=== PATIENT | female | born 1935 ===

== ENCOUNTER 2019-11-22 19:00 | Inpatient (IN) | payer OTHER ==
--- OUTSIDE RECORDS SUMMARY | 2019-11-22 19:07 | XMS REPORT ---
:1935 Author Organization eClinicalWorks Care Team Providers Name Role Phone Zay Hollnad Provider Role Unavailable Encounters Encounter Location Date Follow up, ref by Dr. Parry*CONFIRMED MD JAN Souza [facility] 2015 Results-MD JAN Condon October 09, 2015 1 week follow up MD JAN Souza October 16, 2015 2 weeks MD JAN Souza November 06, 2015 to check on email of blood pressure MD JAN Souza May 03, 2015 Unknown MD JAN Souza May 08, 2015 2 month follow up *confirmed MD JAN Souza Jun 21 5 Unknown MD JAN Souza Aug 12, 2015 Problems Problem Type Condition ICD-9 Code Onset Dates Condition Statu s Problem Hyperlipidemia 272.0 Active Problem HTN 401.1 Active Social History Social History Element Qualifiers Date Reported Do you smoke? . Are you a: Former Smoker quit October 112015 in 1996, Are you a: Former Smoker quit in 1996, Are you a: Former Smoker quit in 1996, Are you a: Former Smoker quit in 1996, Are you a: Former Smoker quit in 1996, Are you a: Former Smoker quit in 1996, Are you a: Former Smoker quit in 1996, Are you a: Former Smoker quit in 1996, Are you a: Former Smoker quit in 1996, Are you a: Former Smoker quit in 1996, Are you a: Former Smoker quit in 1996, Are you a: Former Smoker quit in 1996, Are you a: Former Smoker quit in 1996, Are you a: Former Smoker quit in 1996, Are you a: Former Smoker quit in 1996, Are you a: Former Smoker quit in 1996 Use of recreational / street drugs? . Answer: No, Answer: N o, Answer: November 06, 2015 No, Answer: No, Answer: No, Answer: No, Answer: No, Answer: No, Answer: No, Answer: No, Answer: No, Answer: No, Answer: No, Answer: No, Answer: No, Answer: No Marital Status: . , , , November 06, 2015 , , , , , , , , , , , , Caffeine intake? . Status: Yes, Status: Yes, November 05 016 Status: Yes, Status: Yes, Status: Yes, Status: Yes, Status: Yes, Status: Yes, Status: Yes, Status: Yes, Status: Yes, Status: Yes, Status: Yes, Status: Yes, Status: Yes, Status: Yes Do you exercise? . Answer: No, Answer: No, Answer: November 06, 2015 No, Answer: No, Answer: No, Answer: No, Answer: No, Answer: No, Answer: No, Answer: No, Answer: No, Answer: No, Answer: No, Answer: No, Answer: No, Answer: No Do you drink alcohol? . Status: No, Status: No, Status: Apr 2015 No, Status: No, Status: No, Status: No, Status: No, Status: No, Status: No, Status: No, Status: No, Status: No, Status: No, Status: No, Status: No, Status: No Summary Purpose eClinicalWorks Submission
--- OUTSIDE RECORDS SUMMARY | 2019-11-22 19:07 | XMS REPORT ---
:1935 Author Organization eClinicalWorks Care Team Providers Name Role Phone Zay Holland Provider Role Unavailable Encounters Encounter Location Date to check on email of blood pressure Sebastian Thakur [place] May 03, 2015 Unknown Sebastian Thakur [place] May 08, 2015 Problems Problem Type Condition ICD-9 Code Onset Dates Condition Statu s Problem Hyperlipidemia 272.0 Active Problem HTN 401.1 Active Social History Social History Element Qualifiers Date Reported Do you smoke? . Are you a: Former Smoker quit in Apr 23, 2015 1997 Use of recreational / street drugs? . Answer: No Apr 23, 2015 Marital Status: . Apr 23, 2015 Caffeine intake? . Status: Yes Apr 23, 2015 Do you exercise? . Answer: No Apr 23, 2015 Do you drink alcohol? . Status: No Apr 23, 2015 Summary Purpose eClinicalWorks Submission
--- OUTSIDE RECORDS SUMMARY | 2019-11-22 19:07 | XMS REPORT ---
:1935 [facility] Providers Name Role Phone Holland, Zay Provider Role Unavailable Allergies, Adverse Reactions, Alerts Substance Reaction Event Type N.K.D.A. Info Not Available Non Drug Allergy Encounters Encounter Location Date to check on email of blood pressure Sebastian Thakur MD [place] May 03, 2015 Unknown Sebastian Thakur [place] May 08, 2015 2 month follow up *confirmed Sebastian Thakur MD [place] Jun 21 5 Problems Problem Type Condition ICD-9 Code Onset Dates Condition Statu s Problem Hyperlipidemia 272.0 Active Assessment Chest pain, unspecified R07.9 Acti ve Problem HTN 401.1 Active Assessment Essential (primary) hypertension I10 Active Assessment Abnormal electrocardiogram [ECG] R94.31 Active [EKG] Assessment Shortness of breath R06.02 Active Assessment Hyperlipidemia, unspecified E78.5 Active Medications Medication Code System Code Instructions Start End Status Dosa ge Date Date Leflunomide MEDISPAN 10 MG Orally Active 1 tab let 73-56 Once a day Omeprazole MEDISPAN 17653-93 20 MG Orally Active 1 caps ule 11-10 Once a day Lumigan MEDISPAN 20962-10 0.01 % Active 1 drop into 05-03 Ophthalmic Once affected a day eye in the evening Alphagan P MEDISPAN 62463-94 0.15 % Active 1 drop into 77-05 Ophthalmic Three affecte d times a day eye Aggrenox MEDISPAN 20028-86 25-200 MG Orally Active 1 ca psule 01-60 Twice a day GlipiZIDE ER MEDISPAN 82143-45 10 MG Orally Active 1 ta blet 00-11 Once a day Tramadol HCl MEDISPAN 85097-39 50 MG Orally Active 1 ta blet as 58-01 every 6 hrs needed HCTZ Unknown 0 25MG Active Unknown Calcium + D MEDISPAN 16401-44 315-200 MG-UNIT Active 1 tablet 501 Orally Twice a with meal s day Enalapril MEDISPAN 5 MG Orally Once Active 1 t ablet Maleate 27-01 a day Atorvastatin [facility] 69502-27 20 MG Orally Active 1 ta blet Calcium 17-05 Once a day Social History Social History Element Qualifiers Date Reported Do you smoke? . Are you a: Former Smoker quit in Jun 21, 20151996, Are you a: Former Smoker quit in 1996 Use of recreational / street drugs? . Answer: No, Answer: N o Jun 21, 2015 Marital Status: . , Jun 21, 2015 Caffeine intake? . Status: Yes, Status: Yes Jun 21, 2015 Do you exercise? . Answer: No, Answer: No Jun 21, 2015 Do you drink alcohol? . Status: No, Status: No Jun 21, 2015 Vital Signs Date/Time: Jun 21, 2015 Weight 166 lbs Height 63 in Cardiac Monitoring Heart Rate 69 /min Blood Pressure Diastolic 70 mm Hg Blood Pressure Systolic 120 mm Hg Summary Purpose eClinicalWorks Submission
--- OUTSIDE RECORDS SUMMARY | 2019-11-22 19:07 | XMS REPORT | Continuity of Care Document ---
:1935 Author Organization [employer] Care Team Providers Name Role Phone [employer] Unavailable Un available Problems Problem Status Onset Classification Date Comments Sourc e Date Reported WEAKNESS/ STROKE LIKE Active SYMPTOMS 020 [place] ACUTE CVA, RECEIVED Active INTRAVENOUS TISSUE P 020 [facility] STROKE Active [address] HERMELINDO BILLING Active [address] G60.9 NEUROPATHY Active 016 [place] PAD Active 016 [facility] [place] Hyperlipidemia Active Problem 09/01/2019 Mirz [place] HTN Active Problem 09/01/2019 [place] Chest pain, unspecified Active Diagnosis 05/23/2016 [place] Essential (primary) Active Diagnosis 05/23/2016 Sebastian hypertension [place] Abnormal Active Diagnosis 05/23/2016 Sebastian electrocardiogram [ECG] [place] [EKG] Shortness of breath Active Diagnosis 05/23/2016 [place] Hyperlipidemia, Active Diagnosis 05/23/2016 Sal za unspecified [place] 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 middle [place] cerebral artery Hernia of abdominal Active Problem 03/12/2016 cavity (disorder) [place] Appendectomy Active Problem 03/12/2016 MH (procedure) [place] Bilateral cataracts Active Problem 03/12/2016 MH (disorder) [place] 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 MH (disorder) [place] Cholecystectomy Active Problem 03/12/2016 MH (procedure) [facility] [place] Osteoarthritis Active Problem 03/12/2016 MH (disorder) [place] Diverticulitis Resolved Problem 03/12/2016 (morphologic Greater abnormality) [facility] Dyslipidemia (disorder) Active Problem 03/12/2016 [place] Ex-cigarette smoker Active Problem 03/12/2016 MH (finding) [facility] [place] History of - Active Problem 03/12/2016 osteoarthritis Great er (context-dependent H eights category) History of - TIA Active Problem 03/12/2016 (context-dependent G reater category) [facility] Hearing loss (finding) Active Problem 03/12/2016 [facility] Hernia repair Active Problem 03/12/2016 (procedure) [facility] Hypercholesterolemia Active Problem 03/12/2016 (disorder) [facility] Hysterectomy Active Problem 03/12/2016 (procedure) [facility] Multiple ulcers Active Problem 03/12/2016 (morphologic Greater abnormality) [facility] Second cranial nerve Active Problem 03/12/2016 rt eye finding (finding) [place] Peripheral vascular Active Problem 03/12/2016 disease (disorder) [place] [facility] Pyloroplasty Active Problem 03/12/2016 (procedure) [facility] Reflux (finding) Active Problem 03/12/2016 [facility] Small bowel obstruction Active Problem 03/12/2016 (disorder) [facility] Vagotomy (procedure) Active Problem 03/12/2016 [facility] Coronary Active Problem 07/08/2019 [facility] arteriosclerosis Med ical (disorder) Center,[facility] 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 (disorder) [facility] Gallbladder calculus Resolved Problem 07/08/2019 [facility] (disorder) Medical [place],[facility] Gastroesophageal reflux Active Problem 07/08/2019 [facility] disease (disorder) edical Center,[facility] Glaucoma (disorder) Active Problem 07/08/2019 [facility] Hypertensive disorder, Active Problem 07/08/2019 [facility] systemic arterial Me dical (disorder) [place],[facility] Hyperlipidemia Active Problem 07/08/[place] (disorder) [facility] [place] Mitral valve Active Problem 07/08/2019 [facility] as regurgitation Medica l (disorder) [place] Normocytic anemia Active Problem 07/08/2019 [facility] (disorder) [facility] Rheumatoid arthritis Active Problem 07/08/2019 [facility] (disorder) Medical Center,[facility] ATHSCL SHISHMAREF IRA ARTERIES Active MH [facility] EX[facility]M [facility] HEREDITARY AND Active MH IDIOPATHIC NEUROPATHY, [facility] CEREBRAL INFARCTION, Active [facility] UNSPECIFIED Medical Center,[facility] S/P ADMN TPA IN DIFF Active FAC W/N LAST 24 HR G reater [facility] Medications Medication Details Route Status Patient Ordering Order Source Instructions Provider Date atorvastatin 40 40 mg = 1 Active Saurav as mg oral tablet tab, PO, 2018 Medical Bedtime, 0 Center Refill(s) carvedilol 12.5 12.5 mg = 1 Active [place] mg oral tablet tab, PO, 2018 Medical Q12H, 0 Center Refill(s) clopidogrel 75 mg 75 mg = 1 Active [facility] [place] oral tablet tab, PO, 2018 Medical Daily, 0 Center Refill(s) Aspirin 81 MG 81 mg = 1 Active [facility] Chewable Tablet tab, PO, 2018 Medical Daily, 0 Center Refill(s) enalapril 2.5 mg 2.5 mg = 1 Active [facility] [place] oral tablet tab, PO, 2018 Medical Q12H, 0 Center Refill(s) pantoprazole 40 40 mg = 1 Active Saurav as mg oral enteric tab, PO, 2018 Medical coated tablet Before Center Breakfast, 0 Refill(s) Lasix Notes: (Same Inactive [facility] as: Lasix) 2019 Medical May cause GI Center upset. Give with food or milk. Docusate Sodium Notes: (Same No Longer H [place] 50 MG / as Active 2018 Medical sennosides, HALFWAY Senokot-S) Cente r 8.6 MG Oral Equiv. to Tablet Loni-Colace. Insulin Glargine 8 unit, [place]er [place] 100 UNT/ML Route: Active 2019 Medical Injectable SUB-Q, Center Solution Daily, Dosing Weight 70.136, kg, Start date: 07/04/19 9:00:00 [employer] INSPECTOR, Duration: 30 day, Stop date: 08/02/19 9:00:00 [employer]WORK [employer] INSPECTOR tiotropium 0.018 Notes: (Same No Longer [place] MG/ACTUAT As: Spiriva) Active 2019 Medical Inhalant Powder Center [Spiriva] insulin, isophane Notes: (Same No Longer [place] as: Humulin Active 2018 Medical N) Roll in Center palms of hands gently; Do not shake vigorously. WASTE: F/P - Black; E - Municipal Trash Bin Stable for 31 days at room temperature Expires in days from __Date Ventolin HFA 90 2 puff, Active [place] mcg/inh INHALATION, 2019 Medical inhalation QID, 0 Center aerosol with Refill(s) adapter Fluticasone NASAL, No Longer [place] propionate 0.05 Daily, 0 Active 2018 Medical MG/ACTUAT Metered Refill(s) Cent er Dose Nasal [place] [Flonase] atorvastatin 10 10 mg = 1 No Longer [place] mg oral tablet tab, PO, Active 2018 Medical Daily, 0 [place] Refill(s) enalapril 5 mg 5 mg = 1 No Longer Saurav as oral tablet tab, PO, Active 2018 Medical Daily, 0 [place] Refill(s) predniSONE 2.5 mg 2.5 mg = 1 No Longer 06/28/ H [place] oral tablet tab, PO, Active 2018 Medical Daily, 0 Center Refill(s) Albuterol 0.833 Notes: (Same No Longer H [place] MG/ML / as: Duoneb) Active 2018 [facility] Ipratropium [place] 0.167 MG/ML Inhalant Solution [DuoNeb] Amiloride Route: PO, Inactive [place] Hydrochloride 5 Drug Form: 2019 Medic al MG / TAB, Dosing Center Hydrochlorothiazi Weight de 50 MG Oral 70.136, kg, Tablet Daily, Start date: 06/28/19 9:00:00 [employer]WORK [employer] INSPECTOR, Duration: 30 day, Stop date: 07/27/19 9:00:00 [employer]WORK [employer] INSPECTOR methylPREDNISolon Notes: (Same No Longer [place] e SODium as:Solu-MEDR Active 2018 [facility] SUCCinate OL, [place] A-Methapred) Coreg Notes: Give No Longer [place] with food. Active 2019 Medical (Same As: Center Coreg) Vasotec Notes: (Same Inactive [place] as: Vasotec) 2019 [facility] Hydralazine 10 mg, 0.5 [place] Longer [place] mL, Route: Active 2019 Medical IVP, Drug Center form: INJ, Q4H, Dosing Weight 70.136, kg, PRN Hypertension , Start date: 06/28/19 8:14:00 WO[employer]WORK [employer]VAGE INSPECTOR, Duration: 30 day, Stop date: 07/28/19 8:13:00 WO[employer]WORK SALVAGE INSPECTOR, 0 Albuterol 0.833 Notes: (Same Inactive [place] MG/ML / as: Duoneb) 2019 [facility] Ipratropium [place] 0.167 MG/ML Inhalant Solution [DuoNeb] Iohexol 99 mL, Inactive [place] Route: IVP, 2019 Medical Drug Form: Center SOLN, Dosing Weight 70.136, kg, ONCALL, STAT, Start date: 06/28/19 4:08:00 [employer]WORK [employer] INSPECTOR, Duration: 1 doses or times, Dose = 2.2ml/kg, Max dose = 100ml -- "To be infused by Radiology Staff ONLY" Potassium Notes: ([facility] Chlor[facility] as: Active 2019 [facility] Potassium [place] Chloride) atorvastatin Notes: (Same No Longer [place] as: Lipitor) Active 2019 [facility] enalapril Notes: (Same No Longer [place] as: Vasotec) Active 2019 [facility] Plavix Notes: (Same No Longer As: Plavix) Active 2019 [facility] Nystatin 100 Notes: (Same No Longer [place] UNT/MG Topical as:Mycostati Active [address] [facility] rom Powder n, Nilstat) Center For external use only. Zofran Notes: (Same No Longer [place] as: Zofran) Active 2019 Medical Center MEDICATION WASTE Product Size: 4 mg Product Wasted: ___ mg Tylenol Notes: Do No Longer [place] not exceed 4 Active 2019 Medical gm/day. Center (Same as: Tylenol) Magnesium Sulfate Notes: Inactive [place] WASTE: F/P - 2019 Medical Sink; E - Center Municipal Trash Bin Potassium Notes: (Same No Longer [place] Chloride as: Active 2019 [facility] Potassium Center Chloride) Miralax Notes: No Longer [place] Dissolve in Active 2019 Medical 8 oz of Center water or juice. (Same as: Miralax) Coreg Notes: Give No Longer [place] with food. Active 2019 Medical (Same As: Center Coreg) Mag-Ox 400 Notes: (Same No Longer Saurav as as: Mag-Ox Active 2019 Medical 400) Center Magnesium oxide [id number] elemental magnesium Dose=____mg magnesium oxide (___mg elemental magnesium) potassium Notes: (Same No Longer [place] chloride 20 mEq as: K-Dur Active 2018 Medica l oral tablet, 20) "Do Not Center extended release Crush" Give (KCL) with food and full glass of water For patients unable to swallow tablet, dissolve in one half glass of water. Allow about 2 minutes for the tablets to disintegrate . Stir before giving to prepare slurry and administer. Please exclude Patient&#821 7;s with feeding tube less than 14 [place] Citizen (Dobhoff, J-tube etc) and pediatric and patients. Lasix Notes: (Same No Longer [place] as: Lasix) Active 2019 Medical May cause GI Center upset. Give with food or milk. Lasix Notes: (Same Inactive [place] as: Lasix) 2019 Medical May cause GI Center upset. Give with food or milk. enalapril Notes: (Same No Longer [facility] as: Vasotec) Active 2019 Medical Center Omeprazole 20 mg, No Longer [place] Route: PO, Active 2019 Medical Drug form: Center ECCAP, Before Breakfast, Dosing Weight 68.182, kg, Start date: 06/25/19 7:30:00 WO[employer]WORK [employer] INSPECTOR, Duration: 30 day, Stop date: 07/24/19 7:30:00 [employer]WORK [employer] INSPECTOR Protonix Notes: No Longer [place] Tablet Active 2019 Medical should not Center be chewed or crushed. (Same as: Protonix) Lasix Notes: (Same Inactive [place] as: Lasix) 2019 Medical Center MEDICATION WASTE Product Size: 40 mg Product Wasted: ___ mg Dextrose 50% 12.5 gm, 25 [place]er [place] Syringe (D50W) mL, Route: Active 2018 Medica l IVP, Drug Center Form: INJ, Dosing Weight 68.182, kg, PRN, PRN Blood Glucose Results, Start date: 06/24/19 15:51:00 WO[employer]WORK [employer] INSPECTOR, Duration: 30 day, Stop date: 07/24/19 15:50:00 WO[employer]WORK [employer]VAGE INSPECTOR, 0 Glucagon 1 mg, Route: No Longer [place] IM, Drug Active 2019 Medical form: Center PDR/INJ, PRN, Dosing Weight 68.182, kg, PRN Blood Glucose Results, Start date: 06/24/19 15:51:00 WO[employer]WORK [employer] INSPECTOR, Duration: 30 day, Stop date: 07/24/19 15:50:00 WOODWORK SALVAGE INSPECTOR, 0 Insulin Lispro Notes: (Same No Longer [place] as: Humalog) Active 2019 Medical Roll in Center palms of hands gently; Do not shake vigorously. WASTE: F/P - Black; E - Municipal Trash Bin Stable for 28 days at room temperature. Expires in days from __Date Symbicort 160/4.5 Notes: (Same No Longer [place] inhalation as: Active 2019 Medical aerosol with Symbicort) Center adapter WASTE: Aerosol - Return to Pharmacy Albuterol 0.833 Notes: (Same No Longer H [place] MG/ML / as: Duoneb) Active 2019 Medical Ipratropium [place] 0.167 MG/ML Inhalant Solution [DuoNeb] Hydroxychloroquin 0 Refill(s) No Longer [place] e Sulfate 200 MG Active 2019 Medical Oral Tablet [place] Potassium Notes: (Same Inactive [place] Chloride as: K-Dur 2019 20) "Do Not Center Crush" Give with food and full glass of water For patients unable to swallow tablet, dissolve in one half glass of water. Allow about 2 minutes for the tablets to disintegrate . Stir before giving to prepare slurry and administer. Please exclude Patient&#821 7;s with feeding tube less than 14 [place] Citizen (Dobhoff, J-tube etc) and pediatric and patients. potassium Notes: (Same Inactive [place] chloride as: 2019 [facility] Potassium [place] Chloride) Lasix 40 mg, Inactive [place] Route: IVP, 2019 Medical Drug form: Center INJ, ONCE, Dosing Weight 68.182, kg, Priority: NOW, Start date: 06/24/19 12:34:00 WOODWORK [employer]VAGE INSPECTOR, Stop date: 06/24/19 12:34:00 WOODWORK SALVAGE INSPECTOR potassium 40 mEq, 2 Inactive [place] chloride 20 mEq tab, Route: 2019 Medi rom oral tablet, PO, Drug Center extended release form: ERTAB, (KCL) ONCE, Dosing Weight 68.182, kg, Priority: NOW, Start date: 06/24/19 12:34:00 WOODWORK SALVAGE INSPECTOR, Stop date: 06/24/19 12:34:00 WOODWORK SALVAGE INSPECTOR Lasix Notes: (Same Inactive [facility] as: Lasix) 2019 Medical Center MEDICATION WASTE Product Size: 40 mg Product Wasted: ___ mg heparin sodium, Notes: No Longer Saurav as porcine 2500 porcine Active 2018 [facility] UNT/ML Injectable heparin Center Solution Aspirin 81 MG Notes: Take No Longer [place] Chewable Tablet with food. Active 2019 Medic al Center atorvastatin Notes: (Same No Longer [place] As: Lipitor) Active 2019 [facility] Center Lasix Notes: (Same Inactive [facility] as: Lasix) 2019 [facility] normal saline 1,000 mL, No Longer Saurav as 0.9% IV 1,000 mL Rate: 75 Active 2019 Medica l ml/hr, Center Infuse over: 13.3 hr, Route: IV, Dosing Weight 68.182 kg, Total Volume: 1,000, Start date: 06/23/19 9:22:00 WOODWORK [employer]VAGE INSPECTOR, Duration: 30 day, Stop date: 07/23/19 9:21:00 WOODWORK SALVAGE INSPECTOR, 0 Iohexol Notes: (Same No Longer [facility] as:Omnipaque Active 2019 [facility] 350). Center WASTE: F/P - Black; E - Municipal Trash Bin enalapril 10 mg 10 mg = 1 No Longer [place] oral tablet tab, PO, Active 2019 Medical Daily, 0 Center Refill(s) 24 HR Glipizide 10 mg = 1 Active Saurav as 10 MG Extended tab, PO, 2019 Medical Release Tablet Daily, 0 Center Refill(s) Aspirin 25 MG / 1 cap, PO, No Longer [place] Dipyridamole 200 BID, 0 Active 2019 Medical MG Oral Capsule Refill(s) Center [Aggrenox] Omeprazole 20 mg, PO, No Longer [place] Daily, 0 Active 2019 Medical Refill(s) Center atorvastatin 20 20 mg = 1 No Longer [place] mg oral tablet tab, PO, Active 2018 Medical Daily, 0 Center Refill(s) Tramadol 50 mg, PO, No Longer [facility] Q4-6H, PRN Active 2019 Medical Pain, # 20 Center tab, 0 Refill(s) bimatoprost 0.3 1 drp, RIGHT Active [place] MG/ML Ophthalmic EYE, QPM, 0 2018 Med ical Solution Refill(s) Center [Lumigan] Combigan RIGHT EYE, Active [facility] Q12H, 0 2018 Medical Refill(s) [place] allopurinol 100 100 mg = 1 [place] mg oral tablet tab, PO, 2019 Medical BID, 0 Center Refill(s) gabapentin 400 MG 400 mg = 1 Active [place] Oral Capsule cap, PO, 2018 Medical TID, 0 Center Refill(s) Furosemide 20 MG 20 mg = 1 Active [place] Oral Tablet tab, PO, 2018 Medical Daily, 0 Center Refill(s) sitagliptin 100 100 mg = 1 Active [place] MG Oral Tablet tab, PO, 2019 Medical [Januvia] Daily, 0 Center Refill(s) predniSONE 2.5 mg 2.5 mg = 1 No Longer H [place] oral tablet tab, PO, Active 2018 Medical Daily, 0 Center Refill(s) Anoro Ellipta 1 puff, Active [place] 62.5 mcg-25 mcg INHALER, 2019 Medical inhalation powder Daily, # [address], 3 Refill(s) Flonase Sensimist NASAL, No Longer [place] Daily, 0 Active 2018 Medical Refill(s) Center Ventolin HFA INHALATION, No Longer [place] QID, 0 Active 2018 Medical Refill(s) Center sulfaSALAzine 500 1,000 mg = 2 Active H [place] mg oral tablet tab, PO, 2019 Medical BID, 0 Center Refill(s) sennosides, HALFWAY Notes: (Same No Longer 06/23/ H [place] as: Senokot) Active 2018 Medical Center Saline Flush 0.9% Notes: (Same No Longer [place] as: BD Active 2018 Medical Posiflush) Center Labetalol 105 mmHg, No Longer [place] Start date: Active 2018 [facility] 06/22/19 Center 18:58:00 WOODWORK SALVAGE INSPECTOR, Duration: 30 day, Stop date: 07/22/19 18:57:00 WOODWORK SALVAGE INSPECTOR, 0 Saline Flush 0.9% Notes: (Same No Longer [place] as: BD Active 2018 [facility] Posiflush) Center Metoprolol 1/2 tablet Orally Active 12.5 Orally [place] 02/04/ Sebastian Tartrate with food Twice a day 2015 [place] ceFAZolin (ANES) Route: IV, Inactive Drug form: 2015 [facility] INJ, ONCE, [facility] Stop date: 11/08/15 10:13:00 CDT ondansetron Route: IV, Inactive (ANES) Drug form: 2015 [facility] INJ, ONCE, [facility] Stop date: 11/08/15 10:13:00 CDT fentaNYL (ANES) Route: IV, Inactive Drug form: 2015 [facility] INJ, ONCE, [facility] Stop date: 11/08/15 10:13:00 CDT midazolam (ANES) Route: IV, Inactive Drug form: 2015 [facility] SOLN, ONCE, [facility] Stop date: 11/08/15 10:13:00 CDT Lactated Ringers Route: IV, Inactive Injection IV Total 2015 [facility] (ANES) (ANES) Volume: [place] 1,000, Start date: 11/08/15 9:27:00 CDT, Stop date: 11/08/15 10:27:00 CDT Calcium Chloride 1,000 mL, Inactive 0.0014 MEQ/ML / Rate: 25 2015 Potassium ml/hr, [place] Chloride 0.004 Infuse over: MEQ/ML / Sodium 40 hr, Chloride 0.103 Route: IV, MEQ/ML / Sodium Dosing Lactate 0.028 Weight MEQ/ML Injectable 72.273 kg, Solution Total Volume: 1,000, Start date: 11/08/15 7:24:00 CDT, Duration: 1 day, Stop date: 11/09/15 7:23:00 CDT Metoprolol 1 tablet Orally Active 25 MG Orally [place] 11/05/ Sebastian Succinate ER Once a day 2015g enalapril 10 mg 10 mg = 1 Active oral tablet tab, PO, 2015 [facility] Daily, # 30 [place] tab, 0 Refill(s) atorvastatin 20 20 mg = 1 Active mg oral tablet tab, PO, 2016 [facility] Bedtime, # [place] 30 tab, 0 Refill(s) Brimonidine 1 drp, RIGHT Active tartrate 1.5 EYE, BID, # 2016 [facility] MG/ML Ophthalmic 10 mL, 0 [place] s Solution Refill(s) [Alphagan] leflunomide 10 mg 10 mg = 1 Active oral tablet tab, PO, 2016 Daily, # 30 [place] tab, 0 Refill(s) bimatoprost 0.3 1 drp, RIGHT Active MG/ML Ophthalmic EYE, QPM, # 2016 [place] ater Solution 3 ml, 0 [place] [Lumigan] Refill(s) Calcium Carbonate 1 tab, PO, Active 1500 MG / BID, # 60 2016 [facility] Cholecalciferol tab, 0 [place] 400 UNT Oral Refill(s) Tablet Atorvastatin 1 tablet Orally Active 20 MG Orally [place] Calcium Once a day [place] Leflunomide 1 tablet Orally Active 10 MG Orally [place] Once a day [facility] HCTZ Unknown NA Active 25MG [place] Sebastian [facility] Calcium + D 1 tablet Orally Active 315-200 [place] Sebastian with meals MG-UNIT [place] Orally Twice a day Omeprazole 1 capsule Orally Active 20 MG Orally [place] Once a day [place] Aggrenox 1 capsule Orally Active 25-200 MG [place] Orally Twice [place] a day Alphagan P 1 drop into Ophthalmic Active 0.15 % [place] Sebastian affected eye Ophthalmic [place] Three times a day Tramadol HCl 1 tablet as Orally Active 50 MG Orally [place] Mi rza needed every 6 hrs [place] Lumigan 1 drop into Ophthalmic Active 0.01 % [place] Sebastian affected eye Ophthalmic [place] in the Once a day evening Enalapril Maleate 1 tablet Orally Active 5 MG Orally [place] M irza Once a day [facility] GlipiZIDE ER 1 tablet Orally Active 10 MG Orally [place] Once a day [facility] Lasix 1 tablet Orally Active 20 MG Orally [place] Once a day [facility] Metoprolol 1 tablet Orally No Longer 25 MG Orally [place] Succinate ER Active Once a day [facility] Gabapentin 1 capsule Orally Active 300 MG Orally [place] Three times a [place] day Metoprolol 1/2 tablet Orally Active 12.5 Orally [place] Tartrate with food Twice a day [place] Allergies, Adverse Reactions, Alerts Substance Category Reaction Severity Reaction Status Date Comments S ource type Reported N.K.D.A. Adverse Info Not Adverse Active Mirz a Reaction Available Reaction 6 [place] No Known Assertion Drug [facility] xa Medication allergy Medic al Allergies Center Immunizations Immunization Date Given Site Status Last Comments Source Updated influenza virus 03/13/2010 completed Yap [facility] vaccine, Medical [facility] [place] [facility] Hx pneumococcal 05/24/2008 Left completed Anaekwe [facility] vaccine deltoid [facility] Hx influenza 05/24/2008 Left completed Anaekwe Saurav as vaccine-unspecifi [place]toid [place] [facility] Results Order Name Results Value Reference Date Interpretation Comments Farida rce Range CHEM PANEL Magnesium Lvl 1.9 1.8 - 2.4 07/06 [facility] xa [facility] CHEM PANEL Phosphorus 2.6 2.5 - 4.5 07/[address] ELECTROLYTE AGAP 12.7 10.0 - 07/06 [facility] S 20.0 [facility] ELECTROLYTE Glucose Lvl 86 70 - 99 07/06 [facility]2018 [facility] ELECTROLYTE BUN 21 7 - 22 07/06 [facility]2018 [facility] ELECTROLYTE Creatinine 1.57 0.50 - 07/06 [facility] S Lvl 1.40 [facility] ELECTROLYTE Sodium Lvl 136 135 - 145 07/06 [place] [facility]2018 [facility] ELECTROLYTE Potassium Lvl 3.7 3.5 - 5.1 07/06 [place] [facility] ELECTROLYTE Chloride Lvl 103 95 - 109 07/06 Saurav as S [facility] ELECTROLYTE CO2 24 24 - 32 07/06 [facility]2018 [facility] ELECTROLYTE Calcium Lvl 9.2 8.5 - 10.5 07/06 [place] [facility] ELECTROLYTE eGFR 30 07/06 Result [facility] Comment: The Medical eGFR is Center calculated using the CKD-EPI formula. In most young, healthy individuals the eGFR will be >90 mL/min/1.73m2 . The eGFR declines with age. An eGFR of 60-89 may be normal in some populations, particularly the elderly, for whom the CKD-EPI formula has not been extensively validated. Use of the eGFR is not recommended in the following populations:< br/>
Jayshree viduals with unstable creatinine concentration s, including patients and those with serious co-morbid conditions.<b r/>
Patie nts with extremes in muscle mass or diet.

The data above are obtained from the National Kidney Disease Education Program (NKDEP) which additionally recommends that when the eGFR is used in patients with extremes of body mass index for purposes of drug dosing, the eGFR should be multiplied by the estimated BMI. HEMATOLOGY WBC 6.1 3.7 - 10.4 07/06 [facility] HEMATOLOGY RBC 3.52 4.20 - 07/06 [facility] 5.40 [facility] HEMATOLOGY Hgb 10.4 12.0 - 07/06 [facility] 16.0 [facility] HEMATOLOGY Hct 32.2 36.0 - 07/06 [facility] 48.0 [facility] HEMATOLOGY MCV 91.5 80.0 - 07/06 [facility] 98.0 [facility] HEMATOLOGY MCH 29.6 27.0 - 07/06 [facility] 31.0 [facility] HEMATOLOGY MCHC 32.3 32.0 - 07/06 [facility] 36.0 [facility] HEMATOLOGY RDW 16.0 11.5 - 07/06 [facility] 14.5 [facility] HEMATOLOGY Platelet 165 133 - 450 07/06 [facility]2018 [facility] HEMATOLOGY MPV 10.3 7.4 - 10.4 07/06 [facility]2018 [facility] PARATHYROID Ca Ion WB 1.14 1.05 - 07/06 [facility] PROFILE 1. [facility] PARATHYROID Ca Norm WB 1.16 1.05 - 07/06 [facility] PROFILE . [facility] CARDIAC Troponin-I 0.04 0.00 - 07/05 [facility] ENZYMES 0.40 [facility] CHEM PANEL Glucose Lvl 165 70 - 99 07/04 [facility] CHEM PANEL BUN 63 7 - 22 07/04 [facility] CHEM PANEL Creatinine 1.74 0.50 - 07/04 [place] Lvl 1.40 [facility] CHEM PANEL Sodium Lvl 140 135 - 145 07/04 [facility] CHEM PANEL Potassium Lvl 3.8 3.5 - 5.1 07/04 [facility] CHEM PANEL Chloride Lvl 101 95 - 109 07/04 [facility] CHEM PANEL CO2 31 24 - 32 07/04 [facility] CHEM PANEL Calcium Lvl 9.2 8.5 - 10.5 07/04 [facility] CHEM PANEL AGAP 11.8 10.0 - 07/04 [place] 20.0 [facility] CHEM PANEL eGFR 27 07/04 [facility] Comment: The [facility] eGFR is Center calculated using the CKD-EPI formula. In most young, healthy individuals the eGFR will be >90 mL/min/1.73m2 . The eGFR declines with age. An eGFR of 60-89 may be normal in some populations, particularly the elderly, for whom the CKD-EPI formula has not been extensively validated. Use of the eGFR is not recommended in the following populations:< br/>
Jayshree viduals with unstable creatinine concentration s, including patients and those with serious co-morbid conditions.<b r/>
Patie nts with extremes in muscle mass or diet.

The data above are obtained from the National Kidney Disease Education Program (NKDEP) which additionally recommends that when the eGFR is used in patients with extremes of body mass index for purposes of drug dosing, the eGFR should be multiplied by the estimated BMI. CHEM PANEL Glucose Lvl 160 70 - 99 07/03 [facility] CHEM PANEL BUN 67 7 - 22 07/03 [facility] CHEM PANEL Creatinine 1.66 0.50 - 07/03 [place] Lvl 1.40 [facility] CHEM PANEL Sodium Lvl 139 135 - 145 07/03 [facility] CHEM PANEL Potassium Lvl 3.9 3.5 - 5.1 07/03 [facility] CHEM PANEL Chloride Lvl 101 95 - 109 07/03 [facility] CHEM PANEL CO2 29 24 - 32 07/03 [facility]2018 [facility] CHEM PANEL Calcium Lvl 9.6 8.5 - 10.5 07/03 [facility] CHEM PANEL Total Protein 5.9 6.4 - 8.4 07/03 [facility] CHEM PANEL Albumin Lvl 2.6 3.5 - 5.0 07/03 [facility] CHEM PANEL ALT 11 0 - 65 07/03 [facility]2018 [facility] CHEM PANEL AST 10 0 - 37 07/03 [facility]2018 [facility] CHEM PANEL Alk Phos 57 39 - 136 07/03 [facility]2018 [facility] CHEM PANEL Bili Total 0.3 0.2 - 1.3 07/03 [facility]2018 [facility] CHEM PANEL eGFR 28 07/03 [facility] Comment: The [facility] eGFR is Center calculated using the CKD-EPI formula. In most young, healthy individuals the eGFR will be >90 mL/min/1.73m2 . The eGFR declines with age. An eGFR of 60-89 may be normal in some populations, particularly the elderly, for whom the CKD-EPI formula has not been extensively validated. Use of the eGFR is not recommended in the following populations:< br/>
Jayshree viduals with unstable creatinine concentration s, including patients and those with serious co-morbid conditions.<b r/>
Patie nts with extremes in muscle mass or diet.

The data above are obtained from the National Kidney Disease Education Program (NKDEP) which additionally recommends that when the eGFR is used in patients with extremes of body mass index for purposes of drug dosing, the eGFR should be multiplied by the estimated BMI. CHEM PANEL AGAP 12.9 10.0 - 07/03 [facility] 20. [facility] CHEM PANEL B/C Ratio 40 6 - 25 07/03 [facility]2018 [facility] CHEM PANEL Globulin 3.3 2.7 - 4.2 07/03 [facility]2018 [facility] CHEM PANEL A/G Ratio 0.8 0.7 - 1.6 07/03 [facility]2018 [facility] CHEM PANEL Magnesium Lvl 2.4 1.8 - 2.4 07/03 [facility] CHEM PANEL Phosphorus 3.1 2.5 - 4.5 07/03 [facility] PARATHYROID Ca Ion WB 1.21 1.05 - 07/03 [place] PROFILE 08.05 [facility] PARATHYROID Ca Norm WB 1.22 1. - 07/03 [facility] PROFILE 08.05 [facility] CHEM PANEL Magnesium Lvl 2.5 1.8 - 2.4 07/02 [facility] CHEM PANEL Phosphorus 3.0 2.5 - 4.5 07/02 [facility] PARATHYROID Ca Ion WB 1.23 1. - 07/02 [place] PROFILE 08.05 [facility] PARATHYROID Ca Norm WB 1.21 1. - 07/02 [facility] PROFILE 08.05 [facility] HEMATOLOGY WBC 10.2 3.7 - 10.4 07/02 [facility]2018 [facility] HEMATOLOGY RBC 3.57 4.20 - 07/02 [place] 5.40 [facility] HEMATOLOGY Hgb 10.4 12.0 - 07/02 [place] 16.0 2019 [facility] HEMATOLOGY Hct 32.9 36.0 - 07/02 [place] 48.0 [facility] HEMATOLOGY MCV 92.0 80.0 - 07/02 [place] 98.0 [facility] HEMATOLOGY MCH 29.0 27.0 - 07/02 [place] 31.0 2019 [facility] HEMATOLOGY MCHC 31.5 32.0 - 07/02 [place] 36.0 2019 [facility] HEMATOLOGY RDW 16.5 11.5 - 07/02 [place] 14.5 [facility] HEMATOLOGY Platelet 210 133 - 450 07/02 [facility] HEMATOLOGY MPV 9.4 7.4 - 10.4 07/02 [facility] HEMATOLOGY Segs 74.5 45.0 - 07/02 [place] 75.0 2019 [facility] HEMATOLOGY Lymphocytes 12.5 20.0 - 07/02 [place] 40.0 2019 [facility] HEMATOLOGY Monocytes 10.7 2.0 - 12.0 07/02 [facility]2018 [facility] HEMATOLOGY Eosinophils 2.0 0.0 - 4.0 07[place]02 [place] [facility] HEMATOLOGY Basophils 0.3 0.0 - 1.0 07/02 [facility]2018 [facility] HEMATOLOGY Neutrophils # 7.6 1.5 - 8.1 [place] [facility] HEMATOLOGY Lymphocytes # 1.3 1.0 - 5.5 [place] [facility] HEMATOLOGY Monocytes # 1.1 0.0 - 0.8 07/02 a s [facility] HEMATOLOGY Eosinophils # 0.2 0.0 - 0.5 07/02 [facility] x[facility] HEMATOLOGY WBC 12.2 3.7 - 10.4 07/01 [facility] HEMATOLOGY RBC 3.50 4.20 - 07/01 [place] 5.40 /2019 [facility] HEMATOLOGY Hgb 9.9 12.0 - 07/01 [place] 16.0 2019 [facility] HEMATOLOGY Hct 32.1 36.0 - 07/01 [facility] 48.0 [facility] HEMATOLOGY MCV 91.5 80.0 - 07/01 [facility] 98.0 [facility] HEMATOLOGY MCH 28.3 27.0 - 07/01 [place] 31.0 2019 [facility] HEMATOLOGY MCHC 30.9 32.0 - 07/01 [place] 36.0 2019 [facility] HEMATOLOGY RDW 16.5 11.5 - 07/01 [place] 14.5 2019 [facility] HEMATOLOGY Platelet 211 133 - 450 07/01 [facility] HEMATOLOGY MPV 9.5 7.4 - 10.4 07/01 [facility] HEMATOLOGY Segs 76.4 45.0 - 07/01 [facility] 75.0 /2019 [facility] HEMATOLOGY Lymphocytes 10.0 20.0 - 07/01 [place] 40.0 2019 [facility] HEMATOLOGY Monocytes 13.4 2.0 - 12.0 07/01 [facility] HEMATOLOGY Basophils 0.2 0.0 - 1.0 07/01 [facility] HEMATOLOGY Neutrophils # 9.3 1.5 - 8.1 07/01 [facility] HEMATOLOGY Lymphocytes # 1.2 1.0 - 5.5 07/[place] [facility] HEMATOLOGY Monocytes # 1.6 0.0 - 0.8 07/01 [facility] CARDIAC BNP 783 <=100 06/30 [facility] ENZYMES pg/mL [facility] CHEM PANEL Lactic Acid 1.1 0.5 - 2.2 06/30 [place] [facility] CHEM PANEL Procalcitonin 0.14 0.00 - 06/30 [facility] Lvl 0.10 [facility] HEMATOLOGY Segs 83.8 45.0 - 06/30 [facility] 75.0 [facility] HEMATOLOGY Lymphocytes 6.9 20.0 - 06/30 [facility] 40.0 [facility] HEMATOLOGY Monocytes 9.0 2.0 - 12.0 06/[address] HEMATOLOGY Basophils 0.3 0.0 - 1.0 06/[address] HEMATOLOGY Neutrophils # 10.9 1.5 - 8.1 06/30 [facility] HEMATOLOGY Lymphocytes # 0.9 1.0 - 5.5 06/30 [facility]2018 [facility] HEMATOLOGY Monocytes # 1.2 0.0 - 0.8 06/30 [facility]2018 [facility] CARDIAC BNP 583 <=100 06/28 [facility] ENZYMES pg/mL [facility] CHEM PANEL B/C Ratio 29 6 - 25 06/[address] CHEM PANEL Globulin 3.8 2.7 - 4.2 06/[address] CHEM PANEL A/G Ratio 0.7 0.7 - 1.6 06/[address] CHEM PANEL Total Protein 6.6 6.4 - 8.4 06/28 [facility] [address] [place] [address] CHEM PANEL Albumin Lvl 2.8 3.5 - 5.0 06/[address] CHEM PANEL ALT 14 0 - 65 06/[address] CHEM PANEL AST 14 0 - 37 06/[address] CHEM PANEL Alk Phos 71 39 - 136 06/[address] CHEM PANEL Bili Total 0.4 0.2 - 1.3 06/[address] CHEM PANEL B/C Ratio 25 6 - 25 06/[address] CHEM PANEL Total Protein 6.1 6.4 - 8.4 06/[address] CHEM PANEL Albumin Lvl 2.6 3.5 - 5.0 06/[address] CHEM PANEL Globulin 3.5 2.7 - 4.2 06/[address] CHEM PANEL A/G Ratio 0.7 0.7 - 1.6 06/26 [facility] [address] [place] [address] CHEM PANEL ALT 10 0 - 65 06/[address] CHEM PANEL AST 12 0 - 37 06/[address] CHEM PANEL Alk Phos 63 39 - 136 06/[address] CHEM PANEL Bili Total 0.2 0.2 - 1.3 06/[address] HEMATOLOGY Eosinophils 2.2 0.0 - 4.0 06/[address] HEMATOLOGY Eosinophils # 0.2 0.0 - 0.5 06/[address] HEMATOLOGY Basophils # 0.1 0.0 - 0.2 06/[address] CHEM PANEL Procalcitonin 0.11 0.00 - 06/25 [facility] Lvl 0.10 [facility] HEMATOLOGY Eosinophils 2.0 0.0 - 4.0 06/[address] HEMATOLOGY Eosinophils # 0.2 0.0 - 0.5 06/[address] HEMATOLOGY Basophils # 0.1 0.0 - 0.2 06/[address] CARDIAC BNP 1546 <=100 06/24 [facility] ENZYMES pg/mL [facility] CHEM PANEL Bili Direct <0.1 0.0 - 0.3 06/[address] CHEM PANEL Bili Indirect Unable to 0.0 - 1.0 06/24 [facility] [address] [place] [address] URINE AND UA Color Yellow Yellow 06/23 [facility] STOOL *NA* /2018 Medical (06/22/19 9:23 PM) Cente r URINE AND UA Turbidity Clear Clear 06/23 [facility] STOOL (06/22/19 9:23 PM) [facility] URINE AND UA Spec Grav 1.050 <=1.030 06/23 [facility] [address] [place] [address] URINE AND UA pH 5.0 5.0 - 8.0 06/23 [facility] [address] [place] [address] URINE AND UA Protein Negative Negative 06/23 [facility] STOOL (06/22/19 9:23 PM) [facility] URINE AND UA Glucose Negative Negative 06/23 [facility] STOOL *NA* /2018 [facility] (06/22/19 9:23 PM) Cente r URINE AND UA Ketones Negative Negative 06/23 [facility] STOOL *NA* /2018 [facility] (06/22/19 9:23 PM) Cente r URINE AND UA Bili Negative Negative 06/23 [facility] STOOL *NA* Medical (06/22/19 9:23 PM) Cente r URINE AND UA Blood Negative Negative 06/23 [facility] (06/22/19 9:23 PM) [facility] URINE AND UA <1.0 0.1 - 1.0 06/23 [facility] Urobilinogen /2018 [facility] URINE AND UA Nitrite Negative Negative 06/23 [facility] (06/22/19 9:23 PM) [facility] URINE AND UA Leuk Est Negative Negative 06/23 [facility] (06/22/19 9:23 PM) [facility] URINE AND UA Sq Epi Many /LPF Few /LPF 06/23 [facility] STOOL [facility] URINE AND UA WBC 1 0 - 5 06/23 [facility] STOOL [facility] URINE AND UA RBC 1 0 - 2 06/23 [facility] STOOL [facility] URINE AND UA Mucus Few /LPF None Seen 06/23 [facility] STOOL /LPF /2018 [facility] LIPIDS CHD Risk 3.46 3.90 - 06/23 [facility] 5.80 [facility] LIPIDS Trig 138 <=149 06/23 [facility] mg/dL [facility] LIPIDS Chol 142 <=199 06/23 [facility] mg/dL [facility] LIPIDS HDL 41 >=61 mg/dL 06/23 [facility] LIPIDS LDL 73 <=99 mg/dL 06/23 [facility] (Calculated) [facility] LIPIDS VLDL 28 06/23 [facility] SPECIAL Hgb A1C 6.7 <=5.6 % 06/23 [facility] CHEMISTRY /2018 [facility] HEMATOLOGY PTT 22.2 22.9 - 06/23 [place] 35.8 [facility] HEMATOLOGY INR 1.09 0.85 - 06/23 [facility] 1.17 [facility] HEMATOLOGY PT 13.9 12.0 - 06/23 [facility] 14.7 [facility] HEMATOLOGY RBC Morph See Note 4 Normal 06/23 Result [facility] (06/22/19 6:52 PM) /2018 Comment: [facility] ovalocytosis HEMATOLOGY Plt Morph Normal Normal 06/23 [facility] (06/22/19 6:52 PM) /2018 [facility] HEMATOLOGY Basophils # 0.1 0.0 - 0.2 06/23 [place] [facility] HEMATOLOGY Anisocyte 1+ None Seen 06/23 [facility] *ABN* /2018 [facility] (06/22/19 6:52 PM) Cente r ELECTROLYTE AGAP 10.9 10.0 - 11/04 S 20.0 /2015 [facility] ELECTROLYTE eGFR 40 11/04 Result Comment: The [facility] [place] calculated using the CKD-EPI formula. In most young, healthy individuals the eGFR will be >90 mL/min/1.73m2 . The eGFR declines with age. An eGFR of 60-89 may be normal in some populations, particularly the elderly, for whom the CKD-EPI formula has not been extensively validated. Use of the eGFR is not recommended in the following populations:< br/>
Jayshree viduals with unstable creatinine concentration s, including patients and those with serious co-morbid conditions.<b r/>
Patie nts with extremes in muscle mass or diet.

The data above are obtained from the National Kidney Disease Education Program (NKDEP) which additionally recommends that when the eGFR is used in patients with extremes of body mass index for purposes of drug dosing, the eGFR should be multiplied by the estimated BMI. ELECTROLYTE Creatinine 1.26 0.50 - 11/04 S Lvl 1.40 /2015 [facility] ELECTROLYTE BUN 25 7 - 22 11/04 [facility] ELECTROLYTE Sodium Lvl 138 135 - 145 11/04 [facility] ELECTROLYTE Glucose Lvl 115 70 - 99 11/04 S [facility] ELECTROLYTE Potassium Lvl 4.9 3.5 - 5.1 11/04 [facility] ELECTROLYTE CO2 30 24 - 32 11/04 [facility] ELECTROLYTE Chloride Lvl 102 95 - 109 11/04 [facility] ELECTROLYTE Calcium Lvl 9.5 8.5 - 10.5 11/04 [facility] HEMATOLOGY MCV 91.2 80.0 - 11/04 [facility] 98.0 /2015 [facility] HEMATOLOGY MCH 28.8 27.0 - 11/04 [facility] 31.0 /2015 [facility] HEMATOLOGY WBC 9.0 3.7 - 10.4 11/04 [facility] HEMATOLOGY Hgb 11.4 12.0 - 11/04 16.0 /2016 [facility] HEMATOLOGY Hct 36.2 36.0 - 11/04 48.0 /2016 [facility] HEMATOLOGY RBC 3.97 4.20 - 11/04 5.40 /2015 [facility] HEMATOLOGY MPV 8.5 7.4 - 10.4 11/04 [facility] HEMATOLOGY RDW 15.0 11.5 - 11/04 14.5 /2015 [facility] HEMATOLOGY Platelet 238 133 - 450 11/04 [facility] HEMATOLOGY MCHC 31.6 32.0 - 11/04 36.0 /2015 [facility] HEMATOLOGY Monocytes # 1.0 0.0 - 0.8 11/04 [facility] HEMATOLOGY Eosinophils # 0.1 0.0 - 0.5 11/04 [facility] HEMATOLOGY Lymphocytes # 2.1 1.0 - 5.5 11/04 [facility] HEMATOLOGY Basophils # 0.1 0.0 - 0.2 11/04 [facility] HEMATOLOGY Segs-Bands # 5.8 1.5 - 8.1 11/04 [facility] HEMATOLOGY Eosinophils 1.3 0.0 - 4.0 11/04 [facility] HEMATOLOGY Basophils 0.6 0.0 - 1.0 11/04 [facility] HEMATOLOGY Monocytes 10.9 2.0 - 12.0 11/04 [facility] HEMATOLOGY Lymphocytes 22.8 20.0 - 11/04 40.0 /2016 [facility] HEMATOLOGY Segs 64.4 45.0 - 11/04 75.0 /2015 [facility] HEMATOLOGY INR 0.93 0.85 - 11/04 1.17 /2015 [facility] HEMATOLOGY PT 12.8 12.0 - 11/04 14.7 /2016 [facility] HEMATOLOGY PTT 27.8 22.9 - 11/04 35.8 /2016 [facility] Pathology Reports No Data Provided for This Section Diagnostic Reports Report Value Date Source Gastric tube PROCEDURE INFORMATION: 09/13/2019 [facility] placement VR Exam: IR Insertion of the Pe rcutaneous Gastric Tube with Fluoroscopic Guidance Exam date and time: 09/13/2019 2:58 PM Age: 83 years old Clinical indication: Condition or disease; Addit ional info: /feeding TECHNIQUE: Imaging protocol: IR Insertion of the Percutaneo us Gastric Tube with Fluoroscopic Guidance; US guidance was provided, and stored at the facility. COMPARISON: ABDOMEN 1V FOR PLACEMENT DX 09/11/2019 11:21 PM FINDINGS: Consent: The procedure, risks, benefits and alternatives of the procedure were discussed. Time out: Timeout was performed prior to the pro cedure. Level of sedation: None. Total intra-service sedation time (minutes): Non e. Medications administered: Fentanyl 50 mcg IV. Procedure summary: The patient was placed supine on the fluoroscopy table. The existing enteric feeding catheter was utilized for air insufflati on. Air insufflation of the catheter confirmed proper in traluminal position within the stomach with gastric distension. Focused sonographic evaluation of the up per abdomen demonstrated the margin of the left lobe of the liver. Marking was made on the skin. The stomach was distended utilizing the enteric catheter. A prop er window for placement was visualized. The transverse colon position was no ana. The left upper quadrant of the abdomen was prepp ed and draped in the usual sterile fashion. 1% lidocaine was infused into t he subcutaneous tissues for local anesthesia. A gastropexy anchor was advanc ed into the stomach utilizing fluoroscopic guidance. Hand contrast injection t hrough the catheter confirmed proper intraluminal position within the stomach. The gastropexy anchor was deployed. The procedure was repeated for the oli cement of a 2nd gastropexy anchor. An 18 gauge needle was advanced into the stomach utilizing fluoroscopic guidance. Hand contrast injection through the ne edle confirmed proper intraluminal position within the stomach . A 0.035 in wire was advanced through the needle and was coiled wi thin the stomach. Serial dilations were placed over the wire. A peel-away sheath was placed over the wire. The stylet and wire were removed. The gastrostomy catheter was advanced t hrough the peel-away sheath. The balloon was distended wi th 10 cc of sterile saline. Hand contrast injection through the gastrostomy catheter confirm ed proper intraluminal position of the gastrostomy tip. The catheter was secured into p torsten position. Sterile dressing was applied. The patient tolerated the procedure well. There were no immediate complications. The patient w as transferred to the post procedure area in stable unchanged condition for further monitoring. Complications: No immediate complications. Fluoroscopy time: 10.4 minutes Number of fluoro spot images: 7 Reference Air Kerma: 113 mGy IMPRESSION: Successful insertion of the percutaneous gastros clarisa catheter utilizing fluoroscopic and ultrasound guidance. The catheter may be used after 24 hours. Dagoberto Gee MD On 09/13/2019 17:23:43; [id number]__ [id number] Abdomen 1 v for PROCEDURE INFORMATION: 09/11/2019 Debra Medeiros Placement DX Exam: XR Abdomen, 1 View Exam date and time: 09/11/2019 11:21 PM Age: 83 years old Clinical indication: Device placement; Additiona l info: /dobhoff placement TECHNIQUE: Imaging protocol: XR of the abdomen. Views: Frontal supine view of the abdomen. 1 Vie w. COMPARISON: ABDOMEN 1V FOR PLACEMENT DX 09/08/2019 4:43 PM CR ABDOMEN 1V FOR PLACEMENT DX 06/25/2019 11:58 PM FINDINGS: Tubes, catheters and devices: Dobbhoff feeding t ube projects over the distal stomach. Lungs: Abnormal opacity is demonstrated within e ach lung base. Heart/Mediastinum: Each hemidiaphragm is obscure d. Gastrointestinal tract: Residual GI contrast mat erial is demonstrated within the colon. Evidence of diverticulosis. Organs: Evidence of previous cholecystectomy. Bones/joints: No significant abnormality. IMPRESSION: 1. Dobbhoff feeding tube projects over the dista l aspect of the stomach. 2. Bibasilar atelectasis or infiltrate. 3. Residual GI contrast within the colon. Coloni c diverticula noted incidentally. 4. Dobbhoff feeding tube projects over the dista l stomach. Michael Hodgson MD On 09/12/2019 00:06:52; ELGIN-SMEM [id number] Abdomen 1 v for PROCEDURE INFORMATION: 09/08/2019 Debra Medeiros Placement DX Exam: XR Abdomen, 1 View Exam date and time: 09/08/2019 4:43 PM Age: 83 years old Clinical indication: Device placement; Additiona l info: Tube placement/tube placement TECHNIQUE: Imaging protocol: XR of the abdomen. Views: Frontal supine view of the abdomen. 1 Vie w. COMPARISON: CR ABDOMEN 1V FOR PLACEMENT DX 06/25/2019 11:58 PM FINDINGS: The visualized abdominal bowel gas pattern is u nremarkable. Tip of a feeding tube is in the body of the stomach. IMPRESSION: Tip of feeding tube in the body of the stomach Asa Munoz MD On 09/08/2019 18:05:49; [id number] Esophagus BA swallow PROCEDURE INFORMATION: 09/08/2019 KENNETH [facility] function video DX Exam: FL Swallowing Function with Cine or Vide o Exam date and time: 09/08/2019 9:29 AM Age: 83 years old Clinical indication: Dysphagia/cva, pna TECHNIQUE: Imaging protocol: Swallowing function, with cine radiography/ videoradiograph. Guided with fluoroscopy. Svetlana valladares supervised by facility personnel. Radiologist was present. Contrast material: BARIUM; Contrast volume: 50 m l; Contrast route: ORAL; COMPARISON: CR ESOPHAGUS BA SWALLOW FUNCTION VIDEO DX 020 11:49 AM FINDINGS: Assistants: See also separate speech pathology r eport. Target Protection Specialist: No front end assistant taken Procedure summary: Laryngeal penetration and aspiration were noted with thin, nectar and honey texture and with nectar texture as a wash. Chin tuck maneuver did not prevent penetration and aspiration. No laryngeal penetra tion or aspiration was noted with pudding texture. Fluoroscopy time: 119 seconds Number of fluoro spot images: 2995 Other findings: Relative air kerma 18.42 mGy IMPRESSION: Laryngeal penetration and aspiration were noted with thin, nectar and honey textures. Trever Mc MD On 09/08/2019 11:43:17; ELGIN-G [id number] Chest 1view DX PROCEDURE INFORMATION: 09/07/2019 KENNETH Medeiros Exam: XR Chest, 1 View Exam date and time: 09/07/2019 3:43 PM Age: 83 years old Clinical indication: /pulmonary edema? ? TECHNIQUE: Imaging protocol: XR of the chest Views: 1 view. COMPARISON: CHEST 1VIEW DX 09/04/2019 7:57 AM FINDINGS: Lungs: There is central pulm onary venous congestion with mild prominence of the bilateral pulmonary interstitial markings. Minim al to mild right basilar pulmonary opacities are present with mild left b asilar pulmonary opacities. Pleural space: Mild blunting of the left costoph renic angle identified. No pneumothorax or large right pleural effusion vis ualized. Heart/Mediastinum: The cardi ac silhouette appears mildly enlarged. The superior mediastinal contours are within normal limits fo r appearance. The thoracic aorta appears calcified. Bones/joints: Unremarkable. Other findings: Surgical clips are identified ov er the upper abdomen, just to the left of the midline. IMPRESSION: 1. Mild cardiomegaly with fi ndings suggesting mild pulmonary interstitial edema with a small left pleural effusion. There is mil d underlying left basilar atelectasis versus infiltrates. Minimal to mild right basilar atelectasis versus infiltrates are also present. Brian Jorgensen MD On 09/07/2019 16:22:11; VR-ER [id number] Esophagus BA swallow PROCEDURE INFORMATION: 09/04/2019 [facility] function video DX Exam: FL Swallowing Function with Cine or Vide o Exam date and time: 09/04/2019 11:49 AM Age: 83 years old Clinical indication: Dysphagia (difficulty swall owing); Additional info: Dysphagia/feeding tolerance TECHNIQUE: Imaging protocol: Swallowing function, with cine radiography/ videoradiograph. Guided with fluoroscopy. Exam supervised by faci lity personnel. Contrast material: BARIUM; Contrast volume: 20 m l; Contrast route: PO; COMPARISON: RF ESOPHAGUS BA SWALLOW FUNCTION VIDEO DX 2018 10:39 AM FINDINGS: Fluoroscopy time: 75 seconds Number of fluoro spot images: 1470 Reference Air Kerma: 1.15 mGy Small amount of aspiration seen with swallows of thin liquids and nectar. No aspiration with honey or pudding. IMPRESSION: 1. Small amount of aspiration with swallows of t hin liquids and nectar. No aspiration with honey or pudding. 2. For further information see formal speech pat hologi's report. Nikunj Balbuena MD On 09/04/2019 12:38:43; V [id number] Chest 1view DX PROCEDURE INFORMATION: 09/04/2019 Debra ballesteros [facility] Exam: XR Chest, 1 View Exam date and time: 09/04/2019 7:57 AM Age: 83 years old Clinical indication: Shortness of breath; Additi onal info: Sob/sob TECHNIQUE: Imaging protocol: XR of the chest Views: 1 view. COMPARISON: CHEST 1VIEW DX 09/03/2019 10:18 AM FINDINGS: Lungs: Left basilar consolidation with left pleu ral effusion and increased patchy hazy reticular opacity about the remainder of the lungs overall similar to prior study. No right pleural effusion and no pneumothorax. Pleural space: See Lungs Finding. Heart/Mediastinum: Cardiac and mediastinal struc tures are stable including aortic calcification. Bones/joints: Unremarkable. Other findings: Surgical clips noted in the mid upper abdomen. IMPRESSION: Stable chest radiograph compared to 09/03/2019. Nikunj Balbuena MD On 09/04/2019 08:54:03; V [id number] Brain wo contrast MRI PROCEDURE INFORMATION: 09/03/2019 KENNETH Medeiros Exam: MR Head Without Contrast Exam date and time: 09/03/2019 2:11 PM Age: 83 years old Clinical indication: Screening exam; Additional info: /cva TECHNIQUE: Imaging protocol: MR of the head without contras t. COMPARISON: BRAIN WO CONTRAST MRI 06/23/2019 10:30 PM FINDINGS: Brain: Study is degraded by patient motion. Ther e is an acute nonhemorrhagic infarct of the mesial aspect of the posterior ri ght frontal lobe with restrictive diffusion. There is a chronic infarc t of the right posterior temporal parietal and posterior frontal lobe wit h cystic encephalomalacia and subcortical gliosis. 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 There is an arachnoid cyst in the anterior aspect of the left middle cranial fossa. There is moderate central and cortical atrophy. Ventricles: There is ventriculomegaly. Bones/joints: Unremarkable. Soft tissues: Unremarkable. Sinuses: Normal as visualized. No acute sinusiti s. Mastoid air cells: Normal as visualized. No mast oid effusion. Orbits: Unremarkable. Sella: Sellar and parasellar structures are norm al. There is no cerebellar tonsillar ectopia. Other vasculature: There is normal flow from the 4th portions of both vertebral arteries, the basilar artery and intracranial ca rotid arteries. The right posterior communicating artery is patent in feta l type pattern. The anterior communicating arteries patent. IMPRESSION: There is an acute nonhemorrhagic inf arct of the mesial aspect of the posterior right frontal lobe, with restricti ve diffusion. 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 There is an arachnoid cyst in the anterior aspect of the left middle crania l fossa. There is moderate central and cortical atrophy. Jairo Martinez MD On 09/03/2019 15:21:59; VR-B [id number] Chest 1view DX PROCEDURE INFORMATION: 09/03/2019 Debra Medeiros Exam: XR Chest, 1 View Exam date and time: 09/03/2019 10:18 AM Age: 83 years old Clinical indication: Shortness of breath; Additi onal info: SOB TECHNIQUE: Imaging protocol: XR of the chest Views: 1 view. COMPARISON: CHEST 1VIEW DX 09/02/2019 5:31 PM FINDINGS: Lungs: There is pulmonary vascular conge stion which has worsened when compared the previous exam. There is left lower lobe airs pace disease. Pleural space: There is left pleural eff usion which is unchanged when compared previous exam. Heart/Mediastinum: The heart is enlarged but sta ble. Bones/joints: Unremarkable. IMPRESSION: 1. Stable left pleural effusion. 2. Pulmonary vascular congestion which h as worsened when compared the previous exam suggestive of heart failure versus volume o verload. Manuel Charles MD On 09/03/2019 11:21:47; [place] [id number] Brain wo contrast CT Radiation Dose CTDIVOL = 0 (mGy): DLP = 770 (mGy-cm) 09/02/2019 [facility] PROCEDURE INFORMATION: Exam: CT Head Without Contrast Exam date and time: 09/02/2019 7:14 PM Age: 83 years old Clinical indication: Headache with dizziness and giddiness/s/p tpa, severe headache TECHNIQUE: Imaging protocol: Computed tomography of the hea d without contrast. Total DLP: 770 mGy-cm Radiation optimization: All CT scans at this facility use at least one of these dose optimization techniques: automated exposure control; mA and/or kV adjustment per patient size (includes targeted e xams where dose is matched to clinical indication); or iterative reconstructio n. COMPARISON: CT BRAIN STROKE WO CONTRAST and CTA head and nec k done on 09/02/2019 FINDINGS: Limitations: There is residual contrast in the vascular structures from the recent CTA. BRAIN: No definite acute intracranial hemorrhag e. No cerebral edema, large intracranial mass, mass effect or midline shift. Moderate generalized age-related parenchymal atrophy. Chronic infarct s are again seen in bilateral posterior frontal lobes, bilateral parie ana lilia and occipital lobes as well as the right cerebellar hemisphere. Patchy hypodensitie s in the binu may be artifactual. Other patchy white matter h ypodensities, nonspecific, likely mild to moderate chronic microvascular ischemic gibson es. The doran-white matter differentiation is otherwise maintained. Probabl e arachnoid cyst in the left middle cranial fossa. Atherosclerotic arterial c alcifications are noted. VENTRICLES AND CSF SPACES: The lateral, third a nd fourth ventricles appear dilated, likely secondary to the parenchymal atr ophy. The suprasellar and basilar cisterns appear unremarkable. ORBITS: Bilateral intra-ocu lar lens replacement. No significant abnormality is identified VISUALIZED PARANASAL SINUSES: Minimal mucosal t hickening in the right maxillary sinus posteriorly. Other visualized pa ranasal sinuses are clear. MASTOID AIR CELLS: Clear. External auditory canals: Probable cerumen bila terally, right greater than left. CALVARIUM: No acute skull osseous abnormality o r focal suspicios osseous lesions are seen. SCALP: Unremarkable Notes: If there is further clinical concern for intracranial pathology, MRI of the brain may be performed for further assessmen t. IMPRESSION: 1. No evidence of acute intracranial abnormality . 2. Chronic age related and remote ischemic gibson es of the brain as above. 3. Probable arachnoid cyst in the left middle cr anial fossa, unchanged. Ken Rodriguez MD On 09/02/2019 20:00:07; [id number] Chest 1view DX PROCEDURE INFORMATION: 09/02/2019 [facility] Exam: XR Chest, 1 View Exam date and time: 09/02/2019 5:31 PM Age: 83 years old Clinical indication: /cva TECHNIQUE: Imaging protocol: XR of the chest Views: 1 view. COMPARISON: CHEST 1VIEW DX 06/28/2019 1:22 AM FINDINGS: Lungs: Interstitial and airspace opacities are n oted throughout the lungs. A left retrocardiac opacity is also visualized. Th ere is a background of emphysema. Pleural space: Bilateral ple ural effusions are present, left greater than right in size. Heart/Mediastinum: The cardiac silhouette is enl arged. Vasculature: Atherosclerosis of the aorta. Bones/joints: Unremarkable. IMPRESSION: Pulmonary edema with bilateral pleural effusions , left greater than right. Left retrocardiac airspace disease. Enlargement of the cardiac silhouette. Nikunj Murphy MD On 09/02/2019 18:15:13; [id number] Brain/Neck CTA Radiation Dose CTDIVOL = 0 (mGy): DLP = 393 (mGy -cm) 09/02/2019 [facility] PROCEDURE INFORMATION: Exam: CT Angiography Head With Contrast Exam date and time: 09/02/2019 5:14 PM Age: 83 years old Clinical indication: Weaknes s; Additional info: /acute CVA, left sided weakness TECHNIQUE: Imaging protocol: Computed tomography an giography of the head with intravenous contrast. 3D rendering: MIP and/or 3D reconstructed images were created by the technologist. Total DLP: 393 mGy-cm Radiation optimization: All CT scans at this facility use at least one of these dose optimization techniques: automated exposure control; mA and/or kV adjustment per patient size (includes targeted e xams where dose is matched to clinical indication); or iterative reconstructio n. Contrast material: VISI 320; Contrast volume: 10 0 ml; Contrast route: IV; COMPARISON: BRAIN/NECK CTA 06/24/2019 2:20 AM FINDINGS: Right internal carotid artery: Atherosclerotic c alcification of the carotid siphons. Right anterior cerebral artery: Unremarkable. No occlusion or significant stenosis. Right middle cerebral artery: Unremarkable. No o cclusion or significant stenosis. Right posterior cerebral artery: o rigin. There is a posteriorly oriented 3 mm aneurysm arising from the origin of the rig ht posterior communicating artery on series 5, image 105. No occlusion or s ignificant stenosis. Right vertebral artery: Unremarkable. No occlusi on or significant stenosis. Left internal carotid artery: Atherosclerotic ca lcification of the carotid siphons. Left anterior cerebral artery: Unremarkable. No occlusion or significant stenosis. Left middle cerebral artery: Unremarkable. No oc clusion or significant stenosis. Left posterior cerebral artery: Unremarkable. No occlusion or significant stenosis. Left vertebral artery: Unremarkable. No occlusio n or significant stenosis. Basilar artery: Unremarkable. No occlusion or si gnificant stenosis. Other vasculature: Intracran ial segment is patent with no significant stenosis. Intracranial segment is patent with no significa nt stenosis. PROCEDURE INFORMATION: Exam: CT Angiography Neck With Contrast Exam date and time: 09/02/2019 5:14 PM Age: 83 years old Clinical indication: Weaknes s; Additional info: /acute CVA, left sided weakness TECHNIQUE: Imaging protocol: Computed tomography an giography of the neck with intravenous contrast. 3D rendering: MIP and/or 3D reconstructed images were created by the technologist. Total DLP: 393 mGy-cm Radiation optimization: All CT scans at this facility use at least one of these dose optimization techniques: automated exposure control; mA and/or kV adjustment per patient size (includes targeted e xams where dose is matched to clinical indication); or iterative reconstructio n. Contrast material: VISI 320; Contrast volume: 10 0 ml; Contrast route: IV; COMPARISON: BRAIN/NECK CTA 06/24/2019 2:20 AM FINDINGS: VASCULATURE: Right common carotid artery: Unremarkable. No st enosis. No dissection or occlusion. Right internal carotid artery: Approximately 70- 80% stenosis of the proximal right internal carotid artery due to circumferen tial atherosclerotic disease. No distal flow limitation or occlusion is noted. Right external carotid artery: Unremarkable. No occlusion or stenosis of the origin. Right vertebral artery: Unremarkable. No stenosis. No dissection or occlusion. Left common carotid artery: Unremarkable. No karlos nosis. No dissection or occlusion. Left internal carotid artery: Approximately 20% luminal stenosis of the proximal left internal carotid artery. No dissec tion or occlusion. Left external carotid artery: Unremarkable. No o cclusion or stenosis of the origin. Left vertebral artery: Unremarkable. No stenosis . No dissection or occlusion. Aorta: Atherosclerosis of the aorta without sign ificant origin stenosis. NECK: Bones/joints: Degenerative changes of the cervic al spine. Soft tissues: Normal. No significant soft tissue swelling. Lungs: Interstitial prominen ce and ground-glass opacities are noted in the lung apices. There are bilateral pleural effusions, left greater than right in size. Prominent centrilobular emphysematous changes ar e also present. COMMENTS: Using NASCET method for measuring degree of vilchis tid artery stenosis: Mild is less than 50% stenosis. Mode rate is 50-69% stenosis. Severe is 70-94% stenosis. Near occlusion is 95-99% stenosis. IMPRESSION: CT Angiography Head With Contrast 1. No proximal occlusion in the ucqvht-lo-Fixdmu . 2. 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 3. Atherosclerosis of the carotid siphons withou t significant stenosis. CT Angiography Neck With Contrast 1. Approximately 70-80% art nal stenosis of the proximal right internal carotid artery. 2. Approximately 20% stenosis of the proximal le ft internal carotid artery. 3. Pulmonary edema with bilateral pleural effusi ons in the lung apices. Nikunj Murphy MD On 09/02/2019 17:51:31; [id number] Brain Stroke wo Radiation Dose CTDIVOL = 0 (mGy): DLP = 753 (mGy -cm) 09/02/2019 [facility] contrast CT PROCEDURE INFORMATION: Exam: CT Head Without Contrast Exam date and time: 09/02/2019 5:08 PM Age: 83 years old Clinical indication: Pain; Additional info: /acu te dense L sided weakness TECHNIQUE: Imaging protocol: Computed tomography of the hea d without contrast. Total DLP: 753 mGy-cm Radiation optimization: All CT scans at this facility use at least one of these dose optimization techniques: automated exposure control; mA and/or kV adjustment per patient size (includes targeted e xams where dose is matched to clinical indication); or iterative reconstructio n. Other technique: STROKE PROTOCOL was implemented . COMPARISON: BRAIN WO CONTRAST CT 06/22/2019 5:34 PM FINDINGS: Brain: There is a chronic cortical infarct of th e left frontal lobe, right frontal parietal lobe and left occipital mesial parietal lobe. There is moderate central cortical atrophy. There is no obvious acute cortical infarct. There is no parenchymal hemo rrhage. There are no extra-axial fluid collections. There is a incidental arachnoid cyst in the left middle cranial fossa. Sellar and parasellar structures ar e normal. There is no cerebellar tonsillar ectopia. Ventricles: Normal. No ventriculomegaly. Bones/joints: Unremarkable. No acute fracture. Sinuses: Visualized sinuses are unremarkable. No fluid levels. Mastoid air cells: Visualized middle ear cavity, antrum and mastoid air cells are normally aerated. Orbits: The orbital lenses have been res ected. The globes are intact. There is no retrobulbar abnormality. Soft tissues: Unremarkable. IMPRESSION: Chronic bihemispheric infarc ts are present similar to the prior MR study of June 23, 2019. There is no obvious acute cortical infarct. As warranted clinically MR imag ing can be performed. There is moderate central and cortical atrophy with associated ventriculomegal y. There is a arachnoid cyst in the anterior aspect of the left middle cranial fossa. The results of study reported to the emergency r oom physician at the time of dictation. ASSESSMENT: ASPECTS ([place] Stroke Program Early CT Score) is 10. Jairo Martinez MD On 09/02/2019 17:20:45; VR-B [id number] Esophagus BA swallow EXAM: FLUOROSCOPY MODIFIED BARIUM SWALLOW 1 08/30/2018 [facility] function video DX DATE: 06/29/2019 at 1039 hours Center INDICATION: - dysphagia, DENTAL [employer]KER-troy. ADDITIONAL INFORMATION: Stroke. COMPARISON: None. TECHNIQUE: Oral barium contr ast of differing consistencies was given to the patient to assess swallowing mechanism. The study was performed in conjunction with speech pathology. FLUOROSCOPY TIME: 1 minutes and 37 seconds FLUOROSCOPY DOSE: 9.41 mGy DISCUSSION: The patient was given barium contrast of differe nt consistencies. Thin barium: Deep laryngeal penetration with no gross tracheal aspiration.. Sunshine barium: Deep laryngea l penetration while drinking with a straw. No gross aspiration.. Puree barium: Normal. Pudding barium: Normal. Solid with barium: Normal. IMPRESSION: 1. Deep laryngeal penetrati on with thin and nectar barium consistencies. No gross tracheal aspiration with any of the barium consistencies. 2. Please also see detailed chart note by jamey chand pathology. Chest Pulmonary EXAM: CTA CHEST WITH CONTRAST 06/28/2019 [facility] Embolism CTA DATE: 06/28/2019 3:05 [employer] Center INDICATION: - acute O2 desatting w/ tachycardia in pt w/ recent LE swelling COMPARISON: CT abdomen pelvis dated 08/01/2010. TECHNIQUE: Volumetric CT of the chest is acquired during pulmonary arterial phase following intravenous administration of contrast. Axial, sagittal, coronal, and oblique MIP reconstructions are created at the acquisition workstation. IV Contrast: 100 mL Omnipaque 350. DLP: 554 mGy-cm FINDINGS: Lines and tubes: Gastric tub e with distal tip in the stomach. Surgical clips seen at the gastroesophageal junction. Lower neck: Unremarkable. Axilla: Clear. Airway: Clear. Lungs and pleura: Centrilobu lar and paraseptal emphysematous changes seen throughout the bilateral lungs production for the upper lobes. There are bilateral pleural effusions, left greater than right wi th associated compressive an d dependent atelectatic changes throughout the posterior lungs but greatest at the bases. There are multiple scattered calcified granulomas in bilateral lungs. There is a 1.1 cm hyperdense nodule with q uestionable central calcification seen in the right upper lung (series 5 image 33), as well as innumerable small nodules measuring between 1 to 5 mm. Clusters of small likely reactive nodules are seen in the bases bilatera lly. Mediastinum, ml and intrat horacic lymph nodes: Multiple calcified paratracheal and perihilar lymph nodes are seen which appear normal in size. Heart, pericardium and great vessels: Diffuse atherosclerotic disease seen throughout the thoracic and upper abdominal aorta. Calcifications seen in the coronary arteries. Pulmonary emboli: No pulmona ry embolus is identified to the subsegmental level. Pulmonary trunk: 3 cm, englarged. Ascending aorta: 3 cm. Heart: The heart appears enl arged. No right heart strain. RV:LV ratio is 4.3/4.9 = <1 (Normal <1) Pericardium: No pericardial fluid. Upper abdomen: Fatty atrophy of the pancreas is seen. There are scattered calcifications seen throughout the spleen and liver, this is unchanged from previous and represents calcified granulomas. The bi lateral adrenals remain thic kened with a stable appearing, fat density left adrenal nodule. The bilateral kidneys appear atrophied with surrounding scarring changes. Bones: No acute abnormality. Degenerative changes seen throughout the lower cervical and thoracic spine. Soft tissues:Unremarkable. IMPRESSION: 1. No pulmonary embolus is identified to the clark bsegmental level. 2. CT evidence for right heart strain is absent . 3. Dominant nodule in the r ight upper lobe measuring 1.1 cm in background innumerable nodules measuring <5 mm. The dominant nodule has questionable calcification and could represent a granuloma, but has patient is high ris k for lung cancer would recommend follow-up CT chest in 3-6 months. 4. Clustered nodules in the right and left lower lobes which could represent infectious changes versus aspiration. 5. Centrilobular and paraseptal emphysematous c hanges throughout the lungs. 6. Small bilateral pleural effusions, left greater than right, with associated atelectasis. 7. Diffuse calcification se en throughout the thoracic and upper abdominal aorta. 8. Cardiomegaly and coronary artery disease pre sent. 9. Enlarged but stable appe aring adrenal glands and left adrenal nodule when compared to CT of the abdomen and pelvis from 2011. Chest 1view DX EXAM: XR CHEST 1 VIEW 06/28/2019 [facility] edical DATE: 06/28/2019 3:00 [employer] Center INDICATION: - pulm edema follow up. TECHNIQUE: Chest 1 view FINDINGS: Comparison is made to June 27. Cardiomediastinal silhouette is unchanged with aortic calcifications. There are surgical clips over the GE junction. There is a gastric tube in place. There are patchy alveolar op acities in the lungs bilaterally superimposed upon a background of emphysema. This could be due to edema or pneumonia. There is a left retrocardiac opacity which may be due t o a layering left pleural ef fusion and/or a left lower lobe airspace opacity such as pneumonia or atelectasis. A left pleural effusion obscures the left base a nd costophrenic sulcus. IMPRESSION: No significant change compared to morning. Chest 1view DX EXAM: XR CHEST 1 VIEW 06/27/2019 [facility] edical DATE: 06/27/2019 3:00 [employer] Center INDICATION: - cough COMPARISON: 06/24/2019 TECHNIQUE: AP chest IMPRESSION: 1. Interval placement of gastric tube with adeq uate positioning. 2. Cardiomediastinal silhou ette is enlarged, unchanged. Aortic atherosclerotic disease. 3. Prominent lung reticulat ions again seen with peribronchial cuffing and patchy airspace opacities bilaterally suggestive of pulmonary edema. Superimposed infection cannot be excluded. 4. Small bilateral pleural effusions. 5. Osseous structures are stable. Abdomen 1 v for EXAM: XR ABDOMEN 1 VIEW 06/26/2019 [facility] Placement DX DATE: 06/26/2019 12:01 AM [employer] Ce nter INDICATION: confirm ngt placement - confirm NGT placement ADDITIONAL INFORMATION: None. COMPARISON: CXR 06/24/2019 TECHNIQUE: Single frontal image of the abdomen. FINDINGS: Lines and tubes: NG tube tip projects over the m id to distal gastric body. Surgical clips project over the GE junction and left medial upper quadrant. Right upper quadrant surgical clips. Overlying electrocardiogram leads. Lower thorax: Enlarged cardi ac silhouette with left retrocardiac opacity. Small right pleural effusion with associated atelectasis/consolidation. Bowel: Nonobstructive bowel gas pattern. Retained barium contrast within the proximal and transverse colon with portions of contrast within diverticula of the descending colon. Solid organs: No abnormal mass or organomegaly s een. Calcifications: No abnormal calcifications found . Bones: Degenerative changes of the thoracolumbar spine. IMPRESSION: 1. NG tube as described. Chest 1view DX EXAM: XR CHEST 1 VIEW 06/24/2019 [facility] edical DATE: 06/24/2019 11:05 AM [employer] Ce nter INDICATION: Tachypnea, Dyspnea - Tachypneic/Dysp neic COMPARISON: June 22, 2019 TECHNIQUE: AP chest IMPRESSION: 1. Cardiomediastinal silhou ette is enlarged, unchanged. Aortic atherosclerotic disease. 2. Prominent lung reticulat ions again seen with peribronchial cuffing and patchy airspace opacities bilaterally suggestive of pulmonary edema. Superimposed infection cannot be excluded. 3. Small bilateral pleural effusions. 4. Osseous structures are stable. 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 neglect ' COMPARISON: MRI brain from 06/23/2019. TECHNIQUE: Rapid acquisition spiral CT images of the brain and neck were obtained between the aortic arch and the cranial vertex during intravenous infusion of iodinated contrast for the purposes of CT angiography . 3-D CT angiographic images are created using MIP technique at the acquisition workstation. The source images are also presented for interpretation. IV contrast: Omnipaque 60 mL DLP: 706 mGy-cm FINDINGS: NECK CTA: Aortic arch: Atheroscleroti c changes with calcified and noncalcified plaques are seen at the aortic arch and at the origin of the left subclavian artery predominantly. No high-grade stenosis or aneurys m is noted at this level. The vertebral artery origins are patent bilaterally. Carotid arteries: The cervic al common carotid arteries and cervical internal carotid arteries are patent. There are areas of calcification at the carotid bifurcations, right greater than left. No hemody namically significant stenos is of the carotid bifurcations or internal carotid arteries is present by NASCET criteria. Vertebral arteries: The vert ebral arteries have a normal course, caliber and contour. Incidental note is made of b ilateral pleural effusions, left greater than right. BRAIN CTA: The anterior and posterior c irculations have a normal appearance and a standard branching pattern. No branch occlusion, vascular injury, arteritis, vascular malformation or aneurysm is identified. Ather osclerotic calcifications of a cavernous and supraclinoid segments are seen bilaterally. The right posterior cerebral artery demonstrates a origin. The P1 segment is absent or hypoplastic. The left posterior communicating artery is hypoplastic. The deep cerebral veins and major venous sinuses are normal. Again visualized are areas o f encephalomalacia involving the posterior aspect of the right MCA territory as well as left MCA territory in the articular, perirolandic region as well as left MANAGEMENT ASSISTANT territory. IMPRESSION: No intracranial proximal branch occlusion. No significant stenosis by NASCET criteria. (All qualitative and quantit ative assessments of carotid bifurcation and proximal internal carotid artery stenosis are made referencing the distal internal carotid artery {NASCET criteria}.) Esophagus BA swallow EXAM: FLUOROSCOPY MODIFIED BARIUM SWALLOW 1 08/24/2018 [facility] function video DX DATE: 06/23/2019 1:50 PM Cente r INDICATION: 83-year-old woman with altered menta l status and dysphagia. COMPARISON: None. TECHNIQUE: Oral barium contr ast of differing consistencies was given to the patient to assess swallowing mechanism. The study was performed in conjunction with speech pathology. FLUOROSCOPY TIME: 56 seconds FLUOROSCOPY DOSE: 5.49 mGy DISCUSSION: The patient was given barium contrast of differe nt consistencies. Thin barium: Aspiration. Sunshine barium: Aspiration. Pudding barium: Normal. Honey barium: Normal. IMPRESSION: 1. Patient demonstrated asp iration with thin and nectar thick barium contrast. 2. Please also see detailed chart note by jamey chand pathology. Brain wo contrast MRI EXAM: MRI BRAIN WITHOUT CONTRAST 9 [facility] DATE: 06/23/2019 10:30 PM Center INDICATION: Increased dysarthria and aphasia COMPARISON: OSH CT brain from 06/22/2019 TECHNIQUE: Brain stroke prot ocol including axial DWI, axial FLAIR, and susceptibility weighted images. IV contrast: None. FINDINGS: Linear cortical restricted d iffusion and T2 hyperintensity along the right posterior frontal/precentral cortex. There is diffuse encephalomalacia in the posterior aspect of the right MCA territory as we ll as left MCA encephalomala debbie centered in the opercular and perirolandic region and focal areas of left occipital/MANAGEMENT ASSISTANT territory encephalomalacia. Scattered chronic microangiopathic changes. The ventri cles are prominent secondary to volume loss. No midline shift or herniation. No hemorrhage. Left middle cranial fossa arachnoid cyst. IMPRESSION: Recent cortical ischemic mariya nge involving the right posterior frontal/precentral cortex. No hemorrhage. Multifocal areas of encephalomalacia and chronic microangiopathic changes. 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 TECHNIQUE: AP chest. FINDINGS: Lines, tubes and hardware: Overlying electrocard iogram leads noted. Lungs and pleura: Small bila teral pleural effusions, left greater than right with compressive atelectasis. No focal consolidation. No pneumothorax.. Heart and mediastinum: Cardi omegaly and tortuous aorta with aortic arch calcifications. Bones, soft tissues: No acu te abnormality. Metallic clips overlie the mid upper abdomen. IMPRESSION: 1. Small bilateral pleural effusions, left greater than right with compressive atelectasis 2. Cardiomegaly and tortuous aorta with aortic arch calcification [place] SECTION: ER Consultation Notes No Data Provided for This Section Discharge Summaries No Data Provided for This Section History and Physicals No Data Provided for This Section Vital Signs Vital Sign Value Date Comments Source Temperature Oral (F) 97.8 F 07/06/2019 [facility] Resp[facility] Rate 22 07/06/2019 [facility] Systolic (mm Hg) 120 07/06/2019 [facility] Diastolic (mm Hg) 53 07/06/2019 [facility] Respitory Rate 20 07/06/2019 [facility] Systolic (mm Hg) 119 07/06/2019 [facility] Diastolic (mm Hg) 63 07/06/2019 [facility] Temperature Oral (F) 98.3 F 07/06/2019 [facility] Respitory Rate 24 07/06/2019 [facility] Systolic (mm Hg) 105 07/06/2019 [facility] Diastolic (mm Hg) 54 07/06/2019 [facility] Temperature Oral (F) 98.2 F 07/06/2019 [facility] Height 147.32 cm 06/26/2019 [facility] BMI Calculated 32.32 06/26/2019 [facility] Weight 70.136 06/26/2019 [facility] Height 147.32 cm 06/25/2019 [facility] Weight 70 06/25/2019 [facility] BMI Calculated 32.25 06/25/2019 [facility] Heart Rate 81 06/24/2019 [facility] Heart Rate 48 06/24/2019 [facility] Heart Rate 73 06/23/2019 [facility] Weight 68.182 06/23/2019 [facility] Weight 164 05/14/2016 Sebastian Blaze Height 63 05/14/2016 [facility] Diastolic (mm Hg) 70 05/14/2016 Sebastian Blaze Systolic (mm Hg) 110 05/14/2016 Sebastian [facility] Weight 160 02/05/2016 Sebastian Blaze Height 63 02/05/2016 [facility] Heart Rate 66 02/05/2016 Sebastian Blaze Diastolic (mm Hg) 88 02/05/2016 Sebastian Blaze Systolic (mm Hg) 136 02/05/2016 Sebastian Bl[facility] Weight 161 12/19/2015 Sebastian Blaze Height 63 12/19/2015 [facility] Heart Rate 95 12/19/2015 Sebastian [facility] Diastolic (mm Hg) 80 12/19/2015 Sebastian Blaze Systolic (mm Hg) 140 12/19/2015 Sebastian Blaze Systolic (mm Hg) 140 11/08/2015 [facility] Diastolic (mm Hg) 53 11/08/2015 [facility] Respitory Rate 16 11/08/2015 [facility] Systolic (mm Hg) 136 11/08/2015 [facility] Diastolic (mm Hg) 56 11/08/2015 [facility] Respitory Rate 15 11/08/2015 [facility] Systolic (mm Hg) 131 11/08/2015 [facility] Diastolic (mm Hg) 42 11/08/2015 [facility] Respitory Rate 17 11/08/2015 [facility] Weight 158 11/06/2015 Sebastian Blaze Height 63 11/06/2015 [facility] Heart Rate 83 11/06/2015 Sebastian Blaze Diastolic (mm Hg) 70 11/06/2015 Sebastian Blaze Systolic (mm Hg) 130 11/06/2015 Sebastian Blaze Heart Rate 84 11/05/2015 [facility] Height 147.32 cm 11/05/2015 [facility] Weight 72.273 11/05/2015 [facility] BMI Calculated 33.3 11/05/2015 [facility] Weight 157 10/16/2015 Sebastian Blaze Height 63 10/16/2015 Sebastian [facility]aze Diastolic (mm Hg) 70 10/16/2015 Sebastian Blaze Systolic (mm Hg) 130 10/16/2015 Sebastian Blaze Weight 160 10/09/2015 Sebastian Blaze Height 63 10/09/2015 Sebastian Blaze Diastolic (mm Hg) 70 10/09/2015 Sebastian Blaze Systolic (mm Hg) 140 10/09/2015 Sebastian Blaze Weight 160 09/18/2015 Sebastian Blaze Height 63 09/18/2015 Sebastian Blaze Diastolic (mm Hg) 80 09/18/2015 Sebastian Blaze Systolic (mm Hg) 160 09/18/2015 Sebastian Blaze Weight 166 06/21/2015 Sebastian Blaze Height 63 06/21/2015 Sebastian [facility] Heart Rate 69 06/21/2015 Sebastian Blaze Diastolic (mm Hg) 70 06/21/2015 Sebastian Blaze Systolic (mm Hg) 120 06/21/2015 Sebastian Blaze Encounters Location Location Encounter Encounter Reason Attending ADM DC Stat us Source Details Type Number For Provider Date Date Visit Sebastian to check on [id number] 05/03 05/03 Sebastian Thakur MD email of -[id number] /2014 [facility] blood [id number] pressure Sebastian to check on [id number] 05/03 05/03 Sebastian Thakur MD email of -[id number] [facility] blood [id number] pressure Sebastian to check on [id number] 05/03 05/03 Sebastian Thakur MD email of -[id number] [facility] PA blood [id number] pressure Sebastian to check on [id number] 05/03 05/03 Sebastian Thakur MD email of -[id number] [facility] PA blood [id number] pressure Sebastian to check on [id number] 05/03 05/03 Sebastian Thakur MD email of -[id number] /2014 [facility] PA blood [id number] pressure Sebastian to check on [id number] 05/03 05/03 Sebastian Thakur MD email of -[id number] /2014 [facility] blood [id number] pressure Sebastian to check on [id number] 05/03 05/03 Sebastian Thakur MD email of -[id number] /2014 [facility] PA blood [id number] pressure Sebastian to check on [id number] 05/03 05/03 Sebastian Thakur MD email of -[id number] /2014 [facility] PA blood [id number] pressure Sebastian to check on [id number] 05/03 05/03 Sebastian Thakur MD email of -[id number] /2014 [facility] blood 60mq5w5y1p pressure Sebastian to check on [id number] 05/03 05/03 Sebastian Thakur MD email of -[id number] /2014 [facility] blood [id number] pressure Sebastian to check on [id number] 05/03 05/03 Sebastian Thakur MD email of -[id number] /2014 [facility] PA blood [id number] pressure Sebastian to check on [id number] 05/03 05/03 Sebastian Thakur MD email of -[id number] /2014 [facility] PA blood [id number] pressure Sebastian to check on [id number]-ys7b 05/03 05/03 Sebastian Thakur MD email of -[id number]-y8 /2014 [facility] PA blood [id number] pressure Sebastian Unknown [id number] 05/09 05/09 Paola Thakur MD -2323-86jf-kf /2014 B aig PA [id number] Sebastian Unknown [id number] 05/09 05/09 Paola Thakur MD -392c-k1l2-qc /2014 B aig PA [id number] Sebastian Unknown [id number] 05/09 05/09 Paola Thakur MD -20g4-1429-sa /2014 B aig PA [id number] Sebastian Unknown [id number] 05/09 05/09 Paola Thakur MD -934d-u655-69 /2014 B aig PA [id number] Sebastian Unknown [id number] 05/09 05/09 [facility] Thak[facility] MD -460p-6478-v8 /2014 B aig PA [id number] Sebastian Unknown [id number] 05/09 05/09 [facility] Thakur MD -40so-h26c-4y /2014 B aig PA [id number] Sebastian Unknown [id number] 05/09 05/09 [facility] Thakur MD -63iv-0285-1u /2014 B aig PA [id number] Sebastian Unknown [id number] 05/09 05/09 [facility] Thakur MD -2908-w34j-z0 /2014 B aig PA [id number] Sebastian Unknown [id number] 05/09 05/09 [facility] Thakur MD -513w-j4gi-9k /2014 B aig PA [id number] Sebastian Unknown [id number] 05/09 05/09 Paola Thakur MD -9m70-55ts-7v /2014 B aig PA [id number] Sebastian Unknown [id number] 05/09 05/09 [facility] Thakur MD -0c03-m3wh-51 /2014 B aig PA [id number] Sebastian Unknown [id number] 05/09 05/09 [facility] Thakur MD -29o1-f48f-50 B aig PA [id number] Sebastian Unknown [id number] 05/09 05/09 Paola Thakur MD -7o39-1bqe-10 B aig PA [id number] Sebastian 2 month [id number] 06/21 06/21 Paola Thakur MD follow up -975z-n2b7-80 [facility] *confirmed em752byt7t Sebastian 2 month [id number]-[id number] 06/21 06/21 Paola Thakur MD follow up -80z3-sc47-7l [facility] *confirmed 216z91zu1f Sebastian 2 month 203gx124-9475 06/21 06/21 Paola Thakur MD follow up -92tz-494d-s5 [facility] *confirmed 49x7h26fv3 Sebastian 2 month 3yi0d7xl-5226 06/21 06/21 Paola Thakur MD follow up -5dlh-1oz3-cy [facility] *confirmed [id number] Sebastian 2 month xyg06w7i-kfxx 06/21 06/21 Paola Thakur MD follow up -2z8f-z1l7-r9 [facility] *confirmed 534b7v60zb Sebastian 2 month g131n984-d7w6 06/21 06/21 Paola Thakur MD follow up -99h8-l969-94 [facility] *confirmed 3734p2z9r7 Sebastian 2 month [id number]-7762 06/21 06/21 Paola Thakur MD follow up -9475-2p1c-18 [facility] *confirmed [id number] Sebastian 2 month [id number] 06/21 06/21 Paola Thakur MD follow up -4z80-77a7-9d [facility] *confirmed 79bu51s18k Sebastian 2 month [id number] 06/21 06/21 Paola Thakur MD follow up -79j1-488f-3g [facility] *confirmed [id number] Sebastian 2 month [id number] 06/21 06/21 Paola Thakur MD follow up -1241-71j2-04 [facility] *confirmed c84ofdtm99 Sebastian 2 month 574lq509-9l4f 06/21 06/21 Paola Thakur MD follow up -93cy-69l9-t4 [facility] *confirmed 069i7127i4 Sebastian Unknown [id number] 08/12 08/12 Paola Thakur MD -45p0-5l94-4i /2015 B aig PA [id number] Sebastian Unknown [id number] 08/12 08/12 Paola Thakur MD -9s1n-35sg-k3 /2015 B aig PA [id number] Sebastian Unknown [id number] 08/12 08/12 Paola Thakur MD -2c20-j88s-p7 /2015 B aig PA [id number] Sebastian Unknown [id number] 08/12 08/12 Paola Thakur MD -3uiu-cj6l-2w /2015 B aig PA [id number] Sebastian Unknown [id number] 08/12 08/12 Paola Thakur MD -0oh7-39n1-93 /2015 B aig PA [id number] Sebastian Unknown [id number] 08/12 08/12 MD Zak Liu3z55-1783-k7 /2015 B bet[facility] PA 6051t3w2hk Sebastian Follow up, [id number] 09/17 09/17 Sebastian Thakur MD ref by -87w5-8dk7-rx /2015 [facility] LagunaCONFI [id number] RMED Sebastian Follow up, [id number] 09/17 09/17 Sebastian Thakur MD ref by -9214-1966-z1 /2015 [facility] LagunaCONFI [id number] RMED Sebastian Follow up, [id number] 09/17 09/17 Sebastian Thakur MD ref by -3cp4-r988-3k /2015 [facility] LagunaCONFI [id number] RMED Sebastian Follow up, [id number] 09/17 09/17 Sebastian Thakur MD ref by -2140-36v4-ol /2015 [facility] LagunaCONFI [id number] RMED Sebastian Follow up, [id number] 09/17 09/17 Sebastian Thakur MD ref by -7q76-ya54-k5 /2015 Blaze Parry*CONFI [id number] RMED Sebastian Follow up, [id number] 09/17 09/17 Sebastian Thakur MD ref by -870i-a8l4-nw /2015 [facility] Parry*CONFI [id number] RMED Sebastian Follow up, [id number] 09/17 09/17 Sebastian Thakur MD ref by -7p3g-b3d2-0q /2015 [facility] Parry*CONFI [id number] RMED Sebastian Follow up, [id number] 09/17 09/17 Sebastian Thakur MD ref by -6199-5ag7-92 Bl[facility] Parry*CONFI [id number] RMED Sebastian Follow up, [id number] 09/17 09/17 Sebastian Thakur MD ref by -9yv1-a7tb-76 Bl[facility] Parry*CONFI [id number] RMED Sebastian Follow up, [id number] 09/17 09/17 Sebastian Thakur MD ref by -3070-x63l-53 /2015 [facility] Parry*CONFI [id number] RMED Sebastian Results-ra [id number] 10/08 10/08 MD ashok Souza4y9t-0uv8-g6 /2015 B bethel MONTOYA [id number] Sebastian Results-ra [id number]-[id number] 10/08 10/08 MD ashok Souza02m6-t0os-5e /2015 B bethel MONTOYA [id number] Sebastian Results-ra [id number] 10/08 10/08 MD ashok Souza65p2-f432-n9 /2015 B bethel MONTOYA [id number] Sebastian Results-ra [id number] 10/08 10/08 MD ashok Souza -83dk-077a-15 /2015 B aig PA [id number] Sebastian Results-[facility] [id number] 10/08 10/08 Sebastian Thakur MD man -9uv2-4rf9-sv /2015 B aig PA 460ykxm606 Sebastian Results-[facility] [id number] 10/08 10/08 Sebastian Thakur MD man -8eq8-43mc-5s /2015 B aig PA [id number] Sebastian Results-[facility] [id number] 10/08 10/08 MD ashok Souza -384p-3n76-0v /2015 B aig PA [id number] Sebastian Results-[facility] [id number] 10/08 10/08 Sebastian Thakur MD man -6069-f312-92 /2015 B aig PA [id number] Sebastian Results-[facility] [id number] 10/08 10/08 Sebastian Thakur MD man -2y27-17g4-8t /2015 B aig PA [id number] Sebastian 1 week 066s70su-252y 10/15 10/15 Sal Thakur MD follow up -1084-x289-83 [facility] [id number] Sebastian 1 week [id number]-7325 10/15 10/15 Sal Thakur MD follow up -6xvp-8054-41 [facility] [place] 62l2d1p8wh Sebastian 1 week z051j6r9-i641 10/15 10/15 Sal Thakur MD follow up -751e-j364-63 [facility] PA 21016vs866 Sebastian 1 week zjg35e3g-oj85 10/15 10/15 Sal Thakur MD follow up -76o3-41p9-6s [facility] [place] [id number] Sebastian 1 week 56132qxv-25n9 10/15 10/15 Sal Thakur MD follow up -6541-hb3z-35 [facility] PA [id number] Sebastian 1 week 53550yf7-08sz 10/15 10/15 Sal Thakur MD follow up -5az8-2k0i-65 [facility] 0n193xf2x9 Sebastian 1 week [id number]-cd46 10/15 10/15 Sal Thakur MD follow up -0no2-ja83-4l /2015 [facility] [id number] Sebastian 1 week 99z732v7-t019 10/15 10/15 Sal Thakur MD follow up -1x54-67cj-f1 [facility] [place] 49l72n6qr4 Sebastian 2 weeks z7802fzq-d7d2 11/05 11/05 Paola Thakur MD -0n6x-33z6-e2 B aig PA 09zyvm70lb Sebastian 2 weeks k1a6u160-3j0o 11/05 11/05 Paola Thakur MD -2e52-7593-vb B aig PA 2y23cfrrz3 Sebastian 2 weeks 92g1fhmk-w531 11/05 11/05 Paola Thakur MD -9k4e-p21p-76 B aig PA b64x7g8xb4 Sebastian 2 weeks t6i67o54-c9x1 11/05 11/05 Paola Thakur MD -8q80-c31m-u8 B aig PA h83p2t442s Sebastian 2 weeks f85ixb69-1874 11/05 11/05 Paola Thakur MD -2si9-r38y-96 B aig PA 5o9181h4og Sebastian 2 weeks [id number]-unv0 11/05 11/05 Paola Thakur MD -8hp0-5i3f-j3 B aig PA [id number] Sebastian 2 weeks f625t4v2-0501 11/05 11/05 Paola Thakur MD -9o6p-61n7-2o /2015 B aig PA [id number] [facility] [id number] [facility] 11/07 11/07 [facility] /2015 [facility] Sebastian Unknown [id number] 11/20 11/20 Paola Thakur MD -9n19-15x2-20 B [facility] 6943fuhx2n Sebastian Unknown [id number] 11/20 11/20 Paola Thakur MD -4vg4-31tt-15 /2015 B bethel PA [id number] Sebastian Unknown [id number] 11/20 11/20 Paola Thakur MD -2y33-33k6-cz /2015 B bethel PA [id number] Sebastian Unknown [id number] 11/20 11/20 Paola Thakur MD -3z6a-e22s-55 B bethel MONTOYA 845d5p21kf Sebastian Unknown [id number] 11/20 11/20 Paola Thakur MD -83kw-2m3z-4i /2015 B bethel MONTOYA [id number] Sebastian 6 month 12sc39k5-n2l7 12/18 12/18 Paola Thakur MD follow up -6gb5-kz04-1q /2015 [facility] MONTOYA [id number] Sebastian 6 month [id number]-[id number] 12/18 12/18 Paola Thakur MD follow up -796h-8h38-71 [facility] MONTOYA [id number] Sebastian 6 month [id number]-n2a5 12/18 12/18 Paola Thakur MD follow up -6311-63vi-07 [facility] MONTOYA 97o4t2j1a3 Sebastian 6 month 5s41739l-fz64 12/18 12/18 Paola Thakur MD follow up -7774-6jse-d7 /2015 [facility] MONTOYA gem0gs473w Sebastian medication [id number] 12/30 12/30 Sebastian Thakur MD -08xm-49fu-2h /2015 B [facility] MONTOYA [id number] Sebastian medication [id number]-291n 12/30 12/30 Sebastian Thakur MD -2261-x267-40 B bethel MONTOYA 86ay69b4t7 Sebastian medication [id number]-44r7 12/30 12/30 Sebastian Thakur MD -2438-03p0-b0 B bethel MONTOYA [id number] Sebastian 3 month [id number] 02/04 02/04 Paola Thakur MD -4pq0-c46h-57 B bethel MONTOYA c6p24si876 Sebastian 3 month 94k4lil8-407f 02/04 02/04 Paola Thakur MD -2721-1hl7-55 B bethel MONTOYA [id number] [facility] [id number] [facility] 03/09 03/10 [facility] /2015 [facility] Sebastian 3 month f/u [id number] 05/14 05/14 Sebastian Thakur MD -8hz5-0rq8-3a /2015 B bethel MONTOYA [id number] [facility] In[facility] [id number] Himanshu 06/23 07/06 [facility] /2018 [facility] Procedures Procedure Code Date Perfomer Comments Source Cholecystectomy [id number] 07/12/2002 [facility] Hernia<sup>1</sup> [id number] 07/12/1963 surg x2 Saurav as [address] Hysterectomy [id number] 07/12/1962 [facility] Appendectomy [id number] [facility] Assessment and Plan Assessment and Plan Date Source Extracted from:Title: Progress Note 07/06/2019 [facility] Author: Titus Sanderson MD Date: 07/06/19 1.Acute decompensated heart failure(I50.9) Remains euvolemic on furosemide 20 mg daily 2.Acute hypoxic respiratory failure(R09.02) Resolved completely 3.Mitral regurgitation(I34.0) Can follow-up outpatient, no acute treatment needed 4.Dysphagia(R13.10) Tolerating thin liquids again 5.COPD without exacerbation(J44.9) Symbicort and Spiriva, no acute exacerbation 6.Chronic kidney disease stage 4(N18.9) Creatinine following, 7.CAD - Coronary artery disease(I25.10) Secondary prophylaxis on aspirin and statin 8.Diabetes mellitus(E11.9) Will defer to neurology team, however will recommenda diabetic diet and secretagogue patient's glipizide; is possible with additional weight loss the patient will not requireinsulin. Her creatini ne remains very close to the cutoff for metformin, and given its variability I would avoid this agentupon discharge. 9.Rheumatoid arthritis(M06.9) Follow-up outpatient with Dr. 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 Tony is an 83 yo woman w/ PMH HF rEF (30-35%, presumed ischemic), prior CVA w/ residual COMBATANT DIVER QUALIFIED and dysarthria, presenting w/worsening of baselinedysarthria, found to have new acute cortical stroke i n R MCA distribution, now s/p TPA w/o ma soraida residual deficits. Hospital c/b worsening respiratory distress/volume overload c/w acute decompensated HF. Cardiology consulted for help w/ HF management and possibility of cardioembolic stroke. 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 Mildly dilated LV an d atria. Moderate functional MR. Hypokinetic inferior-lateral and anterior antonio (unclear if new vs old). No evidence of shunting - Unclear etiology of HFrEF -? reportedl y w/ negative stress test 1 year ago. However, multiple RF for CAD/ischemia including HTN/DM, RA, PAD, prior strokes, frequent PVCs/PACs - Decompensated on admission w/ SOB, pul monary edema on CXR, elevated BNP. Trigger likely HTN vs arrhythmia vsless likely acute ischemia - Breathing improved after diuresis, now on RA -NYHA class 2-3 symptoms at home. On jolly eenalapril 10mg. No beta blockers. Torsemide 10mg every other day Acute Ischemic Stroke Concern For Cardioembolic Stroke - CTA w/o large vessel occlusions. MRI b rain w/ stable encephalomalacia in bilateral MCA distribution w/ new ischemic changes in R frontal cortex - No shunting evident on TTE, however EC G w/ frequent premature beats/bigeminy/possible atrial fibrillation Recommendations: - strict IOs. Appears close to euvolemia currently. Can continue diuresis w/ goal net negative ~1L/day - BP control (SBP <140) once permissive HTN window completes. Can uptitrate enalapril as needed - can consider starting low dose BB in 1 -2 days as part of GDMT for HF once acute decompensation resolves - agree w/ VARSHA as part of work up for cardioembolic sources of stroke - plan for stress test next week once acute decompensation o f HF resolves Plan discussed w/ attending. Victorino Asif PGY1 Internal Medicine [facility] Cardiology attending attestation: I have seen and evaluated patient on . I have independently reviewed the history, imaging/diagnostic testings, lab results and examined the patient. I also seen the patient in collaboration and discusse d the management with the housestaff . I agree with findings and plan outlined in the note by the resident/fellow with any exceptions noted in my note. continue with diuresis GDMT with ACEI,consider addinglow dose coreg in next 24-48hr once compensated patient multiple risk factor-Ischemic wo rk with stress test to rule out obstructive CAD-monitor on telem for tachyarrythmias Consider VARSHA for further evaluation of cardioembolic source [facility] manager Ming Rivera MD ,FACP, FACC ,KAITLINE Mixer Operator [employer] Department of Internal Medicine Division of Cardiology Extracted from:Title: Stroke H+P Author: Denise Mahoney MD Date: 06/22/19 Acute Ischemic Stroke History and Physical Patient: Jean-Pierre Tony Chief Complaint: Stroke History of Present Illness: Patient is an 83-year-old woman with his tory of right and left MCA ischemic infarcts and residual weakness and dysarthria presenting with new onset worsening dysarthria. Per mobile stroke unit patient was last seen normal at 1550 when she hui d an acute worsening of her speech. Patient was with her friend at this time who witnessed the event. When mobile stroke unit arrived to the scene patient' s blood pressure was 210/90 and glucose was 150. CT head and CTA were obtained which showed no bleed and no LVO, so TPA was administered. Patient also received labetalol by 1 in route to [facility]. Patient lives at [facility], performs her ADLs however has help with other tasks around the house. Review of Systems: unable to obtain 2/2 patient's dysarthria Past Medical History: CVA x2 Past Surgical History: unable to obtain 2/2 dysarthria Family Medical History: non contributory Social History: Pas above Medications: Scheduled Meds (1): 06/22/19 21:00 sodium chloride (Saline Flush 0.9%) 10 ml MIS C Q12H Unscheduled Meds: None PRN Meds (2): 06/22/19 18:58 labetalol 10 mg IVP Q10Min 06/22/19 18:58 sodium chloride (Saline Flush 0.9%) 10 ml MIS C PRN One Time Meds: None Continuous Infusions: None Allergies: NKDA Physical Exam: Vitals Tmp(F) Tmp(C) Ttype B P MAP Pulse RR SpO2 FIO2 ETCO2 06/22 22:25 ---- ---- ---- 1 69/73 102 87 18 94 --- --- 06/22 21:55 ---- ---- ---- 1 45/74 105 83 18 97 2.0L/m --- 06/22 21:25 ---- ---- ---- 1 90/77 110 88 18 97 2.0L/m --- 06/22 20:55 ---- ---- ---- 1 50/67 97 81 18 98 2.0L/m --- 06/22 20:40 ---- ---- ---- 1 61/65 94 80 18 97 2.0L/m --- 24 Hr Tmax: 96.5F (35.83c) at 06/22 18:2 3 Vital Signs are the last 5 in the past 48 hours. 24 Hr Tmin: 96.5F (35.83c) at 06/22 18: 23 Weights are the last 5 in 60 days, plus initial. GENERAL: Awake, alert in NAD HEENT: - Normocephalic and atraumatic, dry mm LUNGS - Clear to auscultation bilaterally with no wheezes CV - S1S2 RRR, no m/r/g, equal pulses bilaterally. ABDOMEN - Soft, nontender, nondistended with normoactive BS NEURO: Mental Status: AA&Ox3 Language: speech is dysarthric. Naming, comprehension intac t. Cranial Nerves: PERRL 3 mm/brisk. EOMI, patient reports decreased periferal vision in the left eye on exam. mild facial asymmetry, facial sensation intact, hearing intact, tongue/uvula/soft palate midli ne, normal sternocleidomastoid and trape zius muscle strength. No evidence of tongue atrophy or fibrillations Motor: no drift bilaterally u/l extremities Tone: is normal and bulk is normal Sensation- Intact to light touch bilaterally Coordination: FTN intact bilaterally, no ataxia in BLE. 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 LOC: 0-alert 1b. LOC Questions: Month and age 0- both 1c. LOC Commands: open/close eyes, autocad draftsman/release non paretic hand 0-both 2. Best Gaze: 0-nl 3. Visual Tellez: 2- Complete 4. Pacial Palsy 1- minor 5. Motor R arm: 0 - No drift 6. Motor R Le - No drift 7. Motor L arm: 0 - No drift 8. Motor L le - No drift 9. Limb Ataxia: 0- absent 10. Sensory: 0- Nl 11. Best Language: 0- nl 12. Dysarthria: 2- severe 13. Extinction and Inattention (Neglect): 1- partial Labs: 24hr Labs 06/223 UA Color Yellow UA Turbidity Clear UA Spec Grav 1.050 H UA pH 5.0 UA Protein Negative UA Glucose Negative UA Ketones Negative UA Bili Negative UA Blood Negative UA Urobilinogen <1.0 UA Nitrite Negative UA Leuk Est Negative UA RBC 1 UA WBC 1 UA Mucus Few UA Sq Epi Many 06/22 1903 Chol 142 Trig 138 HDL 41 L LDL (Calculated) 73 VLDL 28 CHD Risk 3.46 L Hgb A1C 6.7 H 06/22 1852 Glucose Lvl 134 H BUN 26 H Creatinine Lvl 1.39 Sodium Lvl 142 Potassium Lvl 4.0 Chloride Lvl 109 CO2 22 L AGAP 15.0 Calcium Lvl 10.0 eGFR 35 Temp Pratik 37.0 pH Pratik 7.31 pCO2 Pratik 43 pO2 Pratik 31 HCO3 Pratik 22 BE Pratik -4 L O2 Sat Pratik 52.4 PT 13.9 INR 1.09 WBC 9.2 RBC 3.40 L Hgb 9.6 L Hct 31.8 L MCV 93.7 MCH 28.3 MCHC 30.2 L RDW 17.6 H Platelet 245 MPV 8.8 PTT 22.2 L Segs 68.6 Monocytes 14.5 H Lymphocytes 14.2 L Eosinophils 1.8 Basophils 0.9 Neutrophils # 6.3 Lymphocytes # 1.3 Monocytes # 1.3 H Eosinophils # 0.2 Basophils # 0.1 RBC Morph See Note Plt Morph Normal Anisocyte 1+ Imaging: CT Head: Per report, no hemorrheage seen. Chronic changes bi laterally. CTA H&N: per report, no LVO MRI/MRA: pending Assessment: Patient is an 83 y/o female with histor y of CVA presenting with new sudden onset worsening of baseline dysarthria. 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 She will be admitted for further work up and management to the stroke team. Plan: Acute Ischemic Stroke Acuity: Acute Current Suspected Etiology: cardio embol ic v. thrombotic LVO less likely as not seen on CTA. Continue Evaluation: -Admit to: [facility] -Continue Statin -Hold Aspirin until 24 hour post tPA karthikeyan roimaging is stable and without evidence of bleeding -Blood pressure control, goal of SYS < -MRI/ECHO/A1C/Lipid panel. -Hyperglycemia management per SSI to maintain glucose 140-18 0mg/dL. 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 -PT/OT RESP BEE -continue to monitor CV Essential (primary) hypertension -BP control, goal SBP < 180 -Titrate oral agents Hyperlipidemia, unspecified - Statin for goal LDL < 70 HEME s/p TPA - monitor CBC closely ENDO DM2, A1C 6.7 -SSI -goal HgbA1c < 7 GI/ good urine output, no issues - is/os per unit policy Fluid/Electrolyte Disorders monitor BMP dauly -Replete PRN ID no issues -monitor signs/sxs of infection Nutrition -NPO Prophylaxis DVT: hold heparin as s/p TPA GI: none Bowel: senna PRN Diet: NPO until cleared by speech Code Status: Full Code THE FOLLOWING WERE PRESENT ON ADMISSION: 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 N/A Delays in this process: (None) Denise Mahoney MD Child Neurology, PGY-3 [id number] STROKE NEUROLOGY ATTENDING I have seen and examined the patient. Adi bridges, I have discussed the case with and reviewed the resident's note and agree with the history, exam, assessment and plan. See note below for additi ons and/or exceptions and my findings. I have personally viewed the patient's radiographic studies and laboratory tests. 83yo WF with history of ischemic strokes who was treated with IV-tPA via the mobile stroke unit and [facility]. CTA head at the time of tPA did not reveal a large vessel occlusion. Notable Exam findings: Notable Labs: LDL (Calculated): 73 mg/dL (06/22/19 19:03:00) Hgb A1C: 6.7 % High (06/22/19 19:03:00) Imaging: Initial CTH/A (MSU scan): negative for acute hemorrhage or early hypodensities. +chronic infarcts No obvious flow-limiting stenoses or occlusions on CTA head. MRI brain: acute infarction in the righ t MCA cortical distribution (small) and appears embolic. TTE: The left ventricular chamber size is mi ldly dilated with moderate systolic dysfunction. LVEF 35-40% Inferolateral wall and anterior wall are hypokinetic. Stage 2 diastolic dysf unction. The right ventricular cavity size and systolic function is normal. Mild bilateral atrial enlargement is observed. Saline contrast study is negative fo r intracardiac shunting. Aortic scleros is. Moderate mitral regurgitation related to tethering of the posterior mitral leaflet with regional wall motion abnormalities. Assessment/Plan: [id number] admission Principal Diagnosis I63.411 Cerebral infarction due to embolism of right middle cerebral artery Acuity: Acute Current suspected etiology: Cardio- embolic to be determined as evaluation is on-going. Continue evaluation: consider VARSHA, but will consider consulting cardiology regarding underlying rhythm and echo findings. Treatment/Plan: Antiplatelet - Aspirin -81mg for stroke prevention, Statin. Patient may need 30 day event monitor if no etiology determined. PT/OT/Speech therapy evaluations. E78.5 Hyperlipidemia, unspecified Treatment: Continue home statin dose . Goal LDL is <70. Physical Therapy/Occupational Therapy Evaluation Disposition recommendation: pending evaluation Speech and Language Recommendations: modified barium test pending. DVT Prophylaxis Treatment: ANA velarde and SCDs. SQ Heparin at 24hrs post tPA. Himanshu Flannery MD MS Vascular Neurology Feeder Operator Automatic - [facility] Pager: [phone] Plan of Care No Data Provided for This Section Social History Social History Date Source Social History ElementQualifiersDate Reported 05/14/2016 Sebastian Thakur Do you smoke? . Are you a: Former Smoker quit in 1996 , Are you a: Former Smoker quit in 1996, Are you a: Former Smoker quit in 1996, Are you a: Former Smoker quit in 1996, Are you a: Former Smoker quit in 1996, Are you a: Former Smoker quit in 1996, Are y ou a: Former Smoker quit in 1996, Are you a: Former Smoker quit in 1996, Are you a: Former Smoker quit in 1996, Are you a: Former Smoker quit in 1996, Are you a: Former Smoker quit in 1996, Are you a: F ormer Smoker quit in 1996, Are you a: Former Smoker quit in 1996, Are you a: Former Smoker quit in 1996, Are you a: Former Smoker quit in 1996, Are you a: Former Smoker quit in 1996, Are you a: Former S moker quit in 1996, Are you a: Former Smoker quit in 1996, Are you a: Former Smoker quit in 1996, Are you a: Former Smoker quit in 1996, Are you a: Former Smoker quit in 1996, Are you a: Former Smoker q uit in 1996, Are you a: Former Smoker [...] Are you a: Former Smoker quit in 1996May 14, 2016 Use of recreational / street drugs? . Answer: No, Answer: No, Answer: No, A nswer: No, Answer: No, Answer: No, Answer: No, Answer: No, Answer: No, Answer: No, Answer: No, Answer: No, Answer: No, Answer: No, Answer: No, Answer: No, Answer: No, Answer: No, Answer: No, Answer: No, Answer: No, Answer: No, Answer: No, Answer: No, Answer: No, Answer: No, Answer: No, Answer: No, Answer: No, Answer: No, Answer: No, Answer: No May 14, 2016 Marital Status: . , , , , W idowed, , , , , , , , , , , , , , , , , , W idowed, , , , ed, , , , , May 14, 2016 Caffeine intake? . Status: Yes, Status: Yes, Status: Yes , Status: Yes, Status: Yes, Status: Yes, Status: Yes, Status: Yes, Status: Yes, Status: Yes, Status: Yes, Status: Yes, Status: Yes, Status: Yes, Status: Yes, Stat us: Yes, Status: Yes, Status: Yes, Statu s: Yes, Status: Yes, Status: Yes, Status: Yes, Status: Yes, Status: Yes, Status: Yes, Status: Yes, Status: Yes, Status: Yes, Status: Yes, Status: Yes, Status: Yes, Status: Yes May 14, 2016 Do you exercise? . Answer: No, Answer: No, Answer: No, A nswer: No, Answer: No, Answer: No, Answer: No, Answer: No, Answer: No, Answer: No, Answer: No, Answer: No, Answer: No, Answer: No, Answer: No, Answer: No, Answer: No, Answer: No, Answer: No, Answer: No, Answer: No, Answer: No, Answer: No, Answer: No, Answer: No, Answer: No, Answer: No, Answer: No, Answer: No, Answer: No, Answer: No, Answer: No May 14, 2016 Do you drink alcohol? . Status: No, Status: No, Status: No, S tatus: No, Status: No, Status: No, Status: No, Status: No, Status: No, Status: No, Status: No, Status: No, Status: No, Status: No, Status: No, Status: No, Status: No, Status: No, Status: No, Status: No, Status: No, Status: No, Status: No, Status: No, Status: No, Status: No, Status: No, Status: No, Status: No, Status: No, Status: No, Status: No May 14, 2016 Social History TypeResponse 11/05/2015 [facility] Substance Abuse Use: None. Alcohol Current, Type Beer, Wine. Frequency: 1- 2 times per year. Started age 14 Years. Previous treatment: None. Alcohol use interferes with work or home: No. Drinks more than intended: No. Others hurt b y drinking: No. Ready to change: No. Household alcohol con cerns: No. Smoking Status Former smoker; Started at age: 13.0; Sto pped at age: 61; Exposure to Tobacco Smoke None; Cigarette Smoking Last 365 Days No; Reg Smoking Cessation Counseling No Social History TypeResponse 11/05/2015 [facility] Alcohol Current, Type Beer, Wine. Frequency: 1- 2 times per year. Started age 14 Years. Previous treatment: None. Alcohol use interferes with work or home: No. Drinks more than intended: No. Others hurt b y drinking: No. Ready to change: No. Household alcohol con cerns: No. Substance Abuse Use: None. Smoking Status Never smoker; Exposure to Tobacco Smoke None; Cigarette Smoking Last 365 Days No; Reg Smoking Cessation Counseling No entered on: 06/22/19 Family History No Data Provided for This Section Advance Directives No Data Provided for This Section Functional Status No Data Provided for This Section
--- OUTSIDE RECORDS SUMMARY | 2019-11-22 19:07 | XMS REPORT ---
:1934 Author Organization [facility] Team Providers Name Role Phone Zay Holland Provider Role Unavailable Allergies, Adverse Reactions, Alerts Substance Reaction Event Type N.K.D.A. Info Not Available Non Drug Allergy Encounters Encounter Location Date Follow up, ref by Dr. Parry*CONFIRMED MD JAN Souza 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 Problem Hyperlipidemia 272.0 Active Assessment Chest pain, unspecified R07.9 Acti ve Problem HTN 401.1 Active Assessment Essential (primary) hypertension I10 Active Assessment Abnormal electrocardiogram [ECG] R94.31 Active [EKG] Assessment Shortness of breath R06.02 Active Assessment Hyperlipidemia, unspecified E78.5 Active Medications Medication Code System Code Instructions Start End Status Dosa ge Date Date Aggrenox MEDISPAN 25-200 MG Orally Active 1 ca psule - Twice a day GlipiZIDE ER MEDISPAN 20469-87 10 MG Orally Active 1 ta blet 00-11 Once a day Calcium + D MEDISPAN 26551-37 315-200 MG-UNIT Active 1 tablet 501 Orally Twice a with meal s day Lumigan MEDISPAN 42057-56 0.01 % Active 1 drop into 11-11 Ophthalmic Once affected a day eye in the evening Atorvastatin MEDISPAN 43996-89 20 MG Orally Active 1 ta blet Calcium 17-05 Once a day Omeprazole MEDISPAN 95651-57 20 MG Orally Active 1 caps ule 11-10 Once a day HCTZ Unknown 0 25MG Active Unknown Alphagan P MEDISPAN 50036-82 0.15 % Active 1 drop into 77-05 Ophthalmic Three affecte d times a day eye Tramadol HCl MEDISPAN 51533-37 50 MG Orally Active 1 ta blet as 58-01 every 6 hrs needed Enalapril MEDISPAN 20742-24 5 MG Orally Once Active 1 t ablet Maleate 27-01 a day Leflunomide MEDISPAN 30056-96 10 MG Orally Active 1 tab let 73-56 Once a day Social History Social History Element Qualifiers Date Reported Do you smoke? . Are you a: Former Smoker quit September 112015 in 1996, Are you a: Former Smoker quit in 1996, Are you a: Former Smoker quit in 1996, Are you a: Former Smoker quit in 1996 Use of recreational / street drugs? . Answer: No, Answer: N o, Answer: October 09, 2015 No, Answer: No Marital Status: . , , , October 09, 2015 Caffeine intake? . Status: Yes, Status: Yes, October 08 016 Status: Yes, Status: Yes Do you exercise? . Answer: No, Answer: No, Answer: October 09, 2015 No, Answer: No Do you drink alcohol? . Status: No, Status: No, Status: Sep No, Status: No Vital Signs Date/Time: October 09, 2015 Weight 160 lbs Height 63 in Blood Pressure Diastolic 70 mm Hg Blood Pressure Systolic 140 mm Hg Summary Purpose eClinicalWorks Submission
--- OUTSIDE RECORDS SUMMARY | 2019-11-22 19:07 | XMS REPORT ---
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
--- OUTSIDE RECORDS SUMMARY | 2019-11-22 19:07 | XMS REPORT ---
:1934 [facility] Team Providers Name Role Phone HollandZay mcallister Provider Role Unavailable Allergies, Adverse Reactions, Alerts Substance Reaction Event Type N.K.D.A. Info Not Available Non Drug Allergy Encounters Encounter Location Date Follow up, ref by Dr. Parry*CONFIRMED MD JAN Souza [facility] 2015 to check on email of blood [...] Start End Status Dosa ge Date Date Atorvastatin MEDISPAN 69333-81 20 MG Orally Active 1 ta blet Calcium 17-05 Once a day Leflunomide MEDISPAN 85729-22 10 MG Orally Active 1 tab let 73-56 Once a day HCTZ Unknown 0 25MG Active Unknown Calcium + D MEDISPAN 40821-07 315-200 MG-UNIT Active 1 tablet 501 Orally Twice a with meal s day Omeprazole MEDISPAN 48156-92 20 MG Orally Active 1 caps ule 11-10 Once a day Aggrenox MEDISPAN 24849-72 25-200 MG Orally Active 1 ca psule 01-60 Twice a day Alphagan P MEDISPAN 78652-93 0.15 % Active 1 drop into 77-05 Ophthalmic Three affecte d times a day eye Tramadol HCl MEDISPAN 38172-41 50 MG Orally Active 1 ta blet as 58-01 every 6 hrs needed Lumigan MEDISPAN 71690-47 0.01 % Active 1 drop into 05-03 Ophthalmic Once affected a day eye in the evening Enalapril MEDISPAN 98535-25 5 MG Orally Once Active 1 t ablet Maleate - a day GlipiZIDE ER MEDISPAN 69916-30 10 MG Orally Active 1 ta blet 00- Once a day Social History Social History Element Qualifiers Date Reported Do you smoke? . Are you a: Former Smoker quit September in 1996, Are you a: Former Smoker quit in 1996 Use of recreational / street drugs? . Answer: No, Answer: N o September 18, 2015 Marital Status: . , September 18, 2015 Caffeine intake? . Status: Yes, Status: Yes September 17 Do you exercise? . Answer: No, Answer: No September 18, 2015 Do you drink alcohol? . Status: No, Status: No September 17 Vital Signs Date/Time: September 18, 2015 Weight 160 lbs Height 63 in Blood Pressure Diastolic 80 mm Hg Blood Pressure Systolic 160 mm Hg Summary Purpose eClinicalWorks Submission
--- OUTSIDE RECORDS SUMMARY | 2019-11-22 19:07 | XMS REPORT ---
:1934 Author Organization eClinicalWorks Care Team Providers Name Role Phone Zay Holland Provider Role Unavailable Allergies, Adverse Reactions, Alerts Substance Reaction Event Type N.K.D.A. Info Not Available Non Drug Allergy Encounters Encounter Location Date Follow up, ref by Dr. Parry*CONFIRMED MD JAN Souza [facility] 2015 Results-MD JAN Condon October 09, 2015 1 week follow up MD JAN Souza October 16, 2015 to check on email of blood [...] Status Dosa ge Date Date Atorvastatin MEDISPAN 03969-92 20 MG Orally Active 1 ta blet Calcium 17-05 Once a day Leflunomide MEDISPAN 79623-40 10 MG Orally Active 1 tab let 73-56 Once a day Alphagan P MEDISPAN 36911-25 0.15 % Active 1 drop into 77-05 Ophthalmic Three affecte d times a day eye Lasix MEDISPAN 80671-10 20 MG Orally Active 1 tablet 67-10 Once a day Omeprazole MEDISPAN 25988-27 20 MG Orally Active 1 caps ule 11-10 Once a day Calcium + D MEDISPAN 31148-68 315-200 MG-UNIT Active 1 tablet 501 Orally Twice a with meal s day Tramadol HCl MEDISPAN 37064-90 50 MG Orally Active 1 ta blet as 58-01 every 6 hrs needed GlipiZIDE ER MEDISPAN 45780-05 10 MG Orally Active 1 ta blet 00-11 Once a day Enalapril MEDISPAN 87808-35 5 MG Orally Once Active 1 t ablet Maleate 27-01 a day HCTZ Unknown 0 25MG Active Unknown Aggrenox MEDISPAN 15425-29 25-200 MG Orally Active 1 ca psule Twice a day [facility]-84 0.01 % Active 1 drop into 11-11 Ophthalmic Once affected a day eye in the evening Social History Social History Element Qualifiers Date Reported Do you smoke? . Are you a: Former Smoker quit October in 1996, Are you a: Former Smoker [...] Answer: No, Answer: N o, Answer: October 16, 2015 No, Answer: No, Answer: No, Answer: No, Answer: No, Answer: No Marital Status: . , , , October 16, 2015 , , , , Caffeine intake? . Status: Yes, Status: Yes, October 15 016 Status: Yes, Status: Yes, Status: Yes, Status: Yes, Status: Yes, Status: Yes Do you exercise? . Answer: No, Answer: No, Answer: October 16, 2015 No, Answer: No, Answer: No, Answer: No, Answer: No, Answer: No Do you drink alcohol? . Status: No, Status: No, Status: Oct No, Status: No, Status: No, Status: No, Status: No, Status: No Vital Signs Date/Time: October 16, 2015 Weight 157 lbs Height 63 in Blood Pressure Diastolic 70 mm Hg Blood Pressure Systolic 130 mm Hg Summary Purpose eClinicalWorks Submission
--- OUTSIDE RECORDS SUMMARY | 2019-11-22 19:07 | XMS REPORT ---
:[address] [address] Team Providers Name Role Phone Zay Holland Provider Role Unavailable Allergies, Adverse Reactions, Alerts Substance Reaction Event Type N.K.D.A. Info Not Available Non Drug Allergy Encounters Encounter Location Date Follow up, ref by Dr. Parry*CONFIRMED MD JAN Souza [facility] 2015 Results-MD JAN Condon October 09, 2015 [...] Start End Status Dosa ge Date Date Enalapril MEDISPAN 69742-66 5 MG Orally Once Active 1 t ablet Maleate a day Alphagan P MEDISPAN 79865-41 0.15 % Active 1 drop into 77-05 Ophthalmic Three affecte d times a day eye Leflunomide MEDISPAN 46958-06 10 MG Orally Active 1 tab let 73-56 Once a day Lasix MEDISPAN 66057-63 20 MG Orally Active 1 tablet 67-10 Once a day Metoprolol MEDISPAN 49866-46 25 MG Orally October Active 1 tabl et Succinate ER 81-01 Once a day 2015 Calcium + D MEDISPAN 44601-83 315-200 MG-UNIT Active 1 tablet 501 Orally Twice a with meal s day Lumigan [facility] 97569-69 0.01 % Active 1 drop into 11-11 Ophthalmic Once affected a day eye in the evening Atorvastatin [facility] 13659-04 20 MG Orally Active 1 ta blet Calcium 17-05 Once a day Tramadol HCl MEDIAN 92139-68 50 MG Orally Active 1 ta blet as 58-01 every 6 hrs needed Omeprazole [facility] 51448-50 20 MG Orally Active 1 caps ule 11-10 Once a day HCTZ Unknown 0 25MG Active Unknown GlipiZIDE ER [facility] 08768-85 10 MG Orally Active 1 ta blet 00-11 Once a day Aggrenox [facility] 87219-46 25-200 MG Orally Active 1 ca psule - Twice a day Social History Social History Element [...] Status: No, Status: No Vital Signs Date/Time: November 06, 2015 Weight 158 lbs Height 63 in Cardiac Monitoring Heart Rate 83 /min Blood Pressure Diastolic 70 mm Hg Blood Pressure Systolic 130 mm Hg Summary Purpose eClinicalWorks Submission
--- OUTSIDE RECORDS SUMMARY | 2019-11-22 19:07 | XMS REPORT ---
[...] Medications Results No Known Results Summary Purpose eClinicalBrandtone Submission
--- OUTSIDE RECORDS SUMMARY | 2019-11-22 19:08 | XMS REPORT ---
:1935 [facility] Team Providers Name Role Phone HollandZay Provider Role Unavailable Allergies, Adverse Reactions, Alerts Substance Reaction Event Type N.K.D.A. Info Not Available Non Drug Allergy Encounters Encounter Location Date Follow up, ref by Dr. Parry*CONFIRMED MD JAN Souza [facility] 2015 Results-MD JAN Condon October 09, 2015 1 week follow up MD JAN Souza October 16, 2015 2 weeks MD JAN Souza November 06, 2015 to check on email of blood pressure MD JAN Souza May 03, 2015 medication MD JAN Souza December 31, 2015 Unknown MD JAN Souza May 08, 2015 3 month MD JAN Souza February 05, 2016 2 month follow up *confirmed MD JAN Souza Jun 21 5 6 month follow up MD JAN Souza December 19, 2015 Unknown MD JAN Souza Aug 12, 2015 Unknown MD JAN Souza November 21, 2015 Problems Problem Type Condition ICD-9 Code [...] Start End Status Dosa ge Date Date GlipiZIDE ER MEDISPAN 58136-8 10 MG Orally Active 1 tab let 900-11 Once a day Lasix MEDISPAN 96523-6 20 MG Orally Active 1 tablet 067-10 Once a day Calcium + D MEDISPAN 73635-3 315-200 MG-UNIT Active 1 t ablet 1501 Orally Twice a with meal s day HCTZ Unknown 0 25MG Active Unknown Omeprazole MEDISPAN 59869-4 20 MG Orally Active 1 capsu le 211-10 Once a day Lumigan MEDISPAN 29032-8 0.01 % Active 1 drop into 205-03 Ophthalmic Once affected a day eye in the evening Alphagan P MEDISPAN 07946-3 0.15 % Active 1 drop into 177-05 Ophthalmic affected Three times a eye day Atorvastatin MEDISPAN 98726-9 20 MG Orally Active 1 tab let Calcium 017-05 Once a day Tramadol HCl MEDISPAN 51604-9 50 MG Orally Active 1 tab let as 058-01 every 6 hrs needed Metoprolol MEDISPAN 56438-5 12.5 Orally February 04, Active 1/2 tab let Tartrate 018-01 Twice a day 2015 with food Metoprolol MEDISPAN 88606-8 25 MG Orally Inactive 1 tabl et Succinate ER 281-01 Once a day Enalapril MEDISPAN 37027-3 5 MG Orally Active 1 tablet Maleate 027-01 Once a day Aggrenox MEDISPAN 49880-1 25-200 MG Active 1 capsule 001-60 Orally Twice a day Leflunomide MEDISPAN 85074-0 10 MG Orally Active 1 tabl et 173-56 Once a day Social History Social History Element Qualifiers Date Reported Do you smoke? . Are you a: Former Smoker quit in February 05, 20161996, Are you a: Former Smoker quit in [...] . Answer: No, Answer: N o, Answer: February 05, 2016 No, Answer: No, Answer: No, Answer: No, [...] No Marital Status: . , , , February 04 016 , , , , , , , , , , , , , , , , , , , , , , , , , , , , Caffeine intake? . Status: Yes, Status: Yes, February 04 16 Status: Yes, Status: Yes, Status: Yes, Status: [...] exercise? . Answer: No, Answer: No, Answer: February 05, 2016 No, Answer: No, Answer: No, Answer: No, [...] alcohol? . Status: No, Status: No, Status: Jan No, Status: No, Status: No, Status: No, Status: No, Status: No, Status: No, Status: No, Status: No, Status: No, Status: No, Status: No, Status: No, Status: No, Status: No, Status: No, Status: No, Status: No, Status: No, Status: No, Status: No, Status: No, Status: No, Status: No, Status: No, Status: No, Status: No, Status: No, Status: No, Status: No Vital Signs Date/Time: February 05, 2016 Weight 160 lbs Height 63 in Cardiac Monitoring Heart Rate 66 /min Blood Pressure Diastolic 88 mm Hg Blood Pressure Systolic 136 mm Hg Summary Purpose eClinicalWorks Submission
--- OUTSIDE RECORDS SUMMARY | 2019-11-22 19:08 | XMS REPORT ---
:1935 [facility] Team Providers Name Role Phone HollandZay escobedo Provider Role Unavailable Allergies, Adverse Reactions, Alerts Substance Reaction Event Type N.K.D.A. Info Not Available Non Drug Allergy Encounters Encounter Location Date Follow up, ref by Dr. Parry*CONFIRMED MD JAN Souza [facility] 2015 Results-MD JAN Condon October 09, 2015 1 week follow up MD JAN Souza October 16, 2015 2 weeks MD JAN oSuza November 06, 2015 to check on email [...] Start End Status Dosa ge Date Date Calcium + D MEDISPAN 98492-2 315-200 MG-UNIT Active 1 t ablet 1501 Orally Twice a with meal s day Omeprazole MEDISPAN 85083-9 20 MG Orally Active 1 capsu le 211-10 Once a day HCTZ Unknown 0 25MG Active Unknown Leflunomide MEDISPAN 01868-8 10 MG Orally Active 1 tabl et 173-56 Once a day Lumigan MEDISPAN 53383-9 0.01 % Active 1 drop into 205-03 Ophthalmic Once affected a day eye in the evening GlipiZIDE ER MEDISPAN 25762-2 10 MG Orally Active 1 tab let 900-11 Once a day Aggrenox MEDISPAN 15781-8 25-200 MG Active 1 capsule 001-60 Orally Twice a day Metoprolol MEDISPAN 09928-0 25 MG Orally Anna Marie Active 1 table t Succinate ER 281-01 Once a day 2015 Metoprolol MEDISPAN 65746-9 25 MG Orally Inactive 1 tabl et Succinate ER 281-01 Once a day Lasix MEDISPAN 98954-4 20 MG Orally Active 1 tablet 067-10 Once a day Enalapril MEDISPAN 21660-5 5 MG Orally Active 1 tablet Maleate 027-01 Once a day Atorvastatin MEDISPAN 49761-6 20 MG Orally Active 1 tab let Calcium 017-05 Once a day Tramadol HCl MEDISPAN 87562-8 50 MG Orally Active 1 tab let as 058-01 every 6 hrs needed Alphagan P MEDISPAN 28182-5 0.15 % Active 1 drop into 177-05 Ophthalmic affected Three times a eye day Social History Social History Element Qualifiers Date Reported Do you smoke? . Are you a: Former Smoker quit in December 19, 20151996, Are you a: Former Smoker quit [...] . Answer: No, Answer: N o, Answer: December 19, 2015 No, Answer: No, Answer: No, Answer: [...] No Marital Status: . , , , December 18 016 , , , , , , , , , , , , , , , , , , , , , , , , , , , , Caffeine intake? . Status: Yes, Status: Yes, December 18 16 Status: Yes, Status: Yes, Status: Yes, [...] exercise? . Answer: No, Answer: No, Answer: December 19, 2015 No, Answer: No, Answer: No, Answer: [...] alcohol? . Status: No, Status: No, Status: Dec No, Status: No, Status: No, Status: No, Status: No, Status: No, Status: No, Status: No, Status: No, Status: No, Status: No, Status: No, Status: No, Status: No, Status: No, Status: No, Status: No, Status: No, Status: No, Status: No, Status: No, Status: No, Status: No, Status: No, Status: No, Status: No, Status: No, Status: No, Status: No, Status: No Vital Signs Date/Time: December 19, 2015 Weight 161 lbs Height 63 in Cardiac Monitoring Heart Rate 95 /min Blood Pressure Diastolic 80 mm Hg Blood Pressure Systolic 140 mm Hg Summary Purpose eClinicalWorks Submission
--- OUTSIDE RECORDS SUMMARY | 2019-11-22 19:08 | XMS REPORT ---
:1935 Author Organization eClinicalWorks Care Team Providers Name Role Phone Zay Holland Provider Role Unavailable Encounters Encounter Location Date Follow up, ref by Dr. Parry*CONFIRMED MD JAN Souza [facility] 2015 Results-MD JAN Condon October 09, [...]
--- OUTSIDE RECORDS SUMMARY | 2019-11-22 19:08 | XMS REPORT ---
:1935 Author Organization eClinicalWorks Care Team Providers Name Role Phone Zay Holland Provider Role Unavailable Encounters Encounter Location Date Follow up, ref by Dr. Parry*CONFIRMED MD JAN Souza [facility] 2015 Results-MD JAN Condon October 09, [...]
--- OUTSIDE RECORDS SUMMARY | 2019-11-22 19:08 | XMS REPORT ---
:1935 [facility] Team Providers Name Role Phone HollandZay Provider Role Unavailable Allergies, Adverse Reactions, Alerts Substance Reaction Event Type N.K.D.A. Info Not Available Non Drug Allergy Encounters Encounter Location Date Follow up, ref by Dr. Parry*CONFIRMED MD JAN Souza [facility] 2015 Results-MD JAN Condon October 09, 2015 1 week follow up MD JAN Souza October 16, 2015 2 weeks MD JAN Souza November 06, 2015 to check on email of blood pressure MD JAN Souza May 03, 2015 Unknown MD JAN Souza May 08, 2015 2 month follow up *confirmed Sebastian Thakur MD [place] Jun 21 5 6 month follow up MD JAN Souza December 19, 2015 Unknown MD JAN Souza Aug 12, 2015 Unknown MD JAN Souza November 21, 2015 3 month f/u Sebastian Thakur MD [place] May 14, 2016 medication Sebastian Thakur MD [place] December 31, 2015 3 month Sebastian Thakur MD [place] February 05, 2016 Problems Problem Type Condition ICD-9 Code Onset [...] Start End Status Dosa ge Date Date Gabapentin MEDISPAN 95476-7 300 MG Orally Active 1 caps ule 666-11 Three times a day Alphagan P MEDISPAN 11480-2 0.15 % Active 1 drop into 177-05 Ophthalmic affected Three times a eye day Aggrenox MEDISPAN 55792-2 25-200 MG Active 1 capsule 001-60 Orally Twice a day Oliver MEDISPAN 72568-5 0.01 % Active 1 drop into 205-03 Ophthalmic Once affected a day eye in the evening Metoprolol MEDISPAN 66615-4 25 MG Orally Inactive 1 tabl et Succinate ER 281-01 Once a day Calcium + D MEDISPAN 89376-1 315-200 MG-UNIT Active 1 t ablet 1501 Orally Twice a with meal s day Tramadol HCl MEDISPAN 71472-1 50 MG Orally Active 1 tab let as 058-01 every 6 hrs needed Leflunomide MEDISPAN 10677-3 10 MG Orally Active 1 tabl et 173-56 Once a day Enalapril MEDISPAN 75058-7 5 MG Orally Active 1 tablet Maleate 027-01 Once a day Omeprazole MEDISPAN 58846-5 20 MG Orally Active 1 capsu le 211-10 Once a day Atorvastatin MEDISPAN 64338-6 20 MG Orally Active 1 tab let Calcium 017-05 Once a day Metoprolol MEDISPAN 10382-7 12.5 Orally Active 1/2 tabl et Tartrate 018-01 Twice a day with food GlipiZIDE ER MEDISPAN 65263-8 10 MG Orally Active 1 tab let 900-11 Once a day Social History Social History Element Qualifiers Date Reported Do you smoke? . Are you a: Former Smoker quit in May 14, 20161996, Are you a: Former Smoker quit [...] . Answer: No, Answer: N o, Answer: May 14, 2016 No, Answer: No, Answer: No, Answer: [...] No Marital Status: . , , , May 14 16 , , , , , , , , , , , , , , , , , , , , , , , , , , , , Caffeine intake? . Status: Yes, Status: Yes, May 14 6 Status: Yes, Status: Yes, Status: Yes, Status: [...] exercise? . Answer: No, Answer: No, Answer: May No, Answer: No, Answer: No, Answer: No, [...] alcohol? . Status: No, Status: No, Status: May 14, 2016 No, Status: No, Status: No, Status: No, Status: No, Status: No, Status: No, Status: No, Status: No, Status: No, Status: No, Status: No, Status: No, Status: No, Status: No, Status: No, Status: No, Status: No, Status: No, Status: No, Status: No, Status: No, Status: No, Status: No, Status: No, Status: No, Status: No, Status: No, Status: No, Status: No Vital Signs Date/Time: May 14, 2016 Weight 164 lbs Height 63 in Blood Pressure Diastolic 70 mm Hg Blood Pressure Systolic 110 mm Hg Summary Purpose eClinicalWorks Submission
--- OUTSIDE RECORDS SUMMARY | 2019-11-22 19:09 | XMS REPORT | Summary of Care ---
:1935 Author Organization [facility] Address [address] [place] [phone]- Encounter [facility] [place]) [id number] Date(s): 11/08/15 - 11/08/15 [facility] [address] [place] [phone]- Discharge Disposition: Home Attending Physician: Jona Jane DO Referring Physician: Jona Jane DO Vital Signs Most recent to oldest 1 2 3 [Reference Range]: Height 147.32 cm (11/05/15 4:45 PM) Blood Pressure [90-140/60-90 140/53 mmHg 136/56 mmHg 131 /42 mmHg mmHg] (11/08/15 12:00 PM) (11/08/15 11:45 AM) (11/08/15 1 1:30 AM) Respiratory Rate [14-20 16 BRMIN 15 BRMIN 17 BRMIN BRMIN] (11/08/15 12:00 PM) (11/08/15 11:45 AM) (11/08/15 1 1:30 AM) Peripheral Pulse Rate 84 bpm [60-100 bpm] (11/05/15 5:16 PM) Weight 72.273 kg (11/05/15 4:45 PM) Body Mass Index 33.3 m2 (11/05/15 4:45 PM) Problem List Condition Effective Dates Status Health Status Informant Abdominal hernia(Confirmed) Active Appendectomy(Confirmed) Active Bilateral cataracts(Confirmed) Active Blind left eye(Confirmed) Active CAD - Coronary artery Active disease(Confirmed) Cholecystectomy(Confirmed) Active CVA - Cerebrovascular Resolved accident(Confirmed) Degenerative joint Active disease(Confirmed) Diabetes mellitus(Confirmed) Active Diverticulitis(Confirmed) Resolved Dyslipidemia(Confirmed) Active Ex-cigarette smoker(Confirmed) Active Gallstone(Confirmed) Resolved GERD - Gastro-esophageal reflux Active disease(Confirmed) Glaucoma(Confirmed) Active H/O: osteoarthritis(Confirmed) Active H/O: TIA(Confirmed) Active Hard of hearing(Confirmed) Active Hernia repair(Confirmed) Active HTN - Hypertension(Confirmed) Active Hypercholesterolemia(Confirmed) Active Hysterectomy(Confirmed) Active Multiple ulcers(Confirmed) Active Optic nerve finding(Confirmed)1 Active PVD-peripheral vascular Active disease(Confirmed) Pyloroplasty(Confirmed) Active Reflux(Confirmed) Active Rheumatoid arthritis(Confirmed) Active SBO - Small bowel Active obstruction(Confirmed) Vagotomy(Confirmed) Active 1rt eye Allergies, Adverse Reactions, Alerts Substance Reaction Severity Status NKDA Active Medications Alphagan P 0.15% ophthalmic solution 1 drp, RIGHT EYE, BID, # 10 mL, 0 Refill(s) Start Date: 11/05/15 Status: Orderedatorvastatin 20 mg oral tablet 20 mg = 1 tab, PO, Bedtime, # 30 tab, 0 Refill(s) Start Date: 11/05/15 Status: Orderedcalcium-vitamin D 600 mg-400 intl units oral tablet 1 tab, PO, BID, # 60 tab, 0 Refill(s) Start Date: 11/05/15 Status: OrderedceFAZolin (ANES) Route: IV, Drug form: INJ, ONCE, Stop date: 11/08/15 10:13:00 CDT Start Date: 11/08/15 Stop Date: 11/08/15 Status: Completedenalapril 10 mg oral tablet 10 mg = 1 tab, PO, Daily, # 30 tab, 0 Refill(s) Start Date: 11/05/15 Status: OrderedfentaNYL (ANES) Route: IV, Drug form: INJ, ONCE, Stop date: 11/08/15 10:13:00 CDT Start Date: 11/08/15 Stop Date: 11/08/15 Status: CompletedLactated Ringers Injection IV (ANES) (ANES) Route: IV, Total Volume: 1,000, Start date: 11/08/15 9:27:00 CDT, Stop date: 11/08/15 10:27:00 CDT Start Date: 11/08/15 Stop Date: 11/08/15 Status: CompletedLactated Ringers Injection IV 1,000 mL 1,000 mL, Rate: 25 ml/hr, Infuse over: 40 hr, Route: IV, Dosing Weight 72.273 kg, Total Volume: 1,000, Start date: 11/08/15 7:24:00 CDT, Duration: 1 day, Stop date: 11/09/15 7:23:00 CDT Start Date: 11/08/15 Stop Date: 11/08/15 Status: Discontinuedleflunomide 10 mg oral tablet 10 mg = 1 tab, PO, Daily, # 30 tab, 0 Refill(s) Start Date: 11/05/15 Status: OrderedLumigan 0.03% ophthalmic solution 1 drp, RIGHT EYE, QPM, # 3 ml, 0 Refill(s) Start Date: 11/05/15 Status: Orderedmidazolam (ANES) Route: IV, Drug form: SOLN, ONCE, Stop date: 11/08/15 10:13:00 CDT Start Date: 11/08/15 Stop Date: 11/08/15 Status: Completedondansetron (ANES) Route: IV, Drug form: INJ, ONCE, Stop date: 11/08/15 10:13:00 CDT Start Date: 11/08/15 Stop Date: 11/08/15 Status: Completed Results ELECTROLYTES Most recent to oldest [Reference Range]: 1 Sodium Lvl [135-145 mEq/L] 138 mEq/L (11/05/15 4:51 PM) Potassium Lvl [3.5-5.1 mEq/L] 4.9 mEq/L (11/05/15 4:51 PM) Chloride Lvl [95-109 mEq/L] 102 mEq/L (11/05/15 4:51 PM) CO2 [24-32 mEq/L] 30 mEq/L (11/05/15 4:51 PM) AGAP [10.0-20.0 mEq/L] 10.9 mEq/L (11/05/15 4:51 PM) CHEM PANEL Most recent to oldest [Reference Range]: 1 Creatinine Lvl [0.50-1.40 mg/dL] 1.26 mg/dL (11/05/15 4:51 PM) eGFR 40 mL/min/1.73m2 1 *NA* (11/05/15 4:51 PM) BUN [7-22 mg/dL] 25 mg/dL *HI* (11/05/15 4:51 PM) Glucose Lvl [70-99 mg/dL] 115 mg/dL *HI* (11/05/15 4:51 PM) Calcium Lvl [8.5-10.5 mg/dL] 9.5 mg/dL (11/05/15 4:51 PM) 1Result Comment: The eGFR is calculated using the CKD-EPI formula. In most young, healthy individualsthe eGFR will be >90 mL/min/1.73m2. The eGFR declines with age. An eGFR of 60-89 may be normal in some populations, particularly the elderly, for whom the CKD-EPI formula has not been extensively validated. Use of the eGFR is not recommended in the following populations: Individuals with unstable creatinine concentrations, including patients and those with serious co-morbid conditions. Patients with extremes in muscle mass or diet. The data above are obtained from the National Kidney Disease Education Program (NKDEP) which additionally recommends that when the eGFR is used in patients with extremes of body mass index for purposesof drug dosing, the eGFR should be multiplied by the estimated BMI.HEMATOLOGY Most recent to oldest [Reference Range]: 1 WBC [3.7-10.4 K/CMM] 9.0 K/CMM (11/05/15 4:51 PM) RBC [4.20-5.40 M/CMM] 3.97 M/CMM *LOW* (11/05/15 4:51 PM) Hgb [12.0-16.0 g/dL] 11.4 g/dL *LOW* (11/05/15 4:51 PM) Hct [36.0-48.0 %] 36.2 % (11/05/15 4:51 PM) MCV [80.0-98.0 fL] 91.2 fL (11/05/15 4:51 PM) MCH [27.0-31.0 pg] 28.8 pg (11/05/15 4:51 PM) MCHC [32.0-36.0 g/dL] 31.6 g/dL *LOW* (11/05/15 4:51 PM) RDW [11.5-14.5 %] 15.0 % *HI* (11/05/15 4:51 PM) Platelet [133-450 K/CMM] 238 K/CMM (11/05/15 4:51 PM) MPV [7.4-10.4 fL] 8.5 fL (11/05/15 4:51 PM) Segs [45.0-75.0 %] 64.4 % (11/05/15 4:51 PM) Lymphocytes [20.0-40.0 %] 22.8 % (11/05/15 4:51 PM) Monocytes [2.0-12.0 %] 10.9 % (11/05/15 4:51 PM) Eosinophils [0.0-4.0 %] 1.3 % (11/05/15 4:51 PM) Basophils [0.0-1.0 %] 0.6 % (11/05/15 4:51 PM) Segs-Bands # [1.5-8.1 K/CMM] 5.8 K/CMM (11/05/15 4:51 PM) Lymphocytes # [1.0-5.5 K/CMM] 2.1 K/CMM (11/05/15 4:51 PM) Monocytes # [0.0-0.8 K/CMM] 1.0 K/CMM *HI* (11/05/15 4:51 PM) Eosinophils # [0.0-0.5 K/CMM] 0.1 K/CMM (11/05/15 4:51 PM) Basophils # [0.0-0.2 K/CMM] 0.1 K/CMM (11/05/15 4:51 PM) PT [12.0-14.7 seconds] 12.8 seconds (11/05/15 4:51 PM) INR [0.85-1.17] 0.93 (11/05/15 4:51 PM) PTT [22.9-35.8 seconds] 27.8 seconds (11/05/15 4:51 PM) Immunizations Vaccine Date Refusal Reason Hx influenza vaccine-unspecified 05/24/08 Hx pneumococcal vaccine 05/24/08 influenza virus vaccine, inactivated 03/12/10 Procedures Procedure Date Related Diagnosis Body Site Cholecystectomy 2003 Hernia1 1964 Hysterectomy 1963 Appendectomy 1surg x2 repeat 1966 Social History Social History Type Response Substance Abuse Use: None. Alcohol Current, Type Beer, Wine. F requency: 1-2 times per year. Started age 14 Years. Prev ious treatment: None. Alcohol use interferes with work or home : No. Drinks more than intended: No. Others hurt by drinking: No . Ready to change: No. Household alcohol concerns: No. Smoking Status Former smoker; Started [age] e: 13.0; Stopped at age: 61; Exposure to Tobacco Smoke None; Cigar ette Smoking Last 365 Days No; Reg Smoking Cessation Counseling No Assessment and Plan No data available for this section
--- OUTSIDE RECORDS SUMMARY | 2019-11-22 19:09 | XMS REPORT | Summary of Care ---
:[address] [facility] Address [address] [place] [phone]- Encounter [facility] [place]) [id number] Date(s): 03/09/16 - 03/09/16 [facility] [address] [place] [address]- Discharge Disposition: Home or Self Care Attending Physician: Oscar Rangel MD Referring Physician: Oscar Rangel MD Vital Signs No data available for this section Problem List Condition Effective Dates Status Health [...] Substance Reaction Severity Status NKDA Active Medications No data available for this section Results No data available for this section Immunizations Given and Recorded Vaccine Date Status Refusal Reason Hx influenza vaccine-unspecified 05/24/08 Given Hx pneumococcal vaccine 05/24/08 Given influenza virus vaccine, inactivated 03/12/10 Given Procedures Procedure Date Related Diagnosis Body Site [...]
--- OUTSIDE RECORDS SUMMARY | 2019-11-22 19:10 | XMS REPORT | Summary of Care ---
:1935 Author Organization [facility] Address [address] [place] [id number]- Encounter HQ Darrylntr_audie(FIN) [id number] Date(s): 06/22/19 - 07/06/[address] Professional Services provided by [facility] [place] [address]- Discharge Disposition: Residential Facility Attending Physician: Halle Lopez MD Admitting Physician: Himanshu Flannery MD Vital Signs Most recent to oldest 1 2 3 [Reference Range]: Height 147.32 cm 147.32 cm (06/26/19 8:45 AM) (06/25/19 3:41 PM) Temperature Oral 97.8 DegF 98.3 DegF 98.2 DegF [96.4-99.1 DegF] (07/06/19 11:38 AM) (07/06/19 8:03 AM) ( 9 3:57 AM) Blood Pressure 120/53 mmHg 119/63 mmHg 105/54 mmHg [90-140/60-90 mmHg] (07/06/19 11:23 AM) (07/06/19 8:17 AM) (06/12 12/28 6:00 AM) Respiratory Rate [14-20 22 BRMIN 20 BRMIN 24 BRMIN BRMIN] *HI* (07/06/19 8:17 AM) *HI* (07/06/19 11:23 AM) (07/06/19 6: 00 AM) Peripheral Pulse Rate 81 bpm 48 bpm 73 bpm [60-100 bpm] (06/23/19 10:59 PM) *LOW* (06/22/19 6: 55 PM) (06/23/19 10:30 PM) Weight 70.136 kg 70 kg 68.182 kg (06/26/19 8:45 AM) (06/25/19 3:41 PM) (06/22/19 6:23 PM) Body Mass Index 32.32 m2 32.25 m2 (06/26/19 8:45 AM) (06/25/19 3:41 PM) Problem List Condition Effective Dates Status Health Status Informant CAD - Coronary artery Active disease(Confirmed) 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(Confirmed) COPD without exacerbation(Confirmed) Active CVA - Cerebrovascular Resolved accident(Confirmed) Diabetes mellitus(Confirmed) Active Gallstone(Confirmed) Resolved GERD - Gastro-esophageal reflux Active disease(Confirmed) Glaucoma(Confirmed) Active HTN - Hypertension(Confirmed) Active Hyperlipidemia, Active unspecified(Confirmed) Mitral regurgitation(Confirmed) Active Normocytic anemia(Confirmed) Active Rheumatoid arthritis(Confirmed) Active Allergies, Adverse Reactions, Alerts No Known Medication Allergies Medications Aggrenox oral capsule, extended release 1 cap, PO, BID, 0 Refill(s) Start Date: 06/23/19 Stop Date: 07/06/19 Status: Discontinuedallopurinol 100 mg oral tablet 100 mg = 1 tab, PO, BID, 0 Refill(s) Start Date: 06/23/19 Status: OrderedaMILoride-hydrochlorothiazide 5 mg-50 mg oral tablet Route: PO, Drug Form: TAB, Dosing Weight 70.136, kg, Daily, Start date: 06/28/19 9:00:00 [employer], Duration: 30 day, Stop date: 07/27/19 9:00:00 [employer] Start Date: 06/28/19 Stop Date: 06/28/19 Status: DeletedAnoro Ellipta 62.5 mcg-25 mcg inhalation powder 1 puff, INHALER, Daily, # 1 ea, 3 Refill(s) Start Date: 06/23/19 Status: Orderedaspirin 81 mg, 1 tab, Route: PO, Drug form: CHEWTAB, Daily, Dosing Weight 68.182, kg, Priority: NOW, Start date: 06/23/19 23:20:00 [employer], Duration: 30 day, Stop date: 07/23/19 9:00:00 [employer], 0 Notes: Take with food. Start Date: 06/23/19 Stop Date: 07/06/19 Status: Discontinuedaspirin 81 mg tablet, chewable 81 mg = 1 tab, PO, Daily, 0 Refill(s) Start Date: 07/06/19 Status: Orderedatorvastatin 40 mg, 1 tab, Route: PO, Drug form: TAB, Bedtime, Dosing Weight 68.182, kg, Start date: 06/27/19 21:00:00 [employer], Duration: 30 day, Stop date: 07/26/19 21:00:00 [employer], 0 Notes: (Same as: Lipitor) Start Date: 06/27/19 Stop Date: 07/06/19 Status: Discontinuedatorvastatin 20 mg, 1 tab, Route: PO, Drug form: TAB, Bedtime, Dosing Weight 68.182, kg, Start date: 06/23/19 21:00:00 [employer], Duration: 30 day, Stop date: 07/22/19 21:00:00 [employer], 0 Notes: (Same As: Lipitor) Start Date: 06/23/19 Stop Date: 06/27/19 Status: Discontinuedatorvastatin 10 mg oral tablet 10 mg = 1 tab, PO, Daily, 0 Refill(s) Start Date: 06/28/19 Stop Date: 07/06/19 Status: Discontinuedatorvastatin 20 mg oral tablet 20 mg = 1 tab, PO, Daily, 0 Refill(s) Start Date: 06/23/19 Stop Date: 06/28/19 Status: Discontinuedatorvastatin 40 mg oral tablet 40 mg = 1 tab, PO, Bedtime, 0 Refill(s) Start Date: 07/06/19 Status: Orderedcarvedilol 12.5 mg oral tablet 12.5 mg = 1 tab, PO, Q12H, 0 Refill(s) Start Date: 07/06/19 Status: Orderedclopidogrel 75 mg oral tablet 75 mg = 1 tab, PO, Daily, 0 Refill(s) Start Date: 07/06/19 Status: OrderedCombigan RIGHT EYE, Q12H, 0 Refill(s) Start Date: 06/23/19 Status: OrderedCoreg 6.25 mg, Route: PO, Drug form: TAB, Q12H, Dosing Weight 70.136, kg, Priority: NOW, Start date: 06/26/19 11:20:00 [employer], Duration: 30 day, Stop date: 07/26/19 9:00:00 [employer], 0 Notes: Give with food. (Same As: Coreg) Start Date: 06/26/19 Stop Date: 06/28/19 Status: DiscontinuedCoreg 12.5 mg, 1 tab, Route: PO, Drug form: TAB, Q12H, Dosing Weight 70.136, kg, Start date: 06/28/19 9:00:00 [employer], Duration: 30 day, Stop date: 07/27/19 21:00:00 [employer], 0 Notes: Give with food. (Same As: Coreg) Start Date: 06/28/19 Stop Date: 07/06/19 Status: DiscontinuedDextrose 50% Syringe (D50W) 12.5 gm, 25 mL, Route: IVP, Drug Form: INJ, Dosing Weight 68.182, kg, PRN, PRN Blood Glucose Results, Start date: 06/24/19 15:51:00 [employer], Duration: 30 day, Stop date: 07/24/19 15:50:00 [employer], 0 Start Date: 06/24/19 Stop Date: 07/06/19 Status: DiscontinuedDextrose 50% Syringe (D50W) 25 gm, 50 mL, Route: IVP, Drug Form: INJ, Dosing Weight 68.182, kg, PRN, PRN Blood Glucose Results, Start date: 06/24/19 15:51:00 [employer], Duration: 30 day, Stop date: 07/24/19 15:50:00 [employer], 0 Start Date: 06/24/19 Stop Date: 07/06/19 Status: Discontinueddocusate-senna 50 mg-8.6 mg oral tablet 1 tab, Route: PO, Drug Form: TAB, Dosing Weight 70.136, kg, Daily, PRN Congestion, Start date: 07/04/19 12:50:00 [employer], Duration: 30 day, Stop date: 08/03/19 12:49:00 [employer], 0 Notes: (Same as Sensahraot-S) Equiv. to Loni-Colace. Start Date: 07/04/19 Stop Date: 07/06/19 Status: DiscontinuedDuoNeb inhalation solution 3 mL, Route: NEB, Drug Form: SOLN, Dosing Weight 70.136, kg, RQ6H, NOW, Start date: 06/28/19 10:44:00 [employer], Duration: 30 day, Stop date: 07/28/19 8:00:00 [employer], 0 Notes: (Same as: Duoneb) Start Date: 06/28/19 Stop Date: 07/03/19 Status: DiscontinuedDuoNeb inhalation solution 3 ml, Route: NEB, Drug Form: SOLN, Dosing Weight 68.182, kg, PRN, PRN Respiratory Pathway, Start date: 06/24/19 14:46:00 [employer], Duration: 30 day, Stop date: 07/24/19 14:45:00 [employer], 0 Notes: (Same as: Duoneb) Start Date: 06/24/19 Stop Date: 07/03/19 Status: DiscontinuedDuoNeb inhalation solution 3 ml, Route: NEB, Drug Form: SOLN, Dosing Weight 70.136, kg, PRN, PRN Respiratory Pathway, Start date: 06/28/19 8:11:00 [employer], Duration: 30 day, Stop date: 07/28/19 8:10:00 [employer], 0 Notes: (Same as: Duoneb) Start Date: 06/28/19 Stop Date: 06/28/19 Status: Discontinuedenalapril 2.5 mg, 1 tab, Route: PO, Drug form: TAB, Q12H, Dosing Weight 68.182, kg, Start date: 06/27/19 9:00:00 [employer], Stop date: 07/26/19 9:00:00 [employer], 0 Notes: (Same as: Vasotec) Start Date: 06/27/19 Stop Date: 07/06/19 Status: Discontinuedenalapril 10 mg, 1 tab, Route: PO, Drug form: TAB, Daily, Dosing Weight 68.182, kg, Start date: 06/25/19 9:00:00 [employer], Duration: 30 day, Stop date: 07/24/19 9:00:00 [employer], 0 Notes: (Same as: Vasotec) Start Date: 06/25/19 Stop Date: 06/26/19 Status: Discontinuedenalapril 10 mg oral tablet 10 mg = 1 tab, PO, Daily, 0 Refill(s) Start Date: 06/23/19 Stop Date: 06/28/19 Status: Discontinuedenalapril 2.5 mg oral tablet 2.5 mg = 1 tab, PO, Q12H, 0 Refill(s) Start Date: 07/06/19 Status: Orderedenalapril 5 mg oral tablet 5 mg = 1 tab, PO, Daily, 0 Refill(s) Start Date: 06/28/19 Stop Date: 07/04/19 Status: DiscontinuedFlonase 0.05 mg/inh nasal spray NASAL, Daily, 0 Refill(s) Start Date: 06/28/19 Stop Date: 07/06/19 Status: DiscontinuedFlonase Sensimist NASAL, Daily, 0 Refill(s) Start Date: 06/23/19 Stop Date: 06/28/19 Status: Discontinuedfurosemide 20 mg oral tablet 20 mg = 1 tab, PO, Daily, 0 Refill(s) Start Date: 06/23/19 Status: Orderedgabapentin 400 mg oral capsule 400 mg = 1 cap, PO, TID, 0 Refill(s) Start Date: 06/23/19 Status: OrderedglipiZIDE 10 mg oral tablet, extended release 10 mg = 1 tab, PO, Daily, 0 Refill(s) Start Date: 06/23/19 Status: Orderedglucagon 1 mg, Route: IM, Drug form: PDR/INJ, PRN, Dosing Weight 68.182, kg, PRN Blood Glucose Results, Startdate: 06/24/19 15:51:00 [employer], Duration: 30 day, Stop date: 07/24/19 15:50:00 [employer], 0 Start Date: 06/24/19 Stop Date: 07/06/19 Status: Discontinuedheparin 5,000 unit, 1 mL, Route: SUB-Q, Drug form: INJ, Q8H, Dosing Weight 68.182, kg, Start date: 06/24/19 0:00:00 [employer], Duration: 30 day, Stop date: 07/23/19 16:00:00 [employer], 0 Notes: porcine heparin Start Date: 06/24/19 Stop Date: 07/06/19 Status: DiscontinuedhydrALAZINE 10 mg, 0.5 mL, Route: IVP, Drug form: INJ, Q4H, Dosing Weight 70.136, kg, PRN Hypertension, Start date: 06/28/19 8:14:00 [employer], Duration: 30 day, Stop date: 07/28/19 8:13:00 [employer], 0 Start Date: 06/28/19 Stop Date: 07/03/19 Status: Discontinuedhydroxychloroquine sulfate 200 mg oral tablet 0 Refill(s) Start Date: 06/24/19 Stop Date: 06/28/19 Status: Discontinuedinsulin glargine 100 units/mL subcutaneous solution 8 unit, Route: SUB-Q, Daily, Dosing Weight 70.136, kg, Start date: 07/04/19 9:00:00 [employer], Duration: 30 day, Stop date: 08/02/19 9:00:00 [employer] Start Date: 07/04/19 Stop Date: 07/03/19 Status: Canceledinsulin isophane-NPH 7 unit, 0.07 mL, Route: SUB-Q, Drug form: INJ, BID, Dosing Weight 70.136, kg, Start date: 06/29/19 9:00:00 [employer], Duration: 30 day, Stop date: 07/28/19 17:00:00 [employer], 0 Notes: (Same as: Humulin N) Roll in palms of hands gently; Do not shake vigorously. WASTE: F/P - Black; E - Municipal Trash BinStable for 31 days at room temperature Expires in days from Date Start Date: 06/29/19 Stop Date: 07/03/19 Status: Discontinuedinsulin lispro 1 unit, 0.01 mL, Route: SUB-Q, Drug form: SOLN, TID-Before Meals, Dosing Weight 68.182, kg, PRN Blood Glucose Results, Start date: 06/24/19 15:51:00 [employer], Duration: 30 day, Stop date: 07/24/19 15:50:00 [employer], 0 Notes: (Same as: Humalog) Roll in palms of hands gently; Do not shake vigorously. WASTE: F/P - Black; E - Municipal Trash BinStable for 28 days at room temperature.Expires in days from Date Start Date: 06/24/19 Stop Date: 07/06/19 Status: Discontinuedinsulin lispro 2 unit, 0.02 mL, Route: SUB-Q, Drug form: SOLN, TID-Before Meals, Dosing Weight 68.182, kg, PRN Blood Glucose Results, Start date: 06/24/19 15:51:00 [employer], Duration: 30 day, Stop date: 07/24/19 15:50:00 [employer], 0 Notes: (Same as: Humalog) Roll in palms of hands gently; Do not shake vigorously. WASTE: F/P - Black; E - Municipal Trash BinStable for 28 days at room temperature.Expires in days from Date Start Date: 06/24/19 Stop Date: 07/06/19 Status: Discontinuedinsulin lispro 3 unit, 0.03 mL, Route: SUB-Q, Drug form: SOLN, TID-Before Meals, Dosing Weight 68.182, kg, PRN Blood Glucose Results, Start date: 06/24/19 15:51:00 [employer], Duration: 30 day, Stop date: 07/24/19 15:50:00 [employer], 0 Notes: (Same as: Humalog) Roll in palms of hands gently; Do not shake vigorously. WASTE: F/P - Black; E - Municipal Trash BinStable for 28 days at room temperature.Expires in days from Date Start Date: 06/24/19 Stop Date: 07/06/19 Status: Discontinuedinsulin lispro 4 unit, 0.04 mL, Route: SUB-Q, Drug form: SOLN, TID-Before Meals, Dosing Weight 68.182, kg, PRN Blood Glucose Results, Start date: 06/24/19 15:51:00 [employer], Duration: 30 day, Stop date: 07/24/19 15:50:00 [employer], 0 Notes: (Same as: Humalog) Roll in palms of hands gently; Do not shake vigorously. WASTE: F/P - Black; E - Municipal Trash BinStable for 28 days at room temperature.Expires in days from Date Start Date: 06/24/19 Stop Date: 07/06/19 Status: Discontinuedinsulin lispro 5 unit, 0.05 mL, Route: SUB-Q, Drug form: SOLN, TID-Before Meals, Dosing Weight 68.182, kg, PRN Blood Glucose Results, Start date: 06/24/19 15:51:00 [employer], Duration: 30 day, Stop date: 07/24/19 15:50:00 [employer], 0 Notes: (Same as: Humalog) Roll in palms of hands gently; Do not shake vigorously. WASTE: F/P - Black; E - Municipal Trash BinStable for 28 days at room temperature.Expires in days from Date Start Date: 06/24/19 Stop Date: 07/06/19 Status: Discontinuedinsulin lispro 1 unit, 0.01 mL, Route: SUB-Q, Drug form: SOLN, Bedtime, Dosing Weight 68.182, kg, PRN Blood GlucoseResults, Start date: 06/24/19 15:51:00 [employer], Duration: 30 day, Stop date: 07/24/19 15:50:00 [employer], 0 Notes: (Same as: Humalog) Roll in palms of hands gently; Do not shake vigorously. WASTE: F/P - Black; E - Municipal Trash BinStable for 28 days at room temperature.Expires in days from Date Start Date: 06/24/19 Stop Date: 07/03/19 Status: Discontinuedinsulin lispro 2 unit, 0.02 mL, Route: SUB-Q, Drug form: SOLN, Bedtime, Dosing Weight 68.182, kg, PRN Blood GlucoseResults, Start date: 06/24/19 15:51:00 [employer], Duration: 30 day, Stop date: 07/24/19 15:50:00 [employer], 0 Notes: (Same as: Humalog) Roll in palms of hands gently; Do not shake vigorously. WASTE: F/P - Black; E - Municipal Trash BinStable for 28 days at room temperature.Expires in days from Date Start Date: 06/24/19 Stop Date: 07/03/19 Status: Discontinuedinsulin lispro 3 unit, 0.03 mL, Route: SUB-Q, Drug form: SOLN, Bedtime, Dosing Weight 68.182, kg, PRN Blood GlucoseResults, Start date: 06/24/19 15:51:00 [employer], Duration: 30 day, Stop date: 07/24/19 15:50:00 [employer], 0 Notes: (Same as: Humalog) Roll in palms of hands gently; Do not shake vigorously. WASTE: F/P - Black; E - Municipal Trash BinStable for 28 days at room temperature.Expires in days from Date Start Date: 06/24/19 Stop Date: 07/03/19 Status: Discontinuedinsulin lispro 4 unit, 0.04 mL, Route: SUB-Q, Drug form: SOLN, Bedtime, Dosing Weight 68.182, kg, PRN Blood GlucoseResults, Start date: 06/24/19 15:51:00 [employer], Duration: 30 day, Stop date: 07/24/19 15:50:00 [employer], 0 Notes: (Same as: Humalog) Roll in palms of hands gently; Do not shake vigorously. WASTE: F/P - Black; E - Municipal Trash BinStable for 28 days at room temperature.Expires in days from Date Start Date: 06/24/19 Stop Date: 07/03/19 Status: DiscontinuedJanuvia 100 mg oral tablet 100 mg = 1 tab, PO, Daily, 0 Refill(s) Start Date: 06/23/19 Status: Orderedlabetalol 10 mg, 2 mL, Route: IVP, Drug form: INJ, Q10Min, Dosing Weight 68.182, kg, PRN Hypertension, For SBP> 180 mmHg and/or DBP > 105 mmHg, Start date: 06/22/19 18:58:00 [employer], Duration: 30 day, Stop date: 07/22/19 18:57:00 [employer], 0 Start Date: 06/22/19 Stop Date: 07/03/19 Status: DiscontinuedLasix 40 mg, 4 mL, Route: IVP, Drug form: INJ, ONCE, Dosing Weight 68.182, kg, Start date: 06/24/19 22:18:00 [employer], Stop date: 06/24/19 22:18:00 [employer], 0 Notes: (Same as: Lasix) MEDICATION WASTE Product Size: 40 mgProduct Wasted: ___ mg Start Date: 06/24/19 Stop Date: 06/24/19 Status: CompletedLasix 20 mg, 1 tab, Route: PO, Drug form: TAB, Daily, Dosing Weight 68.182, kg, Start date: 07/06/19 9:00:00 [employer], Duration: 30 day, Stop date: 08/04/19 9:00:00 [employer], 0 Notes: (Same as: Lasix) May cause GI upset. Give with food or milk. Start Date: 07/06/19 Stop Date: 07/06/19 Status: DiscontinuedLasix 20 mg, 1 tab, Route: PO, Drug form: TAB, BID, Dosing Weight 68.182, kg, Start date: 06/25/19 17:00:00 [employer], Duration: 30 day, Stop date: 07/25/19 9:00:00 [employer], 0 Notes: (Same as: Lasix) May cause GI upset. Give with food or milk. Start Date: 06/25/19 Stop Date: 07/06/19 Status: DiscontinuedLasix 40 mg, 4 mL, Route: IVP, Drug form: INJ, ONCE, Dosing Weight 68.182, kg, Start date: 06/24/19 12:23:00 [employer], Stop date: 06/24/19 12:23:00 [employer], 0 Notes: (Same as: Lasix) MEDICATION WASTE Product Size: 40 mgProduct Wasted: ___ mg Start Date: 06/24/19 Stop Date: 06/24/19 Status: CompletedLasix 40 mg, Route: IVP, Drug form: INJ, ONCE, Dosing Weight 68.182, kg, Priority: NOW, Start date: 06/24/19 12:34:00 [employer], Stop date: 06/24/19 12:34:00 [employer] Start Date: 06/24/19 Stop Date: 06/24/19 Status: DeletedLasix 40 mg, 1 tab, Route: PO, Drug form: TAB, Daily, Dosing Weight 68.182, kg, Start date: 06/25/19 9:00:00 [employer], Duration: 30 day, Stop date: 07/24/19 9:00:00 [employer], 0 Notes: (Same as: Lasix) May cause GI upset. Give with food or milk. Start Date: 06/25/19 Stop Date: 06/25/19 Status: DiscontinuedLasix 20 mg, 2 mL, Route: IVP, Drug form: INJ, ONCE, Dosing Weight 68.182, kg, Start date: 06/23/19 13:28:00 [employer], Stop date: 06/23/19 13:28:00 [employer], 0 Notes: (Same as: Lasix) Start Date: 06/23/19 Stop Date: 06/23/19 Status: CompletedLumigan 0.03% ophthalmic solution 1 drp, RIGHT EYE, QPM, 0 Refill(s) Start Date: 06/23/19 Status: OrderedMag-Ox 400 400 mg, 1 tab, Route: PO, Drug form: TAB, Daily, Dosing Weight 68.182, kg, Start date: 06/26/19 9:00:00 [employer], Duration: 30 day, Stop date: 07/25/19 9:00:00 [employer], 0 Notes: (Same as: Mag-Ox 400)Magnesium oxide [id number] elemental magnesiumDose=____mg magnesium oxide (___mg elemental magnesium) Start Date: 06/26/19 Stop Date: 07/06/19 Status: Discontinuedmagnesium sulfate 2gm in NS 50 mL (premixed) 2 gm, 50 mL, Route: IVPB, Drug form: INJ, ONCE, Dosing Weight 70.136, kg, Start date: 06/27/19 7:41:00 [employer], Stop date: 06/27/19 7:41:00 [employer], 0 Notes: WASTE: F/P - Sink; E - Municipal Trash Bin Start Date: 06/27/19 Stop Date: 06/27/19 Status: CompletedmethylPREDNISolone SODium SUCCinate 125 mg, 2 mL, Route: IVP, Drug form: INJ, Daily, Dosing Weight 70.136, kg, Start date: 06/28/19 9:00:00 [employer], Stop date: 06/30/19 9:00:00 [employer], 0 Notes: (Same as:Solu-MEDROL, A-Methapred) Start Date: 06/28/19 Stop Date: 06/30/19 Status: CompletedMiraLax 17 gm, 1 pkt, Route: PO, Drug form: PWDR, BID, Dosing Weight 70.136, kg, Start date: 06/26/19 17:00:00 [employer], Duration: 3 day, Stop date: 06/29/19 9:00:00 [employer], 0 Notes: Dissolve in 8 oz of water or juice.(Same as: Miralax) Start Date: 06/26/19 Stop Date: 06/29/19 Status: Completednormal saline 0.9% IV 1,000 mL 1,000 mL, Rate: 75 ml/hr, Infuse over: 13.3 hr, Route: IV, Dosing Weight 68.182 kg, Total Volume: 1,000, Start date: 06/23/19 9:22:00 [employer], Duration: 30 day, Stop date: 07/23/19 9:21:00 [employer], 0 Start Date: 06/23/19 Stop Date: 06/24/19 Status: Discontinuednystatin topical 100,000 units/g powder 1 appl, Route: TOP, BID, Drug form: PWDR, Start date: 06/27/19 9:00:00 [employer], Duration: 30 day, Stop date: 07/26/19 17:00:00 [employer], 0 Notes: (Same as:Mycostatin, Nilstat) For external use only. Start Date: 06/27/19 Stop Date: 07/06/19 Status: Discontinuedomeprazole 20 mg, PO, Daily, 0 Refill(s) Start Date: 06/23/19 Stop Date: 06/28/19 Status: Discontinuedomeprazole 20 mg, Route: PO, Drug form: ECCAP, Before Breakfast, Dosing Weight 68.182, kg, Start date: 197:30:00 [employer], Duration: 30 day, Stop date: 07/24/19 7:30:00 [employer] Start Date: 06/25/19 Stop Date: 06/24/19 Status: DeletedOmnipaque 350mg/ml 60 mL, Route: IVP, Drug Form: SOLN, Dosing Weight 68.182, kg, ONCALL, STAT, Start date: 06/23/19 9:21:00 [employer], Duration: 1 doses or times, Dose = 2.2ml/kg, Max dose = 100ml -- "To be infused by Radiology Staff ONLY", 0 Notes: (Same as:Omnipaque 350).WASTE: F/P - Black; E - Municipal Trash Bin Start Date: 06/23/19 Stop Date: 06/24/19 Status: CompletedOmnipaque 350mg/ml 99 mL, Route: IVP, Drug Form: SOLN, Dosing Weight 70.136, kg, ONCALL, STAT, Start date: 06/28/19 4:08:00 [employer], Duration: 1 doses or times, Dose = 2.2ml/kg, Max dose = 100ml -- "To be infused by Radiology Staff ONLY" Start Date: 06/28/19 Stop Date: 06/28/19 Status: Completedpantoprazole 40 mg oral enteric coated tablet 40 mg = 1 tab, PO, Before Breakfast, 0 Refill(s) Start Date: 07/06/19 Status: OrderedPlavix 75 mg, 1 tab, Route: PO, Drug form: TAB, Daily, Dosing Weight 70.136, kg, Start date: 06/27/19 9:00:00 [employer], Duration: 30 day, Stop date: 07/26/19 9:00:00 [employer], 0 Notes: (Same As: Plavix) Start Date: 06/27/19 Stop Date: 07/06/19 Status: Discontinuedpotassium chloride 20 mEq, 15 mL, Route: NG, Drug form: LIQ, Q12H, Dosing Weight 70.136, kg, Start date: 06/27/19 21:00:00 [employer], Duration: 30 day, Stop date: 07/27/19 9:00:00 [employer], 0 Notes: (Same as: Potassium Chloride) Start Date: 06/27/19 Stop Date: 07/06/19 Status: Discontinuedpotassium chloride 40 mEq, 30 mL, Route: PO, Drug form: LIQ, ONCE, Start date: 06/24/19 12:49:00 [employer], Stop date: 06/24/19 12:49:00 [employer], 0 Notes: (Same as: Potassium Chloride) Start Date: 06/24/19 Stop Date: 06/24/19 Status: Discontinuedpotassium chloride 40 mEq, 2 tab, Route: PO, Drug form: ERTAB, ONCE, Dosing Weight 68.182, kg, Priority: NOW, Start date: 06/24/19 14:33:00 [employer], Stop date: 06/24/19 14:33:00 [employer], 0 Notes: (Same as: K-Dur 20)"Do Not Crush" Give with food and full glass of waterFor patients unable to swallow tablet, dissolve in one half glass of water. Allow about 2 minutes for the tablets to disintegrate. Stir before giving to prepare slurry and administer.Please exclude Patients with feedingtube less than 14 Greek (Dobhoff, J-tube etc) and pediatric and patients. Start Date: 06/24/19 Stop Date: 06/24/19 Status: Completedpotassium chloride 20 mEq, 15 mL, Route: PO, Drug form: LIQ, Q12H, Dosing Weight 70.136, kg, Start date: 06/26/19 20:25:00 [employer], Duration: 30 day, Stop date: 07/26/19 9:00:00 [employer], 0 Notes: (Same as: Potassium Chloride) Start Date: 06/26/19 Stop Date: 06/27/19 Status: Discontinuedpotassium chloride 20 mEq oral tablet, extended release (KCL) 20 mEq, 1 tab, Route: PO, Drug form: ERTAB, Q12H, Dosing Weight 68.182, kg, Start date: 06/25/19 21:00:00 [employer], Duration: 30 day, Stop date: 07/25/19 9:00:00 [employer], 0 Notes: (Same as: K-Dur 20)"Do Not Crush" Give with food and full glass of waterFor patients unable to swallow tablet, dissolve in one half glass of water. Allow about 2 minutes for the tablets to disintegrate. Stir before giving to prepare slurry and administer.Please exclude Patients with feedingtube less than 14 Greek (Dobhoff, J-tube etc) and pediatric and patients. Start Date: 06/25/19 Stop Date: 06/26/19 Status: Discontinuedpotassium chloride 20 mEq oral tablet, extended release (KCL) 40 mEq, 2 tab, Route: PO, Drug form: ERTAB, ONCE, Dosing Weight 68.182, kg, Priority: NOW, Start date: 06/24/19 12:34:00 [employer], Stop date: 06/24/19 12:34:00 [employer] Start Date: 06/24/19 Stop Date: 06/24/19 Status: DeletedpredniSONE 2.5 mg oral tablet 2.5 mg = 1 tab, PO, Daily, 0 Refill(s) Start Date: 06/23/19 Stop Date: 06/28/19 Status: DiscontinuedpredniSONE 2.5 mg oral tablet 2.5 mg = 1 tab, PO, Daily, 0 Refill(s) Start Date: 06/28/19 Stop Date: 07/06/19 Status: DiscontinuedProtonix 40 mg, 1 tab, Route: PO, Drug form: ECTAB, Before Breakfast, Start date: 06/25/19 7:30:00 [employer] ROOM HOUSE[employer]ERSON, Duration: 30 day, Stop date: 07/24/19 7:30:00 [employer] RO[employer] HOUSE[employer]ERSON, 0 Notes: Tablet should not be chewed or crushed.(Same as: Protonix) Start Date: 06/25/19 Stop Date: 07/06/19 Status: DiscontinuedSaline Flush 0.9% 10 ml, Route: MISC, Drug Form: INJ, Dosing Weight 68.182, kg, Q12H, Start date: 06/22/19 21:00:00 [employer] HOUSE[employer]ERSON, Duration: 30 day, Stop date: 07/22/19 9:00:00 [employer] RO[employer] HOUSEPERSON, 0 Notes: (Same as: BD Posiflush) Start Date: 06/22/19 Stop Date: 07/06/19 Status: DiscontinuedSaline Flush 0.9% 10 ml, Route: MISC, Drug Form: INJ, Dosing Weight 68.182, kg, PRN, PRN Line Flush, Start date: 06/22/19 18:58:00 [employer] RO[employer] HOUSEPERSON, Duration: 30 day, Stop date: 07/22/19 18:57:00 [employer] RO[employer] HOUSEPERSON, 0 Notes: (Same as: BD Posiflush) Start Date: 06/22/19 Stop Date: 07/06/19 Status: Discontinuedsenna 8.6 mg, 1 tab, Route: PO, Drug Form: TAB, Dosing Weight 68.182, kg, Daily, PRN Constipation, Start date: 06/23/19 0:47:00 [employer] RO[employer] HOUSE[employer]ERSON, Duration: 30 day, Stop date: 07/23/19 0:46:00 [employer] RO[employer] HOUSE[employer]ERSON, 0 Notes: (Same as: Senokot) Start Date: 06/23/19 Stop Date: 07/06/19 Status: DiscontinuedSpiriva 18 mcg inhalation capsule 18 microgram, 1 inhalation, Route: INHALATION, Drug form: CAP, RDaily, Dosing Weight 70.136, kg, Start date: 07/03/19 10:00:00 [employer] RO[employer] HOUSE[employer]ERSON, Duration: 30 day, Stop date: 08/02/19 8:00:00 LIN[employer] ROOM HOUSEPERSON, 0 Notes: (Same As: Spiriva) Start Date: 07/03/19 Stop Date: 07/06/19 Status: DiscontinuedsulfaSALAzine 500 mg oral tablet 1,000 mg = 2 tab, PO, BID, 0 Refill(s) Start Date: 06/23/19 Status: OrderedSymbicort 160/4.5 inhalation aerosol with adapter 2 inhalation, Route: INHALATION, Drug Form: AERO/A, Dosing Weight 68.182, kg, RBID, Start date: 06/24/19 14:53:00 [employer] RO[employer] HOUSE[employer]ERSON, Duration: 30 day, Stop date: 07/24/19 8:00:00 [employer] ROOM HOUSEPERSON, 0 Notes: (Same as: Symbicort)WASTE: Aerosol - Return to Pharmacy Start Date: 06/24/19 Stop Date: 07/06/19 Status: Discontinuedtramadol 50 mg, PO, Q4-6H, PRN Pain, # 20 tab, 0 Refill(s) Start Date: 06/23/19 Stop Date: 06/28/19 Status: DiscontinuedTylenol 650 mg, 2 tab, Route: PO, Drug form: TAB, Q6H, Dosing Weight 70.136, kg, PRN Pain 1-3/Temp > 100.4 F, Start date: 06/27/19 7:41:00 [employer] RO[employer] HOUSE[employer]ERSON, Duration: 30 day, Stop date: 07/27/19 7:40:00 [employer] ROOM HOUSEPERSON, 0 Notes: Do not exceed 4 gm/day. (Same as: Tylenol) Start Date: 06/27/19 Stop Date: 07/06/19 Status: DiscontinuedVasotec 20 mg, 1 tab, Route: PO, Drug form: TAB, ONCE, Start date: 06/28/19 9:00:00 LIN[employer] ROOM HOUSEPERSON, Stop date: 199:00:00 LIN[employer] ROOM HOUSEPERSON, 0 Notes: (Same as: Vasotec) Start Date: 06/28/19 Stop Date: 06/28/19 Status: CompletedVentolin HFA INHALATION, QID, 0 Refill(s) Start Date: 06/23/19 Stop Date: 06/28/19 Status: DiscontinuedVentolin HFA 90 mcg/inh inhalation aerosol with adapter 2 puff, INHALATION, QID, 0 Refill(s) Start Date: 06/28/19 Status: OrderedZofran 4 mg, 2 mL, Route: IVP, Drug form: INJ, Q8H, Dosing Weight 70.136, kg, PRN Nausea, Start date: 06/27/19 7:41:00 [employer] ROOM HOUSE[employer]ERSON, Duration: 30 day, Stop date: 07/27/19 7:40:00 [employer] ROOM HOUSEPERSON, 0 Notes: (Same as: Zofran) MEDICATION WASTE Product Size: 4 mgProduct Wasted: ___ mg Start Date: 06/27/19 Stop Date: 07/06/19 Status: Discontinued Results Most recent to oldest 1 2 3 [Reference Range]: Procalcitonin Lvl [0.00-0.10 0.14 ng/mL 0.11 ng/mL ng/mL] *HI* *HI* (06/30/19 1:23 AM) (06/25/19 3:59 AM) Neutrophils # [1.5-8.1 7.6 K/CMM 9.3 K/CMM 10.9 K/CM M K/CMM] (07/02/19 10:19 AM) *HI* *HI* (07/01/19 5:20 AM) (06/30/19 1:2 3 AM) Lymphocytes # [1.0-5.5 1.3 K/CMM 1.2 K/CMM 0.9 K/CMM K/CMM] (07/02/19 10:19 AM) (07/01/19 5:20 AM) *LOW* (06/30/19 1:23 A M) Monocytes # [0.0-0.8 K/CMM] 1.1 K/CMM 1.6 K/CMM 1.2 K/CMM *HI* *HI* *HI* (07/02/19 10:19 AM) (07/01/19 5:20 AM) (06/30/19 1:23 AM) Eosinophils # [0.0-0.5 0.2 K/CMM 0.2 K/CMM 0.2 K/CMM K/CMM] (07/02/19 10:19 AM) (06/26/19 12:38 AM) ( 9 3:59 AM) Basophils # [0.0-0.2 K/CMM] 0.1 K/CMM 0.1 K/CMM 0.1 K/CMM (06/26/19 12:38 AM) (06/25/19 3:59 AM) (06/22/19 6:52 PM) BNP [<=100 pg/mL] 783 pg/mL 583 pg/mL 1546 pg/mL *HI* *HI* *HI* (06/30/19 1:23 AM) (06/28/19 2:17 AM) (06/24/19 3:08 AM) Plt Morph [Normal] Normal (06/22/19 6:52 PM) Bili Indirect [0.0-1.0] Unable to Calculate *NA* (06/24/19 3:08 AM) eGFR 30 mL/min/1.73m2 1 27 mL/min/1.73m2 2 28 mL/min/ 1.73m2 3 *NA* *NA* *NA* (07/06/19 3:53 AM) (07/04/19 3:44 AM) (07/03/19 3:02 AM) A/G Ratio [0.7-1.6] 0.8 0.7 0.7 (07/03/19 3:02 AM) (06/28/19 2:17 AM) (06/26/19 12:38 AM) Albumin Lvl [3.5-5.0 g/dL] 2.6 g/dL 2.8 g/dL 2.6 g /dL *LOW* *LOW* *LOW* (07/03/19 3:02 AM) (06/28/19 2:17 AM) (06/26/19 12:38 AM) Alk Phos [39-136 unit/L] 57 unit/L 71 unit/L 63 unit /L (07/03/19 3:02 AM) (06/28/19 2:17 AM) (06/26/19 12:38 AM) ALT [0-65 unit/L] 11 unit/L 14 unit/L 10 unit/L (07/03/19 3:02 AM) (06/28/19 2:17 AM) (06/26/19 12:38 AM) AGAP [10.0-20.0 mEq/L] 12.7 mEq/L 11.8 mEq/L 12.9 mEq/ L (07/06/19 3:53 AM) (07/04/19 3:44 AM) (07/03/19 3:02 AM) Anisocyte [None Seen] 1+ *ABN* (06/22/19 6:52 PM) AST [0-37 unit/L] 10 unit/L 14 unit/L 12 unit/L (07/03/19 3:02 AM) (06/28/19 2:17 AM) (06/26/19 12:38 AM) B/C Ratio [6-25] 40 29 25 *HI* *HI* (06/26/19 12:38 AM) (07/03/19 3:02 AM) (06/28/19 2:17 AM) Basophils [0.0-1.0 %] 0.3 % 0.2 % 0.3 % (07/02/19 10:19 AM) (07/01/19 5:20 AM) (06/30/19 1:23 AM) BUN [7-22 mg/dL] 21 mg/dL 63 mg/dL 67 mg/dL (07/06/19 3:53 AM) *HI* *HI* (07/04/19 3:44 AM) (07/03/19 3:0 2 AM) Calcium Lvl [8.5-10.5 mg/dL] 9.2 mg/dL 9.2 mg/dL 9.6 mg/dL (07/06/19 3:53 AM) (07/04/19 3:44 AM) (07/03/19 3:02 AM) CHD Risk [3.90-5.80] 3.46 *LOW* (06/22/19 7:03 PM) Chol [<=199 mg/dL] 142 mg/dL (06/22/19 7:03 PM) Chloride Lvl [95-109 mEq/L] 103 mEq/L 101 mEq/L 101 mEq/L (07/06/19 3:53 AM) (07/04/19 3:44 AM) (07/03/19 3:02 AM) CO2 [24-32 mEq/L] 24 mEq/L 31 mEq/L 29 mEq/L (07/06/19 3:53 AM) (07/04/19 3:44 AM) (07/03/19 3:02 AM) Creatinine Lvl [0.50-1.40 1.57 mg/dL 1.74 mg/dL 1.66 m g/dL mg/dL] *HI* *HI* *HI* (07/06/19 3:53 AM) (07/04/19 3:44 AM) (07/03/19 3:02 AM) Bili Direct [0.0-0.3 mg/dL] <0.1 mg/dL (06/24/19 3:08 AM) Eosinophils [0.0-4.0 %] 2.0 % 2.2 % 2.0 % (07/02/19 10:19 AM) (06/26/19 12:38 AM) ( 3:59 AM) Globulin [2.7-4.2 g/dL] 3.3 g/dL 3.8 g/dL 3.5 g/dL (07/03/19 3:02 AM) (06/28/19 2:17 AM) (06/26/19 12:38 AM) Glucose Lvl [70-99 mg/dL] 86 mg/dL 165 mg/dL 160 mg /dL (07/06/19 3:53 AM) *HI* *HI* (07/04/19 3:44 AM) (07/03/19 3:0 2 AM) Hct [36.0-48.0 %] 32.2 % 32.9 % 32.1 % *LOW* *LOW* *LOW* (07/06/19 3:53 AM) (07/02/19 10:19 AM) (07/01/19 5:20 AM) HDL [>=61 mg/dL] 41 mg/dL *LOW* (06/22/19 7:03 PM) Hgb [12.0-16.0 g/dL] 10.4 g/dL 10.4 g/dL 9.9 g/dL *LOW* *LOW* *LOW* (07/06/19 3:53 AM) (07/02/19 10:19 AM) (07/01/19 5:20 AM) Hgb A1C [<=5.6 %] 6.7 % *HI* (06/22/19 7:03 PM) INR [0.85-1.17] 1.09 (06/22/19 6:52 PM) Potassium Lvl [3.5-5.1 3.7 mEq/L 3.8 mEq/L 3.9 mEq/L mEq/L] (07/06/19 3:53 AM) (07/04/19 3:44 AM) (07/03/19 3:02 AM) Lactic Acid Lvl [0.5-2.2 1.1 mMol/L mMol/L] (06/30/19 1:23 AM) LDL (Calculated) [<=99 73 mg/dL mg/dL] (06/22/19 7:03 PM) Lymphocytes [20.0-40.0 %] 12.5 % 10.0 % 6.9 % *LOW* *LOW* *LOW* (07/02/19 10:19 AM) (07/01/19 5:20 AM) (06/30/19 1:23 AM) MCH [27.0-31.0 pg] 29.6 pg 29.0 pg 28.3 pg (07/06/19 3:53 AM) (07/02/19 10:19 AM) (07/01/19 5:20 AM) MCHC [32.0-36.0 g/dL] 32.3 g/dL 31.5 g/dL 30.9 g/dL (07/06/19 3:53 AM) *LOW* *LOW* (07/02/19 10:19 AM) (07/01/19 5: 20 AM) MCV [80.0-98.0 fL] 91.5 fL 92.0 fL 91.5 fL (07/06/19 3:53 AM) (07/02/19 10:19 AM) (07/01/19 5:20 AM) Magnesium Lvl [1.8-2.4 1.9 mg/dL 2.4 mg/dL 2.5 mg/dL mg/dL] (07/06/19 3:53 AM) (07/03/19 3:02 AM) *HI* (07/02/19 4:38 P M) Monocytes [2.0-12.0 %] 10.7 % 13.4 % 9.0 % (07/02/19 10:19 AM) *HI* (06/30/19 1: 23 AM) (07/01/19 5:20 AM) MPV [7.4-10.4 fL] 10.3 fL 9.4 fL 9.5 fL (07/06/19 3:53 AM) (07/02/19 10:19 AM) (07/01/19 5:20 AM) Sodium Lvl [135-145 mEq/L] 136 mEq/L 140 mEq/L 139 m Eq/L (07/06/19 3:53 AM) (07/04/19 3:44 AM) (07/03/19 3:02 AM) Phosphorus [2.5-4.5 mg/dL] 2.6 mg/dL 3.1 mg/dL 3.0 m g/dL (07/06/19 3:53 AM) (07/03/19 3:02 AM) (07/02/19 4:38 PM) Platelet [133-450 K/CMM] 165 K/CMM 210 K/CMM 211 K/C MM (07/06/19 3:53 AM) (07/02/19 10:19 AM) (07/01/19 5:20 AM) Segs [45.0-75.0 %] 74.5 % 76.4 % 83.8 % (07/02/19 10:19 AM) *HI* *HI* (07/01/19 5:20 AM) (06/30/19 1:2 3 AM) Total Protein [6.4-8.4 g/dL] 5.9 g/dL 6.6 g/dL 6.1 g/dL *LOW* (06/28/19 2:17 AM) *LOW* (07/03/19 3:02 AM) (06/26/19 12: 38 AM) PT [12.0-14.7 seconds] 13.9 seconds (06/22/19 6:52 PM) PTT [22.9-35.8 seconds] 22.2 seconds *LOW* (06/22/19 6:52 PM) RBC [4.20-5.40 M/CMM] 3.52 M/CMM 3.57 M/CMM 3.50 M/CMM *LOW* *LOW* *LOW* (07/06/19 3:53 AM) (07/02/19 10:19 AM) (07/01/19 5:20 AM) RBC Morph [Normal] See Note 4 (06/22/19 6:52 PM) RDW [11.5-14.5 %] 16.0 % 16.5 % 16.5 % *HI* *HI* *HI* (07/06/19 3:53 AM) (07/02/19 10:19 AM) (07/01/19 5:20 AM) Bili Total [0.2-1.3 mg/dL] 0.3 mg/dL 0.4 mg/dL 0.2 m g/dL (07/03/19 3:02 AM) (06/28/19 2:17 AM) (06/26/19 12:38 AM) Trig [<=149 mg/dL] 138 mg/dL (06/22/19 7:03 PM) Troponin-I [0.00-0.40 ng/mL] 0.04 ng/mL (07/05/19 2:38 AM) UA Bili [Negative] Negative *NA* (06/22/19 9:23 PM) UA Blood [Negative] Negative (06/22/19 9:23 PM) UA Color [Yellow] Yellow *NA* (06/22/19 9:23 PM) UA Glucose [Negative] Negative *NA* (06/22/19 9:23 PM) UA Ketones [Negative] Negative *NA* (06/22/19 9:23 PM) UA Leuk Est [Negative] Negative (06/22/19 9:23 PM) UA Mucus [None Seen /LPF] Few /LPF *NA* (06/22/19 9:23 PM) UA Nitrite [Negative] Negative (06/22/19 9:23 PM) UA pH [5.0-8.0] 5.0 (06/22/19 9:23 PM) UA Protein [Negative] Negative (06/22/19 9:23 PM) UA RBC [0-2 /HPF] 1 /HPF (06/22/19 9:23 PM) UA Spec Grav [<=1.030] 1.050 *HI* (06/22/19 9:23 PM) UA Sq Epi [Few /LPF] Many /LPF *ABN* (06/22/19 9:23 PM) UA Turbidity [Clear] Clear (06/22/19 9:23 PM) UA Urobilinogen [0.1-1.0 <1.0 mg/dL mg/dL] (06/22/19 9:23 PM) UA WBC [0-5 /HPF] 1 /HPF (06/22/19 9:23 PM) WBC [3.7-10.4 K/CMM] 6.1 K/CMM 10.2 K/CMM 12.2 K/CMM (07/06/19 3:53 AM) (07/02/19 10:19 AM) *HI* (07/01/19 5:20 A M) Ca Ion WB [1.05-1.25 mMol/L] 1.14 mMol/L 1.21 mMol/L 1.2 3 mMol/L (07/06/19 3:53 AM) (07/03/19 3:02 AM) (07/02/19 4:38 PM) Ca Norm WB [1.05-1.25 1.16 mMol/L 1.22 mMol/L 1.21 mMol/ L mMol/L] (07/06/19 3:53 AM) (07/03/19 3:02 AM) (07/02/19 4:38 PM) VLDL 28 *NA* (06/22/19 7:03 PM) 1Result Comment: The eGFR is calculated using the CKD-EPI formula. In most young, healthy individualsthe eGFR will be >90 mL/min/1.73m2. The eGFR declines with age. An eGFR of 60-89 may be normal insome populations, particularly the elderly, for whom the [...] eGFR should be multiplied by the estimated BMI.2Result Comment: The eGFR is calculated using the CKD-EPI formula. In most young, healthy individualsthe eGFR will be >90 mL/min/1.73m2. The eGFR declines with age. An eGFR of 60-89 may be normal insome populations, particularly the elderly, for whom the [...] eGFR should be multiplied by the estimated BMI.3Result Comment: The eGFR is calculated using the CKD-EPI formula. In most young, healthy individualsthe eGFR will be >90 mL/min/1.73m2. The eGFR declines with age. An eGFR of 60-89 may be normal insome populations, particularly the elderly, for whom the [...] eGFR should be multiplied by the estimated BMI.4Result Comment: Slight ovalocytosis Immunizations Given and Recorded Vaccine Date Status Refusal Reason influenza virus vaccine, inactivated 03/12/10 Given Hx pneumococcal vaccine 05/24/08 Given Hx influenza vaccine-unspecified 05/24/08 Given Procedures Procedure Date Related Diagnosis Body Site Status Cholecystectomy 2002 Completed Hernia1 1964 Completed Hysterectomy 1963 Completed Appendectomy Completed 1surg x2 repeat 1966 Social History Social History Type Response Alcohol Current, Type Beer, Wine. F requency: 1-2 times per year. Started age 14 Years. Prev ious treatment: None. Alcohol use interferes with work or home : No. Drinks more than intended: No. Others hurt by drinking: No . Ready to change: No. Household alcohol concerns: No. Substance Abuse Use: None. Smoking Status Never smoker; Exposure to To bacco Smoke None; Cigarette Smoking Last 365 Days No; Reg Smoking Cessation Counseling No entered on: 06/22/19 Assessment and Plan Extracted from: Title: Progress Note Author: Titus Sanderson MD Date : 07/06/19 1.Acute decompensated heart failure(I50.9) Remains euvolemic on furosemide 20 m g daily 2.Acute hypoxic respiratory failure (R09.02) Resolved completely 3.Mitral regurgitation(I34.0) Can follow-up outpatient, no acute t reatment needed 4.Dysphagia(R13.10) Tolerating thin liquids again 5.COPD without exacerbation(J44.9) Symbicort and Spiriva, no acute exac erbation 6.Chronic kidney disease stage 4(N 18.9) Creatinine following, 7.CAD - Coronary artery disease(I2 5.10) Secondary prophylaxis on aspirin and statin 8.Diabetes mellitus(E11.9) Will defer to neurology team, sophie ballesteros will recommenda diabetic diet and secretagogue patient's glipizide; is possible with additional weight loss the patient will not requireinsulin. Her creat inine remains very close to the cutoff f or metformin, and given its variability I would avoid this agentupon discharge. 9.Rheumatoid arthritis(M06.9) Follow-up outpatient with Dr. 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 Hospital c/b worsening respiratory distress/volume [...] -NYHA class 2-3 symptoms at home. On h omeenalapril 10mg. No beta blockers. Torsemide 10mg every [...] VARSHA as part of work up for ca rdioembolic sources of stroke - plan for stress test next week once ac edmonson decompensation of HF resolves Plan discussed w/ attending. Victorino Asif PGY1 Internal Medicine [facility] Cardiology attending attestation: I have seen and [...] tachyarrythmias Consider VARSHA for further evaluation of c ardioembolic source obtain outside records fromriivate car diologist Ming Rivera MD ,FACP, FACC ,DANGELO Bead Machine Operator Department of Internal Medicine Division of Cardiology Extracted from: Title: Stroke H+P Author: Denise Mahoney MD Date: 08/23/18 Acute Ischemic Stroke History & Physical Patient: Jean-Pierre Babcock Chief Complaint: Stroke History of Present Illness: [...] mobile stroke unit arrived to the scene patient's blo od pressure was 210/90 and glucose was [address] head and CTA were obtained which showed no bleed and no LVO, so TPA was administered. Patient also received labetalol by 1 in route to [facility]. Patient lives at [facility], performs her ADLs however has help with other tasks around the house. Review of Systems: unable to obtain 2/2 patient's dysarthri a Past Medical History: CVA x2 Past Surgical History: unable to obtain 2/2 dysarthria Family Medical History: non contributor y Social History: Pas above Medications: Scheduled Meds (1): 06/22/19 21:00 sodium chloride (Saline F lush 0.9%) 10 ml MISC Q12H Unscheduled Meds: None PRN Meds (2): 06/22/19 18:58 labetalol 10 mg IVP Q10Mi n 06/22/19 18:58 sodium chloride (Saline F lush 0.9%) 10 ml MISC PRN One Time Meds: None Continuous Infusions: None Allergies: NKDA Physical Exam: Vitals Tmp(F) Tmp(C) Ttype BP MAP Pulse RR SpO2 FIO2 ETCO2 06/22 22:25 ---- ---- ---- 169/73 102 87 18 94 --- --- 06/22 21:55 ---- ---- ---- 145/74 105 83 18 97 2.0L/m --- 06/22 21:25 ---- ---- ---- 190/77 110 88 18 97 2.0L/m --- 06/22 20:55 ---- ---- ---- 150/67 97 81 18 98 2.0L/m --- 06/22 20:40 ---- ---- ---- 161/65 94 80 18 97 2.0L/m --- 24 Hr Tmax: 96.5F (35.83c) at 06/22 18:2 3 Vital Signs are the last 5 in the past 48 hours. 24 Hr Tmin: 96.5F (35.83c) at 06/22 18: 23 Weights are the last 5 in 60 days, plus initial. GENERAL: Awake, alert in NAD HEENT: - Normocephalic and atraumatic, d ry mm LUNGS - Clear to auscultation bilaterall y with no wheezes CV - S1S2 RRR, no m/r/g, equal pulses bi laterally. ABDOMEN - Soft, nontender, nondistended with normoactive BS NEURO: Mental Status: AA&Ox3 Language: speech is dysarthric. Naming, comprehension intact. Cranial Nerves: PERRL 3 mm/brisk. EOMI, patient reports decreased periferal vision in the left eye on exam. mild facial asymmetry, facial sensation intact, hearing intact, tongue/uvula/soft palate midli ne, normal sternocleidomastoid and trape zius muscle strength. No evidence of tongue atrophy or fibrillations Motor: no drift bilaterally u/l extremit ies Tone: is normal and bulk is normal Sensation- Intact to light touch bilater ally Coordination: FTN intact bilaterally, no ataxia in BLE. 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 LOC: 0-alert 1b. LOC Questions: Month and age 0- both 1c. 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 Best Gaze: [...] Dysarthria: 2- severe 13. Extinction and Inattention (Neglect) : 1- partial Labs: 24hr Labs 06/22 2123 UA Color Yellow UA Turbidity Clear UA [...] Imaging: CT Head: Per report, no hemorrheage seen . Chronic changes bilaterally. CTA H&N: per report, no LVO MRI/MRA: pending Assessment: Patient is an 83 y/o female with histor y of CVA presenting with new sudden onset worsening of baseline dysarthria. 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 She will be admitted for further work up and management to the stroke team. Plan: Acute Ischemic Stroke Acuity: Acute Current Suspected Etiology: cardio embol ic v. thrombotic LVO less likely as not seen on CTA. Continue Evaluation: -Admit to: j[facility] -Continue Statin -Hold Aspirin until 24 hour post tPA karthikeyan roimaging is stable and without evidence of bleeding -Blood pressure control, goal of SYS < -MRI/ECHO/A1C/Lipid panel. -Hyperglycemia management per SSI to joshua cesilia glucose 140-180mg/dL. 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 Adi bridges, I have discussed the case with and reviewed the resident's note and agree with the history, exam, assessment and plan. See note below for additions a nd/or exceptions and my findings. I hav e personally viewed the patient's radiographic studies and laboratory tests. 83yo WF with history of ischemic strokes who was treated with IV-tPA via the mobile stroke unit and then admitted to [facility]. CTA head at the time of tPA did not reveal a large vessel occlusion. Notable Exam findings: Notable Labs: LDL (Calculated): 73 mg/dL (06/22/19 19: 03:00) Hgb A1C: 6.7 % High (06/22/19 19:03:00) [...] leaflet with regional wall motion abnormalities. Assessment/Plan: [id number] a dmission Principal Diagnosis I63.411 Cerebral infarction due to embol ism of right middle cerebral artery Acuity: Acute [...] Goal LDL is <70. Physical Therapy/Occupational Therapy Ev aluation Disposition recommendation: pending ev aluation Speech and Language Recommendations: modified barium test pending. DVT Prophylaxis Treatment: ANA velarde and SCD s. SQ Heparin at 24hrs post tPA. Himanshu Flannery MD MS Vascular Neurology [facility] - [facility] Pager: [phone]
[2019-11-22] MEDS ORDERED: IPRATROPIUM BROM 0.5MG/2.5ML ONE (19:19)
[2019-11-22] MEDS ORDERED: ALBUTEROL 2.5 MG/3 ML NEB SOL ONE (19:19)
[2019-11-22] MEDS ORDERED: FUROSEMIDE 20 MG/ 2ML VIAL ONE (19:28)
[2019-11-22 19:33] LABS: Absolute Lymphocytes (CBC) 1.3 K/uL (0.7-4.9); Basophils % 0.9 % (0-1.3); Hematocrit 37.2 % (36.0-45.0); Lymphocytes % 10.8 % (15.3-44.8); RBC Red Blood Cell Count 3.83 M/uL (3.86-4.86)
[2019-11-22 19:41] LABS: Arterial Blood Carboxyhemoglob 1.4 % (0-1.5); Blood Gas Oxyhemoglobin 89.2 % (94-97); Blood O2 Saturation 91.5 % (92-98.5)
[2019-11-22 19:45] LABS: Protime INR 1.02
[2019-11-22 19:57] LABS: ALT/SGPT 26 U/L (12-78); AST/SGOT 28 U/L (15-37); Albumin 2.6 g/dL (3.4-5.0); Alkaline Phosphatase 131 U/L (45-117); BUN Blood Urea Nitrogen 91 mg/dL (7-18); Bicarbonate 34 mmol/L (21-32); Bilirubin Direct < 0.1 mg/dL (0-0.2); Bilirubin Total 0.2 mg/dL (0.2-1.0); Creatine Phosphokinase 47 U/L (26-192); Glucose Level 212 mg/dL (74-106); Lipase 127 U/L (73-393); Magnesium 2.6 mg/dL (1.8-2.4); Potassium 4.8 mmol/L (3.5-5.1); Protein, Total 6.8 g/dL (6.4-8.2); Sodium Level 132 mmol/L (136-145)
[2019-11-22 20:02] LABS: Blood Morphology Comment NOT SEEN (NOT SEEN); Platelet Estimate ADEQ; Urine White Blood Cell Casts OK
[2019-11-22 20:24] LABS: Troponin (Emerg Dept Use Only) 0.61 ng/mL (0.0-0.045)
[2019-11-22 20:26] LABS: NT PRO-BNP 45165 pg/mL (<450)
[2019-11-22 20:35] LABS: Urine Appearance TURBID; Urine Blood 3+ (NEG); Urine Color RED; Urine Glucose NEGATIVE (NEG); Urine Protein 1+ (NEG); Urine Specific Gravity 1.015 (1.005-1.030); Urine pH 5.5 (5.0-7.0)
[2019-11-22 20:59] LABS: Urine Bilirubin 1+ (NEG); Urine Microscopic Reflex ORDER UMIC
[2019-11-22 21:00] LABS: Urine Bacteria >50 /HPF (<20); Urine Culture Reflex Order REFLEXED
--- NOTE | 2019-11-22 21:00 | RAD REPORT ---
EXAM DESCRIPTION: RAD - Chest Single View - 11/22/2019 8:31 pm CLINICAL HISTORY: SOB COMPARISON: None TECHNIQUE: AP portable chest image was obtained 11/22/2019 8:31 pm . FINDINGS: Lung volumes are low. Right hemidiaphragm elevation is seen. Interstitial markings are pro minent. Vasculature is prominent. Cardiomegaly is present. Trachea is midline. Left pleural effusion is seen. No pneumothorax. No acute bony abnormality seen. No acute aortic findings suspected. IMPRESSION: Mild CHF/volume overload pattern
--- NOTE | 2019-11-22 21:24 | ER ---
Nurse's Notes [facility] Name: Alisa Babcock Age: 84 yrs Sex: Female : 1935 Arrival Date: 11/22/2019 Time: 19:02 Bed 2 Private MD: Diagnosis: Acute diastolic (congestive) heart failure Presentation: 11/21 19:06 Coronavirus screen: Patient denies a cough. Patient reports shortness of breath or tw2 difficulty breathing. Patient reports a measured and/or subjective temperature greater than 100.4F. Patient denies travel on a cruise ship or to a country the [facility] currently lists as an affected area. Ebola Screen: Patient denies travel to an Ebola-affected area in the 21 days before illness onset. Initial Sepsis Screen: Does the patient meet any 2 criteria? RR > 20 per min. HR > 90 bpm. Does the patient have a suspected source of infection? No. Patient's initial sepsis screen is negative. Risk Assessment: Do you want to hurt yourself or someone else? Patient reports no desire to harm self or others. Onset of symptoms was November 22, 2019. 19:06 Acuity: REJI 2 tw2 19:06 Method Of Arrival: EMS: [facility] tw2 19:06 Chief complaint: EMS states: Called to [facility], pt was complaining of ea SOB, and was sating 83% on 2 L, EMS reports upon their arrival she was sating 88% on 2L. EMS have A\T\A treatment and 0.25 terbutaline. BGL 270. Historical: - Allergies: 19:19 No Known Allergies; ea - Home Meds: 19:19 Albuterol Nebulizer [Active]; carvedilol 3.125 mg oral tab 1 tab 2 times per day ea [Active]; clopidogrel 75 mg oral tab 1 tab once daily [Active]; enalapril maleate 5 mg Oral tab 1 tab once daily [Active]; furosemide 20 mg Oral tab 1 tab once daily [Active]; gabapentin 250 mg/5 mL oral soln 8 mL 3 times per day [Active]; leflunomide 20 mg oral tab 1 tab once daily [Active]; Pravachol 40 mg Oral tab 2 tabs once daily [Active]; sulfasalazine 500 mg Oral tab 1 tab 4 times per day [Active]; tramadol 50 mg Oral tab 1 tab as needed [Active]; - PMHx: 19:19 Hypertension; CHF; Diabetes - NIDDM; Anemia; ESRD; Rheumatoid Arthritis; CAD; cerebral ea infarction effecting left side; 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 - Social history:: Smoking status: unknown. Screenin:10 Abuse screen: Denies threats or abuse. Nutritional screening: No deficits noted. ea Tuberculosis screening: No symptoms or risk factors identified. Fall Risk Gait- Impaired (20 pts.). Assessment: 19:06 General: Appears uncomfortable, Behavior is appropriate for age. Pain: Denies pain. ea Neuro: Level of Consciousness is awake, alert, Oriented to person, place. Cardiovascular: Patient's skin is warm and dry. Respiratory: Airway is patent Respiratory effort is labored, Respiratory pattern is tachypnea. Derm: Skin is fragile, is thin, Skin is pale. 19:08 Reassessment: Respiratory at bedside placed pt on BiPAP. ea 19:15 Derm: Bruising that is green, yellow, on right lower quadrant, left lower quadrant and ea left iliac crest Skin tear noted to left forearm Decubitus located on sacrum approximately 1.5 cm to 2.5 cm is stage II is draining none noted. 19:15 Reassessment: Pt placed on waffle and turned on her right side. ea 20:00 Reassessment: Pt remains on BiPAP tolerating well. Pt resting with eyes closed, is ea heard of hearing and blind. Respiration rate has improved. 20:10 Reassessment: Patient and/or family updated on plan of care and expected duration. Pain ea level reassessed. Pt remains on BiPAP, tolerating well. Cloudy purulent smelling urine noted in Vanegas tube, provider notified, no new orders at this time. Pt denies pain at this time. Respiration rate has improved. 20:40 Reassessment: Igor Babcock (son) [phone], Sarah Choe (daughter in law) ea [phone]. 21:30 Reassessment: Patient and/or family updated on plan of care and expected duration. Pain ea level reassessed. Pt remains on BiPAP respirations improved. Denies pain at this time. Pt repositioned, tolerated well. 22:27 Reassessment: Spoke to Igor THOMAS, he was updated plan of care. ea Vital Signs: 19:05 BP 129 / 42; Pulse 107; Resp 45; Temp 97.9; Pulse Ox 89% on 4 lpm NC; tw2 20:39 BP 121 / 86; Pulse 89; Resp 22; Pulse Ox 100% on BiPAP; ea 22:30 BP 117 / 47; Pulse 102; Resp 24; Pulse Ox 97% on BiPAP; ea 22:30 BP 131 / 58; Pulse 98; Resp 24; Pulse Ox 98% on BiPAP; ea ED Course: 19:02 Patient arrived in ED. am2 19:06 Patient has correct armband on for positive identification. Bed in low position. Call mh5 light in reach. Side rails up X2. Warm blanket given. clothing examiner on. Pulse ox on. NIBP on. 19:07 Adama Wall MD is Attending Physician. 7 19:07 Triage completed. tw2 19:07 Sara Anthony, RN is Primary Nurse. ea 19:10 Arm band placed on right wrist. Patient placed in an exam room, on a stretcher, on ea pulse oximetry. 19:15 Inserted saline lock: 22 gauge in right wrist, using aseptic technique. ds4 19:52 Blood Culture Adult (2) Sent. ds4 19:52 BMP Sent. ds4 19:52 CBC with Diff Sent. ds4 19:52 Troponin (emerg Dept Use Only) Sent. ds4 19:53 EKG done, by ED staff, reviewed by Adama Wall MD. ds4 20:00 No provider procedures requiring assistance completed. Vanegas cath inserted, using ea sterile technique, 18 Fr., by hi, balloon inflated, to gravity drainage, urine specimen collected. other thick purulent urine noted. 20:10 Notified ED physician of a critical lab result(s). Troponin 0.61. lp1 20:30 Chest Single View XRAY In Process Unspecified. EDMS 20:38 Patient admitted, IV remains in place. ea 21:22 Torsten Padilla is Hospitalizing Provider. [facility] 11/22 04:00 Inserted saline lock: 22 gauge in left forearm, using aseptic technique. ds4 Administered Medications: 11/21 19:25 Drug: DuoNeb (3:1) (2.5 mg - 0.5 mg) 3 ml Route: Nebulizer; ea 20:41 Follow up: Response: No adverse reaction ea 19:25 Drug: Lasix 20 mg Route: IVP; Site: right hand; ea 20:41 Follow up: Response: No adverse reaction ea Outcome: 21:23 Decision to Hospitalize by Provider. [facility] 22:00 Condition: stable ea 22:00 Instructed on the need for admit. 22:00 Admitted to ER Hold. Please see [facility] for further documentation. ea 11/22 08:20 Patient left the ED. ss Signatures: Dispatcher [employer] EDMS Edith Cole RN RN Sarah Villatoro RN RN lp1 Wilfredo Peña4 Guy Moreno RN RN Dayna Burnham RN RN 2 Iqra Calhoun 5 Fatoumata Ruggiero Elena RN RN Adama Melvin MD MD 7 Corrections: (The following items were deleted from the chart) 11/21 20:36 20:00 Vanegas cath inserted, using sterile technique, 18 Fr., by me, balloon inflated, to ea gravity drainage, ao
--- NOTE | 2019-11-22 21:25 | EDPHYS ---
Physician Documentation [facility] Name: Alisa Babcock Age: 84 yrs Sex: Female : 1935 Arrival Date: 11/22/2019 Time: 19:02 Bed 2 Private MD: ED Physician Adama Wall HPI: 11/21 19:27 This 84 yrs old Unknown Female presents to ER via EMS with complaints of Shortness of mh7 breath. 19:27 The patient has shortness of breath at rest, that occurred at a fdc or 7 assisted living facility. Onset: The symptoms/episode began/occurred today. Duration: The symptoms are continuous, and are steadily getting worse. The patient's shortness of breath has no apparent modifying factors. Associated signs and symptoms: Pertinent negatives: non-productive cough, productive cough, fever, hemoptysis, loss of consciousness, vomiting. Severity of symptoms: At their worst the symptoms were severe today, in the emergency department the symptoms have improved mildly. The patient has experienced similar episodes in the past, multiple times. HPI obtained from EMS and family. Patient with a h/o COPD, CHF, DM, hyperlipidemia presented from a fdc due to SOB that started earlier today. She was recently hospitalized at another facility and treated for pneumonia. At that time she tested COVID 19 negative. . Historical: - Allergies: 19:19 No Known Allergies; ea - Home Meds: 19:19 Albuterol Nebulizer [Active]; carvedilol 3.125 mg oral tab 1 tab 2 times per day ea [Active]; clopidogrel 75 mg oral tab 1 tab once daily [Active]; enalapril maleate 5 mg Oral tab 1 tab once daily [Active]; furosemide 20 mg Oral tab 1 tab once daily [Active]; gabapentin 250 mg/5 mL oral soln 8 mL 3 times per day [Active]; leflunomide 20 mg oral tab 1 tab once daily [Active]; Pravachol 40 mg Oral tab 2 tabs once daily [Active]; sulfasalazine 500 mg Oral tab 1 tab 4 times per day [Active]; tramadol 50 mg Oral tab 1 tab as needed [Active]; - PMHx: 19:19 Hypertension; CHF; Diabetes - NIDDM; Anemia; ESRD; Rheumatoid Arthritis; CAD; cerebral ea infarction effecting left side; 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 - Social history:: Smoking status: unknown. ROS: 19:46 Unable to obtain ROS due to patient distress. [facility] 11/22 06:22 Constitutional: Negative for fever, chills, and weight loss. [facility] Exam: 11/21 19:46 Head/Face: Normocephalic, atraumatic. ENT: Nares patent. No nasal discharge, no [facility] septal abnormalities noted. Tympanic membranes are normal and external auditory canals are clear. Oropharynx with no redness, swelling, or masses, exudates, or evidence of obstruction, uvula midline. Mucous membranes moist. Neck: Trachea midline, no thyromegaly or masses palpated, and no cervical lymphadenopathy. Supple, full range of motion without nuchal rigidity, or vertebral point tenderness. No Meningismus. Chest/axilla: Normal chest wall appearance and motion. Nontender with no deformity. No lesions are appreciated. Abdomen/GI: Soft, non-tender, with normal bowel sounds. No distension or tympany. No guarding or rebound. No evidence of tenderness throughout. Back: No spinal tenderness. No costovertebral tenderness. Full range of motion. Skin: Warm, dry with normal turgor. Normal color with no rashes, no lesions, and no evidence of cellulitis. MS/ Extremity: Pulses equal, no cyanosis. Neurovascular intact. Full, normal range of motion. Constitutional: The patient appears awake, in obvious distress, obviously ill, uncomfortable. Cardiovascular: Rate: tachycardic, Rhythm: regular, Pulses: no pulse deficits are appreciated, Heart sounds: normal, normal S1and S2, Edema: is not appreciated, JVD: is not appreciated. ECG was reviewed by the Attending Physician. Respiratory: moderate respiratory distress is noted, Respirations: prolonged exhalation, that is moderate, intercostal retractions, that is moderate, Breath sounds: decreased breath sounds, that are moderate, are scattered, are located in both bases, rhonchi, that are moderate, are scattered, are located in both bases. Musculoskeletal/extremity: Neuro: Orientation: to person, Mentation: no acute changes, per family, able to follow commands, Memory: no acute changes, per family, Cranial nerves: no acute changes, Cerebellar function: no acute changes, Motor: no acute changes, left hemiparesis due to prior CVA, Sensation: no acute changes, seizure activity, is not displayed by the patient, Abnormal movements: there are no abnormal movements. Vital Signs: 19:05 BP 129 / 42; Pulse 107; Resp 45; Temp 97.9; Pulse Ox 89% on 4 lpm NC; tw2 20:39 BP 121 / 86; Pulse 89; Resp 22; Pulse Ox 100% on BiPAP; ea 22:30 BP 117 / 47; Pulse 102; Resp 24; Pulse Ox 97% on BiPAP; ea 22:30 BP 131 / 58; Pulse 98; Resp 24; Pulse Ox 98% on BiPAP; ea MDM: 19:07 Patient medically screened. [facility] 21:18 Differential diagnosis: Anemia Anxiety Reaction CHF exacerbation, Chronic Obstructive [facility] Pulmonary Disease pneumonia, pulmonary edema, Unstable Angina. Data reviewed: vital signs, nurses notes, EMS record, fdc records, lab test result(s), cardiac enzymes, troponin i, CBC, EKG, radiologic studies, plain films. 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 Interpretation: acceptable, Arterial blood gas: is normal except: PO2: 73, PCO2: 60, Oxygen saturation: 91.5. Counseling: I had a detailed discussion with the patient and/or guardian regarding: the historical points, exam findings, and any diagnostic results supporting the discharge/admit diagnosis, lab results, radiology results, the need for further work-up and treatment in the hospital. Physician consultation: Torsten Padilla and will see patient in ED. ED course: Feeling better, NAD, VSS, on BiPAP.. 11/22 06:19 ED course: Feels better, improved after being placed on BiPAP, more alert and awake.. [facility] 11/21 19:12 Order name: Blood Culture Adult (2) [facility] 11/21 19:12 Order name: BMP [facility] 11/21 19:12 Order name: CBC with Diff [facility] 11/21 19:12 Order name: Ckmb; Complete Time: 20:31 [facility] 11/21 19:12 Order name: CPK; Complete Time: 20:31 [facility] 11/21 19:12 Order name: Hepatic Function; Complete Time: 20:31 [facility] 11/21 19:12 Order name: Lipase; Complete Time: 20:31 [facility] 11/21 19:12 Order name: Magnesium; Complete Time: 20:31 [facility] 11/21 19:12 Order name: NT PRO-BNP; Complete Time: 20:31 [facility] 11/21 19:12 Order name: PT-INR; Complete Time: 19:59 [facility] 11/21 19:12 Order name: Ptt, Activated; Complete Time: 19:59 [facility] 11/21 19:12 Order name: Troponin (emerg Dept Use Only); Complete Time: 20:31 [facility] 11/21 19:13 Order name: Blood Culture [facility] 11/21 19:13 Order name: Basic Metabolic Panel; Complete Time: 20:31 [facility] 11/21 19:13 Order name: CBC with Automated Diff; Complete Time: 20:13 [facility] 11/21 19:13 Order name: Influenza Screen (a \T\ B) [facility] 11/21 19:13 Order name: UA; Complete Time: 21:18 [facility] 11/21 19:24 Order name: Lactate; Complete Time: 20:13 [facility] 11/21 19:25 Order name: ABG; Complete Time: 19:59 [facility] 11/21 20:00 Interpretation: Abnormal. [facility] 11/21 20:02 Order name: CBC Smear Scan; Complete Time: 20:13 [facility] 11/21 20:14 Order name: Chest Single View XRAY; Complete Time: 21:18 [facility] 11/21 20:40 Order name: COVID-19 [facility] 11/21 21:00 Order name: Urine Microscopic Only [facility] 11/21 21:01 Order name: Urine Culture [facility] 11/22 02:51 Order name: Glucose, Ancillary Testing [facility] 11/22 04:43 Order name: CBC with Automated Diff [facility] 11/22 04:58 Order name: Basic Metabolic Panel [facility] 11/22 04:58 Order name: Phosphorus [facility] 11/22 04:58 Order name: Magnesium [facility] 11/22 05:11 Order name: Troponin I [facility] 11/21 19:12 Order name: EKG; Complete Time: 19:13 [facility] 11/21 19:12 Order name: Cardiac monitoring; Complete Time: 19:24 [facility] 11/21 19:12 Order name: EKG - Nurse/Tech; Complete Time: 19:52 [facility] 11/21 19:12 Order name: IV Saline Lock; Complete Time: 19:24 [facility] 11/21 19:12 Order name: Labs collected and sent; Complete Time: 19:24 [facility] 11/21 19:12 Order name: O2 Per Protocol; Complete Time: 19:24 [facility] 11/21 19:12 Order name: O2 Sat Monitoring; Complete Time: 19:24 [facility] 11/21 22:04 Order name: ARTERIAL BLOOD GAS EDMS EC/13 19:46 Rate is 107 beats/min. Rhythm is regular. QRS [place] is Normal. [place] interval is normal. [facility] QRS interval is normal. QT interval is normal. No Q waves. T waves are Inverted in leads II, III, aVF, V3, V4. No ST changes noted. Clinical impression: Sinus tachycardia. Administered Medications: 19:25 Drug: DuoNeb (3:1) (2.5 mg - 0.5 mg) 3 ml Route: Nebulizer; ea 20:41 Follow up: Response: No adverse reaction 19:25 Drug: Lasix 20 mg Route: IVP; Site: right hand; ea 20:41 Follow up: Response: No adverse reaction Disposition: 11/22 06:19 Critical Care:. [facility] 06:22 Co-signature as Attending Physician, Adama Wall MD. [facility] Disposition: 11/22/19 21:23 Hospitalization ordered by Torsten Padilla for Inpatient Admission. Preliminary diagnosis is Acute diastolic (congestive) heart failure. - Bed requested for Telemetry/MedSurg (Inpatient). - Status is Inpatient Admission. ss - Condition is Stable. - Problem is an acute exacerbation. - Symptoms have improved. Critical care time excluding procedures: 06:19 Critical care time: Bedside Care: 15 minutes, Consultation: 5 minutes, Family [facility] Intervention: 15 minutes. Total time: 35 minutes Signatures: Dispatcher [employer] EDPA Edith Cole RN RN ss Samantha Yi RN RN tl1 Sara Anthony RN RN ea Holmes, Maurice, MD MD 7 Corrections: (The following items were deleted from the chart) 11/21 23:12 21:23 Hospitalization Ordered by Torsten Padilla for Inpatient Admission. Preliminary tl1 diagnosis is Acute diastolic (congestive) heart failure. Bed requested for Telemetry/MedSurg (Inpatient). Status is Inpatient Admission. Condition is Stable. Problem is an acute exacerbation. Symptoms have improved. mh7 11/22 05:44 11/21 23:12 11/22/2019 21:23 Hospitalization Ordered by Torsten Padilla for Inpatient tl1 Admission. Preliminary diagnosis is Acute diastolic (congestive) heart failure. Bed requested for [facility] ER HOLD. Status is Inpatient Admission. Condition is Stable. Problem is an acute exacerbation. Symptoms have improved. tl1 11/22 08:20 05:44 11/22/2019 21:23 Hospitalization Ordered by Torsten Padilla for Inpatient ss Admission. Preliminary diagnosis is Acute diastolic (congestive) heart failure. Bed requested for Telemetry/MedSurg (Inpatient). Status is Inpatient Admission. Condition is Stable. Problem is an acute exacerbation. Symptoms have improved. tl1
--- NOTE | 2019-11-22 21:51 | P.HP ---
Certification for Inpatient Patient admitted to: Inpatient With expected LOS: >2 Midnights Practitioner: I am a practitioner with admitting privileges, knowledge of patient current condition, hospital course, and medical plan of care. Services: Services provided to patient in accordance with Admission requirements found in Title 42 Section 412.3 of the Code of Federal Regulations Patient History Date of Service: 11/22/19 Reason for admission: Shortness of breath History of Present Illness: 84-year-old long term resident with a history of multiple strokes in the past, bed bound, history of sacral decubitus ulcer, PEG tube, chronic respiratory failure on 2 L of oxygen by nasal cannula at baseline was brought to the emergency department because patient was desaturating on her home oxygen. Per report she was also complaining of shortness of breath. No fever reported. Her chest x-ray in the ED demonstrated vascular congestion. Her her troponin is elevated to 0.6 and BNP markedly elevated. Patient was requiring BiPAP in the emergency department. Her blood gas was hypoxic on 90% FiO2. Patient is admitted for further management. Allergies No Known Allergies Allergy (Verified 11/22/19 23:03) - Past Medical/Surgical History -: CVA -: Diabetes mellitus type 2 -: Hyperlipidemia -: PEG tube -: Chronic respiratory failure -: Sacral decubitus ulcer -: Ulcerative colitis -: Anemia -: Peripheral neuropathy -: Glaucoma -: Hypertension -: Coronary Artery disease -: PEG tube - Family History Family History: Reviewed- Non-Contributory - Social History Alcohol use: No CD- Drugs: No Place of Residence: [place] Review of Systems is unable to be obtained (Due to advanced dementia) Physical Examination - Physical Exam General: Mild distress, Other (Awake, frail-appearing) HEENT: Other (On BiPAP), Sclerae nonicteric Neck: Supple, JVD not distended Respiratory: Diminished, Crackles/rales (Bibasilar crackles) Cardiovascular: No edema, Regular rate/rhythm, Normal S1 S2 Capillary refill: <2 Seconds Gastrointestinal: Normal bowel sounds, Soft and benign, Non-distended, No tenderness, Other (PEG tube) Musculoskeletal: No swelling, No contractures Integumentary: Other (Sacral decubitus ulcer) Neurological: Other (Left-sided weakness.) Urinary: Vanegas catheter - Studies Laboratory Data (last 24 hrs) 11/22/19 19:20: PT 12.0, INR 1.02, APTT 30.4 11/22/19 19:20: WBC 11.8 H, Hgb 11.8 L, Hct 37.2, Plt Count 361 11/22/19 19:20: Sodium 132 L, Potassium 4.8, BUN 91 H, Creatinine 1.32 H, Glucose 212 H, Magnesium 2.6 H, Total Bilirubin 0.2, AST 28, ALT 26, Alkaline Phosphatase 131 H, Lipase 127 Microbiology Data (last 24 hrs): 11/22/19 20:20 Nasopharnyx Influenza Type A Antigen Screen - Final 11/22/19 20:20 Nasopharnyx Influenza Type B Antigen Screen - Final Assessment and Plan - Problems (Diagnosis) (1) Congestive heart failure Current Visit: Yes Status: Acute (2) Elevated troponin Current Visit: Yes Status: Acute (3) Acute and chronic respiratory failure with hypoxia Current Visit: Yes Status: Acute (4) Acute and chronic respiratory failure with hypercapnia Current Visit: Yes Status: Acute (5) Diabetes mellitus Current Visit: Yes Status: Acute - Plan Admit to ICU. Continue BiPAP ventilation IV Lasix b.i.d., bronchodilator Trend troponin Aspirin and Plavix and Coreg Elevated troponin likely secondary to demand ischemia Obtain echocardiogram. Insulin sliding scale for glucose management. Hold tube feeding until she is off BiPAP. - Advance Directives Does patient have a Living Will: No Does patient have a Durable POA for Healthcare: No - Code Status/Comfort Care Code Status: Do Not Attempt Resuscitat
[2019-11-22] MEDS ORDERED: ONDANSETRON 4 MG/2 ML VIAL IV PRN (22:58)
[2019-11-22] MEDS ORDERED: ACETAMINOPHEN 500 MG TAB PO PRN (22:58)
[2019-11-23] MEDS: ALBUTEROL 2.5 MG/3 ML NEB SOL NEB SCH ×4 (01:30→20:00)
[2019-11-23] MEDS ORDERED: IPRATROPIUM BROM 0.5MG/2.5ML ONE (01:36)
[2019-11-23] MEDS: IPRATROPIUM BROM 0.5MG/2.5ML NEB SCH ×6 (04:00→20:00)
[2019-11-23 04:38] LABS: Absolute Lymphocytes (CBC) 1.2 K/uL (0.7-4.9); Basophils % 0.6 % (0-1.3); Hematocrit 35.1 % (36.0-45.0); Lymphocytes % 10.4 % (15.3-44.8); MPV 8.9 fL (7.6-11.3); RBC Red Blood Cell Count 3.64 M/uL (3.86-4.86)
[2019-11-23 04:52] LABS: Phosphorus 4.4 mg/dL (2.5-4.9)
[2019-11-23 04:57] LABS: Magnesium 2.6 mg/dL (1.8-2.4)
[2019-11-23] MEDS: INSULIN -REGULAR HUMAN 50 UNIT/0.5 ML ML SQ SCH ×4 (06:00→17:45)
[2019-11-23] MEDS: FUROSEMIDE 40 MG/4 ML VIAL IV SCH ×2 (08:25→17:35)
[2019-11-23] MEDS ORDERED: CLOPIDOGREL 75 MG TABLET PO SCH (09:00)
[2019-11-23] MEDS ORDERED: ASPIRIN EC 81 MG TAB PO SCH (09:00)
[2019-11-23 09:02] VITALS: BMI 25.4
--- NOTE | 2019-11-23 09:32 | P.CNS ---
Date of Consult: 11/23/19 Reason for Consult: OSMIN Requesting Physician: Prince Jeremy Feliz Chief Complaint: Shortness of breath History of Present Illness: 84 yo WF COPD/ CHF presented to the ER with 24-48 hours of severe, progressive dyspnea with associated hypoxia. Limited HPI/ ROS due to acute illness. Currently on bipap. 84-year-old prison resident with a history of multiple strokes in the past, bed bound, history of sacral decubitus ulcer, PEG tube, chronic respiratory failure on 2 L of oxygen by nasal cannula at baseline was brought to the emergency department because patient was desaturating on her home oxygen. Per report she was also complaining of shortness of breath. No fever reported. Her chest x-ray in the ED demonstrated vascular congestion. Her her troponin is elevated to 0.6 and BNP markedly elevated. Patient was requiring BiPAP in the emergency department. Her blood gas was hypoxic on 90% FiO2. Patient is admitted for further management. 19:27 This 84 yrs old Unknown Female presents to ER via EMS with complaints of Shortness of mh7 breath. 19:27 The patient has shortness of breath at rest, that occurred at a prison or 7 assisted living facility. Onset: The symptoms/episode began/occurred today. Duration: The symptoms are continuous, and are steadily getting worse. The patient's shortness of breath has no apparent modifying factors. Associated signs and symptoms: Pertinent negatives: non-productive cough, productive cough, fever, hemoptysis, loss of consciousness, vomiting. Severity of symptoms: At their worst the symptoms were severe today, in the emergency department the symptoms have improved mildly. The patient has experienced similar episodes in the past, multiple times. HPI obtained from EMS and family. Patient with a h/o COPD, CHF, DM, hyperlipidemia presented from a prison due to SOB that started earlier today. She was recently hospitalized at another facility and treated for pneumonia. At that time she tested COVID 19 negat william Allergies No Known Allergies Allergy (Verified 11/22/19 23:03) Home medications list reviewed: Yes Home Medications: Acetaminophen 500 mg FT TIDP PRN 11/23/19 Albuterol Sulfate [Albuterol Sulfate 0.083% Neb Soln] 2.5 mg IH Q4HP PRN 11/23/19 Albuterol Sulfate [Ventolin Hfa] 2 puff IH QID 11/23/19 Arginine/Ascorbate Sod/Gema AC [Arginaid Powder] 1 each FT BID 11/23/19 Ascorbic Acid 500 mg FT BID 11/23/19 Aspirin Chewable [Aspirin Chewable*] 81 mg FT DAILY 11/23/19 Clopidogrel Bisulfate [Plavix] 75 mg FT BEDTIME 11/23/19 Docusate Sodium 100 mg FT BIDP PRN 11/23/19 Enalapril Maleate [Vasotec] 5 mg FT DAILY 11/23/19 Ferrous Sulfate [Ferrous Sulfate Elixir] 7.5 ml FT DAILY 11/23/19 Furosemide [Lasix] 20 mg FT DAILY 11/23/19 Gabapentin 8 ml FT BID 11/23/19 Guaifenesin [Cough Syrup] 10 ml FT Q6HP PRN 11/23/19 Leflunomide 20 mg FT DAILY 11/23/19 Linagliptin [Tradjenta] 5 mg FT DAILY 11/23/19 Multivit-Min/Ferrous Gluconate [Centrum Multivit-Mineral Liq] 9 mg FT DAILY 11/23/19 Nut.tx.gluc Intol,Lf,Soy/Fiber [Diabetisource AC 1.2 Kendall Liq] 250 ml FT QID 11/23/19 Nut.tx.gluc Intol,Lf,Soy/Fiber [Diabetisource AC 1.2 Kendall Liq] 250 ml FT SEECOM 11/23/19 Pantoprazole Granules [Protonix Packet (for suspension)] 40 mg FT DAILY 11/23/19 Pravastatin Sodium 2 tab FT BEDTIME 11/23/19 Tramadol HCl [Ultram] 50 mg FT Q6HP PRN 11/23/19 Umeclidinium Brm/Vilanterol Tr [Anoro Ellipta 62.5-25 Mcg INH] 1 puff IH DAILY 11/23/19 Zinc Sulfate [Zinc Sulfate*] 220 mg FT BID 11/23/19 allopurinoL [Allopurinol] 100 mg FT BID 11/23/19 carvediloL [Carvedilol] 3.125 mg FT BID 11/23/19 glipiZIDE [Glipizide] 5 mg FT BID 11/23/19 sulfaSALAzine [Sulfasalazine] 2 tab FT BID 11/23/19 - Past Medical/Surgical History -: CVA -: Diabetes mellitus type 2 -: Hyperlipidemia -: PEG tube -: Chronic respiratory failure -: Sacral decubitus ulcer -: Ulcerative colitis -: Anemia -: Peripheral neuropathy -: Glaucoma -: Hypertension -: Coronary Artery disease -: PEG tube - Social History Smoking Status: Unknown if ever smoked Alcohol use: No CD- Drugs: No Caffeine use: No Place of Residence: [facility] Review of Systems is unable to be obtained General: Weakness, Malaise Respiratory: Shortness of Breath Physical Examination Temp Pulse Resp BP Pulse Ox 97.8 F 55 24 H 128/51 L 94 11/23/19 08:00 11/23/19 08:25 11/23/19 08:00 11/23/19 08:25 11/23/19 08:00 General: In no apparent distress HEENT: Atraumatic Neck: Supple Respiratory: Clear to auscultation bilaterally Cardiovascular: No edema, Regular rate/rhythm Gastrointestinal: Soft and benign, Non-distended Musculoskeletal: No clubbing, No contractures Integumentary: No rashes, No cyanosis Laboratory Data (last 24 hrs) 11/22/19 19:20: PT 12.0, INR 1.02, APTT 30.4 11/22/19 19:20: WBC 11.8 H, Hgb 11.8 L, Hct 37.2, Plt Count 361 11/22/19 19:20: Sodium 132 L, Potassium 4.8, BUN 91 H, Creatinine 1.32 H, Glucose 212 H, Magnesium 2.6 H, Total Bilirubin 0.2, AST 28, ALT 26, Alkaline Phosphatase 131 H, Lipase 127 Imagings Data: EXAM DESCRIPTION: RAD - Chest Single View - 11/22/2019 8:31 pm CLINICAL HISTORY: SOB COMPARISON: None TECHNIQUE: AP portable chest image was obtained 11/22/2019 8:31 pm . FINDINGS: Lung volumes are low. Right hemidiaphragm elevation is seen. Interstitial markings are prominent. Vasculature is prominent. Cardiomegaly is present. Trachea is midline. Left pleural effusion is seen. No pneumothorax. No acute bony abnormality seen. No acute aortic findings suspected. IMPRESSION: Mild CHF/volume overload pattern Conclusions/Impression: A/ OSMIN with significantly elevated BUN Hyponatremia Hypercalcemia CKD III with proteinuria Hypotension Diastolic CHF, A/C. DM II with CKD Anemia in chronic illness Acute respiratory failure with hypercapnea and hypoxia Acute cystitis P/ Continue current POC and Medications. Continue Lasix. Continue Bipap. Elevated BUN may be due to protein catabolism. Continue abx. Follow up cultures. Discontinue vasotec and coreg due to hypotension. Metoprolol with holding parameters started. No NSAIDs. AM labs. Daily weight. Thank you kindly for the consultation. Case reviewed with Dr. Feliz Greater than 30 min patient care. Critical Care: Yes
--- NOTE | 2019-11-23 11:15 | EKG ---
Test Date: 2019-11-22 Test Time: 19:44:46 Sewing Demonstrator: CARLOZ MEASUREMENT RESULTS: Intervals: Rate: 107 NM: 126 QRSD: 112 QT: 434 QTc: 579 [place]: P: 48 NM: 126 QRS: 87 T: 105 INTERPRETIVE STATEMENTS: Sinus tachycardia with frequent premature ventricular complexes in a pattern of bigeminy Right bundle branch block T wave abnormality, consider lateral ischemia Abnormal ECG No previous ECG available for comparison Electronically Signed On 11-23-19 11:13:34 CDT by Kei Bravo
[2019-11-23] MEDS ORDERED: ALBUTEROL 2.5 MG/3 ML NEB SOL IH PRN (13:04)
[2019-11-23] MEDS ORDERED: DOCUSATE NA 100 MG CAP PO PRN (13:04)
[2019-11-23] MEDS ORDERED: ACETAMINOPHEN 500 MG TAB FT PRN (13:04)
[2019-11-23] MEDS ORDERED: CEFTRIAXONE 1 GM/NS 50 ML 1 GM/50 ML BAG IV SCH (13:15)
--- NOTE | 2019-11-23 13:17 | P.PN ---
Subjective Date of Service: 11/23/19 Chief Complaint: Shortness of breath Subjective: Improving (Patient seen today with BIPAP on. She was sleeping when I entered the room. She states that she was not feeling short of breath.) Physical Examination - Vital Signs Temperature: 98.5 F Blood Pressure: 96/36 Pulse: 115 Respirations: 18 Pulse Ox (%): 93 - Physical Exam General: In no apparent distress, Cooperative, Other (SLEEPING) HEENT: Atraumatic, Normocephalic, EOMI Neck: Supple Cardiovascular: No edema, Normal pulses, Regular rate/rhythm, Normal S1 S2 Gastrointestinal: Normal bowel sounds, Soft and benign, Non-distended Musculoskeletal: No clubbing, No swelling, No contractures, No erythema, No tenderness, No warmth Integumentary: No rashes, No breakdown, No significant lesion, No tenderness/swelling, No erythema, No warmth, No cyanosis Neurological: Normal affect - Studies Laboratory Data (last 24 hrs) 11/22/19 19:20: PT 12.0, INR 1.02, APTT 30.4 11/22/19 19:20: WBC 11.8 H, Hgb 11.8 L, Hct 37.2, Plt Count 361 11/22/19 19:20: Sodium 132 L, Potassium 4.8, BUN 91 H, Creatinine 1.32 H, Glucose 212 H, Magnesium 2.6 H, Total Bilirubin 0.2, AST 28, ALT 26, Alkaline Phosphatase 131 H, Lipase 127 Microbiology Data (last 24 hrs): 11/22/19 21:22 Nasopharnyx Coronavirus COVID-19 PCR - Final 11/22/19 20:20 Nasopharnyx Influenza Type A Antigen Screen - Final 11/22/19 20:20 Nasopharnyx Influenza Type B Antigen Screen - Final Assessment & Plan - Problems (Diagnosis) (1) UTI (urinary tract infection) Current Visit: Yes Status: Acute (2) Acute and chronic respiratory failure with hypercapnia Current Visit: Yes Status: Acute (3) Acute and chronic respiratory failure with hypoxia Current Visit: Yes Status: Acute (4) Congestive heart failure Current Visit: Yes Status: Acute (5) Diabetes mellitus Current Visit: Yes Status: Acute (6) Elevated troponin Current Visit: Yes Status: Acute Physician Review Additional Text: Assessment Patient is a 84 year old female with a PMH of HTN, CVA S/P PEG tube placement, bed-bound with decubitus, chronic respiratory failure on 2L O2 via NC. She presents from her NH where she developed an acute increase in O2 requirement. A CXR in the ER was concerning for pulmonary congestion. She was placed on BiPAP. Subsquent ABG was still showing hypoxia with FiO2 90%. She received IV lasix and nebulizer and has been able to been weaned down. She is still on BiPAP but with FiO2 40%. Additional findings include elevated troponin (2nd trop 0.95), and + U/A. Acute on chronic hypoxemic respiratory failure CHF exacerbation Pre-renal azotemia HTN CVA PEG tube placement PLAN Continue BiPAP and wean off as tolerated Continue diuresis with lasix 40 mg IV Continue DuoNebs Continue trending troponin Cardiology consulted for possible NSTEMI Start ceftriaxone for suspected UTI Continue telemetry monitoring Nutrition consulted for tube feeds
[2019-11-23] MEDS ORDERED: GLUCERNA 1.2 CAL 1,000 ML BOT FT SCH ×2 (14:00→17:00)
[2019-11-23] MEDS: GLUCERNA 1.5 CAL 1,000 ML BOT RTH SCH (14:55)
[2019-11-23] MEDS: CEFTRIAXONE/SWI 1gm 1 GM/10 ML SYR IV SCH (14:55)
[2019-11-23] MEDS: SULFASALAZINE FT SCH (21:00)
[2019-11-23] MEDS: GABAPENTIN FT SCH (21:00)
[2019-11-23] MEDS ORDERED: carvediloL 3.125 MG TAB FT SCH (21:00)
[2019-11-23] MEDS: ZINC SULFATE 220 MG CAP FT SCH (23:18)
[2019-11-23] MEDS: ASCORBIC ACID 500 MG TABLET FT SCH (23:18)
[2019-11-23] MEDS: allopurinoL 100 MG TAB FT SCH (23:18)
[2019-11-23] MEDS: ATORVASTATIN 10 MG TAB PO SCH (23:18)
[2019-11-23] MEDS: CLOPIDOGREL 75 MG TABLET FT SCH (23:19)
[2019-11-24] MEDS: IPRATROPIUM BROM 0.5MG/2.5ML NEB SCH ×6 (00:20→20:00)
[2019-11-24] MEDS: INSULIN -REGULAR HUMAN 50 UNIT/0.5 ML ML SQ SCH ×4 (00:50→17:15)
--- NOTE | 2019-11-24 02:09 | CON ---
Date of Consultation: 11/23/2019 Reason For Consultation: Congestive heart failure, shortness of breath, and elevated troponin. History Of Present Illness: Patient is an 84-year-old woman. She is a do not resuscitate. She has tube feedings. She has a history of coronary artery disease, dyslipidemia, hypertension, and history of congestive heart failure. She also has a history of diabetes, anemia, end-stage renal disease, r heumatoid arthritis, cerebral infarction. She is blind in her right eye. She has left-sided residua l from her stroke. She came in with shortness of breath. She denied chest pain, nausea, vomiting, d iaphoresis. She denied any fever or chills or cough. She is being tested for COVID virus. Allergies: NONE. Review of Systems: Negative. Social History: Positive for the fact that she is a DNR. Family History: Noncontributory. Medications: At home include Coreg, Vasotec, Lasix, Plavix, and Pravachol. Physical Examination: Vital Signs: Stable. She was in normal sinus rhythm with occasional PVCs. Her blood pressure is 14 4/64. Her temperature was 98.9. She weighed 143 pounds. HEENT: Negative. Neck: Supple without any bruit, lymphadenopathy, JVD, or thyromegaly. Chest: Reveals crackles at both bases. Cardiac: Reveals regular rhythm and rate without any gallops or rubs. She had an aortic sclerosis m urmur. Abdomen: Benign. Extremities: Reveal no clubbing, cyanosis. She had 1+ edema. Diagnostic Data: Her pO2 was 73, her pCO2 was 60, pH was 7.36. Her creatinine was normal at 1.24. She had a white count of 11,000, her hemoglobin was 11.3. Her glucose was 142. Potassium was 5.0. Her mag was 2.6. Potassium was normal. She had a troponin of 0.95. She had BNP of 45,165. Urinaly sis was suspicious for urinary tract infection. Impression And Plan: 1.Acute on chronic diastolic congestive heart failure. 2.Hypertension. 3.Diabetes. 4.Dyslipidemia. 5.Thrombocytopenia. 6.Elevated troponin and BNP secondary to congestive heart failure. 7.Possible urinary tract infection with elevated procalcitonin. 8.Patient is a do not resuscitate. Patient presently is on inhalers, insulin, aspirin, Plavix, and IV Lasix and I agree with that. She is a do not resuscitate and she is not a candidate for invasive cardiac workup at this point. I will leave her noncardiac issues to Dr. Feliz to handle. I will c vik to follow her. ABRAHAM/BLACK Voice ID: [id number] Report ID: [id number]
[2019-11-24] MEDS: ALBUTEROL 2.5 MG/3 ML NEB SOL NEB SCH ×4 (02:40→20:00)
[2019-11-24 04:27] LABS: Absolute Lymphocytes (CBC) 0.5 K/uL (0.7-4.9); Basophils % 2.4 % (0-1.3); Lymphocytes % 4.2 % (15.3-44.8); MPV 9.2 fL (7.6-11.3); RBC Red Blood Cell Count 3.27 M/uL (3.86-4.86)
[2019-11-24 04:40] LABS: Albumin 2.4 g/dL (3.4-5.0); Bilirubin Total 0.2 mg/dL (0.2-1.0); Phosphorus 2.6 mg/dL (2.5-4.9); Potassium 4.1 mmol/L (3.5-5.1); Protein, Total 6.2 g/dL (6.4-8.2); Uric Acid 7.9 mg/dL (2.6-6.0)
[2019-11-24 05:12] LABS: Blood Morphology Comment NOT SEEN (NOT SEEN); Platelet Estimate ADEQ
[2019-11-24] MEDS: TRAMADOL HCL 50 MG TAB FT PRN (06:13)
--- NOTE | 2019-11-24 08:29 | ECHO ---
HEIGHT: 5 ft 3 in WEIGHT: 143 lb 0 oz DATE OF STUDY: 11/23/[address]: angela carmen 2-DIMENSIONAL: YES M.MODE: YES DOPPLER: YES COLOR FLOW: YES TDS: YES PORTABLE: NO DEFINITY: NO BUBBLE STUDY: NO DIAGNOSIS: CONGESTIVE HEART FAILURE CARDIAC HISTORY: CATHERIZATION: NO SURGERY: NO PROSTHETIC VALVE: NO PACEMAKER: NO MEASUREMENTS (cm) DIASTOLIC (NORMALS) SYSTOLIC (NORMALS) IVSd 1.1 (0.6-1.2) LA Diam (1.9-4.0) LVEF 30-35% LVIDd 3.1 (3.5-5.7) LVIDs 2.3 (2.0-3.5) %FS % LVPWd 1.3 (0.6-1.2) Ao Diam 2.7 (2.0-3.7) 2 DIMENSIONAL ASSESSMENT: RIGHT ATRIUM: DILATED LEFT ATRIUM: NORMAL RIGHT VENTRICLE: DILATED LEFT VENTRICLE: SMALL TRICUSPID VALVE: NORMAL MITRAL VALVE: NORMAL PULMONIC VALVE: NORMAL AORTIC VALVE: STENOTIC PERICARDIAL EFFUSION: NONE AORTIC ROOT: NORMAL LEFT VENTRICULAR WALL MOTION: PARADOXICAL SEPTUM. DOPPLER/COLOR FLOW: MILD AORTIC STENOSIS. AORTIC VALVE AREA 1.7 CENTIMETERS SQUARED. MILD TRICUSPID REGURGITATION. NORMAL RIGHT VENTRICULAR SYSTOLIC PRESSURE. COMMENTS: DILATED RIGHT ATRIUM AND RIGHT VENTRICLE. NORMAL RIGHT VENTRICULAR SYSTOLIC PRESSURE. PARADOXICAL SEPTUM. SMALL LEFT VENTRICLE WITH LEFT VENTRICULAR EJECTION FRACTION 30-35%. POSSIBLE CONSTRICTIVE CARDIOMYOPATHY. MILD AORTIC STENOSIS. AORTIC VALVE AREA 1.7 CENTIMETERS SQUARED. MILD TRICUSPID REGURGITATION. TECHNOLOGIST: Carroll CRANE
[2019-11-24] MEDS: ASCORBIC ACID 500 MG TABLET FT SCH ×2 (08:38→22:28)
[2019-11-24] MEDS: CEFTRIAXONE/SWI 1gm 1 GM/10 ML SYR IV SCH (08:38)
[2019-11-24] MEDS: Pantoprazole (granules) 40 MG/BLIST PACKET FT SCH (08:38)
[2019-11-24] MEDS: ZINC SULFATE 220 MG CAP FT SCH ×2 (08:38→22:28)
[2019-11-24] MEDS: ASPIRIN 81 MG CHEWABLE TABLET FT SCH (08:39)
[2019-11-24] MEDS: allopurinoL 100 MG TAB FT SCH ×2 (08:39→22:28)
[2019-11-24] MEDS: GABAPENTIN FT SCH ×2 (08:40→21:00)
[2019-11-24] MEDS: HOME MED 1 EA UNK (Leflunomide [Leflunomide] 20 MG) FT SCH (08:40)
[2019-11-24] MEDS: HOME MED 1 EA UNK (Umeclidinium Brm/Vilanterol Tr [Anoro Ellipta 62.5-25 Mcg Inh] 1 PUFF) IH SCH (08:41)
[2019-11-24] MEDS: SULFASALAZINE FT SCH ×2 (08:41→21:00)
[2019-11-24] MEDS: FUROSEMIDE 40 MG/4 ML VIAL IV SCH ×2 (08:50→16:22)
[2019-11-24] MEDS ORDERED: ENALAPRIL 2.5 MG TAB FT SCH (09:00)
[2019-11-24] MEDS: ENALAPRIL 2.5 MG TAB FT SCH (11:05)
[2019-11-24] MEDS: METOPROLOL TAR 25 MG TAB PO SCH ×2 (11:05→17:14)
[2019-11-24] MEDS: GLUCERNA 1.5 CAL 1,000 ML BOT RTH SCH (13:39)
--- NOTE | 2019-11-24 13:59 | P.PN ---
Subjective Date of Service: 11/24/19 Chief Complaint: Shortness of breath Subjective: Other (Patient has been weaned off BiPAP. She is satting 94% on RA. Denies any shortness of breath. Spontaneoulsy became tachcyardic. Rhythm strip showed multiple episodes of non-sustained monomorphic wide complex tach. STAT MAG check 2.4.) Physical Examination - Vital Signs Temperature: 98.8 F Blood Pressure: 150/80 Pulse: 107 Respirations: 19 Pulse Ox (%): 97 - Physical Exam General: Alert, In no apparent distress, Cooperative HEENT: Atraumatic, Normocephalic Neck: Supple Respiratory: Normal air movement Cardiovascular: No edema, Normal S1 S2, Other (Tachycardic) Gastrointestinal: Normal bowel sounds, Soft and benign, Non-distended, Other (PEG tube in place) Musculoskeletal: No clubbing, No swelling, No contractures, No erythema, No tenderness, No warmth Integumentary: No rashes, No breakdown, No significant lesion, No tenderness/swelling, No erythema, No warmth, No cyanosis Neurological: Dementia Assessment & Plan - Problems (Diagnosis) (1) UTI (urinary tract infection) Current Visit: Yes Status: Acute (2) Acute and chronic respiratory failure with hypercapnia Current Visit: Yes Status: Acute (3) Acute and chronic respiratory failure with hypoxia Current Visit: Yes Status: Acute (4) Congestive heart failure Current Visit: Yes Status: Acute (5) Diabetes mellitus Current Visit: Yes Status: Acute (6) Elevated troponin Current Visit: Yes Status: Acute Physician Review Additional Text: Assessment Patient is a 84 year old female with a PMH of HTN, CVA S/P PEG tube placement, bed-bound with decubitus, chronic respiratory failure on 2L O2 via NC. She is currently admitted with acute on chronic respiratory failure. Her CXR in the ER was concerning for pulmonary congestion. She was placed on BiPAP and diuretics on admission. She has been weaned off supplemental O2. Her hospital course has been complicated by multiple episodes of monomorphic wide complex tachycardia concerning for non-sustained VTach. Her electrolytes are WNL. Other issues addressed during this admission include UTI and elevated troponin. Acute on chronic hypoxemic respiratory failure CHF exacerbation Pre-renal azotemia Elevated troponin UTI HTN CVA PEG tube placement PLAN Continue telemetry 2-D ECHO to assess for structural heart disease Daily check of K+, Mg++ Continue diuresis and monitor daily I/O. Continue DuoNebs PRN Continue ceftriaxone for suspected UTI. Follow up urine cultures Nutrition consulted for tube feeds
--- NOTE | 2019-11-24 15:17 | EKG ---
Test Date: 2019-11-24 Test Time: 10:30:06 Typewriter Ribbon Winder: EMMA MEASUREMENT RESULTS: Intervals: Rate: 107 ND: 128 QRSD: 116 QT: 378 QTc: 504 [place]: P: 71 ND: 128 QRS: 85 T: -56 INTERPRETIVE STATEMENTS: Sinus tachycardia with premature supraventricular complexes with frequent premature ventricular complexes Incomplete right bundle branch block Right ventricular hypertrophy with repolarization abnormality T wave abnormality, consider inferior ischemia Abnormal ECG Compared to ECG 11/22/2019 19:44:46 Atrial premature complex(es) now present Incomplete right bundle-branch block now present Right ventricular hypertrophy now present Early repolarization now present Right bundle-branch block no longer present T-wave abnormality still present Possible ischemia still present Electronically Signed On 11-24-19 15:17:04 CDT by Kei Bravo
--- NOTE | 2019-11-24 21:00 | P.PN ---
Date of Service: 11/24/19 Vital Signs Temp Pulse Resp BP Pulse Ox 97.2 F 87 18 122/58 L 91 11/24/19 16:00 11/24/19 17:14 11/24/19 16:00 11/24/19 17:14 11/24/19 16:00 Medications Acetaminophen (Tylenol -Extra Strength) 500 mg PO Q4HP PRN PRN Reason: TEMP > 100' F Stop: 12/22/19 22:59 Acetaminophen (Tylenol -Extra Strength) 500 mg FT TIDP PRN PRN Reason: Pain scale 2-4 (Mild) Stop: 12/23/19 13:05 Last Admin: 11/24/19 11:06 Dose: 500 mg Documented by: Albuterol Sulfate (Proventil 0.083% Neb Soln) 2.5 mg NEB [id number] [place] Stop: 12/23/19 02:01 Last Admin: 11/24/19 14:00 Dose: Not Given Documented by: Albuterol Sulfate (Proventil 0.083% Neb Soln) 2.5 mg IH Q4HP PRN PRN Reason: COUGH Stop: 12/23/19 13:05 Allopurinol (Zyloprim) 100 mg FT BID [facility] Stop: 12/23/19 21:01 Last Admin: 11/24/19 08:39 Dose: 100 mg Documented by: Ascorbic Acid (Vitamin C) 500 mg FT BID [facility] Stop: 12/23/19 21:01 Last Admin: 11/24/19 08:38 Dose: 500 mg Documented by: Aspirin (Aspirin Chewable) 81 mg FT DAILY [place] Stop: 12/24/19 09:01 Last Admin: 11/24/19 08:39 Dose: 81 mg Documented by: Atorvastatin Calcium (Lipitor) 10 mg PO BEDTIME [place] Stop: 12/23/19 21:01 Last Admin: 11/23/19 23:18 Dose: 10 mg Documented by: Clopidogrel Bisulfate (Plavix) 75 mg FT BEDTIME [place] Stop: 12/23/19 21:01 Last Admin: 11/23/19 23:19 Dose: 75 mg Documented by: Docusate Sodium (Colace Cap) 100 mg PO BIDP PRN PRN Reason: CONSTIPATION Enalapril Maleate (Vasotec) 5 mg FT DAILY [facility] Stop: 12/24/19 09:01 Last Admin: 11/24/19 11:05 Dose: 5 mg Documented by: Enteral Nutritional Formula (Glucerna 1.5 Kendall) 0 ml RTH CONT [facility] Stop: 12/23/19 14:01 Last Admin: 11/24/19 13:39 Dose: 1,000 ml Documented by: Ferrous Sulfate (Ferrous Sulfate Elixir) 330 mg FT DAILY [place] Stop: 12/24/19 09:01 Last Admin: 11/24/19 08:44 Dose: 330 mg Documented by: Furosemide (Lasix) 40 mg IV BIDL [place] Stop: 12/23/19 09:01 Last Admin: 11/24/19 16:22 Dose: 40 mg Documented by: Guaifenesin (Robitussin 100mg/5ml) 200 mg FT Q6HP PRN PRN Reason: COUGH Stop: 12/23/19 13:05 Home Med (Gabapentin [Gabapentin]) 8 ml FT BID [facility] Stop: 12/23/19 21:01 Last Admin: 11/24/19 08:40 Dose: Not Given Documented by: Home Med (Leflunomide [Leflunomide]) 20 mg FT DAILY [facility] Stop: 12/24/19 09:01 Last Admin: 11/24/19 08:40 Dose: Not Given Documented by: Home Med (Sulfasalazine [Sulfasalazine]) 2 tab FT BID [facility] Stop: 12/23/19 21:01 Last Admin: 11/24/19 08:41 Dose: Not Given Documented by: Home Med (Umeclidinium Brm/Vilanterol Tr [Anoro Ellipta 62.5-25 Mcg Inh]) 1 puff IH DAILY [facility] Stop: 12/24/19 09:01 Last Admin: 11/24/19 08:41 Dose: Not Given Documented by: Ceftriaxone Sodium/Sodium Chloride (Rocephin 1 Gm/10 Ml Swi Ivp) 1 gm in 10 mls @ 600 mls/hr IV DAILY [facility] Stop: 12/23/19 13:46 Last Admin: 11/24/19 08:38 Dose: 10 mls Documented by: Insulin Human Regular (Novolin -R) 0 unit SQ Q6HR [place]; Protocol Stop: 12/23/19 00:01 Last Admin: 11/24/19 17:15 Dose: 3 unit Documented by: Ipratropium [place] (Atrovent Neb) 0.5 mg NEB [id number] [facility] Stop: 12/23/19 00:01 Last Admin: 11/24/19 16:00 Dose: Not Given Documented by: Metoprolol Tartrate (Lopressor) 12.5 mg PO BID 6AM 6PM [facility] Stop: 12/23/19 18:01 Last Admin: 11/24/19 17:14 Dose: 12.5 mg Documented by: Ondansetron HCl (Zofran) 4 mg IV Q6HP PRN PRN Reason: NAUSEA / VOMITING Stop: 12/22/19 22:59 Pantoprazole Sodium (Protonix Packet (For Suspension)) 40 mg FT DAILY [facility]; Protocol Stop: 12/24/19 09:01 Last Admin: 11/24/19 08:38 Dose: 40 mg Documented by: Sodium Chloride (Normal Saline Flush) 10 ml IV BID [facility] Stop: 12/23/19 09:01 Last Admin: 11/24/19 08:39 Dose: 10 ml Documented by: Tramadol HCl (Ultram) 50 mg FT Q6HP PRN PRN Reason: Pain scale 5-7 (Moderate) Stop: 12/23/19 13:05 Last Admin: 11/24/19 06:13 Dose: 50 mg Documented by: Zinc Sulfate (Zinc Sulfate) 220 mg FT BID [facility] Stop: 12/23/19 21:01 Last Admin: 11/24/19 08:38 Dose: 220 mg Documented by: Microbiology Results 11/22/19 20:20 Clean Catch Urine Kincaid Count - Preliminary >100,000 CFU/ML. 11/22/19 20:20 Clean Catch Urine - Preliminary MIXED MARY. 11/22/19 19:33 Blood - Blood Aerobic Blood Culture - Preliminary No growth in 24 hours. 11/22/19 19:33 Blood - Blood Anaerobic Blood Culture - Preliminary No growth in 24 hours. 11/22/19 19:20 Blood - Blood Aerobic Blood Culture - Preliminary No growth in 24 hours. 11/22/19 19:20 Blood - Blood Anaerobic Blood Culture - Preliminary No growth in 24 hours. 11/22/19 21:22 Nasopharnyx Coronavirus COVID-19 PCR - Final 11/22/19 20:20 Nasopharnyx Influenza Type A Antigen Screen - Final 11/22/19 20:20 Nasopharnyx Influenza Type B Antigen Screen - Final Assessment/ Plan: Nephrology Feeling better today and more awake. CPS improved without CP or SOB. No acute events overnight. Vitals, medications, blood work and imaging reviewed in the chart. General: In no apparent distress HEENT: Atraumatic Neck: Supple Respiratory: Clear to auscultation bilaterally Cardiovascular: No edema, Regular rate/rhythm Gastrointestinal: Soft and benign, Non-distended Musculoskeletal: No clubbing, No contractures Integumentary: No rashes, No cyanosis Laboratory Data (last 24 hrs) 11/22/19 19:20: PT 12.0, INR 1.02, APTT 30.4 11/22/19 19:20: WBC 11.8 H, Hgb 11.8 L, Hct 37.2, Plt Count 361 11/22/19 19:20: Sodium 132 L, Potassium 4.8, BUN 91 H, Creatinine 1.32 H, Glucose 212 H, Magnesium 2.6 H, Total Bilirubin 0.2, AST 28, ALT 26, Alkaline Phosphatase 131 H, Lipase 127 Imagings Data: EXAM DESCRIPTION: RAD - Chest Single View - 11/22/2019 8:31 pm CLINICAL HISTORY: SOB COMPARISON: None TECHNIQUE: AP portable chest image was obtained 11/22/2019 8:31 pm . FINDINGS: Lung volumes are low. Right hemidiaphragm elevation is seen. Interstitial markings are prominent. Vasculature is prominent. Cardiomegaly is present. Trachea is midline. Left pleural effusion is seen. No pneumothorax. No acute bony abnormality seen. No acute aortic findings suspected. IMPRESSION: Mild CHF/volume overload pattern Conclusions/Impression: A/ OSMIN with significantly elevated BUN Hyponatremia Hypercalcemia CKD III with proteinuria Hypotension Diastolic CHF, A/C. DM II with CKD Anemia in chronic illness Acute respiratory failure with hypercapnea and hypoxia Acute cystitis P/ Continue current POC and Medications. Continue Lasix. Enalapril restarted. Bipap PRN. Elevated BUN may be due to protein catabolism. Continue abx. Follow up cultures. No NSAIDs. AM labs. Daily weight.
[2019-11-24] MEDS: ATORVASTATIN 10 MG TAB PO SCH (22:28)
[2019-11-24] MEDS: CLOPIDOGREL 75 MG TABLET FT SCH (22:28)
[2019-11-24] MEDS: guaiFENesin 100 MG/5 ML UCUP FT PRN (22:29)
[2019-11-25] MEDS: INSULIN -REGULAR HUMAN 50 UNIT/0.5 ML ML SQ SCH ×4 (00:36→18:47)
[2019-11-25] MEDS: IPRATROPIUM BROM 0.5MG/2.5ML NEB SCH ×6 (00:50→20:35)
[2019-11-25] MEDS: ALBUTEROL 2.5 MG/3 ML NEB SOL NEB SCH ×4 (01:09→20:35)
[2019-11-25 02:50] LABS: Urine Appearance CLEAR; Urine Bilirubin NEGATIVE (NEG); Urine Blood NEGATIVE (NEG); Urine Color YELLOW; Urine Glucose NEGATIVE (NEG); Urine Protein NEGATIVE (NEG); Urine Specific Gravity 1.015 (1.005-1.030); Urine Urobilinogen 0.2 mg/dL (0.2-1.0)
[2019-11-25 03:05] LABS: Urine Bacteria >50 /HPF (<20); Urine Culture Reflex Order REFLEXED
[2019-11-25 03:06] LABS: Urine Amorphous Sediment 1+ /HPF (NONE SEEN)
[2019-11-25 03:08] LABS: UR MICROALBUMIN 2.2 mg/dL (< 1.9)
[2019-11-25] MEDS: METOPROLOL TAR 25 MG TAB PO SCH ×2 (05:49→17:42)
[2019-11-25 06:28] LABS: Potassium 3.8 mmol/L (3.5-5.1)
[2019-11-25] MEDS: HOME MED 1 EA UNK (Umeclidinium Brm/Vilanterol Tr [Anoro Ellipta 62.5-25 Mcg Inh] 1 PUFF) IH SCH (09:00)
[2019-11-25] MEDS: GABAPENTIN FT SCH ×2 (09:00→20:17)
[2019-11-25] MEDS ORDERED: POTASSIUM 25 MEQ EFFERV TAB PO ONE (09:00)
[2019-11-25] MEDS: SULFASALAZINE FT SCH ×2 (09:00→20:18)
[2019-11-25] MEDS: HOME MED 1 EA UNK (Leflunomide [Leflunomide] 20 MG) FT SCH (09:00)
[2019-11-25] MEDS: FUROSEMIDE 40 MG/4 ML VIAL IV SCH ×2 (09:24→17:42)
[2019-11-25] MEDS: ENALAPRIL 2.5 MG TAB FT SCH (09:24)
[2019-11-25] MEDS: ZINC SULFATE 220 MG CAP FT SCH ×2 (09:24→20:11)
[2019-11-25] MEDS: allopurinoL 100 MG TAB FT SCH ×2 (09:25→20:10)
[2019-11-25] MEDS: ASPIRIN 81 MG CHEWABLE TABLET FT SCH (09:25)
[2019-11-25] MEDS: ASCORBIC ACID 500 MG TABLET FT SCH ×2 (09:25→20:10)
[2019-11-25] MEDS: guaiFENesin 100 MG/5 ML UCUP FT PRN ×2 (09:26→20:12)
[2019-11-25] MEDS: CEFTRIAXONE/SWI 1gm 1 GM/10 ML SYR IV SCH (09:26)
[2019-11-25] MEDS: Pantoprazole (granules) 40 MG/BLIST PACKET FT SCH (09:30)
--- NOTE | 2019-11-25 12:24 | P.PN ---
Subjective Date of Service: 11/25/19 Chief Complaint: Shortness of breath Subjective: No new changes (Patient is unable to be weaned off BiPAP and transitioned to nasal cannula. She is comfortable on BIPAP, awake and responding to questions appropriately) Physical Examination - Vital Signs Temperature: 97.1 F Blood Pressure: 138/60 Pulse: 77 Respirations: 20 Pulse Ox (%): 100 - Physical Exam General: In no apparent distress, Cooperative, Other (In no respiratory distress while on BiPAP) HEENT: Atraumatic, Normocephalic, EOMI Neck: Supple Respiratory: Diminished (No wheezing) Cardiovascular: No edema, Normal pulses, Regular rate/rhythm, Normal S1 S2 Gastrointestinal: Soft and benign, Non-distended, No tenderness, Other (PEG tube in place) Musculoskeletal: No clubbing, No swelling, No contractures, No erythema, No tenderness, No warmth Integumentary: No rashes, No breakdown, No significant lesion, No tende rness/swelling, No erythema, No warmth, No cyanosis Neurological: Dementia Urinary: Vanegas catheter - Studies Microbiology Data (last 24 hrs): 11/22/19 20:20 Clean Catch Urine [place] Count - Final >100,000 CFU/ML. 11/22/19 20:20 Clean Catch Urine - Final MIXED MARY. Assessment & Plan - Problems (Diagnosis) (1) UTI (urinary tract infection) Current Visit: Yes Status: Acute (2) Acute and chronic respiratory failure with hypercapnia Current Visit: Yes Status: Acute (3) Acute and chronic respiratory failure with hypoxia Current Visit: Yes Status: Acute (4) Congestive heart failure Current Visit: Yes Status: Acute (5) Diabetes mellitus Current Visit: Yes Status: Acute (6) Elevated troponin Current Visit: Yes Status: Acute Physician Review Additional Text: Assessment Patient is a 84 year old female with a PMH of HTN, CVA S/P PEG tube placement, bed-bound with decubitus, chronic respiratory failure on 2L O2 via NC. She is currently admitted with acute on chronic respiratory failure. Her CXR in the ER was concerning for pulmonary congestion. She was placed on BiPAP and diuretics on admission. She is now unable to be weaned off BiPAP. Her hospital course has been complicated by multiple episodes of monomorphic wide complex tachycardia concerning for non-sustained VTach. Her Mag/K+ are WNL. 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 In addition, it also shows a dilated RA, RV. She is still on diuresis. Other issues addressed during this admission include UTI and elevated troponin. Acute on chronic hypoxemic respiratory failure CHF exacerbation Pre-renal azotemia Elevated troponin UTI HTN CVA PEG tube placement PLAN Repeat CXR today Discussed with Cardiology regarding continued diuresis and echo findings above Cardiology recommends no afterload-reducing agents: GABRIELA-I/ARB or hydralazine OK for beta blockers and diuresis Will continue current dose of LASIX, 40 mg IV BID Continue telemetry Continue BIPAP and transition to nasal cannula if tolerated Daily check of K+, Mg++ Continue DuoNebs PRN Continue ceftriaxone for suspected UTI. Discontinue after 5 days. Follow up urine cultures Continue tube feeds via PEG tube
[2019-11-25] MEDS: GLUCERNA 1.5 CAL 1,000 ML BOT RTH SCH (13:04)
--- NOTE | 2019-11-25 13:05 | RAD REPORT ---
EXAM DESCRIPTION: RAD - Chest Single View - 11/25/2019 12:59 pm CLINICAL HISTORY: hypoxia COMPARISON: Portable November 21 TECHNIQUE: AP portable chest image was obtained 11/25/2019 12:59 pm . FINDINGS: Lung volumes are low. Left hemidiaphragm is obscured and there is left costophrenic angle blunting. Interstitial and minimal alveolar opacities are present in the mid and lower right lung fie ld. Heart and vasculature are normal. No pneumothorax. No acute bony abnormality seen. No acute aortic f indings suspected. IMPRESSION: Minimal interstitial and alveolar opacities in the right lung field. Left base small pleural effusion. Chest findings are not substantially different from comparison.
--- NOTE | 2019-11-25 15:11 | P.PN ---
Subjective Date of Service: 11/25/19 Chief Complaint: Shortness of breath patient looks comfortable. ? baseline mental status. does not give answers well to questions. skin very dry. patient is alert. not taking any po intake as per nurses. on feeds. only getting about 500 ccs of free water over 24 hours with feeds. mucosa dry/skin dry. vs reviewed. lungs cta anteriorly cvs regular abd soft ext dry skin a/p javier/elevated bun/free water depletion: adjust free water to 200ccs/q hours. repeat bmp/cbc tomorrow. slight drop in h/h. perphaps some increase urea appearance from gastritis as well. will evaluate with repeat cbc in am. reviewed plan with hospitalist. Physical Examination - Vital Signs Temperature: 97.1 F Blood Pressure: 138/60 Pulse: 77 Respirations: 20 Pulse Ox (%): 100 - Studies Microbiology Data (last 24 hrs): 11/22/19 20:20 Clean Catch Urine [place] Count - Final >100,000 CFU/ML. 11/22/19 20:20 Clean Catch Urine - Final MIXED MARY. Assessment And Plan Physician Review Additional Text: Assessment Patient is a 84 year old female with a PMH of HTN, CVA S/P PEG tube placement, bed-bound with decubitus, chronic respiratory failure on 2L O2 via NC. She is currently admitted with acute on chronic respiratory failure. Her CXR in the ER was concerning for pulmonary congestion. She was placed on BiPAP and diuretics on admission. She is now unable to be weaned off BiPAP. Her hospital course has been complicated by multiple episodes of monomorphic wide complex tachycardia concerning for non-sustained VTach. Her Mag/K+ are WNL. 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 In addition, it also shows a dilated RA, RV. She is still on diuresis. Other issues addressed during this admission include UTI and elevated troponin. Acute on chronic hypoxemic respiratory failure CHF exacerbation Pre-renal azotemia Elevated troponin UTI HTN CVA PEG tube placement PLAN Repeat CXR today Discussed with Cardiology regarding continued diuresis and echo findings above Cardiology recommends no afterload-reducing agents: GABRIELA-I/ARB or hydralazine OK for beta blockers and diuresis Will continue current dose of LASIX, 40 mg IV BID Continue telemetry Continue BIPAP and transition to nasal cannula if tolerated Daily check of K+, Mg++ Continue DuoNebs PRN Continue ceftriaxone for suspected UTI. Discontinue after 5 days. Follow up urine cultures Continue tube feeds via PEG tube
[2019-11-25] MEDS: ATORVASTATIN 10 MG TAB PO SCH (20:10)
[2019-11-25] MEDS: CLOPIDOGREL 75 MG TABLET FT SCH (20:10)
--- NOTE | 2019-11-25 20:58 | PN ---
Date of Progress Note: 11/24/2019 Patient has been followed since admission on 11/22/2019. Ms. Babcock is a do not resuscitate. She has a history of congestive heart failure, CVA, hypertension, dyslipidemia, and diabetes. She has be en treated for her congestive heart failure with Vasotec, Lasix 40 mg IV b.i.d. She is also on metop rolol 12.5 mg b.i.d. Her dyslipidemia is being treated with Lipitor. She is also on aspirin. Her d iabetes is pretty well controlled on insulin. She is on inhalers and antibiotics as well. Nephrolog y is following along. Patient's last creatinine is 0.92. She had elevated troponin of 0.78 with BNP of 12,578. Her echocardiogram had shown ejection fraction of 30% to 35% with mild aortic stenosis. On 11/24/2019, she weighed 139 pounds, which is 4 pounds less than when she came in. All her vital signs were stable. She was in a sinus rhythm with PVCs. Remained on BiPAP 97% O2 saturation. I germania l continue her present regimen and I will continue to follow her. ABRAHAM/JUSTINL Voice ID: [id number] Report ID: [id number]
[2019-11-26] MEDS: IPRATROPIUM BROM 0.5MG/2.5ML NEB SCH ×6 (00:05→20:10)
[2019-11-26] MEDS: INSULIN -REGULAR HUMAN 50 UNIT/0.5 ML ML SQ SCH ×4 (00:48→17:17)
[2019-11-26] MEDS: ALBUTEROL 2.5 MG/3 ML NEB SOL NEB SCH ×4 (03:50→20:10)
[2019-11-26] MEDS: METOPROLOL TAR 25 MG TAB PO SCH ×2 (05:21→17:10)
[2019-11-26 06:10] LABS: Absolute Lymphocytes (CBC) 0.9 K/uL (0.7-4.9); Basophils % 0.8 % (0-1.3); Hematocrit 32.3 % (36.0-45.0); Lymphocytes % 7.2 % (15.3-44.8); MPV 8.9 fL (7.6-11.3); RBC Red Blood Cell Count 3.37 M/uL (3.86-4.86)
[2019-11-26 06:23] LABS: Potassium 4.1 mmol/L (3.5-5.1)
[2019-11-26] MEDS: CEFTRIAXONE/SWI 1gm 1 GM/10 ML SYR IV SCH (08:45)
[2019-11-26] MEDS: allopurinoL 100 MG TAB FT SCH ×2 (08:46→20:26)
[2019-11-26] MEDS: FUROSEMIDE 40 MG/4 ML VIAL IV SCH ×2 (08:46→17:17)
[2019-11-26] MEDS: ASCORBIC ACID 500 MG TABLET FT SCH ×2 (08:47→20:26)
[2019-11-26] MEDS: ZINC SULFATE 220 MG CAP FT SCH ×2 (08:47→20:26)
[2019-11-26] MEDS: Pantoprazole (granules) 40 MG/BLIST PACKET FT SCH (08:47)
[2019-11-26] MEDS: ASPIRIN 81 MG CHEWABLE TABLET FT SCH (08:47)
[2019-11-26] MEDS: HOME MED 1 EA UNK (Umeclidinium Brm/Vilanterol Tr [Anoro Ellipta 62.5-25 Mcg Inh] 1 PUFF) IH SCH (08:48)
[2019-11-26] MEDS: GABAPENTIN FT SCH ×2 (08:48→21:00)
[2019-11-26] MEDS: HOME MED 1 EA UNK (Leflunomide [Leflunomide] 20 MG) FT SCH (08:48)
[2019-11-26] MEDS: SULFASALAZINE FT SCH ×2 (08:48→21:00)
--- NOTE | 2019-11-26 09:18 | PN ---
Date of Progress Note: 11/25/2019 Subjective: Ms. Babcock has congestive heart failure, CVA, hypertension, dyslipidemia, and diabetes . She has improved. She has a good oxygen saturation on nasal cannula now. She has been on BiPAP f or a while. The case was discussed with Dr. Feliz. Lasix dose has been decreased. Remains in sin us rhythm. We will continue to follow her. ABRAHAM/MODL Voice ID: [id number] Report ID: [id number]
--- NOTE | 2019-11-26 11:17 | P.PN ---
Date of Service: 11/26/19 patient seen/examined. cliniacally looks much better than yesterday. more alert. able to respond to some simple questions. vs stable lungs cta anteriorly cvs regular abd soft ext trace edema skin is dry/mouth still dry but overall improved compared to yesterday. a/p: javier/free water depletion/elevated bun: bun/cr improved with adjustment to free water intake. looks improved clinically compared to yesterday. labs, bun/cr, improved as well. repeat bmp tomorrow.
--- NOTE | 2019-11-26 12:08 | P.PN ---
Subjective Date of Service: 11/26/19 Chief Complaint: Shortness of breath Subjective: Other (Patient weaned off BiPAP and transitioned to nasal cannula at 2L. O2 saturation > 92%) Physical Examination - Vital Signs Temperature: 97.7 F Blood Pressure: 151/73 Pulse: 78 Respirations: 20 Pulse Ox (%): 96 - Physical Exam General: Alert, In no apparent distress, Cooperative HEENT: Atraumatic, Normocephalic, EOMI Neck: Supple Respiratory: Diminished (NO wheezing or crackles) Cardiovascular: No edema, Normal pulses, Regular rate/rhythm, Normal S1 S2 Gastrointestinal: Normal bowel sounds, Soft and benign, Non-distended, Other (PEG tube in place) Musculoskeletal: No clubbing, No swelling, No contractures, No erythema, No tenderness, No warmth Integumentary: No rashes, No breakdown, No significant lesion, No tenderness/swelling, No erythema, No warmth, No cyanosis Neurological: Other (left sided freya-paresis) - Studies Microbiology Data (last 24 hrs): 11/22/19 20:20 Clean Catch Urine [place] Count - Final >100,000 CFU/ML. 11/22/19 20:20 Clean Catch Urine - Final MIXED MARY. Assessment & Plan - Problems (Diagnosis) (1) UTI (urinary tract infection) Current Visit: Yes Status: Acute (2) Acute and chronic respiratory failure with hypercapnia Current Visit: Yes Status: Acute (3) Acute and chronic respiratory failure with hypoxia Current Visit: Yes Status: Acute (4) Congestive heart failure Current Visit: Yes Status: Acute (5) Diabetes mellitus Current Visit: Yes Status: Acute (6) Elevated troponin Current Visit: Yes Status: Acute Physician Review Additional Text: Assessment Patient is a 84 year old female with a PMH of HTN, CVA S/P PEG tube placement, bed-bound with decubitus ulcer, chronic respiratory failure on 2L O2 via NC. She is currently admitted with acute on chronic respiratory failure. Her CXR in the ER was concerning for pulmonary congestion. She was placed on Bi PAP and diuretics on admission. She is now unable to be weaned off BiPAP. Her hospital course has been complicated by multiple episodes of monomorphic wide complex tachycardia concerning for non-sustained VTach. Her Mag/K+ were WNL. 2-D shows a low LVEF (30%), and a small LV chamber concerning for restrictive cardiomyopathy. In addition, it also shows a dilated RA, RV. She is still on diuresis. Cardiology has been consulted. Nephrology has been involving for pre-renal azotemia. Medications were adjusted and she was started on free water replacement via PEG tube. Patient is much improved. Acute on chronic hypoxemic respiratory failure CHF exacerbation Pre-renal azotemia Elevated troponin UTI HTN CVA PEG tube placement PLAN Continue hospitalization upon recommendation by Nephrology. Will most likely be discharged tomorrow Patient is on baseline O2 requirement Cardiology recommends AGAINST afterload-reducing agents: GABRIELA-I/ARB or hydralazine OK for beta blockers and diuresis She is on LASIX, 40 mg IV BID I called patient's MEMBERSHIP CORRESPONDENT Roxi Royal @ [phone]. Clinical updates given, emphasized the need for at least weekly labs Continue DuoNebs PRN Continue ceftriaxone for suspected UTI. Discontinue after 5 days. Follow up urine cultures Continue tube feeds via PEG tube
[2019-11-26] MEDS: GLUCERNA 1.5 CAL 1,000 ML BOT RTH SCH (12:48)
--- NOTE | 2019-11-26 13:12 | PN ---
Date of Progress Note: 11/26/2019 Ms. Babcock is here for CHF, CVA, hypertension, dyslipidemia, and diabetes. Yesterday, we decreased her Lasix dose by half. Today's oxygen saturation is good on nasal cannula. Her vital signs are st able. She is afebrile. Her chest is actually clear. She remains basically confused. Has no specif ic complaints. Her legs do still show some edema 1 or 2+. I would agree with her present regimen. I will leave her disposition up to Dr. Feliz. No change in medical therapy from my standpoint. NB/MODL Voice ID: [id number] Report ID: [id number]
[2019-11-26] MEDS: ATORVASTATIN 10 MG TAB PO SCH (20:26)
[2019-11-26] MEDS: CLOPIDOGREL 75 MG TABLET FT SCH (20:26)
[2019-11-27] MEDS: GLUCERNA 1.5 CAL 1,000 ML BOT RTH SCH ×2 (00:10→22:06)
[2019-11-27] MEDS: INSULIN -REGULAR HUMAN 50 UNIT/0.5 ML ML SQ SCH ×4 (00:19→17:52)
[2019-11-27] MEDS: IPRATROPIUM BROM 0.5MG/2.5ML NEB SCH ×6 (00:55→20:00)
[2019-11-27] MEDS: ALBUTEROL 2.5 MG/3 ML NEB SOL NEB SCH ×5 (01:13→20:00)
[2019-11-27 05:15] LABS: Absolute Lymphocytes (CBC) 1.1 K/uL (0.7-4.9); Basophils % 1.2 % (0-1.3); Hematocrit 33.7 % (36.0-45.0); Lymphocytes % 8.6 % (15.3-44.8); MPV 8.6 fL (7.6-11.3); RBC Red Blood Cell Count 3.49 M/uL (3.86-4.86)
[2019-11-27] MEDS: METOPROLOL TAR 25 MG TAB PO SCH ×2 (05:25→16:59)
[2019-11-27 05:33] LABS: Magnesium 2.7 mg/dL (1.8-2.4); Potassium 4.2 mmol/L (3.5-5.1)
[2019-11-27] MEDS: HOME MED 1 EA UNK (Umeclidinium Brm/Vilanterol Tr [Anoro Ellipta 62.5-25 Mcg Inh] 1 PUFF) IH SCH (09:00)
[2019-11-27] MEDS: SULFASALAZINE FT SCH ×2 (09:00→21:00)
[2019-11-27] MEDS: HOME MED 1 EA UNK (Leflunomide [Leflunomide] 20 MG) FT SCH (09:00)
[2019-11-27] MEDS: GABAPENTIN FT SCH ×2 (09:00→21:00)
[2019-11-27] MEDS: ASPIRIN 81 MG CHEWABLE TABLET FT SCH (09:09)
[2019-11-27] MEDS: allopurinoL 100 MG TAB FT SCH ×2 (09:09→22:05)
[2019-11-27] MEDS: ASCORBIC ACID 500 MG TABLET FT SCH ×2 (09:09→22:04)
[2019-11-27] MEDS: ZINC SULFATE 220 MG CAP FT SCH ×2 (09:09→22:05)
[2019-11-27] MEDS: FUROSEMIDE 40 MG/4 ML VIAL IV SCH ×2 (09:10→17:01)
[2019-11-27] MEDS: Pantoprazole (granules) 40 MG/BLIST PACKET FT SCH (09:10)
[2019-11-27] MEDS: CEFTRIAXONE/SWI 1gm 1 GM/10 ML SYR IV SCH (09:11)
--- NOTE | 2019-11-27 11:19 | PN ---
Ms. Babcock has been followed for congestive heart failure that is acute on chronic to chronic. She has improved dramatically. Her O2 saturation is 98% on 2 L. She has no complaint. Her rhythm is n ormal. She is afebrile. Her chest is clear. Her abdomen is benign. Extremities reveal no clubbing , cyanosis, or edema. I think Ms. Babcock is ready for discharge whenever it is okay with her prima care physician. I will be happy to see her in the office in the next 2 to 3 weeks. Continue her present regimen. ABRAHAM/BLACK Voice ID: [id number] Report ID: [id number]
[2019-11-27] MEDS ORDERED: ALBUTEROL 2.5 MG/3 ML NEB SOL IH PRN (16:00)
--- NOTE | 2019-11-27 16:26 | P.PN ---
Subjective Date of Service: 11/27/19 Chief Complaint: Shortness of breath Subjective: No new changes, Improving, Doing well <RalfRoberto - Last Filed: 11/27/19 16:26> Date of Service: 11/27/19 Subjective: Other (Patient seen and examined with nurse practitioner.) <Christophe Phan - Last Filed: 11/27/19 16:41> Review of Systems General: Unremarkable Eyes: Unremarkable ENT: Unremarkable Respiratory: As per HPI Cardiovascular: Unremarkable Gastrointestinal: Unremarkable Genitourinary: Unremarkable Musculoskeletal: Unremarkable Integumentary: Unremarkable Neurological: As per HPI Lymphatics: Unremarkable <RalfRoberto - Last Filed: 11/27/19 16:26> Physical Examination - Vital Signs Temperature: 97.4 F Blood Pressure: 118/67 Pulse: 51 Respirations: 19 Pulse Ox (%): 95 - Physical Exam General: In no apparent distress HEENT: Atraumatic Neck: Supple Respiratory: Diminished (Bilaterally) Cardiovascular: Edema (Trace edema) Capillary refill: <2 Seconds Gastrointestinal: Normal bowel sounds Musculoskeletal: No clubbing, No swelling Integumentary: No rashes Neurological: Other (Left freya paresis) <RalfRoberto - Last Filed: 11/27/19 16:26> - Physical Exam Cardiovascular: Normal pulses, Regular rate/rhythm - Studies Medications List Reviewed: Yes <Christophe Phan - Last Filed: 11/27/19 16:41> Assessment & Plan Physician Review Additional Text: Assessment Acute on chronic hypoxemic respiratory failure CHF exacerbation Pre-renal azotemia Elevated troponin UTI HTN CVA PEG tube placement PLAN Acute on chronic hypoxemic respiratory failure- patient doing much better, has been weaned off of BiPAP. Patient is now tolerating nasal cannula well with her home oxygen levels. Cardiology and nephrology agreed the patient is greatly improved and is medically ready to be discharged. Working with social media marketing specialist to arrange for discharge to [facility]. Anticipate patient should be discharged tomorrow. CHF exacerbation- patient seen evaluated by cardiology during her hospital ization. Patient improving clinically. Patient is no longer in respiratory distress, is now off of BiPAP. Patient has also lost approximately 4-5 lb since she is hospitalized. Pre-renal azotemia- continue with nephrology recommendations. No new recommendations made. Elevated troponin and BNP- likely secondary to CHF, echocardiogram shows ejecti on fraction of approximately 30%, continue with cardiology recommendations this time. No new recommendations made. UTI-will continue with antibiotic therapy at this time. Urine culture and sensitivity results are in. Will tailor antibiotics to these results. CVA with PEG tube placement- will continue tube feeds at this time. Critical Care: No Time Spent Managing Pts Care (In Minutes): 55 <Roberto Arambula - Last Filed: 11/27/19 16:26> Discharge Plan: Longterm Plan to discharge in: 24 Hours Physician Review Additional Text: Patient seen and examined with nurse practitioner. Agree with exam, evaluation and plan of care. Case discussed with case management. Awaiting approval for the patient to go back to [facility]. Patient now on nasal cannula. 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 Will discuss further with cardiology. Awaiting urine culture results for UTI. Will also discuss w [facility] nephrology. Anticipate discharge back to the intermediate as early as tomorrow. <Christophe Phan - Last Filed: 11/27/19 16:41>
--- NOTE | 2019-11-27 21:26 | PN ---
Date of Progress Note: 11/27/2019 Subjective: Patient seen at the bedside. Chart was reviewed. The patient gives limited history. S he appears in no acute distress. Said she feels fine. Objective: Vital Signs: Blood pressure is 141/73, pulse 81, afebrile. Input and output were noted. The patient had significant urine output, which was 1400 mL yesterday and 1.9 L today. General: Elderly, frail, in no acute distress. Heart: Regular rate and rhythm. No murmurs, rubs, or gallops. Lungs: Poor quality exam secondary to lack of patient compliance, however, appears grossly clear to auscultation. Abdomen: Soft, nontender. PEG in place. Extremities: With mild dependent edema at the thighs. Laboratory Data: CBC reviewed. WBC 12.9, hemoglobin 10.8, hematocrit 33.7, platelet count 293. Ser um chemistry; sodium 138, potassium 4.2, chloride 95, CO2 37, BUN 61, creatinine 0.78, glucose 230, c alcium is elevated at 10.2, magnesium elevated at 2.7, calcium trend have shown an increase just rece ntly. She came in with hypernatremia, which have improved with free water administration. Magnesium is 2.7, which has been elevated throughout the admission, CO2 is 37, which she presents with a CO2 o f 34 and has been at that level, chloride is low at 95. She has been chronically hypochloremic. The patient's blood gas in the 13, normal pH, with elevated CO2, with a bicarb of 32. Impression: 1.Prerenal azotemia. 2.Metabolic acidosis, combination of hypochloremia likely from diuretic use, as well as likely under lying chronic obstructive pulmonary disease component. 3.Dehydration. 4.Hypercalcemia and hypermagnesemia secondary to above. 5.Urinary tract infection. 6.Chronic dementia. Plan: Ms. Babcock appears very stable in terms of volume status, however with hypochloremia, I will supplement 20 mEq of liquid potassium chloride daily as that will help improve chloride balance and will also improve her alkalosis. She appears likely to have an underlying chronic alkalosis, most li josey a compensatory mechanism for underlying respiratory acidosis. This blood work will need to be c hecked within the next 3-5 days, possibly daily upon discharge at the half-way facility. Her hypercalcemia and hypermagnesemia persists. She is not receiving any calcium-containing or magnesium -containing products. Moving forward, would make sure to avoid any magnesium-containing laxatives or any vitamin D and calcium. This is likely secondary to her dehydration, which should resolve with i ncreased free water supplementation currently. Free water intake is unclear. We will discuss contin ue free water placement in the patient with nursing staff. Again, we will add 20 mEq of liquid potassium chloride daily to assist with alkalosis and hypochlorem ia. SE/MODL Voice ID: [id number] Report ID: [id number]
[2019-11-27] MEDS: CLOPIDOGREL 75 MG TABLET FT SCH (22:04)
[2019-11-27] MEDS: ATORVASTATIN 10 MG TAB PO SCH (22:05)
[2019-11-28] MEDS: IPRATROPIUM BROM 0.5MG/2.5ML NEB SCH ×7 (00:05→23:50)
[2019-11-28] MEDS: INSULIN -REGULAR HUMAN 50 UNIT/0.5 ML ML SQ SCH ×4 (01:09→17:39)
[2019-11-28] MEDS: ALBUTEROL 2.5 MG/3 ML NEB SOL NEB SCH ×3 (02:00→12:50)
[2019-11-28] MEDS: METOPROLOL TAR 25 MG TAB PO SCH ×2 (05:35→17:38)
[2019-11-28 06:08] LABS: Phosphorus 2.9 mg/dL (2.5-4.9); Potassium 4.1 mmol/L (3.5-5.1)
[2019-11-28] MEDS: SULFASALAZINE FT SCH ×2 (09:00→21:00)
[2019-11-28] MEDS: HOME MED 1 EA UNK (Umeclidinium Brm/Vilanterol Tr [Anoro Ellipta 62.5-25 Mcg Inh] 1 PUFF) IH SCH (09:00)
[2019-11-28] MEDS: HOME MED 1 EA UNK (Leflunomide [Leflunomide] 20 MG) FT SCH (09:00)
[2019-11-28] MEDS: GABAPENTIN FT SCH ×2 (09:00→21:00)
[2019-11-28] MEDS: CEFTRIAXONE/SWI 1gm 1 GM/10 ML SYR IV SCH (09:28)
[2019-11-28] MEDS: POTASSIUM 25 MEQ EFFERV TAB FT SCH (09:28)
[2019-11-28] MEDS: ASPIRIN 81 MG CHEWABLE TABLET FT SCH (09:29)
[2019-11-28] MEDS: ZINC SULFATE 220 MG CAP FT SCH ×2 (09:29→21:05)
[2019-11-28] MEDS: allopurinoL 100 MG TAB FT SCH ×2 (09:29→21:05)
[2019-11-28] MEDS: ASCORBIC ACID 500 MG TABLET FT SCH ×2 (09:29→21:05)
[2019-11-28] MEDS: Pantoprazole (granules) 40 MG/BLIST PACKET FT SCH (09:29)
[2019-11-28] MEDS: FUROSEMIDE 40 MG/4 ML VIAL IV SCH ×2 (09:29→17:13)
[2019-11-28] MEDS: TRAMADOL HCL 50 MG TAB FT PRN (11:20)
[2019-11-28] MEDS: levoFLOXacin 250 MG TAB PO SCH (14:13)
[2019-11-28] MEDS ORDERED: ALBUTEROL 2.5 MG/3 ML NEB SOL NEB PRN (14:48)
--- NOTE | 2019-11-28 15:39 | P.PN ---
Subjective Date of Service: 11/28/19 Chief Complaint: Shortness of breath Subjective: Other (stable.) Physical Examination - Vital Signs Temperature: 98.6 F Blood Pressure: 167/74 Pulse: 90 Respirations: 55 Pulse Ox (%): 93 - Physical Exam General: Alert HEENT: Atraumatic Neck: Supple Respiratory: Crackles/rales (to the bases) Cardiovascular: Normal pulses, Regular rate/rhythm - Studies Microbiology Data (last 24 hrs): 11/22/19 19:33 Blood - Blood Aerobic Blood Culture - Final No growth in 5 days. 11/22/19 19:33 Blood - Blood Anaerobic Blood Culture - Final No growth in 5 days. 11/22/19 19:20 Blood - Blood Aerobic Blood Culture - Final No growth in 5 days. 11/22/19 19:20 Blood - Blood Anaerobic Blood Culture - Final No growth in 5 days. 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 Will continue to wean off BiPAP. Will discuss further with cardiology and nephrology. Spoke with is group home. Patient has declined over the past several months. Will discuss with family as the patient may be hospice appropriate. Discharge planning is to return to group home once better improved. 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 O continue wean off. Patient with poor likely prognosis. EF around 25%. Will discuss further with card iology. Will need to consider hospice. Pre-renal azotemia: - continue with Nephrology recommendations Elevated troponin and BNP:- echo reviewed. Continue as above UTI, urine culture positive for enterobacter: Case discussed with pharmacology. Will change antibiotic coverage CVA with PEG tube placement: - will continue tube feeds at this time. Time Spent Managing Pts Care (In Minutes): 55
[2019-11-28 16:52] LABS: Arterial Blood Carboxyhemoglob 1.5 % (0-1.5); Blood Gas Oxyhemoglobin 95.2 % (94-97); Blood O2 Saturation 97.6 % (92-98.5)
[2019-11-28] MEDS ORDERED: METHYLPREDNISOLONE 40 MG INJ IV ONE (18:00)
--- NOTE | 2019-11-28 19:02 | RAD REPORT ---
EXAM DESCRIPTION: RAD - Chest Single View - 11/28/2019 6:54 pm CLINICAL HISTORY: dyspnea Chest pain. COMPARISON: Chest Single View dated 11/25/2019; Chest Single View dated 11/22/2019 FINDINGS: Portable technique limits examination quality. Mild bilateral interstitial lung opacities are noted with trace pleural effusions, mildly improved si nce comparative study. The heart is prominent in size with aortic atherosclerosis noted. No displaced fractures. IMPRESSION: Mild improvement in lung aeration is seen since comparative study.
[2019-11-28] MEDS: ATORVASTATIN 10 MG TAB PO SCH (21:04)
[2019-11-28] MEDS: CLOPIDOGREL 75 MG TABLET FT SCH (21:05)
--- NOTE | 2019-11-28 21:39 | PN ---
Date of Progress Note: 11/28/2019 Subjective: The patient is seen at the bedside. She required replacement of the BiPAP today as the patient became tachypneic. She is currently seen on BiPAP with a respiratory rate of 20 with CPAP an d IPAP of 12/5 and FiO2 40%. Because of dementia, the patient cannot give any review of systems. Objective: Vital Signs: Blood pressure 134/96, pulse 90, temperature 98.2. General: On BiPAP. No acute distress. Making good eye contact. Heart: Regular rate and rhythm. No murmurs, rubs, gallops. No JVD appreciable. Lungs: Transmitted sounds from BiPAP machine. Abdomen: Soft, nontender. Extremities: With no significant edema. Laboratory Data: CBC was reviewed. The patient has a white blood cell count of 12.9, hemoglobin 10. 8, hematocrit 33.7, platelet count of 293. Serum chemistry; sodium 140, potassium 4.1, chloride 95, CO2 39, BUN 62, creatinine 0.9, glucose 234. UA from yesterday had shown minimal proteinuria. Micro biology data noted. Current Medications: Reviewed. Continues on Lasix 40 mg IV b.i.d., Levaquin 250 mg p.o. The patien t is getting potassium 25 mEq daily through the feeding tube. Impression: 1.Prerenal azotemia. 2.Metabolic alkalosis from combination of hypochloremia as well as underlying chronic obstructive pu lmonary disease. 3.Dehydration. 4.Hypercalcemia and hypermagnesemia. 5.Urinary tract infection. 6.Chronic dementia. 7.Acute respiratory failure. Plan: Ms. Babcock's respiratory status is compromised, requiring BiPAP. The patient does not appea r to have overt volume overload. We will order chest x-ray for further evaluation given the limited exam with the patient on BiPAP and underlying dementia. We would recommend obtaining ABG. The prior ABG had shown a chronic respiratory acidosis which was compensated with the metabolic alkalosis. We will avoid acetazolamide in the COPD patient who does require a level of alkalosis as part of her CO PD spectrum. The chloride level has remained stable at 95. Potassium remains stable at 4.1. We germania l continue current potassium chloride. If alkalosis continues to worsen, the patient will require ac etazolamide likely 1 dose if CO2 is above 40. Please increase free water supplementation for the pat ient's hypercalcemia. I will continue to follow. /MODL Voice ID: [id number] Report ID: [id number]
[2019-11-29] MEDS: IPRATROPIUM BROM 0.5MG/2.5ML NEB SCH ×5 (03:25→19:50)
[2019-11-29] MEDS: INSULIN -REGULAR HUMAN 50 UNIT/0.5 ML ML SQ SCH ×4 (06:00→19:05)
[2019-11-29] MEDS: METOPROLOL TAR 25 MG TAB PO SCH ×2 (06:00→17:00)
[2019-11-29] MEDS: ASCORBIC ACID 500 MG TABLET FT SCH ×2 (08:33→20:23)
[2019-11-29] MEDS: POTASSIUM 25 MEQ EFFERV TAB FT SCH (08:33)
[2019-11-29] MEDS: Pantoprazole (granules) 40 MG/BLIST PACKET FT SCH (08:33)
[2019-11-29] MEDS: allopurinoL 100 MG TAB FT SCH ×2 (08:34→20:23)
[2019-11-29] MEDS: ASPIRIN 81 MG CHEWABLE TABLET FT SCH (08:34)
[2019-11-29] MEDS: FUROSEMIDE 40 MG/4 ML VIAL IV SCH (08:34)
[2019-11-29] MEDS: ZINC SULFATE 220 MG CAP FT SCH ×2 (08:34→20:23)
[2019-11-29] MEDS: HOME MED 1 EA UNK (Leflunomide [Leflunomide] 20 MG) FT SCH (08:58)
[2019-11-29] MEDS: SULFASALAZINE FT SCH ×2 (08:58→20:24)
[2019-11-29] MEDS: HOME MED 1 EA UNK (Umeclidinium Brm/Vilanterol Tr [Anoro Ellipta 62.5-25 Mcg Inh] 1 PUFF) IH SCH (08:59)
[2019-11-29] MEDS: GABAPENTIN FT SCH ×2 (08:59→20:24)
--- NOTE | 2019-11-29 14:25 | P.PN ---
Subjective Date of Service: 11/29/19 Chief Complaint: Shortness of breath Subjective: Other (Patient appears slightly improved. Patient still on BiPAP.) Physical Examination - Vital Signs Temperature: 97.7 F Blood Pressure: 112/48 Pulse: 79 Respirations: 22 Pulse Ox (%): 96 - Physical Exam General: Alert, Other (Currently on BiPAP) Neck: Supple Respiratory: Clear to auscultation bilaterally (Anteriorly) Cardiovascular: Normal pulses, Regular rate/rhythm Gastrointestinal: Normal bowel sounds, No masses, No rebound, No guarding Musculoskeletal: No tenderness, No warmth Neurological: Normal speech - Studies Medications List Reviewed: Yes Assessment & Plan Discharge Plan: Longterm Plan to discharge in: 48 Hours Physician Review Additional Text: Assessment Acute on chronic hypoxemic respiratory failure Acute on chronic systolic CHF 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 Continue to wean off. Patient given IV Solu-Medrol yesterday. Will continue with prednisone low dose. Continue with COPD medication. Pulmonology consulted to further evaluate. Await recommendation. Spoke with nephrology. Patient with multiple medical issues. Patient is chronically ill. Patient is do not resuscitate. Will need to get a hold of family to Re discuss options of further care including hospice. Will discuss further with case management. 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 Continue to wean off. Ejection fraction around 30%. Echocardiogram also shows dilated right atrium/right ventricle. Small left ventricle noted. Possible underlying constrictive cardiomyopathy noted. Aortic valve stenosis noted. Will discuss with cardiology. Pre-renal azotemia: Nephrology continues to adjust medication. Elevated troponin and BNP: Echo will reviewed. Continue with above recommendations. UTI, urine culture positive for enterobacter: Antibiotics have been adjusted to oral. CVA with PEG tube placement: Continue with tube feeds. Time Spent Managing Pts Care (In Minutes): 55
--- NOTE | 2019-11-29 16:03 | PN ---
Date of Progress Note: 11/29/2019 Subjective: Patient is seen at the bedside. Patient remains on BiPAP. She is arousable, however, s eems to be at her baseline mentation, which is overall confused and somewhat withdrawn in the bed. L abs from yesterday were reviewed. Objective: Vital Signs: Blood pressure is 159/66, pulse 95. General: On BiPAP, no acute distress. Drowsy, but arousable. Heart: Regular rate and rhythm. No murmurs, rubs, or gallops. Lungs: Some transmitted sounds noted. Poor inspiratory effort. Abdomen: Soft, nontender. Extremities: With no edema, wrinkling of skin noted. Laboratory Data: Hemoglobin 10.8, hematocrit 33.7. Serum chemistry, no new labs noted from today. However, the patient did have ABG yesterday afternoon, which showed a pH of 7.53, pCO2 of 47, and a b icarb of 40. Current Medications: Reviewed. Of note, patient is on Lasix 40 mg IV b.i.d. Impression: 1.Prerenal azotemia. 2.Metabolic alkalosis in combination of diuresis as well as underlying chronic obstructive pulmonary disease. 3.Dehydration. 4.Hypercalcemia. 5.Urinary tract infection. 6.Chronic dementia. 7.Acute respiratory failure. Plan: Ms. Babcock does have a primary metabolic alkalosis likely from diuresis. I have discontinue d Lasix for the time being and also will give her 2 doses of acetazolamide to promote bicarbonaturia. Would recommend not continuing acetazolamide skilled nursing as the patient does have COPD, which previou sly she was demonstrating a compensatory alkalosis for her chronic respiratory acidosis. We will need to follow labs and monitor electrolytes. Discussion was had with Dr. Phan and agreed with having goals of care discussion with the family wh en possible. We will continue to follow. SE/MODL Voice ID: [id number] Report ID: [id number]
[2019-11-29] MEDS: levoFLOXacin 250 MG TAB PO SCH (16:59)
[2019-11-29] MEDS: ACETAZOLAMIDE 500 MG IV IV SCH (20:22)
[2019-11-29] MEDS: CLOPIDOGREL 75 MG TABLET FT SCH (20:23)
[2019-11-29] MEDS: ATORVASTATIN 10 MG TAB PO SCH (20:23)
[2019-11-29] MEDS: glipiZIDE 5 MG TAB FT SCH (20:23)
[2019-11-29] MEDS: WATER FOR INJ,STERILE 10 ML IV SCH (20:23)
[2019-11-29] MEDS: GLUCERNA 1.5 CAL 1,000 ML BOT RTH SCH (23:54)
[2019-11-30] MEDS: IPRATROPIUM BROM 0.5MG/2.5ML NEB SCH ×6 (00:10→20:00)
[2019-11-30] MEDS: INSULIN -REGULAR HUMAN 50 UNIT/0.5 ML ML SQ SCH ×4 (00:59→18:33)
[2019-11-30 04:50] LABS: Potassium 3.9 mmol/L (3.5-5.1)
[2019-11-30] MEDS: METOPROLOL TAR 25 MG TAB PO SCH ×2 (05:57→17:48)
[2019-11-30] MEDS: SULFASALAZINE FT SCH ×2 (09:00→21:00)
[2019-11-30] MEDS: GABAPENTIN FT SCH ×2 (09:00→21:00)
[2019-11-30] MEDS: HOME MED 1 EA UNK (Leflunomide [Leflunomide] 20 MG) FT SCH (09:00)
[2019-11-30] MEDS: HOME MED 1 EA UNK (Umeclidinium Brm/Vilanterol Tr [Anoro Ellipta 62.5-25 Mcg Inh] 1 PUFF) IH SCH (09:00)
[2019-11-30] MEDS: ASCORBIC ACID 500 MG TABLET FT SCH ×2 (09:06→21:23)
[2019-11-30] MEDS: ZINC SULFATE 220 MG CAP FT SCH ×2 (09:06→21:23)
[2019-11-30] MEDS: ASPIRIN 81 MG CHEWABLE TABLET FT SCH (09:06)
[2019-11-30] MEDS: allopurinoL 100 MG TAB FT SCH ×2 (09:06→21:23)
[2019-11-30] MEDS: Pantoprazole (granules) 40 MG/BLIST PACKET FT SCH (09:06)
[2019-11-30] MEDS: glipiZIDE 5 MG TAB FT SCH ×2 (09:06→21:23)
[2019-11-30] MEDS: ACETAZOLAMIDE 500 MG IV IV SCH (09:07)
[2019-11-30] MEDS: POTASSIUM 25 MEQ EFFERV TAB FT SCH (09:07)
[2019-11-30] MEDS: WATER FOR INJ,STERILE 10 ML IV SCH (09:09)
--- NOTE | 2019-11-30 11:05 | P.PN ---
Subjective Date of Service: 11/30/19 Chief Complaint: Shortness of breath Subjective: Other (Patient doing slightly better. Patient currently on BiPAP but can be weaned down to nasal cannula.) Physical Examination - Vital Signs Temperature: 97 F Blood Pressure: 139/57 Pulse: 85 Respirations: 24 Pulse Ox (%): 99 - Physical Exam General: Alert HEENT: Atraumatic Neck: Supple Respiratory: Clear to auscultation bilaterally, Normal air movement Cardiovascular: Normal pulses, Regular rate/rhythm Gastrointestinal: Normal bowel sounds, Other (PEG tube in place) - Studies Medications List Reviewed: Yes Assessment & Plan Discharge Plan: [facility] Plan to discharge in: 24 Hours Physician Review Additional Text: Assessment Acute on chronic hypoxemic respiratory failure Acute on chronic systolic CHF 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 Medicat ions adjusted by Nephrology. Will discuss further with pulmonology about further recommendation. Continue COPD medication. Patient with multiple medical issues. Patient chronically ill. Patient is do not resuscitate. Will continue to try to get a hold of family about the possibility of considering hospice at discharge. Once the patient is stable from a respiratory standpoint patient can be sent back to the [facility]. Anticipate within the next 24-48 hr patient can be discharge back. Will retest for COVID in preparation for sending her back to the [facility]. 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 Ejection fraction around 30%. Echocardiogram also shows dilated right atrium/right ventricle. Small left ventricle noted. Possible underlying constrictive cardiomyopathy noted. Aortic valve stenosis noted. Will discuss with cardiology. Pre-renal azotemia: Nephrology continues to adjust medication. Will discuss further with nephrology. Elevated troponin and BNP: Echo will reviewed. Continue with above recommendations. UTI, urine culture positive for enterobacter: Antibiotics have been adjusted to oral. Will treat for 7 day total. CVA with PEG tube placement: Continue with tube feeds. Time Spent Managing Pts Care (In Minutes): 55
--- NOTE | 2019-11-30 12:33 | P.CNS ---
Date of Consult: 11/30/19 Reason for Consult: Respiratory failure Chief Complaint: Shortness of breath History of Present Illness: Patient is 84[facility]-old [facility] history of multiple strokes, bedbound decubitus ulcers PEG tube chronic respiratory failure [facility] the [facility] to desaturation shortness of breath. No fever. On evaluation today patient is nonverbal on BiPAP urine culture positive Minimal fever renal function is improved blood cultures are so far negative Allergies No Known Allergies Allergy (Verified 11/22/19 23:03) Home Medications: Acetaminophen 500 mg FT TIDP PRN 11/23/19 Albuterol Sulfate [Albuterol Sulfate 0.083% Neb Soln] 2.5 mg IH Q4HP PRN 11/23/19 Albuterol Sulfate [Ventolin Hfa] 2 puff IH QID 11/23/19 Arginine/Ascorbate Sod/Gema AC [Arginaid Powder] 1 each FT BID 11/23/19 Ascorbic Acid 500 mg FT BID 11/23/19 Aspirin Chewable [Aspirin Chewable*] 81 mg FT DAILY 11/23/19 Clopidogrel Bisulfate [Plavix] 75 mg FT BEDTIME 11/23/19 Docusate Sodium 100 mg FT BIDP PRN 11/23/19 Enalapril Maleate [Vasotec] 5 mg FT DAILY 11/23/19 Ferrous Sulfate [Ferrous Sulfate Elixir] 7.5 ml FT DAILY 11/23/19 Furosemide [Lasix] 20 mg FT DAILY 11/23/19 Gabapentin 8 ml FT BID 11/23/19 Guaifenesin [Cough Syrup] 10 ml FT Q6HP PRN 11/23/19 Leflunomide 20 mg FT DAILY 11/23/19 Linagliptin [Tradjenta] 5 mg FT DAILY 11/23/19 Multivit-Min/Ferrous Gluconate [Centrum Multivit-Mineral Liq] 9 mg FT DAILY 11/23/19 Nut.tx.gluc Intol,Lf,Soy/Fiber [Diabetisource AC 1.2 Kendall Liq] 250 ml FT QID 11/23/19 Nut.tx.gluc Intol,Lf,Soy/Fiber [Diabetisource AC 1.2 Kendall Liq] 250 ml FT SEECOM 11/23/19 Pantoprazole Granules [Protonix Packet (for suspension)] 40 mg FT DAILY 11/23/19 Pravastatin Sodium 2 tab FT BEDTIME 11/23/19 Tramadol HCl [Ultram] 50 mg FT Q6HP PRN 11/23/19 Umeclidinium Brm/Vilanterol Tr [Anoro Ellipta 62.5-25 Mcg INH] 1 puff IH DAILY 11/23/19 Zinc Sulfate [Zinc Sulfate*] 220 mg FT BID 11/23/19 allopurinoL [Allopurinol] 100 mg FT BID 11/23/19 carvediloL [Carvedilol] 3.125 mg FT BID 11/23/19 glipiZIDE [Glipizide] 5 mg FT BID 11/23/19 sulfaSALAzine [Sulfasalazine] 2 tab FT BID 11/23/19 - Past Medical/Surgical History -: CVA -: Diabetes mellitus type 2 -: Hyperlipidemia -: PEG tube -: Chronic respiratory failure -: Sacral decubitus ulcer -: Ulcerative colitis -: Anemia -: Peripheral neuropathy -: Glaucoma -: Hypertension -: Coronary Artery disease -: PEG tube - Social History Smoking Status: Unknown if ever smoked Alcohol use: No CD- Drugs: No Caffeine use: No Place of Residence: Shelter Review of Systems is unable to be obtained Physical Examination Temp Pulse Resp BP Pulse Ox 97 F 85 24 H 139/57 L 99 11/30/19 11:05 11/30/19 11:05 11/30/19 11:05 11/30/19 11:05 11/30/19 11:05 General: Unresponsive Respiratory: Clear to auscultation bilaterally, Diminished Cardiovascular: No edema, Regular rate/rhythm - Problems (1) Acute and chronic respiratory failure with hypercapnia Current Visit: Yes Status: Acute Plan: Patient is 84 years of age with multiple strokes significant debilitation I suspect has chronic respiratory failure she is hypercapnic hypoxic vital signs stable mildly febrile urine cultures positive patient is on levofloxacin may have underlying obstructive airways disease chest x-rays clear I thing a trial of long-acting bronchodilators for now possibility of obstructive airways disease patient's white count is minimally elevated stable for [facility] patent has a PEG tube patient has a significant decrease in her ejection fraction patient has dilated right ventricle possible thromboembolism discuss with Prezas CT pulmonary angiogram no response from the relatives consider hospice care
--- NOTE | 2019-11-30 14:23 | PN ---
Date of Progress Note: 11/30/2019 Subjective: Patient was seen and examined. She remains on BiPAP. She remains drowsy and lethargic. Physical Examination: Vital Signs: Have been reviewed. She is saturating 98% on BiPAP. She remains afebrile. Blood pres sures are stable. Pulse rate is also stable. General: She appears in no acute distress. HEENT: Atraumatic head. She is on BiPAP. Respiratory: By auscultation, lungs revealed bilateral equal air entry with diminished breath sounds at bases. Abdomen: Soft and nontender. Extremities: Showed no evidence of edema. Laboratory Data: Showing persistent alkalosis with a bicarb of 38, sodium of 137, potassium of 3.9, and creatinine of 0.98. Glucose was elevated. CBC showing mild leukocytosis with stable hemoglobin, hematocrit, and platelet count. Current Medications: Include acetazolamide 250 mg IV b.i.d., the second dose will be given soon. Al buterol, allopurinol, ascorbic acid, aspirin, atorvastatin, Plavix, gabapentin, leflunomide, Levaquin 250 mg daily, pantoprazole, potassium chloride 25 mEq daily, and zinc sulfate. Impression: 1.Alkalosis secondary to metabolic alkalosis from diuresis. The patient is getting acetazolamide. We will continue to monitor alkalosis at this time. 2.Respiratory failure, on bilevel positive airway pressure. The patient is desaturating off bilevel positive airway pressure, but she has multiple other conditions including chronic obstructive pulmon rafy disease, which is contributing to that. 3.Hypercalcemia, stable. 4.Urinary tract infection. Remains on antibiotics. 5.Chronic dementia. Plan: The patient's renal function is overall stable at this time; however, alkalosis seems to be pe rsistent. The patient will get a second dose of acetazolamide. We will continue to monitor closely and will follow up. VV/MODL Voice ID: [id number] Report ID: [id number]
--- NOTE | 2019-11-30 15:18 | RAD REPORT ---
EXAM DESCRIPTION: CT - Chest For Pe Angio - 11/30/2019 2:37 pm CLINICAL HISTORY: Chest pain COMPARISON: None. TECHNIQUE: Dynamically enhanced axial 3 mm thick images of the chest were obtained during administra tion of <100> mL Isovue 370 IV contrast. Coronal and oblique reconstruction images were generated and reviewed. Exam utilizes a protocol for optimal evaluation of pulmonary arterial tree. Maximum intensity projections 3D imaging was utilized All CT scans are performed using dose optimization technique as appropriate and may include automated exposure control or mA/KV adjustment according to patient size. FINDINGS: Images are somewhat degraded by respiratory motion artifact A pulmonary embolus is not seen. A thoracic aortic aneurysm is not noted. Minimal pleural effusions. A pericardial effusion is not seen. A lung consolidation is not present. Mild interstitial opacities right lung IMPRESSION: Negative for a pulmonary embolism. Mild interstitial opacities right lung
[2019-11-30] MEDS: levoFLOXacin 250 MG TAB PO SCH (17:49)
[2019-11-30] MEDS: ATORVASTATIN 10 MG TAB PO SCH (21:23)
[2019-11-30] MEDS: CLOPIDOGREL 75 MG TABLET FT SCH (21:23)
[2019-11-30] MEDS: GLUCERNA 1.5 CAL 1,000 ML BOT RTH SCH (23:51)
[2019-12-01] MEDS: INSULIN -REGULAR HUMAN 50 UNIT/0.5 ML ML SQ SCH ×4 (01:35→19:13)
[2019-12-01] MEDS: IPRATROPIUM BROM 0.5MG/2.5ML NEB SCH ×6 (03:10→20:00)
[2019-12-01] MEDS: METOPROLOL TAR 25 MG TAB PO SCH ×2 (06:04→19:15)
[2019-12-01] MEDS: GABAPENTIN FT SCH ×2 (09:00→20:27)
[2019-12-01] MEDS: SULFASALAZINE FT SCH ×2 (09:00→20:27)
[2019-12-01] MEDS: HOME MED 1 EA UNK (Umeclidinium Brm/Vilanterol Tr [Anoro Ellipta 62.5-25 Mcg Inh] 1 PUFF) IH SCH (09:00)
[2019-12-01] MEDS: HOME MED 1 EA UNK (Leflunomide [Leflunomide] 20 MG) FT SCH (09:00)
[2019-12-01] MEDS: ASPIRIN 81 MG CHEWABLE TABLET FT SCH (10:09)
[2019-12-01] MEDS: Pantoprazole (granules) 40 MG/BLIST PACKET FT SCH (10:09)
[2019-12-01] MEDS: allopurinoL 100 MG TAB FT SCH ×2 (10:09→20:27)
[2019-12-01] MEDS: ASCORBIC ACID 500 MG TABLET FT SCH ×2 (10:09→20:27)
[2019-12-01] MEDS: POTASSIUM 25 MEQ EFFERV TAB FT SCH (10:09)
[2019-12-01] MEDS: glipiZIDE 5 MG TAB FT SCH ×2 (10:09→20:27)
[2019-12-01] MEDS: ZINC SULFATE 220 MG CAP FT SCH ×2 (10:09→20:27)
--- NOTE | 2019-12-01 15:41 | P.DS ---
Admission Date: 11/22/19 Discharge Date: 12/01/19 Primary Care Provider: JENNIFER Disposition: TRANSFER TO [facility] Discharge Condition: GOOD Reason for Admission: Shortness of breath Consultations: Nephrology-Dr. Warner Cardiology-Dr. Bravo Pulmonary-Dr. Regan Procedures: CT scan: FINDINGS: Images are somewhat degraded by respiratory motion artifact A pulmonary embolus is not seen. A thoracic aortic aneurysm is not noted. Minimal pleural effusions. A pericardial effusion is not seen. A lung consolidation is not present. Mild interstitial opacities right lung IMPRESSION: Negative for a pulmonary embolism. Mild interstitial opacities right lung ECHO: EF30% LEFT VENTRICULAR WALL MOTION: PARADOXICAL SEPTUM. DOPPLER/COLOR FLOW: MILD AORTIC STENOSIS. AORTIC VALVE AREA 1.7 CENTIMETERS SQUARED. MILD TRICUSPID REGURGITATION. NORMAL RIGHT VENTRICULAR SYSTOLIC PRESSURE. COMMENTS: DILATED RIGHT ATRIUM AND RIGHT VENTRICLE. NORMAL RIGHT VENTRICULAR SYSTOLIC PRESSURE. PARADOXICAL SEPTUM. SMALL LEFT VENTRICLE WITH LEFT VENTRICULAR EJECTION FRACTION 30-35%. POSSIBLE CONSTRICTIVE CARDIOMYOPATHY. MILD AORTIC STENOSIS. AORTIC VALVE AREA 1.7 CENTIMETERS SQUARED. 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 Patient was admitted for further evaluation and treatment. Hospital Course: Patient presented with shortness of breath secondary to acute on chronic hypoxic respiratory failure. The patient was treated in the course of her stay. Patient was evaluated by a nephrology, cardiology and nephrology. CT scan revealed no pulmonary embolism. 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 Echocardiogram showed ejection fraction of 30%. Dilated right atrium and right ventricle noted. The patient was treated in the course of her stay with BiPAP. Patient was able to be weaned off. At discharge patient will continue with current medications at this time. She will continue with oxygen to maintain sats above 93%. Patient with chronic multiple medical issues. Patient is do not resuscitate. jail should try to reach out to family to consider hospice in the future for this patient. Patient also had a UTI. This was treated. Urine culture was positive for enterobacter. Patient will continue with Levaquin for 2 more days. Patient with history of CVA with PEG tube placement. At discharge she will continue with current feeds. Patient was also seen by nephrology due to pre renal azotemia and alkalosis. This has remained stable. May continue with Nephrology recommendations. Patient also an underlying COPD. At discharge she will continue with her current medications including Breo and albuterol. Continue with oxygen to maintain sats above 93%. Patient with underlying diabetes. At discharge she will continue with glipizide and Tradjenta. Recommend to maintain blood sugars less 140 fasting and less than 200 after meals. Further adjustment can be done at the skilled nursing. Hold glipizide if blood sugars remain below 100. Patient with underlying hypertension. As stated above concerning CHF medications have been adjusted. At discharge she will continue with aspirin 81 mg daily, Plavix 75 mg daily, and metoprolol 12.5 mg 1 pill twice daily. Vasotec and carvedilol have been discontinued and replaced with metoprolol. Recommend to maintain blood pressures less 150/80. Further adjustment can be done by cardiology. Vital Signs/Physical Exam: Temp Pulse Resp BP Pulse Ox 97.9 F 67 28 H 141/87 H 94 12/01/19 12:00 12/01/19 12:00 12/01/19 12:00 12/01/19 12:00 12/01/19 12:00 General: Alert, Cooperative HEENT: Atraumatic Neck: Supple Respiratory: Clear to auscultation bilaterally Cardiovascular: Normal pulses, Regular rate/rhythm Gastrointestinal: Other (PEG tube in place) Neurological: Other (Patient is bed bound. Some difficulty hearing noted. Muscle wasting to the upper lower extremities.) Laboratory Data at Discharge: WBC 12.9 K/uL (4.3-10.9) H 11/27/19 05:02 Hgb 10.8 g/dL (12.0-15.0) L 11/27/19 05:02 Hct 33.7 % (36.0-45.0) L 11/27/19 05:02 Plt Count 293 K/uL (152-406) 11/27/19 05:02 PT 12.0 SECONDS (9.5-12.5) 11/22/19 19:20 INR 1.02 11/22/19 19:20 APTT 30.4 SECONDS (24.3-36.9) 11/22/19 19:20 Sodium 137 mmol/L (136-145) 11/30/19 04:20 Potassium 3.9 mmol/L (3.5-5.1) 11/30/19 04:20 BUN 74 mg/dL (7-18) H 11/30/19 04:20 Creatinine 0.98 mg/dL (0.55-1.3) 11/30/19 04:20 Glucose 207 mg/dL (74-106) H 11/30/19 04:20 Uric Acid 7.9 mg/dL (2.6-6.0) H 11/24/19 04:03 Phosphorus 2.9 mg/dL (2.5-4.9) 11/28/19 05:21 Magnesium 2.7 mg/dL (1.8-2.4) H 11/27/19 05:02 Total Bilirubin 0.2 mg/dL (0.2-1.0) 11/24/19 04:03 AST 19 U/L (15-37) 11/24/19 04:03 ALT 17 U/L (12-78) 11/24/19 04:03 Alkaline Phosphatase 100 U/L (45-117) 11/24/19 04:03 Troponin I 0.78 ng/mL (0.0-0.045) H* 11/23/19 20:16 Amylase 75 U/L (25-115) 11/28/19 13:03 Lipase 127 U/L (73-393) 11/22/19 19:20 Home Medications: Acetaminophen 500 mg FT TIDP PRN 11/23/19 Albuterol Sulfate [Albuterol Sulfate 0.083% Neb Soln] 2.5 mg IH Q4HP PRN 11/23/19 Albuterol Sulfate [Ventolin Hfa] 2 puff IH QID 11/23/19 Arginine/Ascorbate Sod/Gema AC [Arginaid Powder] 1 each FT BID 11/23/19 Ascorbic Acid 500 mg FT BID 11/23/19 Aspirin Chewable [Aspirin Chewable*] 81 mg FT DAILY 11/23/19 Clopidogrel Bisulfate [Plavix*] 75 mg FT BEDTIME 11/23/19 Docusate Sodium 100 mg FT BIDP PRN 11/23/19 Ferrous Sulfate [Ferrous Sulfate Elixir*] 7.5 ml FT DAILY 11/23/19 Gabapentin 8 ml FT BID 11/23/19 Guaifenesin [Cough Syrup] 10 ml FT Q6HP PRN 11/23/19 Leflunomide 20 mg FT DAILY 11/23/19 Linagliptin [Tradjenta] 5 mg FT DAILY 11/23/19 Multivit-Min/Ferrous Gluconate [Centrum Multivit-Mineral Liq] 9 mg FT DAILY 11/23/19 Nut.tx.gluc Intol,Lf,Soy/Fiber [Diabetisource AC 1.2 Kendall Liq] 250 ml FT QID 11/23/19 Nut.tx.gluc Intol,Lf,Soy/Fiber [Diabetisource AC 1.2 Kendall Liq] 250 ml FT SEECOM 11/23/19 Pantoprazole Granules [Protonix Granules*] 40 mg FT DAILY 11/23/19 Pravastatin Sodium 2 tab FT BEDTIME 11/23/19 Tramadol HCl [Ultram] 50 mg FT Q6HP PRN 11/23/19 Umeclidinium Brm/Vilanterol Tr [Anoro Ellipta 62.5-25 Mcg INH] 1 puff IH DAILY 11/23/19 Zinc Sulfate [Zinc Sulfate*] 220 mg FT BID 11/23/19 allopurinoL [Allopurinol] 100 mg FT BID 11/23/19 glipiZIDE [Glipizide] 5 mg FT BID 11/23/19 sulfaSALAzine [Sulfasalazine] 2 tab FT BID 11/23/19 Metoprolol Tartrate [Lopressor*] 12.5 mg PO BID 6AM 6PM #60 tab 12/01/19 levoFLOXacin [Levaquin*] 250 mg FT 1700 #2 tab 12/01/19 New Medications: levoFLOXacin [Levaquin*] 250 mg FT 1700 #2 tab Metoprolol Tartrate [Lopressor*] 12.5 mg PO BID 6AM 6PM #60 tab Patient Discharge Instructions: 1. Return to skilled nursing. 2. Patient presented with shortness of breath secondary to acute on chronic hypoxic respiratory failure. The patient was treated in the course of her stay. Patient was evaluated by a nephrology, cardiology and nephrology. CT scan revealed no pulmonary embolism. 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 Echocardiogram showed ejection fraction of 30%. Dilated right atrium and right ventricle noted. The patient was treated in the course of her stay with BiPAP. Patient was able to be weaned off. At discharge patient will continue with current medications at this time. She will continue with oxygen to maintain sats above 93%. Patient with chronic multiple medical issues. Patient is do not resuscitate. jail should try to reach out to family to consider hospice in the future for this patient. 3. Patient also had a UTI. This was treated. Urine culture was positive for enterobacter. Patient will continue with Levaquin for 2 more days. 4. Patient with history of CVA with PEG tube placement. At discharge she will continue with current feeds. 5. Patient was also seen by nephrology due to pre renal azotemia and alkalosis. This has remained stable. May continue with Nephrology recommendations. 6. Patient also an underlying COPD. At discharge she will continue with her current medications including Breo and albuterol. Continue with oxygen to maintain sats above 93%. 7. Patient with underlying diabetes. At discharge she will continue with glipizide and Tradjenta. Recommend to maintain blood sugars less 140 fasting and less than 200 after meals. Further adjustment can be done at the skilled nursing. Hold glipizide if blood sugars remain below 100. 8. Patient with underlying hypertension. As stated above concerning CHF medications have been adjusted. At discharge she will continue with aspirin 81 mg daily, Plavix 75 mg daily, and metoprolol 12.5 mg 1 pill twice daily. Vasotec and carvedilol have been discontinued and replaced with metoprolol. Recommend to maintain blood pressures less 150/80. Further adjustment can be done by cardiology. Diet: Continue tube feeds Activity: Fall precautions Time spent managing pt's care (in minutes): 55
[2019-12-01] MEDS: levoFLOXacin 250 MG TAB PO SCH (19:15)
[2019-12-01] MEDS: CLOPIDOGREL 75 MG TABLET FT SCH (20:27)
[2019-12-01] MEDS: ATORVASTATIN 10 MG TAB PO SCH (20:27)
[2019-12-01] MEDS ORDERED: GLUCERNA 1.2 CAL 1,000 ML BOT FT SCH (22:00)
[2019-12-01] MEDS: GLUCERNA 1.2 CAL 1,000 ML BOT FT SCH (22:13)
[2019-12-02] MEDS: INSULIN -REGULAR HUMAN 50 UNIT/0.5 ML ML SQ SCH ×4 (00:49→18:00)
[2019-12-02] MEDS: IPRATROPIUM BROM 0.5MG/2.5ML NEB SCH ×6 (04:00→20:15)
[2019-12-02 06:17] LABS: Magnesium 2.7 mg/dL (1.8-2.4); Potassium 3.9 mmol/L (3.5-5.1)
[2019-12-02] MEDS: METOPROLOL TAR 25 MG TAB PO SCH ×2 (06:17→17:53)
[2019-12-02] MEDS: ALBUTEROL 2.5 MG/3 ML NEB SOL IH PRN ×2 (07:55→20:15)
[2019-12-02] MEDS: SULFASALAZINE FT SCH ×2 (09:00→19:53)
[2019-12-02] MEDS: HOME MED 1 EA UNK (Leflunomide [Leflunomide] 20 MG) FT SCH (09:00)
[2019-12-02] MEDS: GABAPENTIN FT SCH ×2 (09:00→19:52)
[2019-12-02] MEDS: HOME MED 1 EA UNK (Umeclidinium Brm/Vilanterol Tr [Anoro Ellipta 62.5-25 Mcg Inh] 1 PUFF) IH SCH (09:00)
[2019-12-02] MEDS: ZINC SULFATE 220 MG CAP FT SCH ×2 (10:06→21:33)
[2019-12-02] MEDS: allopurinoL 100 MG TAB FT SCH ×2 (10:06→21:33)
[2019-12-02] MEDS: ASPIRIN 81 MG CHEWABLE TABLET FT SCH (10:06)
[2019-12-02] MEDS: Pantoprazole (granules) 40 MG/BLIST PACKET FT SCH (10:06)
[2019-12-02] MEDS: POTASSIUM 25 MEQ EFFERV TAB FT SCH (10:06)
[2019-12-02] MEDS: glipiZIDE 5 MG TAB FT SCH ×2 (10:07→21:33)
[2019-12-02] MEDS: ASCORBIC ACID 500 MG TABLET FT SCH ×2 (10:08→21:33)
--- NOTE | 2019-12-02 13:51 | P.PN ---
Subjective Date of Service: 12/02/19 Primary Care Provider: JENNIFER Chief Complaint: Shortness of breath Discharge was held yesterday by prison. Physical Examination - Vital Signs Temperature: 98.5 F Blood Pressure: 141/69 Pulse: 82 Respirations: 28 Pulse Ox (%): 88 - Physical Exam General: Alert HEENT: Atraumatic Neck: Supple Respiratory: Clear to auscultation bilaterally, Normal air movement Cardiovascular: Normal pulses, Regular rate/rhythm Gastrointestinal: No rebound, No guarding, Other (PEG tube in place) - Studies Medications List Reviewed: Yes Assessment & Plan Discharge Plan: Longterm Plan to discharge in: 24 Hours Physician Review Additional Text: Assessment Acute on chronic hypoxemic respiratory failure Acute on chronic systolic CHF exacerbation with likely constructive cardiomyop athy, EF 25% Pre-renal azotemia Elevated troponin likely related to above UTI, urine culture positive for enterobacter HTN CVA PEG tube placement PLAN Acute on chronic hypoxemic respiratory failure suspect CHF exacerbation versus COPD exacerbation: Discharge was held yesterday due to administrative issues related to her prison. Will need to discuss with case management and their administration. Will try to have oxygen arranged as well. Will continue with discharge plan of care if the patient is able to be discharge back to the prison. 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 Ejection fraction around 30%. Echocardiogram also shows dilated right atrium/right ventricle. Small left ventricle noted. Possible underlying constrictive cardiomyopathy noted. Aortic valve stenosis noted. Will discuss with cardiology. Pre-renal azotemia: Will discuss further with nephrology. Elevated troponin and BNP: Echo will reviewed. Continue with above recommendations. UTI, urine culture positive for enterobacter: Antibiotics have been adjusted to oral. Will treat for 7 day total. CVA with PEG tube placement: Continue with tube feeds. Time Spent Managing Pts Care (In Minutes): 55
[2019-12-02] MEDS: levoFLOXacin 250 MG TAB PO SCH (17:53)
[2019-12-02] MEDS: CLOPIDOGREL 75 MG TABLET FT SCH (21:33)
[2019-12-02] MEDS: ATORVASTATIN 10 MG TAB PO SCH (21:33)
[2019-12-03] MEDS: INSULIN -REGULAR HUMAN 50 UNIT/0.5 ML ML SQ SCH ×4 (01:49→18:08)
[2019-12-03] MEDS: IPRATROPIUM BROM 0.5MG/2.5ML NEB SCH ×6 (03:14→20:20)
[2019-12-03] MEDS: METOPROLOL TAR 25 MG TAB PO SCH ×2 (05:38→17:31)
[2019-12-03 07:31] LABS: Potassium 3.8 mmol/L (3.5-5.1)
[2019-12-03] MEDS: ALBUTEROL 2.5 MG/3 ML NEB SOL IH PRN (08:45)
[2019-12-03] MEDS: SULFASALAZINE FT SCH ×2 (09:00→21:00)
[2019-12-03] MEDS: HOME MED 1 EA UNK (Umeclidinium Brm/Vilanterol Tr [Anoro Ellipta 62.5-25 Mcg Inh] 1 PUFF) IH SCH (09:00)
[2019-12-03] MEDS: GABAPENTIN FT SCH ×2 (09:00→21:00)
[2019-12-03] MEDS: HOME MED 1 EA UNK (Leflunomide [Leflunomide] 20 MG) FT SCH (09:00)
[2019-12-03] MEDS: POTASSIUM 25 MEQ EFFERV TAB FT SCH (09:42)
[2019-12-03] MEDS: ASCORBIC ACID 500 MG TABLET FT SCH ×2 (09:42→22:44)
[2019-12-03] MEDS: ZINC SULFATE 220 MG CAP FT SCH ×2 (09:43→22:44)
[2019-12-03] MEDS: glipiZIDE 5 MG TAB FT SCH ×2 (09:43→22:44)
[2019-12-03] MEDS: ASPIRIN 81 MG CHEWABLE TABLET FT SCH (09:43)
[2019-12-03] MEDS: allopurinoL 100 MG TAB FT SCH ×2 (09:43→22:46)
[2019-12-03] MEDS: Pantoprazole (granules) 40 MG/BLIST PACKET FT SCH (09:43)
--- NOTE | 2019-12-03 16:46 | CON ---
Date of Consultation: 12/03/2019 Reason For Consultation: Evaluation of sacral decubitus ulcer. Brief History Of Present Illness: Patient is an 84-year-old female who is a custodial resident wi th multiple strokes in the past, bed bound, history of sacral decubitus ulcer, PEG tube, chronic resp iratory failure on chronic oxygen at baseline, brought to the emergency room on 11/21 due to desatura tion of home oxygen. She was medically managed and optimized. The medical staff has requested I junaid luate her sacral decubitus ulcer. Past Medical History: CVA, diabetes hyperlipidemia PEG tube, chronic respiratory failure, sacral dec ubitus, ulcerative colitis, anemia, peripheral neuropathy, glaucoma, hypertension coronary artery dis ease, PEG tube. Most information is obtained from chart as the patient is minimally verbal. Allergies: NO KNOWN DRUG ALLERGIES. A 10-POINT REVIEW OF SYSTEMS WAS UNABLE TO OBTAIN MEDICATIONS, UNABLE OBTAIN FROM THE PATIENT DIRECTLY. Physical Examination: Vital Signs: At the time of examination her BMI is 23.4. Her vital signs were blood pressure 141/62 , pulse 79, respiratory rate 18, temperature 99.1. General: She is awake, alert, but confused. Psychiatric: She is conversive, but very small words and does not answer some of the questions with appropriate phrasing, but minimal word usage. HEENT: She is otherwise normocephalic in appearance. EXTREMITIES: Focused examination of her sacral ulcer, she has a stage 2 appearing sacral decubitus u lcer with some minimal skin breakdown surrounding. There are no drainable collections. Minimal necr osis to the superficial digital tissues are usually scraped at this point with simple digital examina tion. Laboratory Data: Reveals sodium of 130, potassium 3.8, chloride 100, carbon dioxide is 31, BUN 49, c reatinine 0.8, glucose was 178. Assessment And Plan: This is an 84-year-old woman with a stage II sacral decubitus ulcer. 1.Continue antibiotic coverage and medical management. 2.Recommend Dakin's and Santyl with DuoDerm into the wound with daily dressing changes. 3.Pressure reduction strategies to reduce pressure in this area. 4.Patient can follow up with me for evaluation and ongoing therapy should she choose to do so in by clinic or in a Wound Care Center or, in a Wound Care Center, but continue the Santyl and DuoDerm duri ng her admission and will be available for future needs. RENETTA/BLACK Voice ID: [id number] Report ID: [id number]
[2019-12-03] MEDS: levoFLOXacin 250 MG TAB PO SCH (17:24)
--- NOTE | 2019-12-03 17:28 | P.PN ---
Subjective Date of Service: 12/03/19 Primary Care Provider: JENNIFER Chief Complaint: Respiratory failure Patient's condition is stable qualify for home oxygen stage III decubitus ulcer evaluated by General surgery no do bride min necessary right now patient again is nonverbal white count minimally elevated Review of Systems is unable to be obtained Physical Examination - Vital Signs Temperature: 99.1 F Blood Pressure: 141/62 Pulse: 79 Respirations: 38 Pulse Ox (%): 94 - Physical Exam General: Alert, In no apparent distress Respiratory: Clear to auscultation bilaterally Cardiovascular: No edema, Regular rate/rhythm Gastrointestinal: Normal bowel sounds, Soft and benign - Studies Medications List Reviewed: Yes Assessment & Plan - Problems (Diagnosis) (1) Acute and chronic respiratory failure with hypercapnia Current Visit: Yes Status: Acute Plan: Patient has chronic respiratory failure blood gases satisfactory mildly anemic patient has severe congestive heart failure can Dc on or 0 she will benefit probably from long-acting bronchodilator at home Brovana or Perforomist twice a day at time of discharge (2) Congestive heart failure Current Visit: Yes Status: Acute Plan: Patient has combined right and left-sided heart failure no evidence of thromboembolism renal function is now normal good candidate for hospice care enterobacter in the urine patient is on levofloxacin Qualifiers: Heart failure type: combined systolic and diastolic Heart failure chronicity: acute on chronic Qualified Code(s): I50.43 - Acute on chronic combined systolic (congestive) and diastolic (congestive) heart failure Physician Review Additional Text: Assessment Acute on chronic hypoxemic respiratory failure Acute on chronic systolic CHF 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 Will need to discuss with case management and their administration. Will try to have oxygen arranged as well. Will continue with discharge plan of care if the patient is able to be discharge back to the care home. 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 Ejection fraction around 30%. Echocardiogram also shows dilated right atrium/right ventricle. Small left ventricle noted. Possible underlying constrictive cardiomyopathy noted. Aortic valve stenosis noted. Will discuss with cardiology. Pre-renal azotemia: Will discuss further with nephrology. Elevated troponin and BNP: Echo will reviewed. Continue with above recommendations. UTI, urine culture positive for enterobacter: Antibiotics have been adjusted to oral. Will treat for 7 day total. CVA with PEG tube placement: Continue with tube feeds.
[2019-12-03] MEDS: ATORVASTATIN 10 MG TAB PO SCH (22:44)
[2019-12-03] MEDS: CLOPIDOGREL 75 MG TABLET FT SCH (22:44)
[2019-12-04] MEDS: GLUCERNA 1.2 CAL 1,000 ML BOT FT SCH ×2 (00:23→21:49)
[2019-12-04] MEDS: INSULIN -REGULAR HUMAN 50 UNIT/0.5 ML ML SQ SCH ×4 (00:26→18:26)
[2019-12-04] MEDS: IPRATROPIUM BROM 0.5MG/2.5ML NEB SCH ×4 (01:32→20:05)
[2019-12-04 04:48] LABS: Potassium 4.1 mmol/L (3.5-5.1)
[2019-12-04] MEDS: METOPROLOL TAR 25 MG TAB PO SCH ×2 (05:10→16:42)
[2019-12-04] MEDS: ASCORBIC ACID 500 MG TABLET FT SCH ×2 (07:52→21:49)
[2019-12-04] MEDS: ZINC SULFATE 220 MG CAP FT SCH ×2 (07:52→21:48)
[2019-12-04] MEDS: ASPIRIN 81 MG CHEWABLE TABLET FT SCH (07:53)
[2019-12-04] MEDS: HOME MED 1 EA UNK (Umeclidinium Brm/Vilanterol Tr [Anoro Ellipta 62.5-25 Mcg Inh] 1 PUFF) IH SCH (07:53)
[2019-12-04] MEDS: SULFASALAZINE FT SCH ×2 (07:53→21:00)
[2019-12-04] MEDS: POTASSIUM 25 MEQ EFFERV TAB FT SCH (07:53)
[2019-12-04] MEDS: COLLAGENASE 30 GM OINTMENT TOP SCH (07:53)
[2019-12-04] MEDS: allopurinoL 100 MG TAB FT SCH ×2 (07:53→21:49)
[2019-12-04] MEDS: glipiZIDE 5 MG TAB FT SCH ×2 (07:53→21:49)
[2019-12-04] MEDS: Pantoprazole (granules) 40 MG/BLIST PACKET FT SCH (07:54)
[2019-12-04] MEDS: HOME MED 1 EA UNK (Leflunomide [Leflunomide] 20 MG) FT SCH (07:54)
[2019-12-04] MEDS: GABAPENTIN FT SCH ×2 (07:54→21:00)
--- NOTE | 2019-12-04 14:36 | P.PN ---
Subjective Date of Service: 12/04/19 Primary Care Provider: JENNIFER Chief Complaint: Respiratory failure Discharge continued to be held by a detention Physical Examination - Vital Signs Temperature: 97.6 F Blood Pressure: 117/65 Pulse: 48 Respirations: 20 Pulse Ox (%): 95 - Physical Exam General: Alert HEENT: Atraumatic Neck: Supple Respiratory: Clear to auscultation bilaterally, Normal air movement Cardiovascular: Normal pulses, Regular rate/rhythm Gastrointestinal: Normal bowel sounds Neurological: Normal speech, Normal strength at 5/5 x4 extr - Studies Medications List Reviewed: Yes Assessment & Plan Discharge Plan: Group Home Plan to discharge in: 24 Hours Physician Review Additional Text: Assessment Acute on chronic hypoxemic respiratory failure Acute on chronic systolic CHF 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 Patient comes from the detention. Will discuss with case management and social services technician to continue to work with [facility] to have patient return. Hope to get this issue resolve so that the patient can return back to the detention. Anticipate discharge in the next 24 hr. 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 Ejection fraction around 30%. Echocardiogram also shows dilated right atrium/right ventricle. Small left ventricle noted. Possible underlying constrictive cardiomyopathy noted. Aortic valve stenosis noted. Will discuss with cardiology. Pre-renal azotemia: Will discuss further with nephrology. Elevated troponin and BNP: Echo will reviewed. Continue with above recommendations. UTI, urine culture positive for enterobacter: Antibiotics have been adjusted to oral. Will discuss with pharmacy on when this will need to be stop. CVA with PEG tube placement: Continue with tube feeds. Time Spent Managing Pts Care (In Minutes): 55
[2019-12-04] MEDS: levoFLOXacin 250 MG TAB PO SCH (16:00)
[2019-12-04] MEDS: CLOPIDOGREL 75 MG TABLET FT SCH (21:48)
[2019-12-04] MEDS: ATORVASTATIN 10 MG TAB PO SCH (21:49)
[2019-12-05] MEDS: INSULIN -REGULAR HUMAN 50 UNIT/0.5 ML ML SQ SCH ×3 (00:12→11:21)
[2019-12-05] MEDS: IPRATROPIUM BROM 0.5MG/2.5ML NEB SCH ×2 (01:05→08:00)
[2019-12-05] MEDS: METOPROLOL TAR 25 MG TAB PO SCH (05:35)
[2019-12-05] MEDS: GABAPENTIN FT SCH (07:15)
[2019-12-05] MEDS: HOME MED 1 EA UNK (Umeclidinium Brm/Vilanterol Tr [Anoro Ellipta 62.5-25 Mcg Inh] 1 PUFF) IH SCH (07:16)
[2019-12-05] MEDS: HOME MED 1 EA UNK (Leflunomide [Leflunomide] 20 MG) FT SCH (07:16)
[2019-12-05] MEDS: SULFASALAZINE FT SCH (07:16)
[2019-12-05] MEDS: allopurinoL 100 MG TAB FT SCH (07:51)
[2019-12-05] MEDS: Pantoprazole (granules) 40 MG/BLIST PACKET FT SCH (07:51)
[2019-12-05] MEDS: ASPIRIN 81 MG CHEWABLE TABLET FT SCH (07:51)
[2019-12-05] MEDS: POTASSIUM 25 MEQ EFFERV TAB FT SCH (07:52)
[2019-12-05] MEDS: ASCORBIC ACID 500 MG TABLET FT SCH (07:52)
[2019-12-05] MEDS: glipiZIDE 5 MG TAB FT SCH (07:52)
[2019-12-05] MEDS: ZINC SULFATE 220 MG CAP FT SCH (07:52)
[2019-12-05] MEDS: COLLAGENASE 30 GM OINTMENT TOP SCH (07:53)
--- NOTE | 2019-12-05 08:45 | P.PN ---
Subjective Date of Service: 12/04/19 Primary Care Provider: JENNIFER Chief Complaint: Respiratory failure Subjective: No new changes (wound is stable, skin is improved, ulcer remains unchanged, duoderm in place) Physical Examination - Vital Signs Temperature: 97.8 F Blood Pressure: 167/67 Pulse: 74 Respirations: 36 Pulse Ox (%): 98 - Physical Exam General: In no apparent distress, Cooperative, Demented Integumentary: Pressure ulcer (minimal improvement, skin improved, ulcer at central portion is stable, minimal improvement) - Studies Medications List Reviewed: Yes Assessment And Plan - Current Problems (Diagnosis) (1) Decubitus skin ulcer Current Visit: Yes Status: Acute Plan: - continue daily dressing changes with santyl - clean area with dakins - duoderm changes daily - pressure reduction critical - medical management Qualifiers: Pressure injury stage: stage 2 Physician Review Additional Text: Assessment Acute on chronic hypoxemic respiratory failure Acute on chronic systolic CHF 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 Patient comes from the half-way. Will discuss with case management and social contact worker to continue to work with [facility] to have patient return. Hope to get this issue resolve so that the patient can return back to the half-way. Anticipate discharge in the next 24 hr. 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 Ejection fraction around 30%. Echocardiogram also shows dilated right atrium/right ventricle. Small left ventricle noted. Possible underlying constrictive cardiomyopathy noted. Aortic valve stenosis noted. Will discuss with cardiology. Pre-renal azotemia: Will discuss further with nephrology. Elevated troponin and BNP: Echo will reviewed. Continue with above recommendations. UTI, urine culture positive for enterobacter: Antibiotics have been adjusted to oral. Will discuss with pharmacy on when this will need to be stop. CVA with PEG tube placement: Continue with tube feeds.
[2019-12-05 09:25] VITALS: O2SAT 97
--- NOTE | 2019-12-05 11:18 | P.DS ---
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 Per report she was also complaining of shortness of breath. No fever reported. Her chest x-ray in the ED demonstrated vascular congestion. Her her troponin is elevated to 0.6 and BNP markedly elevated. Patient was requiring BiPAP in the emergency department. Her blood gas was hypoxic on 90% FiO2. Patient is admitted for further management. Hospital Course: Acute on chronic hypoxemic respiratory failure suspect CHF exacerbation versus COPD exacerbation: Acute on chronic systolic CHF exacerbation with likely constrictive cardiomyopathy: Pre-renal azotemia: Elevated troponin and BNP: UTI, urine culture positive for enterobacter: CVA with PEG tube placement: The patient was admitted and was monitored closely under telemetry. start on BiPAP and was weaned off. Started also on aggressive diuresis. cardiology was consulted as well. underwent an echocardiogram. Ejection fraction around 30%. Echocardiogram also shows dilated right atrium/right ventricle. Small left ventricle noted. Possible underlying constrictive cardiomyopathy noted. Aortic valve stenosis noted. Cardiology recommended conservative management and monitor as outpatient. Patient also was found to have Enterobacter is in the urine and was treated with antibiotics. Renal parameters were monitored as well. She responded well to the treatment and case management was consulted for placement back to the [facility]. The patient is being discharged [facility] in a stable condition. Vital Signs/Physical Exam: Temp Pulse Resp BP Pulse Ox 97.8 F 74 20 135/74 98 12/05/19 08:44 12/05/19 08:44 12/05/19 10:47 12/05/19 09:03 12/05/19 10:47 General: Alert, In no apparent distress HEENT: Atraumatic, Normocephalic Neck: Supple Respiratory: Normal air movement Cardiovascular: No edema, Regular rate/rhythm Capillary refill: <2 Seconds Gastrointestinal: Soft and benign Musculoskeletal: No swelling Laboratory Data at Discharge: WBC 12.9 K/uL (4.3-10.9) H 11/27/19 05:02 Hgb 10.8 g/dL (12.0-15.0) L 11/27/19 05:02 Hct 33.7 % (36.0-45.0) L 11/27/19 05:02 Plt Count 293 K/uL (152-406) 11/27/19 05:02 PT 12.0 SECONDS (9.5-12.5) 11/22/19 19:20 INR 1.02 11/22/19 19:20 APTT 30.4 SECONDS (24.3-36.9) 11/22/19 19:20 Sodium 140 mmol/L (136-145) 12/04/19 03:59 Potassium 4.1 mmol/L (3.5-5.1) 12/04/19 03:59 BUN 45 mg/dL (7-18) H 12/04/19 03:59 Creatinine 0.74 mg/dL (0.55-1.3) 12/04/19 03:59 Glucose 155 mg/dL (74-106) H 12/04/19 03:59 Uric Acid 7.9 mg/dL (2.6-6.0) H 11/24/19 04:03 Phosphorus 3.0 mg/dL (2.5-4.9) 12/02/19 05:34 Magnesium 2.7 mg/dL (1.8-2.4) H 12/02/19 05:34 Total Bilirubin 0.2 mg/dL (0.2-1.0) 11/24/19 04:03 AST 19 U/L (15-37) 11/24/19 04:03 ALT 17 U/L (12-78) 11/24/19 04:03 Alkaline Phosphatase 100 U/L (45-117) 11/24/19 04:03 Troponin I 0.78 ng/mL (0.0-0.045) H* 11/23/19 20:16 Amylase 75 U/L (25-115) 11/28/19 13:03 Lipase 127 U/L (73-393) 11/22/19 19:20 Home Medications: Acetaminophen 500 mg FT TIDP PRN 11/23/19 Albuterol Sulfate [Albuterol Sulfate 0.083% Neb Soln] 2.5 mg IH Q4HP PRN 11/23/19 Albuterol Sulfate [Ventolin Hfa] 2 puff IH QID 11/23/19 Arginine/Ascorbate Sod/Gema AC [Arginaid Powder] 1 each FT BID 11/23/19 Ascorbic Acid 500 mg FT BID 11/23/19 Aspirin Chewable [Aspirin Chewable*] 81 mg FT DAILY 11/23/19 Clopidogrel Bisulfate [Plavix*] 75 mg FT BEDTIME 11/23/19 Docusate Sodium 100 mg FT BIDP PRN 11/23/19 Ferrous Sulfate [Ferrous Sulfate Elixir*] 7.5 ml FT DAILY 11/23/19 Gabapentin 8 ml FT BID 11/23/19 Guaifenesin [Cough Syrup] 10 ml FT Q6HP PRN 11/23/19 Leflunomide 20 mg FT DAILY 11/23/19 Linagliptin [Tradjenta] 5 mg FT DAILY 11/23/19 Multivit-Min/Ferrous Gluconate [Centrum Multivit-Mineral Liq] 9 mg FT DAILY 11/23/19 Nut.tx.gluc Intol,Lf,Soy/Fiber [Diabetisource AC 1.2 Kendall Liq] 250 ml FT QID 11/23/19 Nut.tx.gluc Intol,Lf,Soy/Fiber [Diabetisource AC 1.2 Kendall Liq] 250 ml FT SEECOM 11/23/19 Pantoprazole Granules [Protonix Granules*] 40 mg FT DAILY 11/23/19 Pravastatin Sodium 2 tab FT BEDTIME 11/23/19 Tramadol HCl [Ultram] 50 mg FT Q6HP PRN 11/23/19 Zinc Sulfate [Zinc Sulfate*] 220 mg FT BID 11/23/19 allopurinoL [Allopurinol] 100 mg FT BID 11/23/19 glipiZIDE [Glipizide] 5 mg FT BID 11/23/19 sulfaSALAzine [Sulfasalazine] 2 tab FT BID 11/23/19 Metoprolol Tartrate [Lopressor*] 12.5 mg PO BID 6AM 6PM #60 tab 12/01/19 levoFLOXacin [Levaquin*] 250 mg FT 1700 #2 tab 12/01/19 Arformoterol Tartrate [Brovana] 15 mcg IH BID 30 Days #120 ml 12/03/19 Albuterol Neb [Proventil 0.083% Neb Soln] 2.5 mg NEB [id number] PRN #30 amp 12/05/19 Collagenase [Santyl Ointment*] 1 appl TOP DAILY #1 tube 12/05/19 Glucerna 1.5 Kendall 1 can RTH BID #30 bot 12/05/19 Ipratropium Neb [Atrovent*] 0.5 mg NEB [id number] PRN #30 amp 12/05/19 New Medications: Ipratropium Neb [Atrovent*] 0.5 mg NEB [id number] PRN #30 amp PRN Reason: Shortness Of Breath Arformoterol Tartrate [Brovana] 15 mcg IH BID 30 Days #120 ml Glucerna 1.5 Kendall 1 can RTH BID #30 bot levoFLOXacin [Levaquin*] 250 mg FT 1700 #2 tab Metoprolol Tartrate [Lopressor*] 12.5 mg PO BID 6AM 6PM #60 tab Albuterol Neb [Proventil 0.083% Neb Soln] 2.5 mg NEB [id number] PRN #30 amp PRN Reason: Shortness Of Breath Collagenase [Santyl Ointment*] 1 appl TOP DAILY #1 tube Patient Discharge Instructions: On or discontinued Brovana has been faxed to the pharmacy. 1. [facility] to [facility]. 2. Patient presented with shortness of breath secondary to acute on chronic hypoxic respiratory failure. The patient was treated in the course of her stay. Patient was evaluated by a nephrology, cardiology and nephrology. CT scan revealed no pulmonary embolism. 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 Echocardiogram showed ejection fraction of 30%. Dilated right atrium and right ventricle noted. The patient was treated in the course of her stay with BiPAP. Patient was able to be weaned off. At discharge patient will continue with current medications at this time. She will continue with oxygen to maintain sats above 93%. Patient with chronic multiple medical issues. Patient is do not resuscitate. long-term should try to reach out to family to consider hospice in the future for this patient. 3. Patient also had a UTI. This was treated. Urine culture was positive for enterobacter. Patient will continue with Levaquin for 2 more days. 4. Patient with history of CVA with PEG tube placement. At discharge she will continue wit h current feeds. 5. Patient was also seen by nephrology due to pre renal azotemia and alkalosis. This has remained stable. May continue with Nephrology recommendations. 6. Patient also an underlying COPD. At discharge she will continue with her current medications including Breo and albuterol. Continue with oxygen to maintain sats above 93%. 7. Patient with underlying diabetes. At discharge she will continue with glipizide and Tradjenta. Recommend to maintain blood sugars less 140 fasting and less than 200 after meals. Further adjustment can be done at the [facility]. Hold glipizide if blood sugars remain below 100. 8. Patient with underlying hypertension. As stated above concerning CHF medications have been adjusted. At discharge she will continue with aspirin 81 mg daily, Plavix 75 mg daily, and metoprolol 12.5 mg 1 pill twice daily. Vasotec and carvedilol have been discontinued and replaced with metoprolol. Recommend to maintain blood pressures less 150/80. Further adjustment can be done by cardiology. Diet: Continue tube feeds Activity: Fall precautions Followup: Lamonte Regan MD [ACTIVE - CAN ADMIT] - Kei Bravo MD [ACTIVE - CAN ADMIT] -
[2019-12-05 12:24] VITALS: TEMP 98
[2019-12-05 12:45] VITALS: BP 142/86
--- NOTE | 2019-12-13 20:41 | P.PN ---
Date of Service: 12/05/19 Vital Signs Temp Pulse Resp BP Pulse Ox 98.0 F 89 20 142/86 H 96 12/05/19 12:00 12/05/19 12:44 12/05/19 12:44 12/05/19 12:44 12/05/19 12:00 Microbiology Results 11/22/19 19:33 Blood - Blood Aerobic Blood Culture - Final No growth in 5 days. 11/22/19 19:33 Blood - Blood Anaerobic Blood Culture - Final No growth in 5 days. 11/22/19 19:20 Blood - Blood Aerobic Blood Culture - Final No growth in 5 days. 11/22/19 19:20 Blood - Blood Anaerobic Blood Culture - Final No growth in 5 days. 11/22/19 20:20 Clean Catch Urine Robards Count - Final >100,000 CFU/ML. 11/22/19 20:20 Clean Catch Urine - Final MIXED MARY. 11/22/19 21:22 Nasopharnyx Coronavirus COVID-19 PCR - Final 11/22/19 20:20 Nasopharnyx Influenza Type A Antigen Screen - Final 11/22/19 20:20 Nasopharnyx Influenza Type B Antigen Screen - Final Assessment/ Plan: Nephrology CPS stable without CP or SOB. No acute events overnight. Vitals, medications, blood work and imaging reviewed in the chart. General: In no apparent distress HEENT: Atraumatic Neck: Supple Respiratory: Clear to auscultation bilaterally Cardiovascular: No edema, Regular rate/rhythm Gastrointestinal: Soft and benign, Non-distended Musculoskeletal: No clubbing, No contractures Integumentary: No rashes, No cyanosis Laboratory Data (last 24 hrs) 11/22/19 19:20: PT 12.0, INR 1.02, APTT 30.4 11/22/19 19:20: WBC 11.8 H, Hgb 11.8 L, Hct 37.2, Plt Count 361 11/22/19 19:20: Sodium 132 L, Potassium 4.8, BUN 91 H, Creatinine 1.32 H, Glucose 212 H, Magnesium 2.6 H, Total Bilirubin 0.2, AST 28, ALT 26, Alkaline Phosphatase 131 H, Lipase 127 Imagings Data: EXAM DESCRIPTION: RAD - Chest Single View - 11/22/2019 8:31 pm CLINICAL HISTORY: SOB COMPARISON: None TECHNIQUE: AP portable chest image was obtained 11/22/2019 8:31 pm . FINDINGS: Lung volumes are low. Right hemidiaphragm elevation is seen. Interstitial markings are prominent. Vasculature is prominent. Cardiomegaly is present. Trachea is midline. Left pleural effusion is seen. No pneumothorax. No acute bony abnormality seen. No acute aortic findings suspected. IMPRESSION: Mild CHF/volume overload pattern Conclusions/Impression: A/ OSMIN with significantly elevated BUN Hyponatremia Hypercalcemia CKD III with proteinuria Hypotension Diastolic CHF, A/C. DM II with CKD Anemia in chronic illness Acute respiratory failure with hypercapnea and hypoxia Acute cystitis P/ Continue current POC and Medications. Continue free water supplementation. Continue abx. No NSAIDs. AM labs. Daily weight.
== END 2019-12-05 12:55 | DRG 291 ==
LOC: ER 19:00 → ERHOLD 21:58 → 4TH 11-23 07:26 → 2ND 11-24 14:23
PROVIDERS: ADMIT Internal Medicine; ATTEND Family Medicine
DX: I13.0 Hypertensive heart and chronic kidney disease with heart failure and stage 1 through stage 4 chronic kidney disease, or unspecified chronic kidney disease (principal); J96.21 Acute and chronic respiratory failure with hypoxia; J96.22 Acute and chronic respiratory failure with hypercapnia; I50.43 Acute on chronic combined systolic (congestive) and diastolic (congestive) heart failure; J44.1 Chronic obstructive pulmonary disease with (acute) exacerbation; N17.9 Acute kidney failure, unspecified; E87.2 Acidosis; E87.1 Hypo-osmolality and hyponatremia; N30.00 Acute cystitis without hematuria; I69.354 Hemiplegia and hemiparesis following cerebral infarction affecting left non-dominant side; E87.3 Alkalosis; E44.0 Moderate protein-calorie malnutrition; I42.5 Other restrictive cardiomyopathy; E78.5 Hyperlipidemia, unspecified; I25.10 Atherosclerotic heart disease of native coronary artery without angina pectoris; Z93.1 Gastrostomy status; Z74.01 Bed confinement status; Z99.81 Dependence on supplemental oxygen; R79.89 Other specified abnormal findings of blood chemistry; H54.61 Unqualified visual loss, right eye, normal vision left eye; Z79.82 Long term (current) use of aspirin; Z79.02 Long term (current) use of antithrombotics/antiplatelets; Z79.84 Long term (current) use of oral hypoglycemic drugs; E83.52 Hypercalcemia; N18.3 Chronic kidney disease, stage 3 (moderate); E11.22 Type 2 diabetes mellitus with diabetic chronic kidney disease; D63.8 Anemia in other chronic diseases classified elsewhere; F03.90 Unspecified dementia, unspecified severity, without behavioral disturbance, psychotic disturbance, mood disturbance, and anxiety; Z66 Do not resuscitate; D69.6 Thrombocytopenia, unspecified; E86.0 Dehydration; E83.41 Hypermagnesemia; B96.89 Other specified bacterial agents as the cause of diseases classified elsewhere; L89.152 Pressure ulcer of sacral region, stage 2; I35.8 Other nonrheumatic aortic valve disorders; Z68.23 Body mass index [BMI] 23.0-23.9, adult
CPT/HCPCS: 36415; 51702; 71045; 71275; 80048; 80053; 80076; 81001; 81003; 81015; 82043; 82150; 82550; 82553; 82570; 82805; 82947; 83605; 83690; 83735; 83874; 83880; 84100; 84145; 84484; 84550; 85025; 85610; 85730; 87040; 87077; 87086; 87088; 87186; 87804; 93005; 93306; 94640; 94660; 94760; 94762; 96374; 99285; J0696; J1120; J1940; J2920; J3590; Q9967; U0002

== ENCOUNTER 2020-01-11 09:11 | Inpatient (IN) | payer OTHER ==
[2020-01-11] MEDS ORDERED: LEVALBUTEROL 1.25 MG/3 ML NEB ONE (09:31)
[2020-01-11] MEDS ORDERED: IPRATROPIUM BROM 0.5MG/2.5ML ONE (09:31)
--- NOTE | 2020-01-11 09:47 | RAD REPORT ---
EXAM DESCRIPTION: RAD - Chest Single View - 01/11/2020 9:29 am CLINICAL HISTORY: DYSPNEA, shortness of breath COMPARISON: Portable November 27 TECHNIQUE: AP portable chest image was obtained 01/11/2020 9:29 am . FINDINGS: Lung volumes are low. Right base pleural effusion is present. There is airspace opacificat ion at the right base that could be infiltrate. Development of a mass over such a short interval woul d not be expected. Interstitial markings and vasculature are prominent. Cardiomegaly is present. No p neumothorax. Left pleural effusion is likely present as well. No acute bony abnormality seen. No acut e aortic findings suspected. IMPRESSION: CHF/volume overload pattern is present moderate in degree. Focal right base opacification could be part of the volume overload failure pattern or concurrent pne umonia.
[2020-01-11 09:58] LABS: Absolute Lymphocytes (CBC) 0.6 K/uL (0.7-4.9); Basophils % 0.4 % (0-1.3); Hematocrit 35.7 % (36.0-45.0); Lymphocytes % 6.3 % (15.3-44.8); MPV 8.4 fL (7.6-11.3); RBC Red Blood Cell Count 3.59 M/uL (3.86-4.86)
[2020-01-11 10:18] LABS: Albumin 2.2 g/dL (3.4-5.0); Bilirubin Direct 0.4 mg/dL (0-0.2); Bilirubin Total 0.6 mg/dL (0.2-1.0); CKMB Creatine Kinase MB 2.8 ng/mL (0.3-3.6); Protein, Total 6.3 g/dL (6.4-8.2); Troponin (Emerg Dept Use Only) 0.39 ng/mL (0.0-0.045)
[2020-01-11] MEDS ORDERED: CEFTRIAXONE/SWI 1gm 1 GM/10 ML SYR ONE (10:18)
[2020-01-11] MEDS ORDERED: NA CHLORIDE 0.9% 100 ML IV ONE (10:18)
[2020-01-11 10:24] LABS: Potassium 5.9 mmol/L (3.5-5.1)
[2020-01-11 10:29] LABS: Protime INR 1.28
[2020-01-11 10:31] LABS: Urine Bacteria >50 /HPF (<20); Urine Culture Reflex Order REFLEXED
--- OUTSIDE RECORDS SUMMARY | 2020-01-11 10:37 | XMS REPORT | Continuity of Care Document ---
:1935 Author Organization [employer] Care Team Providers Name Role Phone [employer] Unavailable Un available Problems Problem Status Onset Classification Date Comments Sourc e Date Reported WEAKNESS/ STROKE LIKE Active SYMPTOMS 020 [place] ACUTE CVA, RECEIVED Active INTRAVENOUS TISSUE P 020 [facility] STROKE Active [address] HERMELINDO BILLING Active [address] G60.9 NEUROPATHY Active 016 [place] PAD Active 016 [place] Hyperlipidemia Active Problem 09/01/2019 Mirz a Blaze HTN Active Problem 09/01/2019 [place] Blaze Chest pain, unspecified Active Diagnosis 05/23/2016 Sebastian Blaze Essential (primary) Active Diagnosis 05/23/2016 Sebastian hypertension Blaze Abnormal Active Diagnosis 05/23/2016 Sebastian electrocardiogram [ECG] Blaez [EKG] Shortness of breath Active Diagnosis 05/23/2016 [...] Diverticulitis Resolved Problem 03/12/2016 (morphologic Greater abnormality) [facility] Dyslipidemia (disorder) Active Problem 03/12/2016 [place] Ex-cigarette smoker Active Problem 03/12/2016 MH (finding) [place] History of - Active Problem 03/12/2016 osteoarthritis Great er (context-dependent H eights category) History of - TIA Active Problem 03/12/2016 (context-dependent G reater category) [facility] Hearing loss (finding) Active Problem 03/12/2016 [facility] Hernia repair Active Problem 03/12/2016 (procedure) [facility] Hypercholesterolemia Active Problem 03/12/2016 (disorder) [facility] Hysterectomy Active Problem 03/12/2016 (procedure) [facility] Multiple ulcers Active Problem 03/12/2016 (morphologic Greater abnormality) [facility] Second cranial nerve Active Problem 03/12/2016 rt eye finding (finding) [place] Peripheral vascular Active Problem 03/12/2016 disease (disorder) G reater [facility] Pyloroplasty Active Problem 03/12/2016 (procedure) [facility] Reflux (finding) Active Problem 03/12/2016 [facility] Small bowel obstruction Active Problem 03/12/2016 (disorder) [facility] Vagotomy (procedure) Active Problem 03/12/2016 [facility] Coronary Active Problem 07/08/2019 [facility] arteriosclerosis Med ical (disorder) Center,[facility] 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 Medical arteries (disorder) [place] Chronic kidney disease Active Problem 07/08/2019 [facility] (disorder) Medical [place] Chronic obstructive Active Problem 07/08/2019 [facility] lung disease (disorder) Medical [place] Cerebrovascular Resolved Problem 07/08/2019 [facility] accident (disorder) [facility] Diabetes mellitus Active Problem 07/08/2019 [facility] (disorder) [facility] Gallbladder calculus Resolved Problem 07/08/2019 [facility] (disorder) Medical [place],[facility] Gastroesophageal reflux Active Problem 07/08/2019 [facility] disease (disorder) edical Center,[facility] Glaucoma (disorder) Active Problem 07/08/2019 [facility] Hypertensive disorder, Active Problem 07/08/2019 [facility] systemic arterial Me dical (disorder) [place],[facility] Hyperlipidemia Active Problem 07/08/2019 [place] (disorder) Medical [place] 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 Medica l (disorder) [place] Normocytic anemia Active Problem 07/08/2019 [facility] (disorder) [facility] Rheumatoid arthritis Active Problem 07/08/2019 [facility] (disorder) Medical Center,[facility] ATHSCL [place] ARTERIES Active MH OF EXTRM W INTRMT [facility] HEREDITARY AND Active MH IDIOPATHIC NEUROPATHY, [facility] CEREBRAL INFARCTION, Active [facility] UNSPECIFIED Medical Center,[facility] S/P ADMN TPA IN DIFF Active FAC W/N LAST 24 HR G reater [facility] Medications Medication Details Route Status Patient Ordering Order Source Instructions Provider Date atorvastatin 40 40 mg = 1 Active Saurav as mg oral tablet tab, PO, 2018 Medical Bedtime, 0 Center Refill(s) carvedilol 12.5 12.5 mg = 1 Active [place] mg oral tablet tab, PO, 2018 Medical Q12H, 0 Center Refill(s) clopidogrel 75 mg 75 mg = 1 Active [facility] [place] oral tablet tab, PO, 2018 Medical Daily, 0 Center Refill(s) Aspirin 81 MG 81 mg = 1 Active [facility] Chewable Tablet tab, PO, 2018 Medical Daily, 0 Center Refill(s) enalapril 2.5 mg 2.5 mg = 1 Active [facility] [place] oral tablet tab, PO, 2018 Medical Q12H, 0 Center Refill(s) pantoprazole 40 40 mg = 1 Active Saurav as mg oral enteric tab, PO, 2018 Medical coated tablet Before Center Breakfast, 0 Refill(s) Lasix Notes: (Same Inactive [facility] as: Lasix) 2019 Medical May cause GI Center upset. Give with food or milk. Docusate Sodium Notes: (Same No Longer H [place] 50 MG / as Active 2018 Medical sennosides, SKILLED NURSING Senokot-S) Cente r 8.6 MG Oral Equiv. to Tablet Loni-Colace. Insulin Glargine 8 unit, [place]er [place] 100 UNT/ML Route: Active 2019 Medical Injectable SUB-Q, Center Solution Daily, Dosing Weight 70.136, kg, Start date: 07/04/19 9:00:00 [employer], Duration: 30 day, Stop date: 08/02/19 9:00:00 [employer] tiotropium 0.018 Notes: (Same No Longer [place] [...] __Date Ventolin HFA 90 2 puff, Active [place] mcg/inh INHALATION, 2019 Medical inhalation QID, 0 Center aerosol with Refill(s) adapter Fluticasone NASAL, No Longer [place] propionate 0.05 Daily, 0 Active 2018 Medical MG/ACTUAT Metered Refill(s) Cent er Dose Nasal [place] [Flonase] atorvastatin 10 10 mg = 1 No Longer [place] mg oral tablet tab, PO, Active 2018 Medical Daily, 0 [place] Refill(s) enalapril 5 mg 5 mg = 1 No Longer Saurav as oral tablet tab, PO, Active 2018 Medical Daily, 0 [place] Refill(s) predniSONE 2.5 mg 2.5 mg = 1 No Longer 06/28/ H [place] oral tablet tab, PO, Active 2018 Medical Daily, 0 Center Refill(s) Albuterol 0.833 Notes: (Same No Longer H [place] MG/ML / as: Duoneb) Active 2018 [facility] Ipratropium [place] 0.167 MG/ML Inhalant Solution [DuoNeb] Amiloride Route: PO, Inactive [place] Hydrochloride 5 Drug Form: 2019 Medic al MG / TAB, Dosing Center Hydrochlorothiazi Weight de 50 MG Oral 70.136, kg, Tablet Daily, Start date: 06/28/19 9:00:00 [employer]IVE [employer], Duration: 30 day, Stop date: 07/27/19 9:00:00 [employer] methylPREDNISolon Notes: (Same No Longer [place] e SODium as:Solu-MEDR Active 2018 [facility] SUCCinate OL, [place] A-Methapred) Coreg Notes: Give No Longer [place] with food. Active 2019 Medical (Same As: Center Coreg) Vasotec Notes: (Same Inactive [place] as: Vasotec) 2019 [facility] Hydralazine 10 mg, 0.5 [place] Longer [place] mL, Route: Active 2019 Medical IVP, Drug Center form: INJ, Q4H, Dosing Weight 70.136, kg, PRN Hypertension , Start date: 06/28/19 8:14:00 COMP[employer]ITIVE [employer]PER, Duration: 30 day, Stop date: 07/28/19 8:13:00 COMPETITIVE SHOPPER, 0 Albuterol 0.833 Notes: (Same Inactive [place] MG/ML / as: Duoneb) 2019 [facility] Ipratropium [place] 0.167 MG/ML Inhalant Solution [DuoNeb] Iohexol 99 mL, Inactive Michael Route: IVP, 2019 Medical Drug Form: Center SOLN, Dosing Weight 70.136, kg, ONCALL, STAT, Start date: 06/28/19 4:08:00 COMP[employer]ITIVE SHOPPER, Duration: 1 doses or times, Dose = 2.2ml/kg, Max dose = 100ml -- "To be infused by Radiology Staff ONLY" Potassium Notes: (Same No Longer [facility] Chloride as: Active 2019 [facility] Potassium [place] Chloride) atorvastatin Notes: (Same No Longer [place] as: Lipitor) Active 2019 [facility] enalapril Notes: (Same [place] Longer [place] as: Vasotec) Active 2019 [facility] Plavix Notes: (Same No Longer As: Plavix) Active 2019 [facility] Nystatin 100 Notes: (Same No Longer [place] UNT/MG Topical as:Mycostati Active 2018 [facility] rom Powder n, Nilstat) Center For external use only. Zofran Notes: (Same No Longer [place] as: Zofran) Active 2019 Medical Center MEDICATION WASTE Product Size: 4 mg Product Wasted: ___ mg Tylenol Notes: Do No Longer [place] not exceed 4 Active 2019 Medical gm/day. Center (Same as: Tylenol) Magnesium Sulfate Notes: Inactive [place] WASTE: F/P - 2019 Medical Sink; E - Center Municipal Trash Bin Potassium Notes: (Same No Longer [place] Chloride as: Active 2019 [facility] Potassium Center Chloride) Miralax Notes: No Longer [place] Dissolve in Active 2019 Medical 8 oz of Center water or juice. (Same as: Miralax) Coreg Notes: Give No Longer [place] with food. Active 2019 Medical (Same As: Center Coreg) Mag-Ox 400 Notes: (Same No Longer Saurav as as: Mag-Ox Active 2019 Medical 400) Center Magnesium oxide [id number] elemental magnesium Dose=____mg magnesium oxide (___mg elemental [...] 7;s with feeding tube less than 14 Algerian (Dobhoff, J-tube etc) and pediatric and patients. Lasix Notes: (Same No Longer [place] as: Lasix) Active 2019 Medical May cause GI Center upset. Give with food or milk. Lasix Notes: (Same Inactive [place] as: Lasix) 2019 Medical May cause GI Center upset. Give with food or milk. enalapril Notes: (Same No Longer [facility] s as: Vasotec) Active 2019 Medical Center Omeprazole 20 mg, No Longer [place] Route: PO, Active 2019 Medical Drug form: Center ECCAP, Before Breakfast, Dosing Weight 68.182, kg, Start date: 06/25/19 7:30:00 COMP[employer]ITIVE [employer]PER, Duration: 30 day, Stop date: 07/24/19 7:30:00 [employer]IVE [employer] Protonix Notes: No Longer [place] Tablet Active 2019 Medical should not Center be chewed or crushed. (Same as: Protonix) Lasix Notes: (Same Inactive [place] as: Lasix) 2019 Medical Center MEDICATION WASTE Product Size: 40 mg Product Wasted: ___ mg Dextrose 50% 12.5 gm, 25 [place] Longer [place] Syringe (D50W) mL, Route: Active 2018 Medica l IVP, Drug Center Form: INJ, Dosing Weight 68.182, kg, PRN, PRN Blood Glucose Results, Start date: 06/24/19 15:51:00 COMPETITIVE SHOPPER, Duration: 30 day, Stop date: 07/24/19 15:50:00 COMPETITIVE SHOPPER, 0 Glucagon 1 mg, Route: No Longer [place] IM, Drug Active 2019 Medical form: Center PDR/INJ, PRN, Dosing Weight 68.182, kg, PRN Blood Glucose Results, Start date: 06/24/19 15:51:00 COMPETITIVE SHOPPER, Duration: 30 day, Stop date: 07/24/19 15:50:00 COMPETITIVE SHOPPER, 0 Insulin Lispro Notes: (Same No Longer [place] as: Humalog) Active 2019 Medical Roll in Center palms of hands gently; Do not shake vigorously. WASTE: F/P - Black; E - Municipal Trash Bin Stable for 28 days at room temperature. Expires in days from __Date Symbicort 160/4.5 Notes: (Same No Longer [place] inhalation as: Active 2019 Medical aerosol with Symbicort) Center adapter WASTE: Aerosol - Return to Pharmacy Albuterol 0.833 Notes: (Same No Longer H [place] MG/ML / as: Duoneb) Active 2019 Medical Ipratropium [place] 0.167 MG/ML Inhalant Solution [DuoNeb] Hydroxychloroquin 0 Refill(s) No Longer [place] e Sulfate 200 MG Active 2019 Medical Oral Tablet [place] Potassium Notes: (Same Inactive [place] Chloride as: K-Dur 2019 20) "Do Not Center Crush" Give with food and full glass of water For patients unable to swallow tablet, dissolve in one half glass of water. Allow about 2 minutes for the tablets to disintegrate . Stir before giving to prepare slurry and administer. Please exclude Patient&#821 7;s with feeding tube less than 14 Algerian (Dobhoff, J-tube etc) and pediatric and patients. potassium Notes: (Same Inactive [place] chloride as: 2019 [facility] Potassium [place] Chloride) Lasix 40 mg, Inactive [place] Route: IVP, 2019 Medical Drug form: Center INJ, ONCE, Dosing Weight 68.182, kg, Priority: NOW, Start date: 06/24/19 12:34:00 COMP[employer]ITIVE SH[employer]PER, Stop date: 06/24/19 12:34:00 COMP[employer]ITIVE SH[employer]PER potassium 40 mEq, 2 Inactive [place] chloride 20 mEq tab, Route: 2019 Medi rom oral tablet, PO, Drug Center extended release form: ERTAB, (KCL) ONCE, Dosing Weight 68.182, kg, Priority: NOW, Start date: 06/24/19 12:34:00 COMPETITIVE SHOPPER, Stop date: 06/24/19 12:34:00 COMP[employer]ITIVE SH[employer]PER Lasix Notes: (Same Inactive [facility] as: Lasix) 2019 Medical Center MEDICATION WASTE Product Size: 40 mg Product Wasted: ___ mg heparin sodium, Notes: No Longer Saurav as porcine 2500 porcine Active 2018 [facility] UNT/ML Injectable heparin Center Solution Aspirin 81 MG Notes: Take No Longer [place] Chewable Tablet with food. Active 2019 Medic al Center atorvastatin Notes: (Same No Longer [place] As: Lipitor) Active 2019 [facility] Center Lasix Notes: (Same Inactive [facility] as: Lasix) 2019 [facility] normal saline 1,000 mL, No Longer Saurav as 0.9% IV 1,000 mL Rate: 75 Active 2019 Medica l ml/hr, Center Infuse over: 13.3 hr, Route: IV, Dosing Weight 68.182 kg, Total Volume: 1,000, Start date: 06/23/19 9:22:00 COMPETITIVE SHOPPER, Duration: 30 day, Stop date: 07/23/19 9:21:00 COMPETITIVE SHOPPER, 0 Iohexol Notes: (Same No Longer [facility] as:Omnipaque Active 2019 [facility] 350). Center WASTE: F/P - Black; E [...] [Aggrenox] Omeprazole 20 mg, PO, No Longer [place] Daily, 0 Active 2019 Medical Refill(s) Center atorvastatin 20 20 mg = 1 No Longer [place] mg oral tablet tab, PO, Active 2018 Medical Daily, 0 Center Refill(s) Tramadol 50 mg, PO, No Longer [facility] Q4-6H, PRN Active 2019 Medical Pain, # 20 Center tab, 0 Refill(s) bimatoprost 0.3 1 drp, RIGHT Active [place] MG/ML Ophthalmic EYE, QPM, 0 2018 Med ical Solution Refill(s) Center [Lumigan] Combigan RIGHT EYE, Active [facility] Q12H, 0 2018 Medical Refill(s) [place] allopurinol 100 100 mg = 1 Active [place] mg oral tablet tab, PO, 2019 Medical BID, 0 Center Refill(s) gabapentin 400 MG 400 mg = 1 Active [place] Oral Capsule cap, PO, 2018 Medical TID, [...] Center Refill(s) Anoro Ellipta 1 puff, Active [place] 62.5 mcg-25 mcg INHALER, 2019 Medical inhalation [...] 2019 Medical BID, 0 Center Refill(s) sennosides, SKILLED NURSING Notes: (Same No Longer 06/23/ H [place] as: Senokot) Active 2018 Medical Center Saline Flush 0.9% Notes: (Same No Longer [place] as: BD Active 2018 Medical Posiflush) Center Labetalol 105 mmHg, No Longer [place] Start date: Active 2018 [facility] 06/22/19 Center 18:58:00 COMPETITIVE SHOPPER, Duration: 30 day, Stop date: 07/22/19 18:57:00 COMPETITIVE SHOPPER, 0 Saline Flush 0.9% Notes: (Same No Longer [place] as: BD Active 2018 [facility] Posiflush) Center Metoprolol 1/2 tablet Orally Active 12.5 Orally [place] 02/04/ [place] Tartrate with food Twice a day 2015 [place] ceFAZolin (ANES) Route: IV, Inactive Drug form: 2015 [place] INJ, ONCE, [facility] Stop date: 11/08/15 10:13:00 CDT ondansetron Route: IV, Inactive (ANES) Drug form: 2015 [place] INJ, ONCE, [facility] Stop date: 11/08/15 10:13:00 CDT fentaNYL (ANES) Route: IV, Inactive Drug form: 2015 [place] INJ, ONCE, [facility] Stop date: 11/08/15 10:13:00 CDT midazolam (ANES) Route: IV, Inactive Drug form: 2015 [place] SOLN, ONCE, [facility] Stop date: 11/08/15 10:13:00 CDT Lactated Ringers [...] MG Orally [place] Once a day [facility] HCTZ Unknown NA Active 25MG [place] Sebastian [facility] Calcium + D 1 tablet Orally Active 315-200 [place] Sebastian with meals MG-UNIT Blaze Orally Twice a day Omeprazole 1 capsule Orally Active 20 MG Orally [place] Once a day [place] Aggrenox 1 capsule Orally Active 25-200 MG [place] Orally Twice Blaze a day Alphagan P 1 drop into Ophthalmic Active 0.15 % [place] Sebastian affected eye Ophthalmic Lbaze Three times a day Tramadol HCl 1 tablet as Orally Active 50 MG Orally [place] Mi rza needed every 6 hrs Blaze Lumigan 1 drop into Ophthalmic Active 0.01 % [place] Sebastian affected eye Ophthalmic Blaze in the Once a day evening Enalapril Maleate 1 tablet Orally Active 5 MG Orally [place] M irza Once a day [facility] GlipiZIDE ER 1 tablet Orally Active 10 MG Orally [place] Sebastian Once a day [facility] Lasix 1 tablet Orally Active 20 MG Orally [place] Sebastian Once a day [facility] Metoprolol 1 tablet Orally No Longer 25 MG Orally [place] Succinate ER Active Once a day [facility] Gabapentin 1 capsule Orally Active 300 MG [...] Reaction 6 Bl[place] No Known Assertion Drug [facility] xa Medication allergy Medic al Allergies Center Immunizations Immunization Date Given Site Status Last Comments Source Updated influenza virus 03/13/2010 completed Yap [facility] vaccine, Medical [facility] Hx pneumococcal 05/24/2008 Left completed Anaekwe [facility] vaccine deltoid [facility] Hx influenza 05/24/2008 Left completed Anaekwe Saurav as vaccine-unspecifi deltoid Pa dical ed Center,[facility] Results Order Name Results Value Reference Date Interpretation Comments Farida rce Range CHEM PANEL Magnesium Lvl 1.9 1.8 - 2.4 07/06 [facility] xa [facility] CHEM PANEL Phosphorus 2.6 2.5 - 4.5 07/[address] ELECTROLYTE AGAP 12.7 10.0 - 07/06 [facility] S 20.0 [facility] ELECTROLYTE Glucose Lvl 86 70 - 99 07/06 [facility]2018 [facility] ELECTROLYTE BUN 21 7 - 22 07/06 [facility]2018 [facility] ELECTROLYTE Creatinine 1.57 0.50 - 07/06 [facility] S Lvl 1.40 [facility] ELECTROLYTE Sodium Lvl 136 135 - 145 07/06 [place] [facility]2018 [facility] ELECTROLYTE Potassium Lvl 3.7 3.5 - 5.1 07/06 [place] [facility] ELECTROLYTE Chloride Lvl 103 95 - 109 07/06 Saurav as S [facility] ELECTROLYTE CO2 24 24 - 32 07/06 [facility]2018 [facility] ELECTROLYTE Calcium Lvl 9.2 8.5 - 10.5 07/06 [place] [facility] ELECTROLYTE eGFR 30 07/06 Result [facility] Comment: The Medical eGFR is Center [...] HEMATOLOGY WBC 6.1 3.7 - 10.4 07/06 [facility] HEMATOLOGY RBC 3.52 4.20 - 07/06 [facility] 5.40 [facility] HEMATOLOGY Hgb 10.4 12.0 - 07/06 [facility] 16.0 [facility] HEMATOLOGY Hct 32.2 36.0 - 07/06 [facility] 48.0 [facility] HEMATOLOGY MCV 91.5 80.0 - 07/06 [facility] 98.0 [facility] HEMATOLOGY MCH 29.6 27.0 - 07/06 [facility] 31.0 [facility] HEMATOLOGY MCHC 32.3 32.0 - 07/06 [facility] 36.0 [facility] HEMATOLOGY RDW 16.0 11.5 - 07/06 [facility] 14.5 [facility] HEMATOLOGY Platelet 165 133 - 450 07/06 [facility]2018 [facility] HEMATOLOGY MPV 10.3 7.4 - 10.4 07/06 [facility]2018 [facility] PARATHYROID Ca Ion WB 1.14 1.05 - 07/06 [facility] PROFILE 1. [facility] PARATHYROID Ca Norm WB 1.16 1.05 - 07/06 [facility] PROFILE . [facility] CARDIAC Troponin-I 0.04 0.00 - 07/05 [facility] ENZYMES 0.40 [facility] CHEM PANEL Glucose Lvl 165 70 - 99 07/04 [facility] CHEM PANEL BUN 63 7 - 22 07/04 [facility] CHEM PANEL Creatinine 1.74 0.50 - 07/04 [place] Lvl 1.40 [facility] CHEM PANEL Sodium Lvl 140 135 - 145 07/04 [facility] CHEM PANEL Potassium Lvl 3.8 3.5 - 5.1 07/04 [facility] CHEM PANEL Chloride Lvl 101 95 - 109 07[facility] CHEM PANEL CO2 31 24 - 32 07/04 [facility] CHEM PANEL Calcium Lvl 9.2 8.5 - 10.5 07/04 [facility] CHEM PANEL AGAP 11.8 10.0 - 07/04 [place] 20.0 [facility] CHEM PANEL eGFR 27 07/04 [facility] Comment: The [facility] eGFR is Center calculated using the CKD-EPI [...] Glucose Lvl 160 70 - 99 07/03 [facility] CHEM PANEL BUN 67 7 - 22 07/03 [facility] CHEM PANEL Creatinine 1.66 0.50 - 07/03 [place] Lvl 1.40 [facility] CHEM PANEL Sodium Lvl 139 135 - 145 07/03 [facility] CHEM PANEL Potassium Lvl 3.9 3.5 - 5.1 07/03 [facility] CHEM PANEL Chloride Lvl 101 95 - 109 07/03 [facility] CHEM PANEL CO2 29 24 - 32 07/03 [facility]2018 [facility] CHEM PANEL Calcium Lvl 9.6 8.5 - 10.5 07/03 [facility] CHEM PANEL Total Protein 5.9 6.4 - 8.4 07/03 [facility] CHEM PANEL Albumin Lvl 2.6 3.5 - 5.0 07/03 [facility] CHEM PANEL ALT 11 0 - 65 07/03 [facility]2018 [facility] CHEM PANEL AST 10 0 - 37 07/03 [facility]2018 [facility] CHEM PANEL Alk Phos 57 39 - 136 07/03 [facility]2018 [facility] CHEM PANEL Bili Total 0.3 0.2 - 1.3 07/03 [facility]2018 [facility] CHEM PANEL eGFR 28 07/03 [facility] Comment: The Medical eGFR is Center calculated [...] CHEM PANEL AGAP 12.9 10.0 - 07/03 [facility] 20. [facility] CHEM PANEL B/C Ratio 40 6 - 25 07/03 [facility]2018 [facility] CHEM PANEL Globulin 3.3 2.7 - 4.2 07/03 [facility]2018 [facility] CHEM PANEL A/G Ratio 0.8 0.7 - 1.6 07/03 [facility]2018 [facility] CHEM PANEL Magnesium Lvl 2.4 1.8 - 2.4 07/03 [facility] xa [facility] CHEM PANEL Phosphorus 3.1 2.5 - 4.5 07/03 [facility] PARATHYROID Ca Ion WB 1.21 1.05 - 07/03 [place] PROFILE 08.05 [facility] PARATHYROID Ca Norm WB 1.22 1. - 07/03 [facility] PROFILE 08.05 [facility] CHEM PANEL Magnesium Lvl 2.5 1.8 - 2.4 07/02 [facility] [place] [facility] CHEM PANEL Phosphorus 3.0 2.5 - 4.5 07/02 [facility] PARATHYROID Ca Ion WB 1.23 1. - 07/02 [place] PROFILE 08.05 [facility] PARATHYROID Ca Norm WB 1.21 1. - 07/02 [facility] PROFILE 08.05 [facility] HEMATOLOGY WBC 10.2 3.7 - 10.4 07/02 [facility]2018 [facility] HEMATOLOGY RBC 3.57 4.20 - 07/02 [place] 5.40 [facility] HEMATOLOGY Hgb 10.4 12.0 - 07/02 [place] 16.0 2019 [facility] HEMATOLOGY Hct 32.9 36.0 - 07/02 [place] 48.0 [facility] HEMATOLOGY MCV 92.0 80.0 - 07/02 [place] 98.0 [facility] HEMATOLOGY MCH 29.0 27.0 - 07/02 [place] 31.0 2019 [facility] HEMATOLOGY MCHC 31.5 32.0 - 07/02 [place] 36.0 2019 [facility] HEMATOLOGY RDW 16.5 11.5 - 07/02 [place] 14.5 [facility] HEMATOLOGY Platelet 210 133 - 450 07/02 [facility] HEMATOLOGY MPV 9.4 7.4 - 10.4 07/02 [facility] HEMATOLOGY Segs 74.5 45.0 - 07/02 [place] 75.0 2019 [facility] HEMATOLOGY Lymphocytes 12.5 20.0 - 07/02 [place] 40.0 2019 [facility] HEMATOLOGY Monocytes 10.7 2.0 - 12.0 07/02 [facility]2018 [facility] HEMATOLOGY Eosinophils 2.0 0.0 - 4.0 07/02 [place] [facility] HEMAT[place]Y Basophils 0.3 0.0 - 1.0 07/02 [facility]2018 [facility] HEMATOLOGY Neutrophils # 7.6 1.5 - 8.1 07[place] [facility] HEMATOLOGY Lymphocytes # 1.3 1.0 - 5.5 07/02 [place] [facility] HEMATOLOGY Monocytes # 1.1 0.0 - 0.8 07/02 [place] [facility] HEMATOLOGY Eosinophils # 0.2 0.0 - 0.5 07/02 [facility] HEMATOLOGY WBC 12.2 3.7 - 10.4 07/01 [facility] HEMATOLOGY RBC 3.50 4.20 - 07/01 [place] 5.40 /2019 [facility] HEMATOLOGY Hgb 9.9 12.0 - 07/01 [place] 16.0 2019 [facility] HEMATOLOGY Hct 32.1 36.0 - 07/01 [facility] 48.0 [facility] HEMATOLOGY MCV 91.5 80.0 - 07/01 [facility] 98.0 [facility] HEMATOLOGY MCH 28.3 27.0 - 07/01 [place] 31.0 2019 [facility] HEMATOLOGY MCHC 30.9 32.0 - 07/01 [place] 36.0 2019 [facility] HEMATOLOGY RDW 16.5 11.5 - 07/01 [place] 14.5 2019 [facility] HEMATOLOGY Platelet 211 133 - 450 07/01 [facility] HEMATOLOGY MPV 9.5 7.4 - 10.4 07/01 [facility] HEMATOLOGY Segs 76.4 45.0 - 07/01 [facility] 75.0 /2019 [facility] HEMATOLOGY Lymphocytes 10.0 20.0 - 07/01 [place] 40.0 2019 [facility] HEMATOLOGY Monocytes 13.4 2.0 - 12.0 07/01 [facility] HEMATOLOGY Basophils 0.2 0.0 - 1.0 07/01 [facility] HEMATOLOGY Neutrophils # 9.3 1.5 - 8.1 07/01 [facility] [place] [facility] HEMATOLOGY Lymphocytes # 1.2 1.0 - 5.5 07/01 [place] [facility] HEMATOLOGY Monocytes # 1.6 0.0 - 0.8 [facility] C[facility]AC BNP 783 <=100 06/30 [facility] ENZYMES pg/mL [facility] CHEM PANEL Lactic Acid 1.1 0.5 - 2.2 06/30 [place] [facility] CHEM PANEL Procalcitonin 0.14 0.00 - 06/30 [facility] HEMATOLOGY Segs 83.8 45.0 - 06/30 [facility] 75.0 [facility] HEMATOLOGY Lymphocytes 6.9 20.0 - 06/30 [facility] 40.0 [facility] HEMATOLOGY Monocytes 9.0 2.0 - 12.0 06/[address] HEMATOLOGY Basophils 0.3 0.0 - 1.0 06/[address] HEMATOLOGY Neutrophils # 10.9 1.5 - 8.1 06/30 [facility] HEMATOLOGY Lymphocytes # 0.9 1.0 - 5.5 06/30 [facility]2018 [facility] HEMATOLOGY Monocytes # 1.2 0.0 - 0.8 06/30 [facility]2018 [facility] CARDIAC BNP 583 <=100 06/28 [facility] ENZYMES pg/mL [facility] CHEM PANEL B/C Ratio 29 6 - 25 06/[address] CHEM PANEL Globulin 3.8 2.7 - 4.2 06/[address] CHEM PANEL A/G Ratio 0.7 0.7 - 1.6 06/[address] CHEM PANEL Total Protein 6.6 6.4 - 8.4 06/28 [facility] [address] [place] [address] CHEM PANEL Albumin Lvl 2.8 3.5 - 5.0 06/[address] CHEM PANEL ALT 14 0 - 65 06/[address] CHEM PANEL AST 14 0 - 37 06/[address] CHEM PANEL Alk Phos 71 39 - 136 06/[address] CHEM PANEL Bili Total 0.4 0.2 - 1.3 06/[address] CHEM PANEL B/C Ratio 25 6 - 25 06/[address] CHEM PANEL Total Protein 6.1 6.4 - 8.4 06/[address] CHEM PANEL Albumin Lvl 2.6 3.5 - 5.0 06/[address] CHEM PANEL Globulin 3.5 2.7 - 4.2 06/[address] CHEM PANEL A/G Ratio 0.7 0.7 - 1.6 06/26 [facility] [address] [place] [address] CHEM PANEL ALT 10 0 - 65 06/[address] CHEM PANEL AST 12 0 - 37 06/[address] CHEM PANEL Alk Phos 63 39 - 136 06/[address] CHEM PANEL Bili Total 0.2 0.2 - 1.3 06/[address] HEMATOLOGY Eosinophils 2.2 0.0 - 4.0 06/[address] HEMATOLOGY Eosinophils # 0.2 0.0 - 0.5 06/[address] HEMATOLOGY Basophils # 0.1 0.0 - 0.2 06/[address] CHEM PANEL Procalcitonin 0.11 0.00 - 06/25 [facility] Lvl 0.10 [facility] HEMATOLOGY Eosinophils 2.0 0.0 - 4.0 06/[address] HEMATOLOGY Eosinophils # 0.2 0.0 - 0.5 06/[address] HEMATOLOGY Basophils # 0.1 0.0 - 0.2 06/[address] CARDIAC BNP 1546 <=100 06/24 [facility] ENZYMES pg/mL [facility] CHEM PANEL Bili Direct <0.1 0.0 - 0.3 06/[address] CHEM PANEL Bili Indirect Unable to 0.0 - 1.0 06/24 [facility] [address] [place] [address] URINE AND UA Color Yellow Yellow 06/23 [facility] STOOL *NA* /2018 Medical (06/22/19 9:23 PM) Cente r URINE AND UA Turbidity Clear Clear 06/23 [facility] STOOL (06/22/19 9:23 PM) [facility] URINE AND UA Spec Grav 1.050 <=1.030 06/23 [facility] [address] [place] [address] URINE AND UA pH 5.0 5.0 - 8.0 06/23 [facility] [address] [place] [address] URINE AND UA Protein Negative Negative 06/23 [facility] STOOL (06/22/19 9:23 PM) [facility] URINE AND UA Glucose Negative Negative 06/23 [facility] STOOL *NA* /2018 Medical (06/22/19 9:23 PM) Cente r URINE AND UA Ketones Negative Negative 06/23 [facility] STOOL *NA* /2018 Medical (06/22/19 9:23 PM) Cente r URINE AND UA Bili Negative Negative 06/23 [facility] STOOL *NA* Medical (06/22/19 9:23 PM) Cente r URINE AND UA Blood Negative Negative 06/23 [facility] (06/22/19 9:23 PM) [facility] Center URINE AND UA <1.0 0.1 - 1.0 06/23 [facility] Urobilinogen /2018 [facility] URINE AND UA Nitrite Negative Negative 06/23 [facility] (06/22/19 9:23 PM) [facility] Center URINE AND UA Leuk Est Negative Negative 06/23 [facility] (06/22/19 9:23 PM) [facility] Center URINE AND UA Sq Epi Many /LPF Few /LPF 06/23 [facility] STOOL [facility] URINE AND UA WBC 1 0 - 5 06/23 [facility] STOOL [facility] URINE AND UA RBC 1 0 - 2 06/23 [facility] STOOL [facility] URINE AND UA Mucus Few /LPF None Seen 06/23 [facility] STOOL /LPF /2018 [facility] LIPIDS CHD Risk 3.46 3.90 - 06/23 [facility] 5.80 [facility] LIPIDS Trig 138 <=149 06/23 [facility] mg/dL [facility] LIPIDS Chol 142 <=199 06/23 [facility] mg/dL [facility] LIPIDS HDL 41 >=61 mg/dL 06/23 [facility] LIPIDS LDL 73 <=99 mg/dL 06/23 [facility] (Calculated) [facility] LIPIDS VLDL 28 06/23 [facility] SPECIAL Hgb A1C 6.7 <=5.6 % 06/23 [facility] CHEMISTRY /2018 [facility] HEMATOLOGY PTT 22.2 22.9 - 06/23 [place] 35.8 [facility] HEMATOLOGY INR 1.09 0.85 - 06/23 [facility] 1.17 [facility] HEMATOLOGY PT 13.9 12.0 - 06/23 [facility] 14.7 [facility] HEMATOLOGY RBC Morph See Note 4 Normal 06/23 Result [facility] (06/22/19 6:52 PM) /2018 Comment: [facility] ovalocytosis HEMATOLOGY Plt Morph Normal Normal 06/23 [facility] (06/22/19 6:52 PM) /2018 [facility] HEMATOLOGY Basophils # 0.1 0.0 - 0.2 06/23 [place] [facility] HEMATOLOGY Anisocyte 1+ None Seen 06/23 [facility] *ABN* /2018 [facility] (06/22/19 6:52 PM) Cente r ELECTROLYTE AGAP [...] - 11/04 S Lvl 1.40 /2015 [facility] ELECTROLYTE BUN 25 7 - 22 11/04 S [facility] ELECTROLYTE Sodium Lvl 138 135 - 145 11/04 [facility] ELECTROLYTE Glucose Lvl 115 70 - 99 11/04 [facility] [place] ELECTROLYTE Potassium Lvl 4.9 3.5 - 5.1 11/04 [facility] [place] ELECTROLYTE CO2 30 24 - 32 11/04 [facility] [place] ELECTROLYTE Chloride Lvl 102 95 - 109 11/04 [facility] ELECTROLYTE Calcium Lvl 9.5 8.5 - 10.5 11/04 [facility] HEMATOLOGY MCV 91.2 80.0 - 11/04 [facility] 98.0 /2015 [facility] HEMATOLOGY MCH 28.8 27.0 - 11/04 [facility] 31.0 /2015 [facility] HEMATOLOGY WBC 9.0 3.7 - 10.4 11/04 [facility] HEMATOLOGY Hgb 11.4 12.0 - 11/04 16.0 /2016 [facility] HEMATOLOGY Hct 36.2 36.0 - 11/04 48.0 /2016 [facility] HEMATOLOGY RBC 3.97 4.20 - 11/04 5.40 /2015 [facility] HEMATOLOGY MPV 8.5 7.4 - 10.4 11/04 [facility] HEMATOLOGY RDW 15.0 11.5 - 11/04 14.5 /2015 [facility] HEMATOLOGY Platelet 238 133 - 450 11/04 [facility] HEMATOLOGY MCHC 31.6 32.0 - 11/04 36.0 /2015 [facility] HEMATOLOGY Monocytes # 1.0 0.0 - 0.8 11/04 [facility] HEMATOLOGY Eosinophils # 0.1 0.0 - 0.5 11/04 [facility] HEMATOLOGY Lymphocytes # 2.1 1.0 - 5.5 11/04 [facility] HEMATOLOGY Basophils # 0.1 0.0 - 0.2 11/04 [facility] HEMATOLOGY Segs-Bands # 5.8 1.5 - 8.1 11/04 [facility] HEMATOLOGY Eosinophils 1.3 0.0 - 4.0 11/04 [facility] HEMATOLOGY Basophils 0.6 0.0 - 1.0 11/04 [facility] HEMATOLOGY Monocytes 10.9 2.0 - 12.0 11/04 [facility] HEMATOLOGY Lymphocytes 22.8 20.0 - 11/04 40.0 /2016 [facility] HEMATOLOGY Segs 64.4 45.0 - 11/04 75.0 /2015 [facility] HEMATOLOGY INR 0.93 0.85 - 11/04 1.17 /2015 [facility] HEMATOLOGY PT 12.8 12.0 - 11/04 14.7 /2016 [facility] HEMATOLOGY PTT 27.8 22.9 - 11/04 35.8 /2016 [facility] Pathology Reports No Data Provided for This Section Diagnostic Reports Report Value Date Source Gastric tube PROCEDURE INFORMATION: 09/13/2019 [facility] favian [facility] placement VR Exam: IR Insertion of the [...] Dagoberto Gee MD On 09/13/2019 17:23:43; VR-GHR__ [id number] Abdomen 1 v for PROCEDURE INFORMATION: 09/11/2019 [...] Michael Hodgson MD On 09/12/2019 00:06:52; ELGIN-SMEM [id number] Abdomen 1 v for PROCEDURE INFORMATION: 09/08/2019 [...] Asa Munoz MD On 09/08/2019 18:05:49; VR-SYCL1 [id number] Esophagus BA swallow PROCEDURE INFORMATION: 09/08/2019 KENNETH hays [facility] function video DX Exam: FL Swallowing Function [...] See also separate speech pathology r eport. 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 Procedure summary: Laryngeal penetration and aspiration [...] Trever Mc MD On 09/08/2019 11:43:17; ELGIN-G [id number] Chest 1view DX PROCEDURE INFORMATION: 09/07/2019 KENNETH [...] Brian Jorgensen MD On 09/07/2019 16:22:11; VR-ER [id number] Esophagus BA swallow PROCEDURE INFORMATION: 09/04/2019 [facility] function video DX Exam: FL Swallowing Function [...] Nikunj Balbuena MD On 09/04/2019 12:38:43; V [id number] Chest 1view DX PROCEDURE INFORMATION: 09/04/2019 Debra ballesteros [facility] Exam: XR Chest, 1 View Exam date [...] Nikunj Balbuena MD On 09/04/2019 08:54:03; V [id number] Brain wo contrast MRI PROCEDURE INFORMATION: 09/03/2019 [...] Jairo Martinez MD On 09/03/2019 15:21:59; VR-B [id number] Chest 1view DX PROCEDURE INFORMATION: 09/03/2019 Debra [...] Manuel Charles MD On 09/03/2019 11:21:47; [place] [id number] Brain wo contrast CT Radiation Dose CTDIVOL = 0 (mGy): DLP = 770 (mGy-cm) 09/02/2019 [facility] PROCEDURE INFORMATION: Exam: CT Head Without Contrast [...] Ken Rodriguez MD On 09/02/2019 20:00:07; [id number] Chest 1view DX PROCEDURE INFORMATION: 09/02/2019 [facility] Exam: XR Chest, 1 View [...] Nikunj Murphy MD On 09/02/2019 18:15:13; VR-WSYNE [id number] Brain/Neck CTA Radiation Dose CTDIVOL = 0 (mGy): DLP = 393 (mGy -cm) 09/02/2019 [facility] PROCEDURE INFORMATION: Exam: CT Angiography Head With [...] Contrast 1. No proximal occlusion in the [id number]-ff-Vnfbqq . 2. Posteriorly oriented 3 mm aneurysm [...] Nikunj Murphy MD On 09/02/2019 17:51:31; VR-WSYNE [id number] Brain Stroke wo Radiation Dose CTDIVOL = 0 (mGy): DLP = 753 (mGy -cm) 09/02/2019 [facility] contrast CT PROCEDURE INFORMATION: Exam: CT Head [...] at the time of dictation. ASSESSMENT: ASPECTS ([place] Stroke Program Early CT Score) is 10. Jairo Martinez MD On 09/02/2019 17:20:45; VR-B [id number] Esophagus BA swallow EXAM: FLUOROSCOPY MODIFIED BARIUM SWALLOW 1 08/30/2018 [facility] function video DX DATE: 06/29/2019 at 1039 hours Center INDICATION: - dysphagia, HEAD OF DESIGN-troy. ADDITIONAL INFORMATION: Stroke. COMPARISON: None. TECHNIQUE: Oral barium contr ast of differing consistencies was given to the patient to assess swallowing mechanism. The study was performed in conjunction with speech pathology. FLUOROSCOPY TIME: 1 minutes and 37 seconds FLUOROSCOPY DOSE: 9.41 mGy DISCUSSION: The patient was given barium contrast of differe nt consistencies. Thin barium: Deep laryngeal penetration with no gross tracheal aspiration.. [place] barium: Deep laryngea l penetration while drinking [...] Pulmonary EXAM: CTA CHEST WITH CONTRAST 06/28/2019 [facility] Embolism CTA DATE: 06/28/2019 3:05 COMPETITIVE SHOPPER Center INDICATION: - acute O2 desatting w/ [...] [facility] edical DATE: 06/28/2019 3:00 COMPETITIVE SHOPPER Center INDICATION: - pulm edema follow up. [...] [facility] edical DATE: 06/27/2019 3:00 COMPETITIVE SHOPPER Center INDICATION: - cough COMPARISON: 06/24/2019 TECHNIQUE: [...] for EXAM: XR ABDOMEN 1 VIEW 06/26/2019 [facility] Placement DX DATE: 06/26/2019 12:01 AM COMPETITIVE SHOPPER Ce nter INDICATION: confirm ngt placement - [...] [facility] edical DATE: 06/24/2019 11:05 AM COMPETITIVE SHOPPER Ce nter INDICATION: Tachypnea, Dyspnea - Tachypneic/Dysp [...] stable. Brain/Neck CTA EXAM: CTA BRAIN 06/23/2019 [facility] EXAM: CTA NECK Center DATE: 06/23/2019 9:14 COMPETITIVE SHOPPER INDICATION: '- sp tPA for dyarthria LFD. 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 IMPRESSION: No intracranial proximal branch occlusion. No significant stenosis by NASCET criteria. (All qualitative and quantit ative assessments of carotid bifurcation and proximal internal carotid artery stenosis are made referencing the distal internal carotid artery {NASCET criteria}.) Esophagus BA swallow EXAM: FLUOROSCOPY MODIFIED BARIUM SWALLOW 1 08/24/2018 [facility] function video DX DATE: 06/23/2019 1:50 PM [...] of differe nt consistencies. Thin barium: Aspiration. [place] barium: Aspiration. Pudding barium: Normal. [place] barium: Normal. IMPRESSION: 1. Patient demonstrated asp iration with thin and nectar thick barium contrast. 2. Please also see detailed chart note by jamey chand pathology. Brain wo contrast MRI EXAM: MRI BRAIN WITHOUT CONTRAST 9 [facility] DATE: 06/23/2019 10:30 PM Center INDICATION: Increased [...] perirolandic region and focal areas of left occipital/TRAVEL SERVICES PROFESSIONAL territory encephalomalacia. Scattered chronic microangiopathic changes. The ventri cles are prominent secondary to volume loss. No midline shift or herniation. No hemorrhage. Left middle cranial fossa arachnoid cyst. IMPRESSION: Recent cortical ischemic mariya nge involving the right posterior frontal/precentral cortex. No hemorrhage. Multifocal areas of encephalomalacia and chronic microangiopathic changes. Chest 1view DX EXAM: XR CHEST 1 VIEW 06/22/2019 [facility] DATE: 06/22/2019 18:49 COMPETITIVE SHOPPER Fawne r INDICATION: - concern for stroke [...] Source Temperature Oral (F) 97.8 F 07/06/2019 [facility] Respitory Rate 22 07/06/2019 [facility] Systolic (mm Hg) 120 07/06/2019 [facility] Center Diastolic (mm Hg) 53 07/06/2019 [facility] Respitory Rate 20 07/06/2019 [facility] Systolic (mm Hg) 119 07/06/2019 [facility] Diastolic (mm Hg) 63 07/06/2019 [facility] Temperature Oral (F) 98.3 F 07/06/2019 [facility] Respitory Rate 24 07/06/2019 [facility] Systolic (mm Hg) 105 07/06/2019 [facility] Diastolic (mm Hg) 54 07/06/2019 [facility] Temperature Oral (F) 98.2 F 07/06/2019 [facility] Height 147.32 cm 06/26/2019 [facility] BMI Calculated 32.32 06/26/2019 [facility] Weight 70.136 06/26/2019 [facility] Height 147.32 cm 06/25/2019 [facility] Weight 70 06/25/2019 [facility] BMI Calculated 32.25 06/25/2019 [facility] Heart Rate 81 06/24/2019 [facility] Heart Rate 48 06/24/2019 [facility] Heart Rate 73 06/23/2019 [facility] Weight 68.182 06/23/2019 [facility] Weight 164 05/14/2016 Sebastian Blaze Height [...] Date Date Visit Sebastian to check on [id number] 05/03 05/03 Sebastian Thakur MD email of -[id number] /2014 [facility] blood [id number] pressure Sebastian to check on [id number] 05/03 05/03 Sebastian Thakur MD email of -[id number] [facility] blood [id number] pressure Sebastian to check on [id number] 05/03 05/03 Sebastian Thakur MD email of -[id number] [facility] [place] blood [id number] pressure Sebastian to check on [id number] 05/03 05/03 Sebastian Thakur MD email of -[id number] [facility] blood [id number] pressure Sebastian to check on [id number] 05/03 05/03 Sebastian Thakur MD email of -[id number] /2014 [facility] blood [id number] pressure Sebastian to check on [id number] 05/03 05/03 Sebastian Thakur MD email of -[id number] /2014 [facility] blood [id number] pressure Sebastian to check on [id number] 05/03 05/03 Sebastian Thakur MD email of -[id number] /2014 [facility] blood [id number] pressure Sebastian to check on [id number] 05/03 05/03 Sebastian Thakur MD email of -[id number] /2014 [facility] blood [id number] pressure Sebastian to check on [id number] 05/03 05/03 Sebastian Thakur MD email of -[id number] /2014 [facility] blood [id number] pressure Sebastian to check on [id number] 05/03 05/03 Sebastian Thakur MD email of -[id number] /2014 [facility] blood [id number] pressure Sebastian to check on [id number] 05/03 05/03 Sebastian Thakur MD email of -[id number] /2014 [facility] blood [id number] pressure Sebastian to check on [id number] 05/03 05/03 Sebastian Thakur MD email of -[id number] /2014 [facility] blood [id number] pressure Sebastian to check on [id number] 05/03 05/03 Sebastian Thakur MD email of -[id number] /2014 [facility] blood [id number] pressure Sebastian Unknown [id number] 05/09 05/09 Paola Thakur MD -[id number] /2014 B aig [place] [id number] Sebastian Unknown [id number] 05/09 05/09 Paola Thakur MD -[id number]-bn /2014 B aig [place] [id number] [place] Unknown [id number] 05/09 05/09 Paola Thakur MD -[id number] /2014 B aig [place] [id number] Sebastian Unknown [id number] 05/09 05/09 Paola Thakur MD -[id number] /2014 B aig [place] [id number] [place] Unknown [id number] 05/09 05/09 Tn gloria Thakur MD -[id number] /2014 B aig [place] [id number] Sebastian Unknown [id number] 05/09 05/09 [place]n gloria Thakur MD -[id number] /2014 B aig [place] [id number] Sebastian Unknown [id number] 05/09 05/09 [place]n gloria Thakur MD -98og-[id number] /2014 B aig PA [id number] Sebastian Unknown [id number] 05/09 05/09 Tn gloria Thakur MD -[id number]-[id number] /2014 B aig [place] [id number] Sebastian Unknown [id number] 05/09 05/09 Tn gloria Thakur MD -[id number]-4o /2014 B aig PA [id number] Sebastian Unknown [id number] 05/09 05/09 Paola Thakur MD -[id number] /2014 B aig [place] [id number] Sebastian Unknown [id number] 05/09 05/09 Tn gloria Thakur MD -[id number]-71 /2014 B aig PA [id number] Sebastian Unknown [id number] 05/09 05/09 Tn gloria Thakur MD -[id number]-50 B aig PA [id number] Sebastian Unknown [id number] 05/09 05/09 Paola Thakur MD -[id number]-54 B aig PA [id number] Sebastian 2 month [id number] 06/21 06/21 Paola Thakur MD follow up -[id number] [facility] [place] *confirmed [id number] Sebastian 2 month [id number] 06/21 06/21 Paola Thakur MD follow up -[id number]-ib68-6c [facility] [place] *confirmed [id number] Sebastian 2 month [id number] 06/21 06/21 Paola Thakur MD follow up -36is-010u-y3 [facility] [place] *confirmed [id number] Sebastian 2 month [id number] 06/21 06/21 Paola Thakur MD follow up -[id number]-[id number]-js [facility] [place] *confirmed [id number] Sebastian 2 month [id number] 06/21 06/21 Paola Thakur MD follow up -[id number]-b5g0-o7 [facility] [place] *confirmed [id number] Sebastian 2 month [id number] 06/21 06/21 Paola Thakur MD follow up -[id number]-w025-74 [facility] [place] *confirmed [id number] Sebastian 2 month [id number] 06/21 06/21 Paola Thakur MD follow up -[id number]-42 [facility] [place] *confirmed [id number] Sebastian 2 month [id number] 06/21 06/21 Paola Thakur MD follow up -[id number] [facility] [place] *confirmed [id number] Sebastian 2 month [id number] 06/21 06/21 Paola Thakur MD follow up -[id number]-3z [facility] [place] *confirmed [id number] Sebastian 2 month [id number] 06/21 06/21 Paola Thakur MD follow up -[id number] [facility] [place] *confirmed [id number] Sebastian 2 month [id number] 06/21 06/21 Paola Thakur MD follow up -62nc-86n6-e6 [facility] [place] *confirmed [id number] Sebastian Unknown [id number] 08/12 08/12 Paola Thakur MD -[id number] /2015 B aig [place] [id number] Sebastian Unknown [id number] 08/12 08/12 Paola Thakur MD -[id number]-27sv-i3 /2015 B aig [place] [id number] Sebastian Unknown [id number] 08/12 08/12 Paola Thakur MD -[id number]-y71f-f4 /2015 B aig [place] [id number] Sebastian Unknown [id number] 08/12 08/12 Paola Thakur MD -[id number]-cz7l-2a /2015 B aig PA [id number] Sebastian Unknown [id number] 08/12 08/12 Paola Thakur MD -[id number] /2015 B aig [place] [id number] Sebastian Unknown [id number] 08/12 08/12 MD Zak [id number]-[id number] /2015 B [place] [id number] Sebastian Follow up, [id number] 09/17 09/17 Sebastian Thakur MD ref by -[id number]-fi /2015 [facility] [place]unaCONFI [id number] RMED Sebastian Follow up, [id number] 09/17 09/17 Sebastian Thakur MD ref by -[id number] /2015 [facility] [place] [id number] RMED Sebastian Follow up, [id number] 09/17 09/17 Sebastian Thakur MD ref by -[id number]-w847-5w /2015 [facility] [place] [id number] RMED Sebastian Follow up, [id number] 09/17 09/17 Sebastian Thakur MD ref by -[id number]-hj /2015 [facility] LgaunaCONFI [id number] RMED Sebastian Follow up, [id number] 09/17 09/17 Sebastian Thakur MD ref by -[id number]-dw69-v4 /2015 Blaze Parry*CONFI [id number] RMED Sebastian Follow up, [id number] 09/17 09/17 Sebastian Thakur MD ref by -[id number]-c0z7-wy /2015 [facility] [place]*CONFI [id number] RMED Sebastian Follow up, [id number] 09/17 09/17 Sebastian Thakur MD ref by -[id number]-y6n2-4x /2015 [facility] [place]*CONFI [id number] RMED Sebastian Follow up, [id number] 09/17 09/17 Sebastian Thakur MD ref by -[id number] Blaze [place]*CONFI [id number] RMED Sebastian Follow up, [id number] 09/17 09/17 Sebastian Thakur MD ref by -[id number]-n0sc-45 Bl[facility] [place]*CONFI [id number] RMED Sebastian Follow up, [id number] 09/17 09/17 Sebastian Thakur MD ref by -[id number] /2015 Bl[facility] [place]*CONFI [id number] RMED Sebastian Results-ra 58sp4l17-644x 10/08 10/08 MD ashok Souza6x2q-1mt3-d4 /2015 B bethel MONTOYA [id number] Sebastian Results-ra [id number]-01t3 10/08 10/08 MD ashok Souza21u8-z0mh-5u /2015 B bethel OMNTOYA [id number] Sebastian Results-ra [id number] 10/08 10/08 MD ashok Souza09l5-t595-p4 /2015 B bethel MONTOYA [id number] Sebastian Results-ra [id number] 10/08 10/08 MD ashok Souza -86zu-072b-49 /2015 B aig PA 09bonn2p55 [facility] 43y3fxj4-285e 10/08 10/08 Sebastian Thakur MD man -4nk0-3sb2-lu /2015 B aig PA [id number] [facility] [id number]-[id number] 10/08 10/08 Sebastian Thakur MD man -4re0-17ol-2j /2015 B aig PA [id number] [facility] karms3gl-0e78 10/08 10/08 MD ashok Souza -549a-4k13-6a /2015 B aig PA [id number] [facility] [id number] 10/08 10/08 Sebastian Thakur MD man -3101-l910-52 /2015 B aig PA [id number] [facility] [id number] 10/08 10/08 Sebastian Thakur MD man -7z62-87q0-5j /2015 B aig PA [id number] Sebastian 1 week 131d59ud-969p 10/15 10/15 Sal Thakur MD follow up -9778-l009-74 Blaze PA [id number] Sebastian 1 week n4k2q84g-3413 10/15 10/15 Sal Thakur MD follow up -2fkh-1734-94 Blaze PA 11x9g4t2sj Sebastian 1 week u520t1c1-f254 10/15 10/15 Sal Thakur MD follow up -776w-u989-72 [place] PA [id number] Sebastian 1 week ocs12g0j-sy66 10/15 10/15 Sal Thakur MD follow up -24p8-07z7-3j [place] [id number] Sebastian 1 week 16442gtt-72p7 10/15 10/15 Sal Thakur MD follow up -9798-zu3l-69 Blaze PA [id number] Sebastian 1 week 65474la8-52yc 10/15 10/15 Sal Thakur MD follow up -2pt3-0s9p-71 Blaze PA [id number] Sebastian 1 week 532v7895-lg34 10/15 10/15 Sal Thakur MD follow up -0xe8-wh84-1l /2015 Blaze PA [id number] Sebastian 1 week [id number]-j876 10/15 10/15 Sal Thakur MD follow up -6y94-06gn-o5 Blaze PA 72r90o0xh4 Sebastian 2 weeks e3773vge-r1h9 11/05 11/05 Paola Thakur MD -7x0i-63x7-t7 B aig PA 47wrwv81xm Sebastian 2 weeks [id number] 11/05 11/05 Paola Thakur MD -9p10-1255-nc B aig PA 5f24tbmaj8 Sebastian 2 weeks 37p9jwlh-b222 11/05 11/05 Paola Thakur MD -4b7l-o70f-23 B aig PA v02o2l1xd0 Sebastian 2 weeks [id number] 11/05 11/05 Paola Thakur MD -0t17-m30z-e5 B aig PA q32w1h659b Sebastian 2 weeks [id number] 11/05 11/05 Paola Thakur MD -7cu6-k09n-69 B aig PA [id number] Sebastian 2 weeks q7c0067g-plz6 11/05 11/05 Paola Thakur MD -2yp1-2z5w-a6 B aig PA [id number] Sebastian 2 weeks [id number] 11/05 11/05 Paola Thakur MD -1d8x-24l6-4c /2015 B aig PA [id number] [facility] [id number] [facility] 11/07 11/07 [facility] /2015 [facility] Sebastian Unknown [id number] 11/20 11/20 Paola Thakur MD -7u02-19h6-91 B bethel PA [id number] Sebastian Unknown [id number] 11/20 11/20 Paola Thakur MD -9yv0-84so-12 /2015 B bethel PA [id number] Sebastian Unknown [id number] 11/20 11/20 Paola Thakur MD -3c13-48x4-jq /2015 B bethel PA [id number] Sebastian Unknown [id number] 11/20 11/20 Paola Thakur MD -3x7i-d31e-52 B bethel MONTOYA 547w7n10ge Sebastian Unknown [id number] 11/20 11/20 Paola Thakur MD -39wb-5m6j-4a /2015 B bethel MONTOYA [id number] Sebastian 6 month 60mb34m6-s1z4 12/18 12/18 Paola Thakur MD follow up -0ec6-qy70-7p /2015 Blaze MONTOYA [id number] Sebastian 6 month ra1948jv-u31b 12/18 12/18 Paola Thakur MD follow up -638g-7q21-34 Blaze MONTOYA [id number] Sebastian 6 month [id number]-w5v2 12/18 12/18 Paola Thakur MD follow up -1083-82tz-07 Blaze MONTOYA 37w3y5x2f1 Sebastian 6 month [id number]-ak15 12/18 12/18 Paola Thakur MD follow up -0587-0umz-u6 /2015 Blaze MONTOYA [id number] Sebastian medication [id number] 12/30 12/30 Sebastian Thakur MD -45fx-46vu-6t /2015 B bethel MONTOYA [id number] Sebastian medication [id number]-406y 12/30 12/30 Sebastian Thakur MD -1702-a510-86 B bethel MONTOYA 87vz92e8s6 Sebastian medication [id number]-38s0 12/30 12/30 Sebastian Thakur MD -5621-51k6-s2 B bethel MONTOYA [id number] Sebastian 3 month 9ka900f9-162v 02/04 02/04 Paola Thakur MD -2ps1-l56h-68 B bethel MONTOYA [id number] Sebastian 3 month 55w4nxv1-120h 02/04 02/04 Paola Thakur MD -3956-4vf5-69 B bethel MONTOYA [id number] [facility] Outpatient [id number] [facility] 03/09 03/10 [facility] [place] /2015 [facility] Sebastian 3 month f/u [id number] 05/14 05/14 Sebastian Thakur MD -7wj3-2oz0-6t /2015 B bethel MONTOYA [id number] [facility] Inpatient [id number] Himanshu 06/23 07/06 [facility] /2018 [facility] Procedures Procedure Code Date Perfomer Comments Source Cholecystectomy [id number] 07/12/2002 [facility] Hernia<sup>1</sup> [id number] 07/12/1963 surg x2 Saurav as [address] Hysterectomy [id number] 07/12/1962 [facility] Appendectomy [id number] [facility] Assessment and Plan Assessment and Plan Date Source Extracted from:Title: Progress Note 07/06/2019 [facility] Author: Titus Sanderson MD Date: 07/06/19 1.Acute [...] 12 and enalapril 2.5 Kin Contact via [employer] Extracted from:Title: Cardiology Consult Note Author: Victorino Asif MD Date: 06/25/19 Ms. 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 Victorino Asif PGY1 Internal Medicine [facility] Cardiology attending attestation: I have [...] evaluation of cardioembolic [facility] Ming Rivera MD ,FACP, FACC ,KAITLINE Metal Mine Inspector Department of Internal Medicine Division of Cardiology [...] received labetalol by 1 in route to [facility]. Patient lives at [facility] [place], performs her ADLs however has help with [...] 0- both 1c. LOC Commands: open/close eyes, physician primary care sports medicine/release non paretic hand 0-both 2. Best Gaze: [...] worsening of baseline dysarthria. 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 She will be admitted for further work up and management to the stroke team. Plan: Acute Ischemic Stroke Acuity: Acute Current Suspected Etiology: cardio embol ic v. thrombotic LVO less likely as not seen on CTA. Continue Evaluation: -Admit to: [place] -Continue Statin -Hold Aspirin until 24 hour post tPA karthikeyan roimaging is stable and without evidence of bleeding -Blood pressure control, goal of SYS < -MRI/ECHO/A1C/Lipid panel. -Hyperglycemia management per SSI to maintain glucose 140-18 0mg/dL. -PT/OT/ST therapies and recommendations when able IRRIGATOR HEAD Dysarthria Dysphagia following cerebral infarction -NPO until [...] Code THE FOLLOWING WERE PRESENT ON ADMISSION: IRRIGATOR HEAD - Acute Ischemic Stroke, Hemiplegia ACUTE STROKE [...] (None) Denise Mahoney MD Child Neurology, PGY-3 [id number] STROKE NEUROLOGY ATTENDING I have seen and [...] mobile stroke unit and then admitted to [facility]. CTA head at the time of tPA [...] leaflet with regional wall motion abnormalities. 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 Himanshu Flannery MD MS Vascular Neurology Helpdesk Technician - [facility] Pager: [phone] Plan of Care No Data Provided for [...] May 14, 2016 Social History TypeResponse 11/05/2015 [facility] Substance Abuse Use: None. Alcohol Current, Type [...] Cessation Counseling No Social History TypeResponse 11/05/2015 [facility] Alcohol Current, Type Beer, Wine. Frequency: 1- [...]
--- OUTSIDE RECORDS SUMMARY | 2020-01-11 10:41 | XMS REPORT | Continuity of Care Document ---
:1935 Author Organization [facility] t Address [address] [place] [address] Care Team Providers Name Role Phone Halle Lopez Attending Clinician Antoni Rangel Attending Clinician Buck Attending Clinician Abhijit Flannery Admitting Clinician Problems Condition Condition Condition Status Onset Resolution Last Treating Co mments Source Name Details Category Date Date Treatment Clinician Date WEAKNESS/ Diagnosis Active 2019-09-02 Memoria STROKE 09-02 18:56:00 l LIKE 00:00: Jose Manuel SYMPTOMS WEAKNESS/ 00 STROKE LIKE SYMPTOMS Active 09/02/2019 [facility] ACUTE CVA, Diagnosis Active 2019-10-02 Memoria RECEIVED 09-02 11:53:00 l INTRAVENOU ACUTE 00:00: Verónica nn S TISSUE P CVA, 00 RECEIVED INTRAVENOU S TISSUE P Active 09/02/2019 [facility] STROKE Diagnosis Active 2018-072019-08-04 Mem oria 2-12 09:45:00 l STROKE 00:00: Jose Manuel 00 Active 06/22/2019 [facility] HERMELINDO Diagnosis Active 2018-072019-06-23 Memoria BILLING 2- 13:54:00 l 00:00: Jose Manuel HERMELINDO 00 BILLING Active 06/22/2019 [facility] G60.9 Diagnosis Active 2016-03-09 Mem oria NEUROPATHY 8-17 14:49:00 l G60.9 00:00: Challenge NEUROPATHY 00 Active 02/26/2016 [facility] PAD Diagnosis Active 2015-11-08 Mem oria 4-20 07:25:00 l PAD 00:00: Jose Manuel 00 Active 10/30/2015 [facility] Diverticul Problem Resolve 2016-03-12 Memoria itis d 00:35:06 l (morpholog Malcolm n ic Diverticul abnormalit itis y) (morpholog ic abnormalit y) Resolved Problem 03/12/2016 [facility] Cerebrovas Problem Resolve 2019-07-08 Memoria cular d 22:35:22 l accident Challenge (disorder) Cerebrovas cular accident (disorder) Resolved Problem 07/08/2019 [facility] Gall[place] Problem Resolve 2019-07-08 Memoria r calculus d 22:35:22 l (disorder) Mlacolm n Gall[place] r calculus (disorder) Resolved Problem 07/08/2019 [facility] Hyperlipid Problem Active 2019-09-01 M emoria emia 03:00:40 l Jose Manuel Hyperlipid emia Active Problem 09/01/2019 [facility] HTN Problem Active 2019-09-01 Memor ia 03:00:40 l HTN Challenge Active Problem 09/01/2019 [facility] Chest Diagnosis Active 2016-05-23 Mem oria pain, 03:14:05 l unspecifie Chest Verónica nn d pain, unspecifie d Active Diagnosis 05/23/2016 [facility] Essential Diagnosis Active 2016-05-23 Memoria (primary) 03:14:05 l hypertensi Malcolm n on Essential (primary) hypertensi on Active Diagnosis 05/23/2016 [facility] Abnormal Diagnosis Active 2016-05-23 M emoria electrocar 03:14:05 l diogram Abnormal Verónica nn [ECG] electrocar [EKG] diogram [ECG] [EKG] Active Diagnosis 05/23/2016 [facility] Shortness Diagnosis Active 2016-05-23 Memoria of breath 03:14:05 l Jose Manuel Shortness of breath Active Diagnosis 05/23/2016 [facility] Hyperlipid Diagnosis Active 2016-05-23 Memoria emia, 03:14:05 l unspecifie Malcolm n d Hyperlipid emia, unspecifie d Active Diagnosis 05/23/2016 [facility] 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 diastolic failure (congestiv e) heart failure Active Diagnosis 05/23/2016 [facility] Occlusion Problem Active 2019-09-01 Me moria and 03:00:40 l stenosis Jose Manuel 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 Active Problem 09/01/2019 [facility]aze Hernia of Problem Active 2016-03-12 Me moria abdominal 00:35:06 l cavity Hernia Jose Manuel (disorder) of abdominal cavity (disorder) Active Problem 03/12/2016 [facility] Appendecto Problem Active 2016-03-12 M emoria my 00:35:06 l (procedure Malcolm n ) Appendecto my (procedure ) Active Problem 03/12/2016 [facility] Bilateral Problem Active 2016-03-12 Me moria cataracts 00:35:06 l (disorder) Malcolm n Bilateral cataracts (disorder) Active Problem 03/12/2016 [facility] 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 00:35:06 l (disorder) Blind Verónica nn left eye (disorder) Active Problem 03/12/2016 [facility] Cholecyste Problem Active 2016-03-12 M emoria ctomy 00:35:06 l (procedure Malcolm n ) Cholecyste ctomy (procedure ) Active Problem 03/12/2016 [facility] Osteoarthr Problem Active 2016-03-12 M emoria itis 00:35:06 l (disorder) Malcolm n Osteoarthr itis (disorder) Active Problem 03/12/2016 [facility] Dyslipidem Problem Active 2016-03-12 M emoria ia 00:35:06 l (disorder) Malcolm n Dyslipidem ia (disorder) Active Problem 03/12/2016 [facility] Ex-cigaret Problem Active 2016-03-12 M emoria te smoker 00:35:06 l (finding) Jose Manuel Ex-cigaret te smoker (finding) Active Problem 03/12/2016 [facility] History of Problem Active 2016-03-12 M emoria - 00:35:06 l osteoarthr History Her barth itis of - (context-d osteoarthr ependent itis category) (context-d ependent category) Active Problem 03/12/2016 [facility] History of Problem Active 2016-03-12 M emoria - TIA 00:35:06 l (context-d History Her barth ependent of - TIA category) (context-d ependent category) Active Problem 03/12/2016 [facility] Hearing Problem Active 2016-03-12 Fortino ana maria loss 00:35:06 l (finding) Hearing Herm terrell loss (finding) Active Problem 03/12/2016 [facility] Hernia Problem Active 2016-03-12 Memor ia repair 00:35:06 l (procedure Hernia Herm terrell ) repair (procedure ) Active Problem 03/12/2016 [facility] Hyperchole Problem Active 2016-03-12 M emoria sterolemia 00:35:06 l (disorder) Malcolm n Hyperchole sterolemia (disorder) Active Problem 03/12/2016 [facility] Hysterecto Problem Active 2016-03-12 M emoria my 00:35:06 l (procedure Malcolm n ) Hysterecto my (procedure ) Active Problem 03/12/2016 [facility] Multiple Problem Active 2016-03-12 Mem oria ulcers 00:35:06 l (morpholog Multiple He rmann ic ulcers abnormalit (morpholog y) ic abnormalit y) Active Problem 6 [facility] Second Problem Active 2016-03-12 Memor ia cranial 00:35:06 l nerve Second Jose Manuel finding cranial (finding) nerve finding (finding) Active Problem 03/12/2016 rt eye [facility] Peripheral Problem Active 2016-03-12 M emoria vascular 00:35:06 l disease Jose Manuel (disorder) Peripheral vascular disease (disorder) Active Problem 03/12/2016 [facility] Pyloroplas Problem Active 2016-03-12 M emoria ty 00:35:06 l (procedure Malcolm n ) Pyloroplas ty (procedure ) Active Problem 03/12/2016 [facility] Reflux Problem Active 2016-03-12 Memor ia (finding) 00:35:06 l Reflux Challenge (finding) Active Problem 03/12/2016 [facility] Small Problem Active 2016-03-12 Memor ia bowel 00:35:06 l obstructio Small Verónica nn n bowel (disorder) obstructio n (disorder) Active Problem 03/12/2016 [facility] Vagotomy Problem Active 2016-03-12 Mem oria (procedure 00:35:06 l ) Vagotomy Malcolm n (procedure ) Active Problem 03/12/2016 [facility] Coronary Problem Active 2019-07-08 Mem oria arterioscl 22:35:22 l erosis Coronary Malcolm n (disorder) arterioscl erosis (disorder) Active Problem 07/08/2019 [facility] Cerebral Problem Active 2019-07-08 Mem oria infarction 22:35:22 l due to Cerebral Malcolm n embolism infarction of due to cerebral embolism arteries of (disorder) cerebral arteries (disorder) Active Problem 07/08/2019 [facility] Chronic Problem Active 2019-07-08 Fortino ana maria kidney 22:35:22 l disease Chronic Malcolm n (disorder) kidney disease (disorder) Active Problem 07/08/2019 [facility] Chronic Problem Active 2019-07-08 Fortino ana maria obstructiv 22:35:22 l e lung Chronic Challenge disease obstructiv (disorder) e lung disease (disorder) Active Problem 07/08/2019 [facility] Diabetes Problem Active 2019-07-08 Mem oria mellitus 22:35:22 l (disorder) Diabetes He rmann mellitus (disorder) Active Problem 07/08/2019 [facility] Gastroesop Problem Active 2019-07-08 M emoria hageal 22:35:22 l reflux Challenge disease Gastroesop (disorder) hageal reflux disease (disorder) Active Problem 07/08/2019 [facility] Glaucoma Problem Active 2019-07-08 Mem oria (disorder) 22:35:22 l Glaucoma Malcolm n (disorder) Active Problem 07/08/2019 [facility] Hypertensi Problem Active 2019-07-08 M emoria ve 22:35:22 l disorder, Challenge systemic Hypertensi arterial ve (disorder) disorder, systemic arterial (disorder) Active Problem 07/08/2019 [facility] Hyperlipid Problem Active 2019-07-08 M emoria emia 22:35:22 l (disorder) Malcolm n Hyperlipid emia (disorder) Active Problem 07/08/2019 [facility] Mitral Problem Active 2019-07-08 Memor ia valve 22:35:22 l regurgitat Mitral Herm terrell ion valve (disorder) regurgitat ion (disorder) Active Problem 07/08/2019 [facility] Normocytic Problem Active 2019-07-08 M emoria anemia 22:35:22 l (disorder) Malcolm n Normocytic anemia (disorder) Active Problem 07/08/2019 [facility] Rheumatoid Problem Active 2019-07-08 M emoria arthritis 22:35:22 l (disorder) Malcolm n Rheumatoid arthritis (disorder) Active Problem 07/08/2019 [facility] ATHSCL Diagnosis Active 2015-11-08 Mem oria [place] 07:25:00 l ARTERIES ATHSCL Malcolm n 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 Active [facility] HEREDITARY Diagnosis Active 2016-03-09 Memoria AND 14:49:00 l IDIOPATHIC Malcolm n NEUROPATHY HEREDITARY , UN AND IDIOPATHIC NEUROPATHY , UN Active [facility] CEREBRAL Diagnosis Active 2019-10-02 M emoria INFARCTION 11:53:00 l , CEREBRAL Malcolm n UNSPECIFIE INFARCTION D , UNSPECIFIE D Active [facility] S/P ADMN Diagnosis Active 2019-10-02 M emoria TPA IN 11:53:00 l DIFF FAC S/P ADMN Herm terrell W/N LAST TPA IN 24 HR DIFF FAC W/N LAST 24 HR Active [facility] Allergies, Adverse Reactions, Alerts Allergy Allergy Status Severity Reaction(s) Onset Inactive Treating Comm ents Source Name Type Date Date Clinician N.K.D.A. N.K.D.A. Active Info Not 2015-07 Fortino ana maria Available 03 l 00:00: Challenge 00 No Known No Known Active Memori a Medicati Medicati l on on Jose Manuel Castelan s s Social History Social Habit Start Date Stop Date Quantity Comments Source [place]? 2016-05-14 2016-05-14 [facility] 00:00:00 00:00:00 Social History 2015-11-05 2015-11-05 [facility] ermann 22:22:38 22:22:38 Medications Ordered Filled Start Stop Current Ordering Indication Dosage Frequency Signature Comments Components Source Medication Medication Date Date Medication? Clinician (SIG) Name Name atorvastati 2018-07 Yes 40 mg = 1 M emoria n 40 mg 2-26 tab, PO, l oral tablet 20:43: Bedtime, 0 Jose Manuel 00 Refill(s) carvedilol 2018-07 Yes 12.5 mg = Me moria 12.5 mg 2-26 1 tab, PO, l oral tablet 20:43: Q12H, 0 Her barth 00 Refill(s) clopidogrel 2018-07 Yes 75 mg = 1 M emoria 75 mg oral 2-26 tab, PO, l tablet 20:43: Daily, 0 Jose Manuel 00 Refill(s) Aspirin 81 2018-07 Yes 81 mg = 1 Me moria MG Chewable 2-26 tab, PO, l Tablet 20:43: Daily, 0 Challenge 00 Refill(s) enalapril 2018-07 Yes 2.5 mg = 1 Me moria 2.5 mg oral 2-26 tab, PO, l tablet 20:43: Q12H, 0 Jose Manuel 00 Refill(s) pantoprazol 2018-07 Yes 40 mg = 1 M emoria e 40 mg 2-26 tab, PO, l oral 20:43: Before Jose Manuel enteric 00 Breakfast, coated 0 tablet Refill(s) Lasix 2018-07 No Notes: Memoria 2-26 (Same as: l 15:00: Lasix) Jose Manuel 00 May cause GI upset. Give with food or milk. Docusate 2018-07 No Notes: Memoria Sodium 50 2-24 (Same as l MG / 18:50: Senokot-S) sennosides, 00 Equiv. to [facility] 8.6 MG Loni-Colac Oral Tablet e. Insulin 2018-07 No 8 unit, Memoria Glargine 2-24 Route: l 100 UNT/ML 15:00: SUB-Q, Verónica nn Injectable 00 Daily, Solution Dosing Weight 70.136, kg, Start date: 07/04/19 9:00:00 [employer], Duration: 30 day, Stop date: 08/02/19 9:00:00 [employer] tiotropium 2018-07 No Notes: Memor ia 0.018 2-23 (Same As: l MG/ACTUAT 16:00: Spiriva) Herm terrell Inhalant 00 Powder [Spiriva] insulin, 2018-07 No Notes: Memoria isophane 2-19 (Same as: l 15:00: Humulin N) Challenge 00 Roll in palms of hands gently; Do not shake vigorously . WASTE: F/P - Black; E - Municipal Trash Bin Stable for 31 days at room temperatur e Expires in days from ____Date Ventolin 2018-07 Yes 2 puff, Memori a HFA 90 2-18 INHALATION l mcg/inh 17:18: , QID, 0 Malcolm n inhalation 00 Refill(s) aerosol with adapter Fluticasone 2018-07 No NASAL, Fortino ana maria propionate 2-18 Daily, 0 l 0.05 17:18: Refill(s) Challenge MG/ACTUAT 00 Metered Dose Nasal Effort [Flonase] atorvastati 2018-07 No 10 mg = 1 M emoria n 10 mg 2-18 tab, PO, l oral tablet 17:18: Daily, 0 He rmann 00 Refill(s) enalapril 5 2018-07 No 5 mg = 1 Me moria mg oral 2-18 tab, PO, l tablet 17:18: Daily, 0 Challenge 00 Refill(s) predniSONE 2018-07 No 2.5 mg = 1 M emoria 2.5 mg oral 2-18 tab, PO, l tablet 17:18: Daily, 0 Jose Manuel 00 Refill(s) Albuterol 2018-07 No Notes: Memori a 0.833 MG/ML -18 (Same as: l / 16:44: Duoneb) Jose Manuel Ipratropium 00 Glen 0.167 MG/ML Inhalant Solution [DuoNeb] Amiloride 2018-07 No Route: PO, Me moria Hydrochlori 2-18 Drug Form: l de 5 MG / 15:00: TAB, Jose Manuel Hydrochloro 00 Dosing thiazide 50 Weight MG Oral 70.136, Tablet kg, Daily, Start date: 06/28/19 9:00:00 [employer], Duration: 30 day, Stop date: 07/27/19 9:00:00 [employer] methylPREDN 2018-07 No Notes: Fortino ana maria ISolone 2-18 (Same l SODium 15:00: as:Solu-ME Verónica nn SUCCinate 00 DROL, A-Methapre d) Coreg 2018-07 No Notes: Memoria 2-18 Give with l 15:00: food. Jose Manuel 00 (Same As: Coreg) Vasotec 2018-07 No Notes: Memoria 2-18 (Same as: l 15:00: Vasotec) Jose Manuel 00 Hydralazine 2018-07 No 10 mg, 0.5 Memoria 2-18 mL, Route: l 14:14: IVP, Drug Jose Manuel 00 form: INJ, Q4H, Dosing Weight 70.136, kg, PRN Hypertensi on, Start date: 06/28/19 8:14:00 [employer], Duration: 30 day, Stop date: 07/28/19 8:13:00 [employer], 0 Albuterol 2018-07 No Notes: Memori a 0.833 MG/ML 2-18 (Same as: l / 14:11: Duoneb) Jose Manuel Ipratropium 00 Glen 0.167 MG/ML Inhalant Solution [DuoNeb] Iohexol 2018-07 No 99 mL, Memoria 2-18 Route: l 10:08: IVP, Drug Jose Manuel 00 Form: SOLN, Dosing Weight 70.136, kg, ONCALL, STAT, Start date: 06/28/19 4:08:00 [employer], Duration: 1 doses or times, Dose = 2.2ml/kg, Max dose = 100ml -- "To be infused by Radiology Staff ONLY" Potassium 2018-07 No Notes: Memori a Chloride 2-18 (Same as: l 03:00: Potassium Challenge 00 Chloride) atorvastati 2018-07 No Notes: Fortino ana maria n 2-18 (Same as: l 03:00: Lipitor) Jose Manuel 00 enalapril 2018-07 No Notes: Memori a 2-17 (Same as: l 15:00: Vasotec) Challenge Plavix 2018-07 No Notes: Memoria 2-17 (Same As: l 15:00: Plavix) Challenge Nystatin 2018-07 No Notes: Memoria 100 UNT/MG 2-17 (Same l Topical 15:00: as:Mycosta Herm terrell Powder 00 tin, Nilstat) For external use only. Zofran 2018-07 No Notes: Memoria 2-17 (Same as: l 13:41: Zofran) Jose Manuel MEDICATION WASTE Product Size: 4 mg Product Wasted: ___ mg Tylenol 2018-07 No Notes: Do Memor ia 2-17 not exceed l 13:41: 4 gm/day. Jose Manuel 00 (Same as: Tylenol) Magnesium 2018-07 No Notes: Memori a Sulfate 2-17 WASTE: F/P l 13:41: - Sink; E Challenge 00 - Municipal Trash Bin Potassium 2018-07 No Notes: Memori a Chloride 2-17 (Same as: l 02:25: Potassium Jose Manuel 00 Chloride) Miralax 2018-07 No Notes: Memoria 2-16 Dissolve l 23:00: in 8 oz of Jose Manuel 00 water or juice. (Same as: Miralax) Coreg 2018-07 No Notes: Memoria 2-16 Give with l 17:20: food. Challenge 00 (Same As: Coreg) Mag-Ox 400 2018-07 No Notes: Memor ia 2-16 (Same as: l 15:00: Mag-Ox Jose Manuel 00 400) Magnesium oxide [id number] g elemental magnesium Dose=____m g magnesium oxide (___mg elemental magnesium) potassium 2018-07 No Notes: Memori a chloride 20 2-16 (Same as: l mEq oral 03:00: K-Dur 20) Herm terrell tablet, 00 "Do Not extended Crush" release Give with (KCL) food and full glass of water For patients unable to swallow tablet, dissolve in one half glass of water. Allow about 2 minutes for the tablets to disintegra te. Stir before giving to prepare slurry and administer . Please exclude Patient s with feeding tube less than 14 Greek (Dobhoff, J-tube etc) and pediatric and patients. Lasix 2018-07 No Notes: Memoria 2-15 (Same as: l 23:00: Lasix) Jose Manuel 00 May cause GI upset. Give with food or milk. Lasix 2018-07 No Notes: Memoria 2-15 (Same as: l 15:00: Lasix) Challenge 00 May cause GI upset. Give with food or milk. enalapril 2018-07 No Notes: Memori a 2-15 (Same as: l 15:00: Vasotec) Jose Manuel 00 Omeprazole 2018-07 No 20 mg, Memor ia 2-15 Route: PO, l 13:30: Drug form: Challenge 00 ECCAP, Before Breakfast, Dosing Weight 68.182, kg, Start date: 06/25/19 7:30:00 [employer], Duration: 30 day, Stop date: 07/24/19 7:30:00 [employer] Protonix 2018-07 No Notes: Memoria 2-15 Tablet l 13:30: should not Jose Manuel 00 be chewed or crushed. (Same as: Protonix) Lasix 2018-07 No Notes: Memoria 2-15 (Same as: l 04:18: Lasix) Challenge 00 MEDICATION WASTE Product Size: 40 mg Product Wasted: ___ mg Dextrose 2018-07 No 12.5 gm, Memor ia 50% Syringe 2-14 25 mL, l (D50W) 21:51: Route: Challenge 00 IVP, Drug Form: INJ, Dosing Weight 68.182, kg, PRN, PRN Blood Glucose Results, Start date: 06/24/19 15:51:00 [employer], Duration: 30 day, Stop date: 07/24/19 15:50:00 [employer], 0 Glucagon 2018-07 No 1 mg, Memoria 2-14 Route: IM, l 21:51: Drug form: Jose Manuel 00 PDR/INJ, PRN, Dosing Weight 68.182, kg, PRN Blood Glucose Results, Start date: 06/24/19 15:51:00 [employer], Duration: 30 day, Stop date: 07/24/19 15:50:00 [employer], 0 Insulin 2018-07 No Notes: Memoria Lispro 2-14 (Same as: l 21:51: Humalog) Challenge Roll in palms of hands gently; Do not shake vigorously . WASTE: F/P - Black; E - Municipal Trash Bin Stable for 28 days at room temperatur e. Expires in days from ____Date Symbicort 2018-07 No Notes: Memori a 160/4.5 2-14 (Same as: l inhalation 20:53: Symbicort) H ermann aerosol 00 WASTE: with Aerosol - adapter Return to Pharmacy Albuterol 2018-07 No Notes: Memori a 0.833 MG/ML 2-14 (Same as: l / 20:46: Duoneb) Challenge Ipratropium 00 Glen 0.167 MG/ML Inhalant Solution [DuoNeb] Hydroxychlo 2018-07 No 0 Memori a roquine 2-14 Refill(s) l Sulfate 200 20:44: Malcolm n MG Oral 00 Tablet Potassium 2018-07 No Notes: Memori a Chloride 2-14 (Same as: l 20:33: K-Dur 20) "Do Not Crush" Give with food and full glass of water For patients unable to swallow tablet, dissolve in one half glass of water. Allow about 2 minutes for the tablets to disintegra te. Stir before giving to prepare slurry and administer . Please exclude Patient s with feeding tube less than 14 Greek (Dobhoff, J-tube etc) and pediatric and patients. potassium 2018-07 No Notes: Memori a chloride 2-14 (Same as: l 18:49: Potassium Chloride) Lasix 2018-07 No 40 mg, Memoria 2-14 Route: l 18:34: IVP, Drug Jose Manuel 00 form: INJ, ONCE, Dosing Weight 68.182, kg, Priority: NOW, Start date: 06/24/19 12:34:00 [employer], Stop date: 06/24/19 12:34:00 [employer]IC potassium 2018- No 40 mEq, 2 Mem oria chloride 20 2-14 tab, l mEq oral 18:34: Route: PO, Her barth tablet, 00 Drug form: extended ERTAB, release ONCE, (KCL) Dosing Weight 68.182, kg, Priority: NOW, Start date: 06/24/19 12:34:00 [employer], Stop date: 06/24/19 12:34:00 [employer]IC Lasix 2018-07 No Notes: Memoria 2-14 (Same as: l 18:23: Lasix) MEDICATION WASTE Product Size: 40 mg Product Wasted: ___ mg heparin 2018-07 No Notes: Memoria sodium, 2-14 porcine l porcine 06:00: heparin Challenge 2500 UNT/ML 00 Injectable Solution Aspirin 81 2018-07 No Notes: Memor ia MG Chewable 2-14 Take with l Tablet 05:20: food. atorvastati 2018-07 No Notes: Fortino ana maria n 2-14 (Same As: l 03:00: Lipitor) Challenge 00 Lasix 2018-07 No Notes: Memoria 2-13 (Same as: l 19:28: Lasix) Challenge 00 normal 2018-07 No 1,000 mL, Memori a saline 0.9% 2-13 Rate: 75 l IV 1,000 mL 15:22: ml/hr, Herm terrell 00 Infuse over: 13.3 hr, Route: IV, Dosing Weight 68.182 kg, Total Volume: 1,000, Start date: 06/23/19 9:22:00 [employer], Duration: 30 day, Stop date: 07/23/19 9:21:00 AUT[employer]IVE HE[employer]IC, 0 Iohexol 2018-07 No Notes: Memoria 2-13 (Same l 15:21: as:Omnipaq Jose Manuel 00 ue 350). WASTE: F/P - Black; E - Municipal Trash Bin enalapril 2018-07 No 10 mg = 1 Mem oria 10 mg oral 2-13 tab, PO, l tablet 14:38: Daily, 0 Jose Manuel 00 Refill(s) 24 HR 2018-07 Yes 10 mg = 1 Memoria Glipizide 2-13 tab, PO, l 10 MG 14:38: Daily, 0 Challenge Extended 00 Refill(s) Release Tablet Aspirin 25 2018-07 No 1 cap, PO, M emoria MG / 2-13 BID, 0 l Dipyridamol 14:38: Refill(s) H ermann e 200 MG 00 Oral Capsule [Aggrenox] Omeprazole 2018-07 No 20 mg, PO, M emoria 2-13 Daily, 0 l 14:38: Refill(s) Jose Manuel 00 atorvastati 2018-07 No 20 mg = 1 M emoria n 20 mg 2-13 tab, PO, l oral tablet 14:38: Daily, 0 He rmann 00 Refill(s) Tramadol 2018-07 No 50 mg, PO, Mem oria 2-13 Q4-6H, PRN l 14:38: Pain, # 20 Challenge 00 tab, 0 Refill(s) bimatoprost 2018-07 Yes 1 drp, Fortino ana maria 0.3 MG/ML 2-13 RIGHT EYE, l Ophthalmic 14:38: QPM, 0 Verónica nn Solution 00 Refill(s) [Lumigan] Combigan 2018-07 Yes RIGHT EYE, Mem oria 2-13 Q12H, 0 l 14:38: Refill(s) Challenge 00 allopurinol 2018-07 Yes 100 mg = 1 Memoria 100 mg oral 2-13 tab, PO, l tablet 14:38: BID, 0 Jose Manuel 00 Refill(s) gabapentin 2018-07 Yes 400 mg = 1 M emoria 400 MG Oral 2-13 cap, PO, l Capsule 14:38: TID, 0 Jose Manuel 00 Refill(s) Furosemide 2018-07 Yes 20 mg = 1 Me moria 20 MG Oral 2-13 tab, PO, l Tablet 14:38: Daily, 0 Jose Manuel 00 Refill(s) sitagliptin 2018-07 Yes 100 mg = 1 Memoria 100 MG Oral 2-13 tab, PO, l Tablet 14:38: Daily, 0 Challenge [Januvia] 00 Refill(s) predniSONE 2018-07 No 2.5 mg = 1 M emoria 2.5 mg oral 2-13 tab, PO, l tablet 14:38: Daily, 0 Challenge Refill(s) Anoro 2018-07 Yes 1 puff, Memoria Ellipta 2-13 INHALER, l 62.5 mcg-25 14:38: Daily, # 1 Challenge mcg 00 ea, 3 inhalation Refill(s) powder Flonase 2018-07 No NASAL, Memoria Sensimist 2-13 Daily, 0 l 14:38: Refill(s) Jose Manuel Ventolin 2018-07 No INHALATION Mem oria HFA 2-13 , QID, 0 l 14:38: Refill(s) Challenge 00 sulfaSALAzi 2018-07 Yes 1,000 mg = Memoria ne 500 mg 2-13 2 tab, PO, l oral tablet 14:38: BID, 0 Herm terrell Refill(s) sennosides, 2018-07 No Notes: Fortino ana maria [facility] 2-13 (Same as: l 06:47: Senokot) Jose Manuel 00 Saline 2018-07 No Notes: Memoria Flush 0.9% 2-13 (Same as: l 03:00: BD Jose Manuel 00 Posiflush) Labetalol 2018-07 No 105 mmHg, Me moria 2-13 Start l 00:58: date: 06/22/19 18:58:00 [employer], Duration: 30 day, Stop date: 07/22/19 18:57:00 [employer]IC, 0 Saline 2018-07 No Notes: Memoria Flush 0.9% 2-13 (Same as: l 00:58: BD Jose Manuel 00 Posiflush) Atorvastati 2016-1 Yes Zay 1 tablet Memoria n Calcium 1-12 Holland l 03:14: Jose Manuel 05 Leflunomide 2015-07 Yes Zay 1 tablet Memoria 1-12 [place] l 03:14: Jose Manuel 05 Calcium + D 2015-07 Yes Zay 1 tablet Memoria 1-12 [place] with meals l 03:14: Jose Manuel 05 Omeprazole 2015- Yes Zay 1 capsule Memoria 1-12 [place] l 03:14: Jose Manuel 05 Aggrenox 2015-07 Yes Zay 1 capsule Me moria 1-12 [place] l 03:14: Jose Manuel 05 Alphagan P 2015-07 Yes Zay 1 drop Mem oria 1-12 [place] into l 03:14: affected Jose Manuel 05 eye Tramadol 2015-07 Yes Zay 1 tablet Mem oria HCl 1-12 [place] as needed l 03:14: Jose Manuel 05 Lumigan 2015-07 Yes Zay 1 drop Memori a 1-12 [place] into l 03:14: affected Jose Manuel 05 eye in the evening Enalapril 2015-07 Yes Zay 1 tablet Me moria Maleate -12 [place] l 03:14: Jose Manuel 05 GlipiZIDE 2015-07 Yes Zay 1 tablet Me moria ER 1-12 [place] l 03:14: Jose Manuel 05 Metoprolol 2015-07 No Zay 1 tablet M emoria Succinate -12 [place] l ER 03:14: Jose Manuel 05 Gabapentin 2015-07 Yes Zay 1 capsule [facility] - [place] l 03:14: Jose Manuel Metoprolol 2015-07 Yes Zay 1/2 tablet [facility] Tartrate 1- [place] with food l 03:14: Jose Manuel HCTZ Yes Zay Unknown [facility] - [place] l 02:12: Jose Manuel Lasix Yes Zay 1 tablet [facility] a - [place] l 02:12: Jose Manuel Metoprolol Yes Zay 1/2 tablet [facility] Tartrate - [place] with food l 00:00: Jose Manuel ceFAZolin No Route: IV, Me moria (ANES) 11-07 Drug form: l 15:13: INJ, ONCE, Stop date: 11/08/15 10:13:00 CDT ondansetron No Route: IV, [facility] (ANES) 11-07 Drug form: l 15:13: INJ, ONCE, Stop date: 11/08/15 10:13:00 CDT fentaNYL No Route: IV, Mem oria (ANES) 11-07 Drug form: l 15:13: INJ, ONCE, Stop date: 11/08/15 10:13:00 CDT midazolam No Route: IV, Me moria (ANES) 11-07 Drug form: l 15:13: SOLN, ONCE, Stop date: 11/08/15 10:13:00 CDT Lactated No Route: IV, Mem oria Ringers 11-07 Total l Injection 14:27: Volume: Verónica nn IV (ANES) 00 1,000, (ANES) Start date: 11/08/15 9:27:00 CDT, Stop date: 11/08/15 10:27:00 CDT Calcium No 1,000 mL, Memor ia Chloride 11-07 Rate: 25 l 0.0014 12:24: ml/hr, MEQ/ML / 00 Infuse Potassium over: 40 Chloride hr, Route: 0.004 IV, Dosing MEQ/ML / Weight Sodium 72.273 kg, Chloride Total 0.103 Volume: MEQ/ML / 1,000, Sodium Start Lactate date: 0.028 11/08/15 MEQ/ML 7:24:00 Injectable CDT, Solution Duration: 1 day, Stop date: 11/09/15 7:23:00 CDT Metoprolol Yes Zay 1 tablet M emoria Succinate 4-27 [place] ER 00:00: enalapril Yes 10 mg = 1 Mem oria 10 mg oral 4-26 tab, PO, l tablet 22:08: Daily, # 30 tab, 0 Refill(s) atorvastati Yes 20 mg = 1 M emoria n 20 mg 4-26 tab, PO, l oral tablet 22:01: Bedtime, # 30 tab, 0 Refill(s) Brimonidine Yes 1 drp, Fortino ana maria tartrate 11-04 RIGHT EYE, l 1.5 MG/ML 21:58: BID, # 10 Her barth Ophthalmic 00 mL, 0 Solution Refill(s) [Alphagan] leflunomide Yes 10 mg = 1 M emoria 10 mg oral 11-04 tab, PO, l tablet 21:57: Daily, # Challenge 00 30 tab, 0 Refill(s) bimatoprost Yes 1 drp, Fortino ana maria 0.3 MG/ML 11-04 RIGHT EYE, l Ophthalmic 21:57: QPM, # 3 Her barth Solution 00 ml, 0 [Lumigan] Refill(s) Calcium Yes 1 tab, PO, Fortino ana maria Carbonate 11-04 BID, # 60 l 1500 MG / 21:57: tab, 0 Malcolm n Cholecalcif 00 Refill(s) layne 400 UNT Oral Tablet Vital Signs Vital Name Observation Time Observation Value Comments Source Temperature Oral (F) 2019-07-06 17:38:00 97.8 F [facility] Respitory Rate 2019-07-06 17:23:00 [facility] Systolic (mm Hg) 2019-07-06 17:23:00 Fortino rial Jose Manuel Diastolic (mm Hg) 2019-07-06 17:23:00 [facility] Respitory Rate 2019-07-06 14:17:00 [facility] Jose Manuel Systolic (mm Hg) 2019-07-06 14:17:00 Fortino rial Challenge Diastolic (mm Hg) 2019-07-06 14:17:00 Mem orial Jose Manuel Temperature Oral (F) 2019-07-06 14:03:00 98.3 F [facility] Manuel Respitory Rate 2019-07-06 12:00:00 [facility] Systolic (mm Hg) 2019-07-06 12:00:00 Fortino rial Jose Manuel Diastolic (mm Hg) 2019-07-06 12:00:00 [facility] Jose Manuel Temperature Oral (F) 2019-07-06 09:57:00 98.2 F [facility] Height 2019-06-26 14:45:00 147.32 cm [facility] BMI Calculated 2019-06-26 14:45:00 [facility] Jose Manuel Weight 2019-06-26 14:45:00 [facility] Height 2019-06-25 21:41:00 147.32 cm [facility] Weight 2019-06-25 21:41:00 [facility] BMI Calculated 2019-06-25 21:41:00 [facility] Heart Rate 2019-06-24 04:59:00 [facility] Heart Rate 2019-06-24 04:30:00 [facility] Heart Rate 2019-06-23 00:55:00 [facility] Weight 2019-06-23 00:23:00 [facility] Weight 2016-05-14 16:00:00 [facility] Height 2016-05-14 16:00:00 [facility] Manuel Diastolic (mm Hg) 2016-05-14 16:00:00 [facility] o[facility] Challenge Systolic (mm Hg) 2016-05-14 16:00:00 Fortino rial Jose Manuel Weight 2016-02-05 20:00:00 [facility] Height 2016-02-05 20:00:00 [facility] Heart Rate 2016-02-05 20:00:00 [facility] Manuel Diastolic (mm Hg) 2016-02-05 20:00:00 [facility] Systolic (mm Hg) 2016-02-05 20:00:00 Fortino rial [facility] Weight 2015-12-19 18:30:00 [facility] Height 2015-12-19 18:30:00 [facility] Heart Rate 2015-12-19 18:30:00 [facility] Manuel Diastolic (mm Hg) 2015-12-19 18:30:00 [facility] o[facility] Jose Manuel Systolic (mm Hg) 2015-12-19 18:30:00 Fortino rial Jose Manuel Systolic (mm Hg) 2015-11-08 17:00:00 Fortino rial Challenge Diastolic (mm Hg) 2015-11-08 17:00:00 [facility] Jose Manuel Respitory Rate 2015-11-08 17:00:00 [facility] Systolic (mm Hg) 2015-11-08 16:45:00 Fortino rial Challenge Diastolic (mm Hg) 2015-11-08 16:45:00 [facility] Respitory Rate 2015-11-08 16:45:00 [facility] Systolic (mm Hg) 2015-11-08 16:30:00 Fortino rial Challenge Diastolic (mm Hg) 2015-11-08 16:30:00 [facility] o[facility] Jose Manuel Respitory Rate 2015-11-08 16:30:00 Les al Jose Manuel Weight 2015-11-06 20:15:00 [facility] Height 2015-11-06 20:15:00 [facility] Heart Rate 2015-11-06 20:15:00 [facility] Manuel Diastolic (mm Hg) 2015-11-06 20:15:00 [facility] o[facility] Systolic (mm Hg) 2015-11-06 20:15:00 Fortino rial [facility] Heart Rate 2015-11-05 22:16:00 [facility] Height 2015-11-05 21:45:00 147.32 cm [facility] Manuel Weight 2015-11-05 21:45:00 [facility] Manuel BMI Calculated 2015-11-05 21:45:00 Memjoi al Jose Manuel Weight 2015-10-16 20:30:00 [facility] Height 2015-10-16 20:30:00 [facility] Diastolic (mm Hg) 2015-10-16 20:30:00 [facility] o[facility] Systolic (mm Hg) 2015-10-16 20:30:00 Fortino rial [facility] Weight 2015-10-09 19:15:00 [facility] Height 2015-10-09 19:15:00 [facility] Diastolic (mm Hg) 2015-10-09 19:15:00 [facility] Systolic (mm Hg) 2015-10-09 19:15:00 Fortino rial [facility] Weight 2015-09-18 19:45:00 [facility] Manuel Height 2015-09-18 19:45:00 [facility] Manuel Diastolic (mm Hg) 2015-09-18 19:45:00 [facility] Systolic (mm Hg) 2015-09-18 19:45:00 Fortino rial [facility] Weight 2015-06-21 18:00:00 [facility] Manuel Height 2015-06-21 18:00:00 [facility] Manuel Heart Rate 2015-06-21 18:00:00 [facility] Diastolic (mm Hg) 2015-06-21 18:00:00 [facility] Jose Manuel Systolic (mm Hg) 2015-06-21 18:00:00 Fortino rial Jose Manuel Procedures Procedure Date / Time Performed Performing Clinician Sourc e Cholecystectomy 2002-07-12 00:00:00 [facility] Hernia<sup>1</sup> 1963-07-12 00:00:00 [facility] Manuel Hysterectomy 1962-07-12 00:00:00 [facility] Start End Encounter Admission Attending Care Care Encounter Source Date/Time Date/Time Type Type Clinicians Facility Department ID 2019-09-02 2019-09-02 Inpatient E [facility] MED [id number] [facility] 20:29:00 16:55:00 2019-08-30 2019-08-30 Outpatient [facility] [id number] eClinic 16:48:00 16:48:00 [facility] 2019-08-22 2019-08-22 Outpatient [facility] [id number] eClinic 18:28:00 18:28:00 [facility] jp[facility] , P.A[facility] 2019-06-22 2019-07-06 Outpatient John [facility] [id number] 18:20:00 15:13:00 Nopuja 46 [facility] 2019-06-22 2019-06-22 [id number] 18:25:00 18:25:00 2019-06-22 2019-06-22 Inpatient E [facility] [id number] [facility] 18:58:00 18:20:00 2016-05-14 2016-05-14 Outpatient Sebastian Thakur, [id number] eClinic 10:00:00 10:00:00 MD MD JAN Thakur 2016-03-09 2016-03-[address] [facility] [id number] 14:47:00 23:59:00 [facility] 04 2016-02-05 2016-02-05 Outpatient Sebastian Thakur, [id number] eClinic 15:00:00 15:00:00 MD MD JAN Thakur 2015-12-31 2015-12-31 Outpatient Sebastian Thakur, [id number] eClinic 09:37:00 09:37:00 MD MD JAN Thakur 2015-12-19 2015-12-19 Outpatient Sebastian Thakur, [id number] eClinic 13:30:00 13:30:00 MD MD JAN Thakur 2015-11-21 2015-11-21 Outpatient Sebastianjayjay Cortes Blaze, [id number] eClinic 09:01:00 09:01:00 MD MD JAN Thakur 2015-11-08 2015-11-08 Outpatient DAMIAN Jane [facility] [id number] 07:00:00 12:37:00 Jona 03 2015-11-06 2015-11-06 Outpatient Sebastian Sebastian Blaze, [id number] eClinic 15:15:00 15:15:00 MD MD JAN Thakur 2015-10-16 2015-10-16 Outpatient Sebastian Sebastian Blaze, [id number] eClinic 15:30:00 15:30:00 MD MD JAN Thakur 2015-10-09 2015-10-09 Outpatient Sebastian Sebastian Blaze, [id number] eClinic 14:15:00 14:15:00 MD MD JAN Thakru 2015-09-18 2015-09-18 Outpatient Sebastian Sebastian Blaze, [id number] eClinic 13:45:00 13:45:00 MD MD JAN Thakur 2015-08-12 2015-08-12 Outpatient Sebastian Sebastian Blaze, [id number] eClinic 09:15:00 09:15:00 MD MD JAN Thakur 2015-06-21 2015-06-21 Outpatient Sebastian Sebastian Blaze, [id number] eClinic 12:00:00 12:00:00 MD MD JAN Thakur 2015-05-08 2015-05-08 Outpatient Sebastian Sebastian Blaze, [id number] eClinic 19:30:00 19:30:00 MD MD JAN Thakur 2015-05-03 2015-05-03 Outpatient Sebastian Sebastian Blaze, [id number] eClinic 12:53:00 12:53:00 MD MD JAN Thakur Results Test Description Test Time Test Comments Results Result Comments Source CHEM PANEL 2019-07-06 1.9 [facility] nn 09:53:00 CHEM PANEL 2019-07-06 2.6 [facility] nn 09:53:00 [facility] 2019-07-06 12.7 [facility] Her [facility]th 09:53:00 [facility] 2019-07-06 86 [facility] 09:53:00 ELECTROLYTES 2019-07-06 21 [facility] Her [facility]th 09:53:00 ELECTROLYTES 2019-07-06 1.57 [facility] 09:53:00 ELECTROLYTES 2019-07-06 136 [facility] 09:53:00 ELECTROLYTES 2019-07-06 3.7 [facility] Her [facility]th 09:53:00 ELECTROLYTES 2019-07-06 103 [facility]th 09:53:00 ELECTROLYTES 2019-07-06 24 [facility] Her [facility]th 09:53:00 ELECTROLYTES 2019-07-06 9.2 [facility] Her barth 09:53:00 ELECTROLYTES 2019-07-06 30 [facility]th 09:53:00 HEMATOLOGY 2019-07-06 6.1 [facility] nn 09:53:00 HEMATOLOGY 2019-07-06 3.52 [facility] nn 09:53:00 HEMATOLOGY 2019-07-06 10.4 [facility] nn 09:53:00 HEMATOLOGY 2019-07-06 32.2 [facility] nn 09:53:00 HEMATOLOGY 2019-07-06 91.5 [facility] nn 09:53:00 HEMATOLOGY 2019-07-06 09:53:00 Test Item Value Reference Range Interpretation Comme nts MCH (test code = MCH) 29.6 pg 27.0-31.0 [facility] DsnmbrhROOWGJVRZR6536-88-16 09:53:0032.3[facility] 2019-07-06 09:53:0016.0[facility] IzjfnkhLZCFZAZLWY3683-41-60 09:53:37932Tumackdl MzyhymbQUQXSGZJTQ3722-33-44 09:53:0010.3[facility] HermannPARATHYROID PROFILE 2019-07-06 09:53:001.14[facility] HermannPARATHYROID VXZZOQN1538-68-57 09:53:00 1.16[facility] HermannCARDIAC MAQXGJS3975-48-81 08:38:000.04[facility] HermannCHEM MKAZW1553-32-21 09:44:76336Gqukgahh HermannCHEM RWKWY9190-40-85 09:44:0063 [facility]annCHEM RJFDO4148-38-17 09:44:001.74[facility]annCHEM PANEL 2019-07-04 09:44:65874Bfusgouo HermannCHEM MLDOH0792-72-69 09:44:003.8[facility] HermannCHEM IRIJG7869-29-90 09:44:99661Kykllamb HermannCHEM AHZOI7857-28-35 09:44:0031[facility]annCHEM QCETJ6727-59-22 09:44:009.2[facility]annCHEM JBVWT1518-17-01 09:44:0011.8[facility]annCHEM NCGDZ3996-25-06 09:44:0027 [facility]annCHE[facility] TBIZE1536-39-78 09:02:16408Xqleruyp HermannCHEM PANEL 2019-07-03 09:02:0067[facility] HermannCHEM EPEAZ9667-65-59 09:02:001.66[facility]annCHEM XNACX1710-41-25 09:02:53913Danxddtu HermannCHEM FBJTF8032-57-11 09:02:003.9[facility] HermannCHEM KIYOW2951-86-03 09:02:08622Qnnkodpr HermannCHEM OMRYY5595-56-98 09:02:0029[facility]annCHEM SVKPT1143-27-54 09:02:009.6 [facility]annCHE[facility] FJDKU7929-72-20 09:02:005.9[facility]annCHEM PANEL 2019-07-03 09:02:002.6[facility] HermannCHEM UHSOE4882-46-43 09:02:0011[facility]annCHEM BYSAC6647-21-78 09:02:0010[facility]annCHEM WLVHY7124-72-80 09:02:0057[facility]annCHEM YDWPM4271-73-73 09:02:000.3[facility]annCHEM VGQIA2050-63-82 09:02:0028[facility]annCHEM FLQWS6367-60-93 09:02:0012.9 [facility]annCHEM KOUYA6153-34-12 09:02:00 Test Item Value Reference Range Interpretation Comments B/C Ratio (test code = B/C Ratio) 40 1 6-25 [facility]annCHEM VGRVD6372-55-43 09:02:003.3[facility]annCHEM PANEL 2019-07-03 09:02:00 Test Item Value Reference Range Interpretation Comments A/G Ratio (test code = A/G Ratio) 0.8 1 0.7-1.6 [facility]annCHEM CCVXB6719-55-92 09:02:002.4[facility] HermannCHEM PANEL 2019-07-03 09:02:003.1[facility] HermannPARATHYROID LIUBKRT4926-62-89 09:02:001.21 [facility]annPARATHYROID KQFLVEL9564-99-01 09:02:001.22[facility] HermannCHEM OCEXL6416-58-98 22:38:002.5[facility] HermannCHEM USBFL3050-54-73 22:38:003.0 [facility] HermannPARATHYROID XILQKMR0429-39-84 22:38:001.23[facility] PARATHYROID JBMXRPI0495-59-23 22:38:001.21[facility] MhnfxgtVLPJFPENVW6398-27-15 16:19:0010.2[facility] WmgnplcQIJFSSTQMZ9298-67-92 16:19:003.57[facility] NKBPGESNBL9200-79-16 16:19:0010.4[facility] LzcipsuVQTKFKMSXP3383-26-60 16:19:00 32.9[facility] BkbjtzhSZGRJZQLDF4260-89-14 16:19:0092.0[facility] HermannHEMATOLOGY 2019-07-02 16:19:00 Test Item Value Reference Range Interpretation Comments MCH (test code = MCH) 29.0 pg 27.0-31.0 [facility] BolvipaGVVFNOJOWZ0861-21-69 16:19:0031.5[facility] HermannHEMATOLOGY 2019-07-02 16:19:0016.5[facility] NunhqwdHXGTLNVVIH6517-47-04 16:19:96066Thsycstb RmgwabtAEKBSNGCIM7644-57-09 16:19:009.4[facility] SssddgvMRGSUWWWYL9920-99-47 16:19:0074.5[facility] ZdhbuwxUPUSCJYLDO4966-79-23 16:19:0012.5[facility] FELHRVOWSC2978-93-80 16:19:0010.7[facility] YfyggbuQZYGRQAAWF1408-41-13 16:19:00 2.0[facility] FtmxjijINJGQMCAIT7984-42-98 16:19:000.3[facility] HermannHEMATOLOGY 2019-07-02 16:19:007.6[facility] FrfxqhqYKQOFLEVUT4014-19-30 16:19:001.3[facility] BslybnnJAGLCOYHRC4299-13-36 16:19:001.1[facility] SktuilpCOYNJPCIRN2430-38-21 16:19:000.2[facility] EjowcrrXJMRRXTFLF7407-68-25 11:20:0012.2[facility] FKQLOZOBQK3775-28-62 11:20:003.50[facility] RpwkybvKSAWFFVZSL8040-74-08 11:20:00 9.9[facility] NkpooncCSVASZAASN9285-15-16 11:20:0032.1[facility]annHEMATOLOGY 2019-07-01 11:20:0091.5[facility] OrghmsdOVFLKGFGPN5415-73-56 11:20:00 Test Item Value Reference Range Interpretation Comments MCH (test code = MCH) 28.3 pg 27.0-31.0 [facility] XghlobrMWFMBTBCOK6726-73-52 11:20:0030.9[facility] HermannHEMATOLOGY 2019-07-01 11:20:0016.5[facility] MygjgvzAJBCPZHHWV0114-98-64 11:20:91614Olztmghi MirlqbuQWRJJMUCNZ5418-49-61 11:20:009.5[facility] LdlnctfGAONXUKWFE7610-97-93 11:20:0076.4[facility] BlprmkdDMPYTEOEOW2824-53-54 11:20:0010.0[facility] BCWGMHDJMX5701-28-51 11:20:0013.4[facility] AuqvmkjYKTDEPUWKC7620-12-66 11:20:00 0.2[facility] YeypgvbJAHASNNJNO1411-00-90 11:20:009.3[facility] HermannHEMATOLOGY 2019-07-01 11:20:001.2[facility] MtksoqyBILXBYUPMJ2843-58-31 11:20:001.6[facility] HermannCARDIAC VAYDHLL6668-44-88 07:23:31414Hgzerqmp HermannCHEM RUNBO2333-50-58 07:23:001.1[facility] HermannCHEM PHUFL2449-46-86 07:23:000.14[facility] XUUDDXLZVL3080-60-82 07:23:0083.8[facility] LrrmoquXECPZQPIXX0633-27-48 07:23:00 6.9[facility] GlnajrzSRRJQETCHE0815-01-38 07:23:009.0[facility] HermannHEMATOLOGY 2019-06-30 07:23:000.3[facility] GijhyqbHTMMROVKYV6565-92-90 07:23:0010.9[facility] GbdeolhYVGWBJUUJF2247-12-14 07:23:000.9[facility] BtxylhmWEGTHZNYPZ9528-55-95 07:23:001.2[facility] HermannCARDIAC RTHAODM4956-62-94 08:17:43420Pxwkewdc Challenge CHEM MWXDX7609-19-83 08:17:00 Test Item Value Reference Range Interpretation Comments B/C Ratio (test code = B/C Ratio) 29 1 6- [facility] HermannCHEM BZVBN8627-45-15 08:17:003.8[facility] HermannCHEM PANEL 2019-06-28 08:17:00 Test Item Value Reference Range Interpretation Comments A/G Ratio (test code = A/G Ratio) 0.7 1 0.7-1.6 [facility]annCHEM UQTJJ9256-30-28 08:17:006.6[facility] HermannCHEM PANEL 2019-06-28 08:17:002.8[facility] HermannCHEM EDWKC8720-11-52 08:17:0014[facility] HermannCHEM NIFZJ9094-75-22 08:17:0014[facility] HermannCHEM WBBDQ0197-01-74 08:17:0071[facility] HermannCHEM GDFBM2755-61-19 08:17:000.4[facility] HermannCHEM OGDJT4327-52-95 06:38:00 Test Item Value Reference Range Interpretation Comments B/C Ratio (test code = B/C Ratio) 25 1 6-25 [facility]annCHEM VRIAP6308-33-53 06:38:006.1[facility] HermannCHEM PANEL 2019-06-26 06:38:002.6[facility] HermannCHEM CSTUV1794-66-69 06:38:003.5[facility] HermannCHEM UYJPW9880-99-68 06:38:00 Test Item Value Reference Range Interpretation Comments A/G Ratio (test code = A/G Ratio) 0.7 1 0.7-1.6 [facility]annCHEM LGDCL6738-83-08 06:38:0010[facility] HermannCHEM PANEL 2019-06-26 06:38:0012[facility] HermannCHEM DKHEK4889-38-10 06:38:0063[facility] HermannCHEM PSHNJ1590-88-56 06:38:000.2[facility] WdfdodhXAUKKKUYIG6674-14-06 06:38:002.2[facility] KejpquyTDEFFPUZHT7994-38-75 06:38:000.2[facility] FMFONWRNCU7396-88-84 06:38:000.1[facility] HermannCHEM YRZMY1457-09-34 09:59:00 0.11[facility] YamajxnDJTBMYZLGS5923-94-23 09:59:002.0[facility] HermannHEMATOLOGY 2019-06-25 09:59:000.2[facility] GtuvdapDWEJWZTBYZ1267-38-62 09:59:000.1[facility] HermannCARDIAC OPUDJLD4158-45-27 09:08:682820Syqufsvc HermannCHEM PANEL 2019-06-24 09:08:00<0.1[facility]annURINE AND SXDSL4875-35-66 03:23:00 Yellow *NA*(06/22/19 9:23 PM)[facility] NSODN3346-67-63 03:23:00 Clear (06/22/19 9:23 PM)[facility] HPFIX7111-51-40 03:23:00 Test Item Value Reference Range Interpretation Comments UA Spec Grav (test code = UA Spec 1.050 1 Grav) [facility] AND LLKYH0383-55-75 03:23:00 Test Item Value Reference Range Interpretation Comments UA pH (test code = UA pH) 5.0 1 5.0-8.0 [facility] HXLDD9051-33-80 03:23:00Negative (06/22/19 9:23 PM) [facility] OJCNE0733-08-17 03:23:00Negative *NA*(06/22/19 9:23 PM)[facility] TACGY5322-66-26 03:23:00Negative *NA*(06/22/19 9:23 PM)[facility] XQTYR6339-62-86 03:23:00Negative *NA*(06/22/19 9:23 PM)[facility] ERGQC5460-55-73 03:23:00Negative (06/22/19 9:23 PM)[facility] VLTXD3586-29-31 03:23:00<1.0[facility] AND OMNFV4401-49-36 03:23:00Negative (06/22/19 9:23 PM)[facility] EQJBZ5568-47-48 03:23:00Negative (06/22/19 9:23 PM)[facility] XJSSV9285-91-36 03:23:001[facility] STOOL 2019-06-23 03:23:001[facility] AvguqyyNBPHHY8140-11-29 01:03:00 Test Item Value Reference Range Interpretation Comments CHD Risk (test code = CHD Risk) 3.46 1 3.90-5.80 [facility] XjuotrqHWRDDB1517-51-42 01:03:22201Gifujlco YpnshzqOUGEWV5224-37-16 01:03:25479Hvuirzbr KvueqenSGFVCD7568-16-40 01:03:0041[facility] HermannLIPIDS 2019-06-23 01:03:0073[facility] TeempaaDFNHIT0958-57-85 01:03:00 Test Item Value Reference Range Interpretation Comments VLDL (test code = VLDL) 28 1 [facility] HermannSPECIAL VJKIGOGOO3304-03-29 01:03:006.7[facility] WHFQUNYEVT0859-89-21 00:52:00 Test Item Value Reference Range Interpretation Comments PTT (test code = PTT) 22.2 s 22.9-35.8 [facility] FyxhqbkIDKSXJIJCH4599-95-75 00:52:00 Test Item Value Reference Range Interpretation Comments INR (test code = INR) 1.09 1 0.85-1.[address] [facility] VfbqbqfVASVEHCKIY2405-82-36 00:52:00 Test Item Value Reference Range Interpretation Comments PT (test code = PT) 13.9 s 12.0-14.[address] [facility] ViqfltmRHHNTEQLLN2712-13-42 00:52:00See Note 4(06/22/19 6:52 PM) [facility] WzpvmdrJZAFOXAGZL4741-26-98 00:52:00Normal (06/22/19 6:52 PM)[facility] BtfuvprXVJYMSKDFY9405-09-98 00:52:000.1[facility] OuoprtnDIZQEDDBGL9927-65-98 00:52:001+ *ABN*(06/22/19 6:52 PM)[facility] CjmpbamYLPYVLCDEYYY3903-31-85 21:51:0010.9[facility] WslqkzkMVAXKMEOQYSF2189-75-71 21:51:0040[facility] BZHIRBSTCAEQ5106-82-25 21:51:001.26[facility] IqusqocUOAUBPRUCQMC6142-10-18 21:51:0025[facility] RdtxnrmSDAFTDZHMWCC0634-16-04 21:51:12610Dsxurqvq Jose Manuel LZHOAOFAWMKH7549-88-12 21:51:37218Rsfxfpuh OnakcqePVNNIZMDZPAF8100-15-53 21:51:004.9[facility] KonuyslIXTOSXRXDMZK9932-76-20 21:51:0030[facility] KKGZGBFJSMDJ7971-36-01 21:51:49176Syiozofn TgguxtsDPYJNJFRPFHG3501-55-76 21:51:009.5[facility] FfyhradLAJYHYCBMP3240-53-71 21:51:0091.2[facility] SPDILSXNCI9790-43-51 21:51:00 Test Item Value Reference Range Interpretation Comments MCH (test code = MCH) 28.8 pg 27.0-31.0 [facility] ReaxuoiUSYTFZAGYL1009-58-26 21:51:009.0[facility] HermannHEMATOLOGY 2015-11-05 21:51:0011.4[facility] IxyvksjOKBCJNVFBR8459-37-11 21:51:0036.2[facility] JavkfxjGAVICQPBMW7957-55-31 21:51:003.97[facility] PlbrsblIALZNYAEQI7152-54-78 21:51:008.5[facility] ZpqwqmrBHQKXDYHOD7020-86-30 21:51:0015.0[facility] OPKCIBKWOO0242-74-55 21:51:53480Slxoodqw OysfhxwBLKAJNWYGY7691-16-07 21:51:00 31.6[facility] AkcjobzAJXHCYEOMS8698-36-59 21:51:001.0[facility]OLOGY 2015-11-05 21:51:000.1[facility] CrxuhehKYVUWCQCND3232-99-88 21:51:002.1[facility] SrnhtedBZOUCPXSHL0084-41-24 21:51:000.1[facility] IdtlfztWTANAIXSQU0655-26-48 21:51:005.8[facility] YgrdeniKMVGISHPSF8009-49-99 21:51:001.3[facility] VWIIREBRYF8590-63-16 21:51:000.6[facility] OcrlivqPZGNIHDUAK4705-44-48 21:51:00 10.9[facility] MsvjdzcCMAXEUKQBC8791-33-67 21:51:0022.8[facility]ann[facility]MATOLOGY 2015-11-05 21:51:0064.4[facility] AsgcwpdKSMBOSCWSN6301-31-47 21:51:000.93[facility] MqjbnvaNMFKIQZXSY1829-02-71 21:51:00 Test Item Value Reference Range Interpretation Comments PT (test code = PT) 12.8 s 12.0-14.7 [facility] CvrgjdgAASFODMYPK6721-01-00 21:51:00 Test Item Value Reference Range Interpretation Comments PTT (test code = PTT) 27.8 s 22.9-35.8 [facility] XRAY DEXA BONE DENSITYCLINICAL INDICATION: Post MenopausalMODALITY: [employer] DPXTECHNIQUE: Bone bone mineral density was performed. Images of the spine and left hip were accomplished.COMPARISON STUDY: 12/27/2014FINDINGS: Average bone mineral density of the L1 and L4 is 0.9 gms/cm.sq. this is consistent with young adult T-score of -1.6 and age-matched Z score of -0.2.The BMD at the femoral neck is 0.7 gms/cm.sq. this is consistent with young adult T-score of -2.0 and the age-matched Z score of -0.4. IMPRESSION: WHO diagnostic category is osteopenia for lumbar spine and osteopenia worsening by negative 3% since 1015 for femoral neck.Recommendation: Follow-up in 2 years.
--- NOTE | 2020-01-11 10:55 | ER ---
Nurse's Notes [facility] Name: Alisa Babcock Age: 84 yrs Sex: Female : 1935 Arrival Date: 01/11/2020 Time: 09:12 Bed 3 Private MD: Diagnosis: Shortness of breath;Pneumonia, unspecified organism;Congestive Heart Failure;Hyperkalemia Presentation: 01/10 09:15 Chief complaint: EMS states: SENT FROM [place] FOR INCREASING DYSPNEA. Coronavirus bp screen: Surgical mask placed on patient. Patient moved to private room, placed in contact and droplet isolation with eye protection until further assessment. Patient reports a cough. Patient reports shortness of breath or difficulty breathing. Ebola Screen: No symptoms or risks identified at this time. Initial Sepsis Screen: Does the patient meet any 2 criteria? RR > 20 per min. HR > 90 bpm. Yes Does the patient have a suspected source of infection? Yes: Productive cough/pneumonia. Risk Assessment: Do you want to hurt yourself or someone else? Patient reports no desire to harm self or others. Onset of symptoms is unknown. Care prior to arrival: Medication(s) given: Albuterol Neb x 1, Atrovent Neb x 1, Oxygen administered. via a non-rebreather mask. 09:15 Method Of Arrival: EMS: [facility] bp 09:15 Acuity: REJI 2 bp 09:15 Note SEPSIS PROTOCOL DEFERRED BY MD, MODIFIED PROTOCOL TO BE ORDERED. bp Triage Assessment: 09:15 General: Appears distressed, uncomfortable, unkempt, Behavior is OBTUNDED. Pain: Unable bp to use pain scale. Patient is disoriented. EENT: No deficits noted. Neuro: Level of Consciousness is obtunded. Cardiovascular: Rhythm is sinus tachycardia. Respiratory: Airway is patent Respiratory effort is shallow, Respiratory pattern is tachypnea. GI: PEG tube in place, clamped. : No signs and/or symptoms were reported regarding the genitourinary system. Derm: Decubitus located on sacrum approximately 2.6 cm to 7.5 cm is stage I. Musculoskeletal: Range of motion: intact in all extremities. Historical: - Allergies: 09:56 No Known Allergies; bp - PMHx: 09:56 Anemia; Blind in right eye; CAD; cerebral infarction effecting left side; CHF; Diabetes bp - NIDDM; ESRD; Hypertension; Rheumatoid Arthritis; - Immunization history:: Adult Immunizations unknown. - Social history:: Smoking status: Patient denies any tobacco usage or history of. Screenin:12 Abuse screen: Denies threats or abuse. Denies injuries from another. Nutritional bp screening: No deficits noted. Tuberculosis screening: No symptoms or risk factors identified. Fall Risk None identified. Assessment: 09:12 General: SEE TRIAGE NOTE. PER EMS, PT IS DNR, BUT [facility] UNABLE TO PRODUCE PAPERWORK. bp 09:22 Reassessment: Spoke with Igor Babcock (son) who states she is a DNR. Dr Nuñez heard sv that she is a DNR as well. 10:21 Reassessment: Received lab alert for K+ 5.9, AST 471, and slight hemolysis. YEE Hogan rb1 notified. 12:10 Reassessment: ALL CURRENT ORDERS IN PROCESS. PT REMAINS TACHYPNEIC, NEURO STATUS AT bp BASELINE. 13:31 Reassessment: REPORT TO TERESITA FRAIRE. PT MARIA R WITH PCT. bp Vital Signs: 09:15 BP 95 / 66; Pulse 100; Resp 47; Temp 97.3; Pulse Ox 89% on R/A; Weight 68.04 kg; bp 10:00 BP 91 / 71; Pulse 99; Resp 45; Pulse Ox 92% on 15% Nebulizer Mask; bp 11:00 BP 86 / 45; Pulse 95; Resp 41; Pulse Ox 91% on 15% Nebulizer Mask; bp 12:00 BP 111 / ???; Pulse 58; Resp 31; Pulse Ox 96% on 15% Non-rebreather mask; bp 12:53 BP 123 / 39; Pulse 97; Resp 40; Pulse Ox 96% ; rb1 13:31 BP 102 / 59; Pulse 91; Resp 41; Pulse Ox 96% ; bp ED Course: 09:12 Patient arrived in ED. bp 09:12 Arm band placed on. bp 09:12 Patient has correct armband on for positive identification. Bed in low position. Call bp light in reach. Side rails up X2. 09:19 Maxime Nuñez MD is Attending Physician. kdr 09:29 Chest Single View XRAY In Process Unspecified. EDMS 09:30 Inserted saline lock: 20 gauge in right antecubital area, using aseptic technique. bp Blood collected. 09:45 Straight cath inserted, using sterile technique, 16 Fr. Specimen obtained. Returned bp cloudy urine. Patient tolerated well. 09:52 Edison Fisher, RN is Primary Nurse. bp 09:55 Triage completed. bp 10:01 Amylase, Serum Sent. bp 10:01 Basic Metabolic Panel Sent. bp 10:12 Notified ED physician of a critical lab result(s). 3.6 lactate. sv 10:53 Christophe Phan DO is Hospitalizing Provider. kdr 13:12 lactate sepsis drawn by ms and sent to lab. dh3 13:34 No provider procedures requiring assistance completed. Patient admitted, IV remains in bp place. Administered Medications: 10:00 Drug: Rocephin - (cefTRIAXone) 1 grams Route: IVPB; Infused Over: 30 mins; Site: right bp antecubital; 12:06 Follow up: IV Status: Completed infusion; IV Intake: 20ml bp 11:15 Drug: Calcium Gluconate 1 grams Route: IVPB; Infused Over: 60 mins; Site: right bp antecubital; 12:05 Follow up: IV Status: Completed infusion; IV Intake: 50ml bp 11:15 Drug: Insulin Regular Human 5 units {Co-Signature: rb1 (Skyla Ellis RN).} Route: bp IVP; Site: right antecubital; 12:06 Follow up: Response: No adverse reaction bp 11:15 Drug: D50W 25 ml Route: IVP; Site: right antecubital; bp 12:06 Follow up: Response: No adverse reaction bp 11:30 Drug: vancoMYCIN 1 grams Route: IVPB; Infused Over: 2 hrs; Site: right antecubital; bp 13:35 Follow up: IV Status: Completed infusion; IV Intake: 250ml bp Intake: 12:05 IV: 50ml; Total: 50ml. bp 12:06 IV: 20ml; Total: 70ml. bp 13:35 IV: 250ml; Total: 320ml. bp Outcome: 10:55 Decision to Hospitalize by Provider. kdr 13:34 Admitted to Med/surg accompanied by tech, via stretcher, room 231, with chart, Report bp called to TERESITA FRAIRE 13:34 Condition: stable 13:34 Instructed on the need for admit. 13:52 Patient left the ED. sv Signatures: Dispatcher [facility] Consuelo Ulrich RN RN sv Maxime Nuñez MD MD [facility] Skyla Ellis RN RN rb1 Julita Jang replaced by [facility] Edison Fisher RN RN bp Skyla Ellis RN rb1 Corrections: (The following items were deleted from the chart) 10:15 09:15 BP 95 / 66; Pulse 100bpm; Resp 47bpm; Pulse Ox 89% RA; Temp 97.3F; bp bp
--- NOTE | 2020-01-11 10:56 | EDPHYS ---
Physician Documentation [facility] Name: Alisa Babcock Age: 84 yrs Sex: Female : 1935 Arrival Date: 01/11/2020 Time: 09:12 Bed 3 Private MD: ED Physician Maxime Nuñez HPI: 01/10 12:04 This 84 yrs old Unknown Female presents to ER via EMS with complaints of Shortness Of kdr Breath, +pneumonia. 12:04 The patient has shortness of breath at rest, with light activity. Onset: The kdr symptoms/episode began/occurred just prior to arrival. Duration: The symptoms are continuous. The patient's shortness of breath has no apparent modifying factors. Associated signs and symptoms: Pertinent negatives: Decreased mentation. Severity of symptoms: At their worst the symptoms were moderate incapacitating just prior to arrival, in the emergency department the symptoms have improved mildly. It is unknown whether or not the patient has had similar symptoms in the past. The patient has been recently been admitted at [facility]. The patient may have been being fed when she became SOB. There appears to be residual food around her mouth. When EMS arrived her sat was in the low 80's on room air. They gave her nebs and oxygen and she improved somewhat. On arrival in the ED, the patient appeared poorly responsive except to mildly vigorous stimulation. She was otherwise stable on oxygen. Historical: - Allergies: 09:56 No Known Allergies; bp - PMHx: 09:56 Anemia; Blind in right eye; CAD; cerebral infarction effecting left side; CHF; Diabetes bp - NIDDM; ESRD; Hypertension; Rheumatoid Arthritis; - Immunization history:: Adult Immunizations unknown. - Social history:: Smoking status: Patient denies any tobacco usage or history of. ROS: 12:16 Constitutional: Unobtainable from patient kdr Exam: 09:29 ECG was reviewed by the Attending Physician. kdr 18:10 Constitutional: This is a well developed, well nourished patient who is somnolent and kdr poorly arousable in NAD Head/Face: Normocephalic, atraumatic. Eyes: Pupils equal round and reactive to light, extra-ocular motions intact. Lids and lashes normal. Conjunctiva and sclera are non-icteric and not injected. Cornea within normal limits. Periorbital areas with no swelling, redness, or edema. Neck: Trachea midline, no thyromegaly or masses palpated, and no cervical lymphadenopathy. Supple, full range of motion without nuchal rigidity, or vertebral point tenderness. No Meningismus. Chest/axilla: Normal chest wall appearance and motion. Nontender with no deformity. No lesions are appreciated. Respiratory: Lungs have equal breath sounds bilaterally, clear to auscultation and percussion. No rales, rhonchi or wheezes noted. No increased work of breathing, no retractions or nasal flaring. Abdomen/GI: Soft, non-tender, with normal bowel sounds. No distension or tympany. No guarding or rebound. No evidence of tenderness throughout. Back: No spinal tenderness. No costovertebral tenderness. Full range of motion. Skin: Warm, dry with normal turgor. Normal color with no rashes, no lesions, and no evidence of cellulitis. MS/ Extremity: Pulses equal, no cyanosis. Neurovascular intact. Full, normal range of motion. Psych: Awake, alert, with orientation to person, place and time. Behavior, mood, and affect are within normal limits. 18:11 Neuro: Orientation: unable to test. kdr Vital Signs: 09:15 BP 95 / 66; Pulse 100; Resp 47; Temp 97.3; Pulse Ox 89% on R/A; Weight 68.04 kg; bp 10:00 BP 91 / 71; Pulse 99; Resp 45; Pulse Ox 92% on 15% Nebulizer Mask; bp 11:00 BP 86 / 45; Pulse 95; Resp 41; Pulse Ox 91% on 15% Nebulizer Mask; bp 12:00 BP 111 / ???; Pulse 58; Resp 31; Pulse Ox 96% on 15% Non-rebreather mask; bp 12:53 BP 123 / 39; Pulse 97; Resp 40; Pulse Ox 96% ; rb1 13:31 BP 102 / 59; Pulse 91; Resp 41; Pulse Ox 96% ; bp MDM: 10:50 Data reviewed: vital signs, nurses notes. ED course: Since the patient is DNR, fluid kdr bolus was withheld as aggressive fluids resuscitation, while decreasing mortality would increase likelihood of need for intubation. 10:55 Patient medically screened. kdr 01/10 09:21 Order name: Amylase, Serum kdr 01/10 09:21 Order name: Basic Metabolic Panel kdr 07/02 09:21 Order name: Blood Culture Adult (2) kdr 01/10 09:21 Order name: CBC with Diff kdr 01/10 09:21 Order name: Ckmb; Complete Time: 10:36 kdr 01/10 09:21 Order name: CPK; Complete Time: 10:36 kdr 01/10 09:21 Order name: Lactate; Complete Time: 10:36 kdr 01/10 09:21 Order name: LFT's; Complete Time: 10:36 kdr 01/10 09:21 Order name: Lipase; Complete Time: 10:36 kdr 01/10 09:21 Order name: Procalcitonin; Complete Time: 10:36 kdr 01/10 09:21 Order name: Protime (+inr); Complete Time: 10:36 kdr 01/10 09:21 Order name: Ptt, Activated; Complete Time: 10:36 kdr 01/10 09:21 Order name: Troponin (emerg Dept Use Only); Complete Time: 10:36 kdr 01/10 09:21 Order name: Urine Microscopic Only; Complete Time: 10:36 kdr 01/10 09:21 Order name: Chest Single View XRAY; Complete Time: 10:08 kdr 01/10 09:21 Order name: Accucheck; Complete Time: 10:01 kdr 01/10 09:21 Order name: Cardiac monitoring; Complete Time: 10:01 kdr 01/10 09:22 Order name: Amylase; Complete Time: 10:36 EDMS 01/10 09:22 Order name: Basic Metabolic Panel; Complete Time: 10:36 EDMS 01/10 09:33 Order name: COVID-19 dh3 01/10 09:48 Order name: Glucose, Ancillary Testing; Complete Time: 10:08 EDMS 01/10 09:51 Order name: Urine Dipstick--Ancillary (enter results) wa 01/10 10:33 Order name: Urine Culture EDMS 01/10 11:03 Order name: Manual Differential EDIA 01/10 13:48 Order name: Lactate Sepsis 2 HR Follow-up EDMS 01/10 09:21 Order name: EKG - Nurse/Tech; Complete Time: 09:33 kdr 01/10 09:21 Order name: IV Saline Lock - Large Bore; Complete Time: 10:01 kdr 01/10 09:21 Order name: Labs collected and sent; Complete Time: 10: kdr 01/10 09:21 Order name: O2 Per Protocol; Complete Time: : kdr 01/10 09:21 Order name: O2 Sat Monitoring; Complete Time: kdr 01/10 09:21 Order name: Urine Dipstick-Ancillary (obtain specimen); Complete Time: : kdr EC:29 Rate is 100 beats/min. Rhythm is irregular, Sinus arrythmia with Right bundle branch kdr block. QRS [place] is Normal. HI interval is normal. Clinical impression: Abnormal EKG without significant change. Administered Medications: 10:00 Drug: Rocephin - (cefTRIAXone) 1 grams Route: IVPB; Infused Over: 30 mins; Site: right bp antecubital; 12:06 Follow up: IV Status: Completed infusion; IV Intake: 20ml bp 11:15 Drug: Calcium Gluconate 1 grams Route: IVPB; Infused Over: 60 mins; Site: right bp antecubital; 12:05 Follow up: IV Status: Completed infusion; IV Intake: 50ml bp 11:15 Drug: Insulin Regular Human 5 units {Co-Signature: rb1 (Skyla Ellis RN).} Route: bp IVP; Site: right antecubital; 12:06 Follow up: Response: No adverse reaction bp 11:15 Drug: D50W 25 ml Route: IVP; Site: right antecubital; bp 12:06 Follow up: Response: No adverse reaction bp 11:30 Drug: vancoMYCIN 1 grams Route: IVPB; Infused Over: 2 hrs; Site: right antecubital; bp 13:35 Follow up: IV Status: Completed infusion; IV Intake: 250ml bp Disposition: 01/11/20 10:55 Hospitalization ordered by Christophe Phan for Inpatient Admission. Preliminary diagnosis are Shortness of breath, Pneumonia, unspecified organism, Congestive Heart Failure, Hyperkalemia. - Bed requested for Telemetry/MedSurg (Inpatient). - Status is Inpatient Admission. sv - Condition is Fair. - Problem is new. - Symptoms have improved. Signatures: Dispatcher [employer] Consuelo Ulrich RN RN sv Rittger, Kevin, MD MD kdr Thompson, Moriah mt Peltier, Brian, RN RN bp Skyla Ellis RN rb1 Corrections: (The following items were deleted from the chart) 12:53 10:55 Hospitalization Ordered by Christophe Phan DO for Inpatient Admission. Preliminary mt diagnosis is Shortness of breath; Pneumonia, unspecified organism; Congestive Heart Failure; Hyperkalemia. Bed requested for Telemetry/MedSurg (Inpatient). Status is Inpatient Admission. Condition is Fair. Problem is new. Symptoms have improved. kdr 13:52 12:53 01/11/2020 10:55 Hospitalization Ordered by Christophe Phan DO for Inpatient sv Admission. Preliminary diagnosis is Shortness of breath; Pneumonia, unspecified organism; Congestive Heart Failure; Hyperkalemia. Bed requested for Telemetry/MedSurg (Inpatient). Status is Inpatient Admission. Condition is Fair. Problem is new. Symptoms have improved. mt 18:16 18:10 Constitutional: This is a well developed, well nourished patient who is awake, kdr alert, and in no acute distress. Head/Face: Normocephalic, atraumatic. Eyes: Pupils equal round and reactive to light, extra-ocular motions intact. Lids and lashes normal. Conjunctiva and sclera are non-icteric and not injected. Cornea within normal limits. Periorbital areas with no swelling, redness, or edema. Neck: Trachea midline, no thyromegaly or masses palpated, and no cervical lymphadenopathy. Supple, full range of motion without nuchal rigidity, or vertebral point tenderness. No Meningismus. Chest/axilla: Normal chest wall appearance and motion. Nontender with no deformity. No lesions are appreciated. Respiratory: Lungs have equal breath sounds bilaterally, clear to auscultation and percussion. No rales, rhonchi or wheezes noted. No increased work of breathing, no retractions or nasal flaring. Abdomen/GI: Soft, non-tender, with normal bowel sounds. No distension or tympany. No guarding or rebound. No evidence of tenderness throughout. Back: No spinal tenderness. No costovertebral tenderness. Full range of motion. Skin: Warm, dry with normal turgor. Normal color with no rashes, no lesions, and no evidence of cellulitis. MS/ Extremity: Pulses equal, no cyanosis. Neurovascular intact. Full, normal range of motion. Neuro: Awake and alert, GCS 15, oriented to person, place, time, and situation. Cranial nerves II-XII grossly intact. Motor strength 5/5 in all extremities. Sensory grossly intact. Cerebellar exam normal. Normal gait. Psych: Awake, alert, with orientation to person, place and time. Behavior, mood, and affect are within normal limits. kdr
[2020-01-11 11:03] LABS: Blood Morphology Comment NOT SEEN (NOT SEEN); Platelet Estimate ADEQ
[2020-01-11] MEDS ORDERED: VANCOMYCIN/NS 1 gm 1 GM/250 ML BAG IV ONE (11:15)
[2020-01-11] MEDS ORDERED: CALCIUM GLUCONATE 1gm/100 ML NS (4.65 mEq/100mL) IV ONE ×2 (11:15)
[2020-01-11] MEDS ORDERED: INSULIN -REGULAR HUMAN 50 UNIT/0.5 ML ML ONE (11:35)
[2020-01-11] MEDS ORDERED: D50W 25 GM/50 ML SYRINGE/VIAL IV ONE (11:35)
[2020-01-11] MEDS ORDERED: IPRATROPIUM BROM 0.5MG/2.5ML NEB PRN (13:35)
[2020-01-11] MEDS ORDERED: ACETAMINOPHEN 650MG/RECT SUPP PR PRN (13:35)
[2020-01-11] MEDS ORDERED: ACETAMINOPHEN 500 MG TAB FT PRN (13:35)
[2020-01-11] MEDS ORDERED: ONDANSETRON 4 MG/2 ML VIAL IV PRN (13:35)
[2020-01-11] MEDS ORDERED: ALBUTEROL 2.5 MG/3 ML NEB SOL NEB PRN (13:35)
--- NOTE | 2020-01-11 13:49 | P.HP ---
Certification for Inpatient Patient admitted to: Inpatient With expected LOS: >2 Midnights Patient will require the following post-hospital care: Other ([facility]) Practitioner: I am a practitioner with admitting privileges, knowledge of patient current condition, hospital course, and medical plan of care. Services: Services provided to patient in accordance with Admission requirements found in Title 42 Section 412.3 of the Code of Federal Regulations <Jamey Rich - Last Filed: 01/11/20 13:42> Patient History Date of Service: 01/11/20 Reason for admission: Aspiration pneumonia/hyperkalemia History of Present Illness: 84-year-old female with a past medical history of CVA, CAD, type 2 diabetes, essential hypertension, chronic respiratory failure, acute on chronic kidney disease brought to the emergency room with complaints of shortness of breath. Patient is a long-term resident. In the emergency room patient was noted to have room air saturations of 83% which improved to 90 to 90-92% on Venti mask. She was also noted to have elevated troponins at 0.39. Patient denies cardiac symptoms, is not diaphoretic. Potassium was elevated to 5.9 and chest x-ray shows likely aspiration pneumonia due to the patient's history of PEG tube feedings. Patient also has a difficult time with verbal communication due to her CVA. Home medications list reviewed: No - Past Medical/Surgical History Diabetic: Yes -: CVA -: Diabetes mellitus type 2 -: Hyperlipidemia -: PEG tube -: Chronic respiratory failure -: Sacral decubitus ulcer -: Ulcerative colitis -: Anemia -: Peripheral neuropathy -: Glaucoma -: Hypertension -: Coronary Artery disease -: PEG tube Psychosocial/ Personal History: Snf - Family History Family History: Reviewed- Non-Contributory - Social History Smoking Status: Unknown if ever smoked Alcohol use: No CD- Drugs: No Caffeine use: No Place of Residence: Snf <Jamey Rich - Last Filed: 01/11/20 13:42> Date of Service: 01/11/20 <Christophe Phan - Last Filed: 01/11/20 18:42> Allergies No Known Allergies Allergy (Verified 11/22/19 23:03) Home Medications: Acetaminophen 500 mg PO TID PRN 01/11/20 Albuterol Sulfate [Albuterol Sulfate 0.083% Neb Soln] 3 ml IH O6IPACT PRN 01/11/20 Allopurinol 100 mg PO BID 01/11/20 Arformoterol Tartrate [Brovana] 1 unit IH BID 01/11/20 Ascorbic Acid 500 mg PO BID 01/11/20 Aspirin [Aspirin EC 81 MG] 81 mg PO DAILY 01/11/20 Azithromycin Tab [Zithromax*] 250 mg PO DAILY 01/11/20 Carboxymethylcellulose Sodium [Artificial Tears] 2 drops OP QID 01/11/20 Clopidogrel Bisulfate [Plavix] 75 mg PO DAILY 01/11/20 Ferrous Sulfate 220 mg PO DAILY 01/11/20 Gabapentin 250 mg PO BID 01/11/20 Glipizide [Glipizide ER] 5 mg PO BID 01/11/20 Guaifenesin/Codeine Phosphate [Guaiatussin AC Liquid] 10 ml PO Q6HP PRN 01/11/20 Leflunomide 20 mg PO BEDTIME 01/11/20 Linagliptin [Tradjenta] 1 tab PO DAILY 01/11/20 Metoprolol Tartrate 25 mg PO BID 6AM 6PM 01/11/20 Pantoprazole Sodium [Protonix] 40 mg PO DAILY 01/11/20 Pravastatin Sodium [Pravachol] 40 mg PO BEDTIME 01/11/20 Tramadol HCl [Ultram] 50 mg PO Q6HP PRN 01/11/20 sulfaSALAzine [Sulfasalazine] 2 tab PO BID 01/11/20 Review of Systems is unable to be obtained <Jamey Rich - Last Filed: 01/11/20 13:42> Physical Examination - Physical Exam General: In no apparent distress, Oriented x1 HEENT: PERRLA, Other (Left eye ptosis) Neck: Supple, Other (trachea midline) Respiratory: Diminished, Rhonchi/gurgles Cardiovascular: No edema, Normal pulses, Regular rate/rhythm Capillary refill: <2 Seconds Gastrointestinal: Soft and benign, Non-distended Musculoskeletal: No swelling, No warmth Integumentary: No rashes, No tenderness/swelling Neurological: Other (left sided weakness, left eye ptosis), Abnormal speech (difficulty with verbal communication), Abnormal cranial nerve function Lymphatics: No axilla or inguinal lymphadenopathy - Studies Laboratory Data (last 24 hrs) 01/11/20 09:35: PT 15.0 H, INR 1.28, APTT 35.7 01/11/20 09:35: WBC 10.2 D, Hgb 11.3 L, Hct 35.7 L, Plt Count 350 01/11/20 09:35: Sodium 135 L, Potassium 5.9 H*, BUN 50 H, Creatinine 1.44 H, Glucose 219 H, Total Bilirubin 0.6, AST 471 H* D, ALT 196 H D, Alkaline Phosphatase 250 H D, Amylase 105, Lipase 107 <Jamey Rich - Last Filed: 01/11/20 13:42> - Studies Laboratory Data (last 24 hrs) 01/11/20 09:35: PT 15.0 H, INR 1.28, APTT 35.7 01/11/20 09:35: WBC 10.2 D, Hgb 11.3 L, Hct 35.7 L, Plt Count 350 01/11/20 09:35: Sodium 135 L, Potassium 5.9 H*, BUN 50 H, Creatinine 1.44 H, Glucose 219 H, Total Bilirubin 0.6, AST 471 H* D, ALT 196 H D, Alkaline Phosphatase 250 H D, Amylase 105, Lipase 107 <Christophe Phan - Last Filed: 01/11/20 18:42> Assessment and Plan - Plan Impression: Shortness of breath secondary to suspected recurrent aspiration pneumonia Hyperkalemia Elevated cardiac enzymes likely ischemic demand History of chronic respiratory failure. Type 2 diabetes mellitus Peg tube feeds Acute on chronic renal failure stage 3 History of CVA affecting left side Essential hypertension Plan: Shortness of breath secondary acute on chronic respiratory failure with hypoxia secondary to suspected recurrent aspiration pneumonia: patient will be admitted for further evaluation and treatment. Will start IV Zosyn to cover for aspiration pneumonia. Maintain oxygen above 90%. Respiratory will be consulted to help with this. Will provide nebs as needed. Will consult pulmonology for further recommendation. We need to monitor and evaluate for possible dysphagia. Patient with PEG tube. Will discuss with family about plan of care. Due to multiple hospitalizations would need to consider hospice in the near future. Will wait to discuss with family. Would consult manager social media to help in this process. Hyperkalemia: patient given medication in the ER. Will continue monitor closely. will correct Elevated cardiac enzymes- likely secondary to demand ischemia. Will trend. History of chronic respiratory failure-continue O2 support and breathing treat ments, will resume all medications once verified Type 2 diabetes mellitus- will start patient on Accu-Cheks a.c. HS, diabetic diet Peg tube feeds: will resume, check residuals, keep it elevated above 30, aspiration precautions. Will start DVT prophylaxis chronic renal failure stage 3: will hold off on IV fluids for now due to patient's shortness of breath, will monitor renal function History of CVA with residual left side weakness: fall precautions Essential hypertension: resume all medications, monitor blood pressure Mild dementia: will review home medications, provide medication for agitation if needed Discharge Plan: Snf Plan to discharge in: 72 Hours - Advance Directives Does patient have a Living Will: Yes Does patient have a Durable POA for Healthcare: No - Code Status/Comfort Care Code Status Assessed: Yes (Patient DNR as per NH. Will readdress with family) Time Spent Managing Pts Care (In Minutes): 355 <Jamey Rich - Last Filed: 01/11/20 13:42> - Plan Discussed with plan of care with PA. Agree with plan. Patient examined. Meds reviewed. Spoke to son. Discussed advanced directives and advanced care planning. Patient is DNR. Spoke if conditions worsens may need to consider Hosp ice. Will monitor for possible UTI. Time Spent Managing Pts Care (In Minutes): 55 <Christophe Phan - Last Filed: 01/11/20 18:42>
[2020-01-11] MEDS ORDERED: GLUCAGON 1 MG/VIAL IM PRN (14:30)
[2020-01-11] MEDS ORDERED: D50W 25 GM/50 ML SYRINGE/VIAL IV PRN (14:30)
[2020-01-11 16:00] VITALS: BMI 22.1
[2020-01-11] MEDS: INSULIN -REGULAR HUMAN 50 UNIT/0.5 ML ML SQ SCH ×2 (16:30→20:38)
[2020-01-11] MEDS ORDERED: GABAPENTIN 250 MG PO SCH (21:00)
[2020-01-11] MEDS ORDERED: allopurinoL 100 MG TAB PO SCH (21:00)
[2020-01-11] MEDS ORDERED: ATORVASTATIN 10 MG TAB PO SCH (21:00)
[2020-01-11] MEDS ORDERED: ASCORBIC ACID 500 MG TABLET PO SCH (21:00)
[2020-01-11] MEDS ORDERED: HOME MED 1 EA UNK (Leflunomide [Leflunomide] 20 MG) PO SCH (21:00)
[2020-01-11] MEDS ORDERED: SULFASALAZINE 500 MG E.C. TAB PO SCH (21:00)
[2020-01-11] MEDS ORDERED: HEPARIN 5000 UNIT/ML 1 ML VIAL SQ SCH (21:00)
[2020-01-11] MEDS ORDERED: ARFORMOTEROL TARTRATE 15 MCG/2 ML VIAL.NEB IH SCH (21:00)
[2020-01-11] MEDS ORDERED: GLUCERNA 1.2 CAL 1,000 ML BOT FT SCH (21:00)
[2020-01-11] MEDS ORDERED: PIPER/TAZO/NS 3.375gm 3.375 GM/100 ML BAG IVPB SCH (21:00)
[2020-01-11] MEDS ORDERED: CARBOXYMETHYLCELLULOSE SODIUM OP SCH (21:00)
[2020-01-12] MEDS ORDERED: ALBUMIN HUMAN 25% 100 ML IV ONE (00:45)
[2020-01-12] MEDS ORDERED: FUROSEMIDE 40 MG/4 ML VIAL IV ONE (00:45)
[2020-01-12] MEDS ORDERED: HYDROCORTISONE SUC 100 MG INJ IV ONE (01:01)
[2020-01-12 01:41] VITALS: TEMP 96.5
[2020-01-12 02:17] VITALS: O2SAT 87
[2020-01-12 02:21] VITALS: BP 89/48
--- NOTE | 2020-01-12 02:45 | P.PN ---
Date of Service: 01/12/20 Notified by nursing staff that patient continued to decline. Patient was not interacting well. She had a large bowel movement and afterwards she became more lethargic. She also became hypoxic in her oxygen saturations were 70% and she was placed on a non-rebreather. Her sats came up to 90%. We attempted to diurese her, but she is continuing to decline. I spoke to son and told him about her poor prognosis. He will be on his way to visit with her. He understands that her wishes were not to be resuscitated. Continue with current plan of care at this time.
--- NOTE | 2020-01-12 05:38 | P.DS ---
Discharge Date: 01/12/20 Disposition: Discharge Condition: Reason for Admission: Aspiration pneumonia/hyperkalemia Vital Signs/Physical Exam: Temp Pulse Resp BP Pulse Ox 96.5 F L 101 H 28 H 89/48 L 53 L 01/12/20 00:00 01/12/20 01:30 01/12/20 01:30 01/12/20 01:30 01/12/20 01:30 Laboratory Data at Discharge: WBC 10.2 K/uL (4.3-10.9) D 01/11/20 09:35 Hgb 11.3 g/dL (12.0-15.0) L 01/11/20 09:35 Hct 35.7 % (36.0-45.0) L 01/11/20 09:35 Plt Count 350 K/uL (152-406) 01/11/20 09:35 PT 15.0 SECONDS (9.5-12.5) H 01/11/20 09:35 INR 1.28 01/11/20 09:35 APTT 35.7 SECONDS (24.3-36.9) 01/11/20 09:35 Sodium 135 mmol/L (136-145) L 01/11/20 09:35 Potassium 5.9 mmol/L (3.5-5.1) H* 01/11/20 09:35 BUN 50 mg/dL (7-18) H 01/11/20 09:35 Creatinine 1.44 mg/dL (0.55-1.3) H 01/11/20 09:35 Glucose 219 mg/dL (74-106) H 01/11/20 09:35 Total Bilirubin 0.6 mg/dL (0.2-1.0) 01/11/20 09:35 AST 471 U/L (15-37) H* D 01/11/20 09:35 ALT 196 U/L (12-78) H D 01/11/20 09:35 Alkaline Phosphatase 250 U/L (45-117) H D 01/11/20 09:35 Amylase 105 U/L (25-115) 01/11/20 09:35 Lipase 107 U/L (73-393) 01/11/20 09:35 Home Medications: Acetaminophen 500 mg PO TID PRN 01/11/20 Albuterol Sulfate [Albuterol Sulfate 0.083% Neb Soln] 3 ml IH [id number] PRN 01/11/20 Allopurinol 100 mg PO BID 01/11/20 Arformoterol Tartrate [Brovana] 1 unit IH BID 01/11/20 Ascorbic Acid 500 mg PO BID 01/11/20 Aspirin [Aspirin EC 81 MG] 81 mg PO DAILY 01/11/20 Azithromycin Tab [Zithromax*] 250 mg PO DAILY 01/11/20 Carboxymethylcellulose Sodium [Artificial Tears] 2 drops OP QID 01/11/20 Clopidogrel Bisulfate [Plavix] 75 mg PO DAILY 01/11/20 Ferrous Sulfate 220 mg PO DAILY 01/11/20 Gabapentin 250 mg PO BID 01/11/20 Glipizide [Glipizide ER] 5 mg PO BID 01/11/20 Guaifenesin/Codeine Phosphate [Guaiatussin AC Liquid] 10 ml PO Q6HP PRN 01/11/20 Leflunomide 20 mg PO BEDTIME 01/11/20 Linagliptin [Tradjenta] 1 tab PO DAILY 01/11/20 Metoprolol Tartrate 25 mg PO BID 6AM 6PM 01/11/20 Pantoprazole Sodium [Protonix] 40 mg PO DAILY 01/11/20 Pravastatin Sodium [Pravachol] 40 mg PO BEDTIME 01/11/20 Tramadol HCl [Ultram] 50 mg PO Q6HP PRN 01/11/20 sulfaSALAzine [Sulfasalazine] 2 tab PO BID 01/11/20 Patient Discharge Instructions: Patient at approximately 2:40 a.m.
[2020-01-12] MEDS ORDERED: METOPROLOL TAR 25 MG TAB PO SCH (06:00)
--- NOTE | 2020-01-12 06:46 | EKG ---
Test Date: 2020-01-11 Test Time: 09:23:28 [employer]apper: BP MEASUREMENT RESULTS: Intervals: Rate: 100 VA: 140 QRSD: 126 QT: 360 QTc: 464 [place]: P: 34 VA: 140 QRS: 73 T: -48 INTERPRETIVE STATEMENTS: Sinus rhythm with frequent and consecutive premature ventricular complexes and fusion complexes Right bundle branch block T wave abnormality, consider inferior ischemia Abnormal ECG Compared to ECG 11/24/2019 10:30:06 Fusion complex(es) now present Right bundle-branch block now present Sinus tachycardia no longer present Atrial premature complex(es) no longer present Incomplete right bundle-branch block no longer present Right ventricular hypertrophy no longer present Early repolarization no longer present T-wave abnormality still present Possible ischemia still present Electronically Signed On 01-12-20 06:45:50 CDT by Kei Bravo
[2020-01-12] MEDS ORDERED: HYDROCORTISONE SUC 100 MG INJ IV SCH (09:00)
[2020-01-12] MEDS ORDERED: ENOXAPARIN 60 MG/0.6 ML SQ SCH ×2 (09:00)
[2020-01-12] MEDS ORDERED: FAMOTIDINE 20 MG/2 ML VIAL IV SCH (09:00)
[2020-01-12] MEDS ORDERED: ASPIRIN 81 MG CHEWABLE TABLET PO SCH (09:00)
[2020-01-12] MEDS ORDERED: PANTOPRAZOLE 40MG TABLET PO SCH (09:00)
[2020-01-12] MEDS ORDERED: CLOPIDOGREL 75 MG TABLET PO SCH (09:00)
== END 2020-01-12 08:00 | disposition expired | DRG 177 ==
LOC: ER 09:11 → ERHOLD 11:28 → 2ND 13:32
PROVIDERS: ADMIT Family Medicine; ATTEND Family Medicine
PROC: 8E0ZXY6 Isolation (ICD-10-PCS; principal; 2020-01-11)
DX: J69.0 Pneumonitis due to inhalation of food and vomit (principal); J96.21 Acute and chronic respiratory failure with hypoxia; N17.9 Acute kidney failure, unspecified; I69.354 Hemiplegia and hemiparesis following cerebral infarction affecting left non-dominant side; I24.8 Other forms of acute ischemic heart disease; I25.10 Atherosclerotic heart disease of native coronary artery without angina pectoris; E11.22 Type 2 diabetes mellitus with diabetic chronic kidney disease; Z66 Do not resuscitate; N18.3 Chronic kidney disease, stage 3 (moderate); I12.9 Hypertensive chronic kidney disease with stage 1 through stage 4 chronic kidney disease, or unspecified chronic kidney disease; Z93.1 Gastrostomy status; E78.5 Hyperlipidemia, unspecified; Z79.82 Long term (current) use of aspirin; Z79.02 Long term (current) use of antithrombotics/antiplatelets; Z79.84 Long term (current) use of oral hypoglycemic drugs; Z79.899 Other long term (current) drug therapy; E87.5 Hyperkalemia; F03.90 Unspecified dementia, unspecified severity, without behavioral disturbance, psychotic disturbance, mood disturbance, and anxiety; Z20.828 Contact with and (suspected) exposure to other viral communicable diseases
CPT/HCPCS: 36415; 51702; 71045; 80048; 80053; 80076; 81015; 82150; 82550; 82553; 82947; 83605; 83690; 84145; 84484; 85025; 85610; 85730; 87040; 87070; 87077; 87086; 87088; 87186; 87205; 93005; 96365; 96366; 96367; 96375; 99285; J0610; J0696; J1644; J1720; J1940; J2543; J3370; J7605; P9047